=== PATIENT | female | born 1965 | race Hispanic/Latino ===

== ENCOUNTER 2017-08-27 09:41 | Observation (INO) | payer SELFPAY ==
[2017-08-27 10:19] LABS: #Basophils 0.1 thou/uL (0.0-0.2); #Eosinphils 0.3 thou/uL (0.0-0.7); #Lymphocytes 2.5 thou/uL (1.20-3.40); #Monocytes 0.5 thou/uL (0.11-0.59); #Neutrophils 4.4 thou/uL (1.40-6.50); %Eosinophils 4.2 % (0.0-10.0); %Lymphocytes 31.8 % (21.0-51.0); %Monocytes 6.7 % (0.0-10.0); Hematocrit 40.7 % (36.0-47.0); Mean Platelet Volume 8.5 fL (7.4-10.4); Red Blood Cell (RBC) Count 4.86 mill/uL (4.20-5.40); White Blood Cell (WBC) Count 7.8 thou/uL (4.8-10.8)
--- NOTE | 2017-08-27 10:22 | RAD ---
PORTABLE CHEST: Date: 08-27-17 Time: 10:00 a.m. History: Chest pain. FINDINGS: The heart size is normal. No confluent areas of consolidation, pneumothorax, jhony pleural edema or pleural effusions are seen. IMPRESSION: No radiographic evidence of acute cardiopulmonary process. POS: OFF
[2017-08-27 10:44] LABS: ALT (SGPT) 22 U/L (8-55); AST (SGOT) 18 U/L (5-34); Alkaline Phosphatase 128 U/L (40-150); Anion Gap 16 mmol/L (10-20); BUN (Urea Nitrogen) 12 mg/dL (7.0-18.7); Bilirubin, Total 0.4 mg/dL (0.2-1.2); CK (CPK) 30 U/L (29-168); Calc. Creatinine Clearance 0 mL/min (70-130); Calcium 9.8 mg/dL (7.8-10.44); Carbon Dioxide 22 mmol/L (22-29); Chloride 105 mmol/L (98-107); Estimated GFR-MDRD 86; Globulin 3.9 g/dL (2.4-3.5); Lipase 41 U/L (8-78); Protein, Total 8.3 g/dL (6.0-8.3)
[2017-08-27 10:49] LABS: Troponin I Less than 0.010 ng/mL (< 0.028)
--- NOTE | 2017-08-27 10:54 | CT ---
CT OF THE THORAX UTILIZING IV CONTRAST AND 3D REFORMATTED IMAGING AND PE PROTOCOL: COMPARISON: Prior exam dated 07/18/15. FINDINGS: No central or segmental pulmonary embolus is evident. There are mild vascular calcifications involv ing the thoracic aorta. No pathologically enlarged lymph nodes are evident. There are patchy opaci ties seen within the left lower lobe which may reflect subsegmental volume loss; however, early pneu monia cannot be entirely excluded. There is a stable 4 mm pulmonary nodule within the right lower l obe. No new pulmonary nodule is evident. Visualized upper abdomen demonstrates stable splenic artery aneurysm measuring 1.3 cm within the upp er abdomen. No definite acute osseous abnormality is evident. There is scattered degenerative and osteoarthriti c change. IMPRESSION: 1. No central or segmental pulmonary embolus. 2. Patchy ground-glass opacity in the left lower lobe may reflect subsegmental atelectasis; however , early pneumonia cannot be excluded. 3. Benign 4 mm right lower lobe pulmonary nodule. 4. Stable splenic artery aneurysm. POS: STONE
[2017-08-27] MEDS ORDERED: Nitroglycerin 2% Ointment 1 INCH/1 GM Packet ONE (11:15)
--- NOTE | 2017-08-27 12:47 | HP ---
PRIMARY CARE PHYSICIAN: [facility]. REASON FOR ADMISSION: Chest pain/epigastric pain. HISTORY OF PRESENT ILLNESS: A 52-year-old female with a history of diabetes type 2, hypertension, g astroesophageal reflux disease, anxiety and depression, who came to emergency room for complaint of epigastric/substernal chest pain. The patient reports that pain started on Saturday. She was feeli ng nausea, but no vomiting. Predominantly, she has a sharp epigastric pain which radiates to back. She denies any vomiting. She denies any hematemesis, melena or hematochezia. She denies any diarr hea. With movement and with deep breathing, the patient reports that her pain gets worse. When she presented to emergency room, she was hemodynamically stable. In the emergency room, given pleuritic nature, they did CT angio which was negative for pulmonary embolism. Her all routine bloo d tests including CBC, BMP, cardiac enzyme, and BNP came back to normal. Her lipase was also surpri singly normal. Her intensity of pain is about 7/10 when I saw this patient in the emergency room, but she reports t hat whenever she gets sharp pain, the intensity goes to up to 10. After emergency room treatment, t he patient's pain is little bit better, but still she was uncomfortable. She denies any fever. She denies any chills. She denies any UTI symptoms. She does report dyspnea on exertion. Patient reports that she still has her gallbladder in and she never had any stress te st. REVIEW OF SYSTEMS: The following complete review of systems was negative, unless otherwise mentione d in the HPI or below: Constitutional: Weight loss or gain, ability to conduct usual activities. Skin: Rash, itching. Eyes: Double vision, pain. ENT/Mouth: Nose bleeding, neck stiffness, pain, tenderness. Cardiovascular: Palpitations, dyspnea on exertion, orthopnea. Respiratory: Shortness of breath, wheezing, cough, hemoptysis, fever or night sweats. Gastrointestinal: Poor appetite, abdominal pain, heartburn, nausea, vomiting, constipation, or diar tanner. Genitourinary: Urgency, frequency, dysuria, nocturia. Musculoskeletal: Pain, swelling. Neurologic/Psychiatric: Anxiety, depression. Allergy/Immunologic: Skin rash, bleeding tendency. Please see my HPI for pertinent positive and negative. All other review of systems reviewed and neg ative except as mentioned in the HPI. PAST MEDICAL HISTORY: Diabetes type 2, hypertension, dyslipidemia, seizure disorder, mild intermitt ent asthma, history of CVA, and obesity. PAST PSYCHIATRIC HISTORY: Anxiety, depression, and bipolar disorder. PAST SURGICAL HISTORY: Tubal ligation, cyst removed in bilateral axilla, cerebral angiography surge ry on left shoulder and middle finger of the left hand. SOCIAL HISTORY: Patient is not working. She lives at home with the family. No history of tobacco, alcohol or illicit drug abuse. FAMILY HISTORY: No strong family history of premature coronary artery disease, stroke or cancer. ALLERGIES: No known drug allergies. CURRENT HOME MEDICATIONS: The patient does not have any medication with her at this point and she d id not bring all medication, so she reports that there is no change in her previous medication from hospitalization. Based on that record, the patient is on following medications: Ventolin nebulizat ion q.6 hourly p.r.n., amlodipine 5 mg p.o. daily, aspirin 81 mg p.o. daily, Lipitor 10 mg p.o. maría y every hour 2 puff inhalation b.i.d., Neurontin 600 mg t.i.d., Levemir insulin 50 units subcu b.i.d ., Victoza 0.6 mg subcu daily, lisinopril 40 mg p.o. daily, omeprazole 40 mg p.o. daily, tramadol 25 mg p.o. daily. CONTRAINDICATIONS: None. EMERGENCY ROOM COURSE: Patient is given aspirin 325 mg and nitro patch. PHYSICAL EXAMINATION: VITAL SIGNS: On arrival, blood pressure 149/111, pulse 87, respiratory rate 22, temperature 97.8, s aturation 97% on room air, weight 85.7 kilograms. GENERAL: The patient is currently distressed due to abdominal/epigastric and chest discomfort. HEAD: Normocephalic, atraumatic. EYES: Pupils round, reactive to light. Extraocular muscle intact. ENT: Oropharynx within normal limits. Moist mucous membranes. No oral lesions. No pharyngeal roberto thema, no exudate. NECK: Supple. Range of motion is normal. No meningeal signs of irritation. LUNGS: Clear to auscultation without any rhonchi or rales. CARDIAC: S1 and S2 regular without any murmur. CHEST: Chest wall, patient does have vague reproducible chest discomfort, no Noble's sign, no orga nomegaly, no suprapubic tenderness. BACK: Examination unremarkable, no CVA tenderness. EXTREMITIES: Upper extremity passive movements of all joints are normal. Lower extremity, no edema . Good peripheral pulsation. SKIN: No skin rash. HEMATOLOGICAL SYSTEM: No lymphadenopathy. PSYCHIATRIC: Normal affect. IMAGING AND SIGNIFICANT LABORATORY DATA: 1. EKG based on my review reveals normal sinus rhythm without any acute ischemic changes. No schaefer e from previous. CT angiography negative for pulmonary embolism. Chest x-ray negative for any acut e cardiopulmonary process. Recently, echocardiography was done which showed normal EF. 2. CBC: WBC 7.8, hemoglobin 14.0, platelet 295. 3. BMP: Sodium 139, potassium 4.0, chloride 105, carbon dioxide 22, BUN 12, creatinine 0.72, gluco se 189, calcium 9.8. 4. LFT: AST 18, ALT 22, alkaline phosphatase 128, albumin 4.4, lipase 41. CK 30, CK-MB 0.5, tropo katie I less than 0.010, BNP less than 10. ASSESSMENT AND PLAN/IMPRESSION: 1. Acute chest pain/epigastric pain. This patient has some reproducible pain and she had esophagog astroduodenoscopy done in 04/2017, which showed erosive esophagitis with a small hiatal hernia. Giv en her epigastric location of pain, most likely patient has a gastrointestinal etiology. At this po int, I will treat with Protonix 40 mg p.o. b.i.d. and Maalox p.r.n. basis. I will also give her a G I cocktail. Will do serial cardiac enzymes to rule out acute coronary syndrome. This patient never had any cardiac workup including stress test in our hospital. For benefit of doubt, we will also p erform stress test given her risk factor including hypertension, stroke, diabetes. We will check li pid profile tomorrow morning for risk stratification. Meanwhile, we will continue with aspirin 325 mg p.o. daily, nitro patch q.8 hourly. We will keep n.p.o. after midnight for stress test. Diabeti c diet will be given today. 2. Mild intermittent asthma. We will continue albuterol, Ventolin nebulization q.6 hourly p.r.n., and Dulera 2 puffs inhalation b.i.d. 3. Hypertension. We will continue amlodipine 5 mg p.o. daily along with nitro patch q.8 hourly. W e will also continue lisinopril 40 mg p.o. daily if blood pressure permits. 4. Dyslipidemia. We will check lipid profile tomorrow and continue Lipitor 10 mg p.o. daily. 5. Diabetes type 2, insulin requiring. We will continue Levemir 50 units subcutaneously b.i.d., Hu malog insulin as per sliding scale per protocol. Diabetic diet will be given. 6. Diabetic neuropathy/chronic pain disorder. We will continue gabapentin 600 mg t.i.d. as per her home dosage. 7. History of esophagitis as well as history of hiatal hernia and esophageal reflux disease. As me ntioned above, we will continue Protonix 40 mg p.o. b.i.d. 8. Deep venous thrombosis prophylaxis not needed because we are expecting discharge in 24 hours. 9. Gastrointestinal prophylaxis. Patient is already on Protonix therapy. 10. Code status: The patient is FULL CODE. Patient does not have any surrogate decision maker. Disposition and plan based on clinical course. We are expecting patient's stay in hospital 24 hours . During this admission, we will also do right upper quadrant ultrasound to rule out any gallbladde r pathology.
[2017-08-27] MEDS ORDERED: Ondansetron HCl/PF 4 MG/2 ML Vial IVP PRN ×2 (13:06→13:16)
[2017-08-27] MEDS ORDERED: Ondansetron ODT 4 MG TAB PO PRN ×2 (13:06→13:16)
[2017-08-27] MEDS ORDERED: Loratadine 10 MG TAB PO PRN (13:16)
[2017-08-27] MEDS ORDERED: Senokot 8.6 MG TAB PO PRN (13:16)
[2017-08-27] MEDS ORDERED: Acetaminophen 325 MG TAB PO PRN (13:16)
[2017-08-27] MEDS ORDERED: Zolpidem Tartrate 5 MG TAB PO PRN (13:16)
[2017-08-27] MEDS ORDERED: Mag-Al 1200 mg/1200 mg/30 ML UDCUP PO PRN (13:16)
[2017-08-27] MEDS ORDERED: Loperamide HCl 2 MG CAP PO PRN (13:16)
[2017-08-27] MEDS ORDERED: Artificial Tear Sol 15 ML BOT EA EYE PRN (13:16)
[2017-08-27] MEDS ORDERED: Milk Of Magnesia 30 ML UDCUP PO PRN (13:16)
[2017-08-27] MEDS ORDERED: Eucerin (Mineral Oil/Petrolatum,White) 30 gm Jar TOP PRN (13:16)
[2017-08-27] MEDS ORDERED: Sodium Chloride 0.65% Nasal 44 ML BOT EA NARE PRN (13:16)
[2017-08-27] MEDS ORDERED: HumaLOG 300 UNITS/3 ML VIAL SC PRN ×2 (13:16)
[2017-08-27] MEDS ORDERED: Dextrose 50% Abboject 50 ML SYRINGE SLOW IVP PRN (13:16)
[2017-08-27] MEDS ORDERED: Lorazepam 1 MG TAB PO PRN (13:16)
[2017-08-27] MEDS ORDERED: Nitroglycerin 0.4 MG TAB (25 Tab Bottle) SL PRN (13:16)
[2017-08-27] MEDS ORDERED: Albuterol Sulfate 2.5 mg/3 ml Neb NEB PRN (13:16)
[2017-08-27] MEDS ORDERED: Calcium Carbonate 500 MG ChewTAB PO PRN (13:16)
[2017-08-27] MEDS ORDERED: Dextrose 5% in Water 1,000 ML IV PRN (13:16)
[2017-08-27] MEDS ORDERED: Diabetic Tussin 200 MG/10 ML UDCUP PO PRN (13:16)
[2017-08-27 13:20] VITALS: BMI 30.3
[2017-08-27] MEDS: HYDROcodone/Acetaminophen 10/325 mg Tablet PO PRN ×2 (14:03→19:46)
[2017-08-27] MEDS: Nitroglycerin 2% Ointment 1 INCH/1 GM Packet TOP SCH ×2 (14:05→21:38)
[2017-08-27] MEDS: Gabapentin 300 MG CAP PO SCH ×2 (14:05→19:47)
[2017-08-27] MEDS ORDERED: rOPINIRole HCl 2 MG TAB PO PRN (14:14)
[2017-08-27] MEDS ORDERED: Lidocaine 2% Viscous Solution 10 ML, Aluminum & Magnesium Hydroxide 30 ML SSW SCH ×2 (14:30)
[2017-08-27 15:03] LABS: Troponin I Less than 0.010 ng/mL (< 0.028)
[2017-08-27] MEDS ORDERED: FLU VACC QS2017-18 36 mo. & older 0.5 ML SYRINGE IM ONE (15:30)
[2017-08-27] MEDS ORDERED: ISOVUE-370 76%-LOCM 1 ML ONE (16:37)
--- NOTE | 2017-08-27 17:15 | ULT ---
RIGHT UPPER QUADRANT ULTRASOUND: Date: 08-27-17 History: Epigastric abdominal pain. FINDINGS: Limited visualized portions of the pancreas, visualized portions of the IVC, gallbladder, and right kidney demonstrate a normal sonographic appearance. The right kidney measures 11.5 cm in length. Common duct measures 0.5 cm in diameter which is within normal limits. There is increased echogenicity of the liver suggesting fatty infiltration. No focal hepatic lesion is seen. IMPRESSION: 1. Mild fatty infiltration of the liver. 2. No gallbladder calculi are seen. POS: OFF
[2017-08-27 18:08] LABS: Troponin I Less than 0.010 ng/mL (< 0.028)
[2017-08-27] MEDS: Mometasone/Formoterol 120 PUFF INHALER INH SCH (18:48)
[2017-08-27] MEDS ORDERED: Atorvastatin Calcium 10 MG TAB PO SCH (21:00)
[2017-08-27] MEDS ORDERED: ADMIXTURE FEE SC SCH (21:00)
[2017-08-27] MEDS ORDERED: INSULIN DETEMIR SC SCH (21:00)
[2017-08-28] MEDS: Nitroglycerin 2% Ointment 1 INCH/1 GM Packet TOP SCH ×2 (04:36→11:38)
[2017-08-28] MEDS: Mometasone/Formoterol 120 PUFF INHALER INH SCH (06:34)
[2017-08-28] MEDS: HYDROcodone/Acetaminophen 10/325 mg Tablet PO PRN (08:45)
[2017-08-28] MEDS ORDERED: INSULIN DETEMIR SC SCH (09:00)
[2017-08-28] MEDS ORDERED: ADMIXTURE FEE SC SCH (09:00)
[2017-08-28] MEDS ORDERED: Aspirin 325 MG TAB PO SCH (09:00)
[2017-08-28 11:26] VITALS: BP 129/64; TEMP 97.7
[2017-08-28] MEDS: Gabapentin 300 MG CAP PO SCH (11:37)
--- NOTE | 2017-08-28 11:56 | PDOC.PN ---
- Subjective Encounter Start Date: 08/28/17 Encounter Start Time: 11:54 Patient seen and examined. No new complaints. No overnight events - Objective Resuscitation Status: Resuscitation Status FULL:Full Resuscitation MAR Reviewed: Yes Vital Signs & Weight: Vital Signs (12 hours) Temp Pulse Resp BP Pulse Ox 08/28/17 11:37 80 08/28/17 10:45 97.7 F 80 16 129/64 98 08/28/17 07:25 98.0 F 67 16 134/71 97 08/28/17 06:36 100 08/28/17 06:34 65 16 100 08/28/17 04:05 97.9 F 72 14 114/57 L 98 08/28/17 00:50 65 16 117/57 L 96 Weight Weight 193 lb 14.4 oz I&O: 08/27/17 08/28/17 08/29/17 06:59 06:59 06:59 Intake Total 3200 Output Total 2600 Balance 600 Result Diagrams: 08/27/17 10:02 08/27/17 10:02 Additional Labs: Accuchecks 08/28/17 08/28/17 08/27/17 10:53 06:00 19:46 POC Glucose 237 H 182 H 237 H 08/27/17 15:14 POC Glucose 78 Phys Exam - Physical Examination Constitutional: NAD HEENT: PERRLA Neck: no JVD Respiratory: no wheezing Cardiovascular: no significant murmur Gastrointestinal: non-tender Musculoskeletal: pulses present Neurological: moves all 4 limbs Psychiatric: A&O x 3 Dx/Plan (1) Chest pain Code(s): R07.9 - CHEST PAIN, UNSPECIFIED Status: Acute (2) Asthma Code(s): J45.909 - UNSPECIFIED ASTHMA, UNCOMPLICATED Status: Acute (3) Erosive esophagitis Code(s): K22.10 - ULCER OF ESOPHAGUS WITHOUT BLEEDING Status: Acute (4) Acute ischemic left MCA stroke Code(s): I63.512 - CEREB INFRC D/T UNSP OCCLS OR STENOS OF LEFT MID CEREB ART Status: Acute (5) DM2 (diabetes mellitus, type 2) Status: Chronic Qualifiers: (6) HTN (hypertension) Code(s): I10 - ESSENTIAL (PRIMARY) HYPERTENSION Status: Chronic Qualifiers: (7) Seizure disorder Code(s): G40.909 - EPILEPSY, UNSP, NOT INTRACTABLE, WITHOUT STATUS EPILEPTICUS Status: Chronic - Plan * us gall bladder showed no stones * f/u stress test results
[2017-08-28] MEDS ORDERED: Regadenoson 0.4 MG/5 ML SYRINGE ONE (12:00)
[2017-08-28] MEDS ORDERED: Lidocaine 2% Viscous Solution 10 ML, Aluminum & Magnesium Hydroxide 30 ML SSW SCH ×2 (12:30)
--- NOTE | 2017-08-28 13:01 | NM ---
MYOCARDIAL PERFUSION EVALUATION: INDICATIONS: Chest pain. RADIOPHARMACEUTICAL: Technetium 99m sestamibi 31 millicuries IV with stress. Technetium 99m sestamibi 9.8 millicuries IV with rest. FINDINGS: No reversible myocardial perfusion defect is evident when comparing the rest and stress images. The re is normal wall motion and thickening. LVEF is estimated at 65%. Exam is reviewed from 04/30/2009. No appreciable change is noted. IMPRESSION: No evidence of reversible myocardial ischemia. Estimated left ventricular ejection fraction is 65%. POS: STONE
--- NOTE | 2017-08-28 13:15 | DIS ---
DATE OF ADMISSION: 08/27/2017 DATE OF DISCHARGE: 08/28/2017 DIAGNOSES ON DISCHARGE: 1. Chest pain, noncardiac in origin, most probably secondary to erosive esophagitis. 2. Diabetes, stable. 3. Hypertension, stable. 4. Hyperlipidemia, stable. 5. History of seizure, stable. 6. History of cerebrovascular accident, stable. 7. Obesity, patient has been counseled. 8. Erosive esophagitis, stable. 9. Asthma, stable. 10. History of some diabetic neuropathy. 11. Chronic pain disorder. Continue gabapentin. DISCHARGE MEDICATIONS: The patient's discharge medications are the same as admit medications. PROCEDURES PERFORMED: Patient's studies done this hospital stay was a stress test, which showed an ejection fraction of 65%, had no evidence of ischemia. Ultrasound of the gallbladder was done, whic h showed mild fatty infiltration, no gallstones. The patient also had a CTA, which showed no pulmon nabil embolism and showed a benign 4 mm pulmonary nodule. BRIEF HOSPITAL COURSE: This is a 52-year-old pleasant lady who came into the hospital with chest pa in. Please refer to the admitting physician's H\T\P for further details. The patient, as mentioned above, had a CT angio, which was negative for pulmonary embolism; had a stress test, which was nega tive for ischemia and an ejection fraction of 65%. Gallbladder did not show any stones. The patien t's chest pain was probably secondary to noncardiac causes like erosive gastritis. She is again adv ised to follow up with PCP and a GI as an outpatient. She is asked to come back to the emergency ro om if symptoms recur. She is right now medically stable to be discharged. Total time for this discharge took 35 minutes.
== END 2017-08-28 16:27 | disposition home or self-care (01) ==
LOC: ERS 09:41 → 2SW 11:52
PROVIDERS: ADMIT Internal Medicine; ATTEND Internal Medicine
DX: R07.89 Other chest pain (principal); E11.40 Type 2 diabetes mellitus with diabetic neuropathy, unspecified; I10 Essential (primary) hypertension; E78.5 Hyperlipidemia, unspecified; K22.10 Ulcer of esophagus without bleeding; J45.909 Unspecified asthma, uncomplicated; G40.901 Epilepsy, unspecified, not intractable, with status epilepticus; F31.9 Bipolar disorder, unspecified; G89.4 Chronic pain syndrome; E66.9 Obesity, unspecified; Z68.30 Body mass index [BMI] 30.0-30.9, adult; Z91.018 Allergy to other foods; Z79.4 Long term (current) use of insulin; Z79.82 Long term (current) use of aspirin; Z79.891 Long term (current) use of opiate analgesic; Z79.899 Other long term (current) drug therapy; Z86.73 Personal history of transient ischemic attack (TIA), and cerebral infarction without residual deficits
CPT/HCPCS: 36415; 36416; 71010; 71275; 76705; 78452; 80053; 80061; 82553; 83690; 83880; 84484; 85025; 90471; 90682; 93005; 93017; 94664; 96374; A4216; A9500; G0008; G0378; J1815; J2270; J2785; Q2036

== ENCOUNTER 2017-10-30 17:25 | Emergency (ER) | payer SELFPAY ==
[2017-10-30] MEDS ORDERED: HYDROcodone/Acetaminophen 10/325 mg Tablet ONE (19:01)
--- NOTE | 2017-10-30 19:01 | ULT ---
EXAM: RIGHT LOWER EXTREMITY VENOUS ULTRASOUND WITH DOPPLER 10/30/17 HISTORY: Right leg pain. COMPARISON: None. TECHNIQUE: Oglesby scale, color flow, doppler imaging with spectral waveform analysis performed in the right lower extremity venous system. FINDINGS: There is compressibility, presence of flow and augmentation in the common femoral vein, femoral vein, and popliteal vein. Flow in the greater saphenous vein, profunda vein, and posterior tibial vein. In the posterior mid lateral thigh, the region of pain, there is no sonographic abnormality. IMPRESSION: No evidence of thrombus in the right lower extremity deep venous system. POS: STONE
== END 2017-10-30 19:45 | disposition home or self-care (01) ==
LOC: ERS 17:25
DX: M79.651 Pain in right thigh (principal); E78.5 Hyperlipidemia, unspecified; E11.40 Type 2 diabetes mellitus with diabetic neuropathy, unspecified; E66.9 Obesity, unspecified; J45.909 Unspecified asthma, uncomplicated; I10 Essential (primary) hypertension; F31.9 Bipolar disorder, unspecified; F41.9 Anxiety disorder, unspecified; Z79.4 Long term (current) use of insulin; Z79.899 Other long term (current) drug therapy
CPT/HCPCS: 36416

== ENCOUNTER 2018-01-23 18:43 | Emergency (ER) | payer MEDICAID, OTHER, SELFPAY ==
[2018-01-23 20:05] LABS: #Eosinphils 0.1 thou/uL (0.0-0.7); #Monocytes 0.6 thou/uL (0.11-0.59); #Neutrophils 7.2 thou/uL (1.40-6.50); %Basophils 0.3 % (0.0-1.0); %Eosinophils 1.4 % (0.0-10.0); %Lymphocytes 20.1 % (21.0-51.0); %Monocytes 6.3 % (0.0-10.0); %Neutrophils 71.9 % (42.0-75.0); Hemoglobin 13.9 g/dL (12.0-16.0); Mean Corpuscular HGB CONC 35.6 g/dL (32.0-36.0); Mean Corpuscular Hemoglobin 29.5 pg (27.0-31.0); Mean Corpuscular Volume 82.7 fl (81.0-99.0); Mean Platelet Volume 8.5 fL (7.4-10.4); Platelet Count 263 thou/uL (130-400); RBC Distribution Width 11.6 % (11.5-14.5); Red Blood Cell (RBC) Count 4.73 mill/uL (4.20-5.40)
[2018-01-23] MEDS ORDERED: Lidocaine 1% w/Epinephrine 1:100K 20 ML VIAL ONE (20:21)
[2018-01-23 20:24] LABS: Anion Gap 15 mmol/L (10-20); BUN (Urea Nitrogen) 14 mg/dL (7.0-18.7); Calc. Creatinine Clearance 0 mL/min (70-130); Calcium 9.8 mg/dL (7.8-10.44); Carbon Dioxide 24 mmol/L (22-29); Chloride 95 mmol/L (98-107); Estimated GFR-MDRD 64; Glucose 506 mg/dL (70-105); Potassium 4.2 mmol/L (3.5-5.1); Sodium 130 mmol/L (136-145)
== END 2018-01-23 21:53 | disposition home or self-care (01) ==
LOC: ERS 18:43
DX: N75.1 Abscess of Bartholin's gland (principal); E78.5 Hyperlipidemia, unspecified; G40.909 Epilepsy, unspecified, not intractable, without status epilepticus; Z86.73 Personal history of transient ischemic attack (TIA), and cerebral infarction without residual deficits; E11.40 Type 2 diabetes mellitus with diabetic neuropathy, unspecified; E66.9 Obesity, unspecified; I10 Essential (primary) hypertension; F31.9 Bipolar disorder, unspecified; F41.9 Anxiety disorder, unspecified; Z79.4 Long term (current) use of insulin; Z79.899 Other long term (current) drug therapy; Z79.82 Long term (current) use of aspirin
CPT/HCPCS: 36415; 56420; 80048; 85025; 87040; 87070; 87076; 87205; 96374; J2001; J2270

== ENCOUNTER 2018-01-25 08:55 | Inpatient (IN) | payer MEDICAID, OTHER, SELFPAY ==
[2018-01-25 09:50] LABS: #Eosinphils 0.1 thou/uL (0.0-0.7); #Lymphocytes 1.7 thou/uL (1.20-3.40); #Neutrophils 11.2 thou/uL (1.40-6.50); %Eosinophils 0.5 % (0.0-10.0); %Lymphocytes 12.1 % (21.0-51.0); %Monocytes 7.1 % (0.0-10.0); %Neutrophils 80.3 % (42.0-75.0); Hemoglobin 13.9 g/dL (12.0-16.0); Mean Corpuscular HGB CONC 34.8 g/dL (32.0-36.0); Mean Corpuscular Hemoglobin 28.9 pg (27.0-31.0); Mean Platelet Volume 8.2 fL (7.4-10.4); Platelet Count 255 thou/uL (130-400); RBC Distribution Width 11.4 % (11.5-14.5); Red Blood Cell (RBC) Count 4.81 mill/uL (4.20-5.40); White Blood Cell (WBC) Count 13.9 thou/uL (4.8-10.8)
[2018-01-25] MEDS ORDERED: Insulin Regular 300 UNITS/3 ML VIAL ONE (09:55)
[2018-01-25] MEDS ORDERED: Ondansetron HCl/PF 4 MG/2 ML Vial ONE ×2 (09:55→09:56)
[2018-01-25 10:10] LABS: Anion Gap 17 mmol/L (10-20); BUN (Urea Nitrogen) 10 mg/dL (7.0-18.7); Calc. Creatinine Clearance 0 mL/min (70-130); Carbon Dioxide 21 mmol/L (22-29); Chloride 96 mmol/L (98-107); Estimated GFR-MDRD 69; Glucose 411 mg/dL (70-105); Potassium 4.3 mmol/L (3.5-5.1); Sodium 130 mmol/L (136-145)
[2018-01-25 10:21] LABS: Bilirubin Negative (Negative); Blood, Urine Negative (Negative); Clarity CLOUDY (Clear); Glucose, Urine (Dipstick) >=1000 mg/dL (Negative); Leukocyte Small (Negative); Nitrite Negative (Negative); Protein, Urine (Dipstick) Negative (Neg-Trace); Specific Gravity, Urine 1.024 (1.002-1.036); Urobilinogen 0.2 mg/dL (0.2-1.0); pH, Urine 5.5 (5.0-9.0)
[2018-01-25 10:24] LABS: Bacteria/HPF 4+ HPF (None Seen); Hyaline Casts/LPF 0-3 HYALINE CAST LPF (0-3 Hyaline); Pathc Cast-AUWi Flag 0.27 (0-2.49); RBC/HPF None Seen HPF (0-3); Squamous Epithelial 0-3 HPF (0-3); WBC/HPF 21-50 HPF (0-3)
[2018-01-25] MEDS ORDERED: Vancomycin HCl 1.5 GM in Sodium Chloride 0.9% 250 ML 300 ML IVPB SCH (12:00)
[2018-01-25] MEDS ORDERED: cefTRIAXone\\ROCEPHIN 2 GM in Sodium Chloride 0.9% 100 ML IVPB SCH (12:00)
[2018-01-25] MEDS ORDERED: Acetaminophen 500 MG TAB ONE (12:21)
[2018-01-25] MEDS ORDERED: Morphine 2 MG/ML SYRINGE ONE (14:10)
[2018-01-25] MEDS ORDERED: Dextrose 50% Abboject 50 ML SYRINGE SLOW IVP PRN (15:08)
[2018-01-25] MEDS ORDERED: Guaifenesin DM 100-10/5 ML UDCUP PO PRN (15:08)
[2018-01-25] MEDS ORDERED: Dextrose 5% in Water 1,000 ML IV PRN (15:08)
[2018-01-25] MEDS ORDERED: Ondansetron ODT 4 MG TAB PO PRN (15:08)
[2018-01-25] MEDS ORDERED: Enoxaparin Sodium 40 MG/0.4 ML SYRINGE SC SCH (15:30)
[2018-01-25 15:42] VITALS: BMI 29.9
[2018-01-25] MEDS: Sodium Chloride 0.9% 1,000 ML IV SCH (16:00)
[2018-01-25] MEDS: HYDROcodone/Acetaminophen 10/325 mg Tablet PO PRN ×2 (16:30→20:25)
[2018-01-25] MEDS: Famotidine 20 MG TAB PO SCH (20:25)
[2018-01-25] MEDS: Insulin Regular 300 UNITS/3 ML VIAL SC PRN (22:21)
[2018-01-25] MEDS: Ondansetron HCl/PF 4 MG/2 ML Vial IVP PRN (23:36)
[2018-01-26] MEDS: Sodium Chloride 0.9% 1,000 ML IV SCH ×4 (00:07→21:58)
[2018-01-26] MEDS: Vancomycin HCl 1.25 GM in Sodium Chloride 0.9% 250 ML 250 ML IVPB SCH ×3 (00:07→23:24)
[2018-01-26] MEDS: Acetaminophen 325 MG TAB PO PRN ×2 (00:12→19:52)
[2018-01-26 05:03] LABS: Anion Gap 10 mmol/L (10-20); BUN (Urea Nitrogen) 7 mg/dL (7.0-18.7); Calc. Creatinine Clearance 126 mL/min (70-130); Calcium 8.3 mg/dL (7.8-10.44); Carbon Dioxide 23 mmol/L (22-29); Chloride 102 mmol/L (98-107); Estimated GFR-MDRD 84; Glucose 278 mg/dL (70-105); Potassium 3.5 mmol/L (3.5-5.1); Sodium 131 mmol/L (136-145)
[2018-01-26 05:27] LABS: #Lymphocytes 1.6 thou/uL (1.20-3.40); #Monocytes 0.8 thou/uL (0.11-0.59); #Neutrophils 8.7 thou/uL (1.40-6.50); %Basophils 0.3 % (0.0-1.0); %Eosinophils 0.4 % (0.0-10.0); %Lymphocytes 14.7 % (21.0-51.0); %Monocytes 6.8 % (0.0-10.0); %Neutrophils 77.8 % (42.0-75.0); Mean Corpuscular HGB CONC 35.3 g/dL (32.0-36.0); Mean Corpuscular Hemoglobin 29.5 pg (27.0-31.0); Mean Corpuscular Volume 83.7 fl (81.0-99.0); Mean Platelet Volume 8.3 fL (7.4-10.4); PLT Morphology Comment Appears Adequate; Platelet Count 209 thou/uL (130-400); RBC Distribution Width 11.3 % (11.5-14.5); RBC Morphology Normal; Red Blood Cell (RBC) Count 3.74 mill/uL (4.20-5.40); White Blood Cell (WBC) Count 11.2 thou/uL (4.8-10.8)
[2018-01-26] MEDS: Insulin Regular 300 UNITS/3 ML VIAL SC PRN ×3 (06:27→16:08)
[2018-01-26] MEDS: HYDROcodone/Acetaminophen 10/325 mg Tablet PO PRN ×2 (06:37→11:25)
[2018-01-26] MEDS: Ondansetron HCl/PF 4 MG/2 ML Vial IVP PRN ×2 (06:43→13:34)
[2018-01-26] MEDS: Enoxaparin Sodium 40 MG/0.4 ML SYRINGE SC SCH (08:38)
[2018-01-26] MEDS: Famotidine 20 MG TAB PO SCH ×2 (08:39→19:52)
[2018-01-26] MEDS: cefTRIAXone\\ROCEPHIN 2 GM in Sodium Chloride 0.9% 100 ML IVPB SCH (13:59)
--- NOTE | 2018-01-26 14:00 | PDOC.PN ---
- Subjective Encounter Start Date: 01/26/18 Encounter Start Time: 11:45 Pt with less pain overnight, but starting to have chills. 102.9 last evneing, 101 today, minimla drainage from wound No N/V, no D/C, no CP or SOB. Gram Stain of abscess with GNR seen, UCx with GNR growing. 10 point ROS performed and neg for all systems except as per HPI - Objective Resuscitation Status: Resuscitation Status FULL:Full Resuscitation MAR Reviewed: Yes Vital Signs & Weight: Vital Signs (12 hours) Temp Pulse Resp BP Pulse Ox 01/26/18 11:30 99.5 F 91 20 131/69 95 01/26/18 08:00 101.1 F H 97 32 H 01/26/18 07:20 101.1 F H 97 32 H 139/65 98 01/26/18 03:40 100.0 F H 96 16 128/66 96 Weight Weight 191 lb I&O: 01/25/18 01/26/18 01/27/18 06:59 06:59 06:59 Intake Total 390 1979 Output Total 250 Balance 140 1979 Result Diagrams: 01/26/18 03:59 01/26/18 03:59 Additional Labs: Accuchecks 01/26/18 01/26/18 01/25/18 11:10 05:55 20:55 POC Glucose 231 H 252 H 359 H 01/25/18 16:15 POC Glucose 249 H Radiology Reviewed by me: Yes EKG Reviewed by me: Yes Phys Exam - Physical Examination Constitutional: NAD HEENT: PERRLA, moist MMs, sclera anicteric, oral pharynx no lesions Neck: no nodes, no JVD, supple, full ROM Respiratory: no wheezing, no rales, no rhonchi, clear to auscultation bilateral Cardiovascular: RRR, no significant murmur, no rub Gastrointestinal: soft, non-tender, no distention, positive bowel sounds Musculoskeletal: no edema, pulses present Neurological: non-focal, normal sensation, moves all 4 limbs Lymphatic: no nodes Psychiatric: normal affect, A&O x 3 Skin: no rash, normal turgor, cap refill <2 seconds Deviation from normal: right inginal I&D wound with gauze wick in place. tender , minimal drainage Dx/Plan (1) Abscess of right thigh Code(s): L02.415 - CUTANEOUS ABSCESS OF RIGHT LOWER LIMB Status: Acute Comment: s/p I&D 01/23 in ER, and again on 01/25 in ER. inital grams stain and culture neg to date. repeat with GNR seen on grams stain. CCM with CTX and rocephin for now (2) Asthma Code(s): J45.909 - UNSPECIFIED ASTHMA, UNCOMPLICATED Status: Acute Qualifiers: Asthma severity: unspecified severity Asthma complication type: unspecified (3) DM2 (diabetes mellitus, type 2) Status: Chronic Qualifiers: Diabetes mellitus complication status: without complication Diabetes mellitus assisted insulin use: without assisted use Qualified Code(s): E11.9 - Type 2 diabetes mellitus without complications (4) HTN (hypertension) Code(s): I10 - ESSENTIAL (PRIMARY) HYPERTENSION Status: Chronic Qualifiers: Hypertension type: essential hypertension (5) Seizure disorder Code(s): G40.909 - EPILEPSY, UNSP, NOT INTRACTABLE, WITHOUT STATUS EPILEPTICUS Status: Chronic (6) Sepsis Code(s): A41.9 - SEPSIS, UNSPECIFIED ORGANISM Status: Acute Qualifiers: Sepsis type: sepsis due to unspecified organism Qualified Code(s): A41.9 - Sepsis, unspecified organism (7) UTI (urinary tract infection) Status: Acute Qualifiers: Urinary tract infection type: acute cystitis Hematuria presence: without hematuria Qualified Code(s): N30.00 - Acute cystitis without hematuria Comment: GNR on culture, no symptoms, will continue CCM - Plan * .
[2018-01-26] MEDS: HYDROcodone/Acetaminophen 5/325 mg Tablet PO PRN (16:12)
[2018-01-26] MEDS ORDERED: Promethazine HCl 25 MG/ML VIAL SLOW IVP PRN (20:56)
[2018-01-27] MEDS: Insulin Regular 300 UNITS/3 ML VIAL SC PRN ×3 (05:11→17:02)
[2018-01-27 05:50] LABS: #Basophils 0.1 thou/uL (0.0-0.2); #Eosinphils 0.2 thou/uL (0.0-0.7); #Lymphocytes 1.9 thou/uL (1.20-3.40); #Monocytes 0.6 thou/uL (0.11-0.59); #Neutrophils 4.7 thou/uL (1.40-6.50); %Basophils 0.8 % (0.0-1.0); %Eosinophils 2.3 % (0.0-10.0); %Lymphocytes 25.1 % (21.0-51.0); %Monocytes 8.3 % (0.0-10.0); %Neutrophils 63.4 % (42.0-75.0); Hemoglobin 9.9 g/dL (12.0-16.0); Mean Corpuscular HGB CONC 34.3 g/dL (32.0-36.0); Mean Corpuscular Hemoglobin 28.7 pg (27.0-31.0); Mean Corpuscular Volume 83.9 fl (81.0-99.0); Platelet Count 189 thou/uL (130-400); RBC Distribution Width 11.1 % (11.5-14.5); Red Blood Cell (RBC) Count 3.46 mill/uL (4.20-5.40); White Blood Cell (WBC) Count 7.5 thou/uL (4.8-10.8)
[2018-01-27] MEDS: Sodium Chloride 0.9% 1,000 ML IV SCH ×2 (06:21→17:30)
[2018-01-27 06:45] LABS: Anion Gap 11 mmol/L (10-20); BUN (Urea Nitrogen) 4 mg/dL (7.0-18.7); Calc. Creatinine Clearance 139 mL/min (70-130); Calcium 7.9 mg/dL (7.8-10.44); Carbon Dioxide 23 mmol/L (22-29); Chloride 105 mmol/L (98-107); Estimated GFR-MDRD Greater than 90; Glucose 227 mg/dL (70-105); Potassium 3.5 mmol/L (3.5-5.1); Sodium 135 mmol/L (136-145)
--- NOTE | 2018-01-27 07:28 | HP ---
DATE OF ADMISSION: 01/25/2018 PRIMARY CARE PHYSICIAN: Deborah Salter. CHIEF COMPLAINT: Right leg abscess. HISTORY OF PRESENT ILLNESS: Ms. Gamboa is a pleasant 52-year-old female, who had pres ented to the emergency department originally on 01/23 for right thigh pain and redness. She was foun d to have a small abscess there that was I and D'd. They were able to get some purulence and culture s from the emergency department. She was placed on clindamycin and sent home. At that time, she has been afebrile, and her labs have been normal. She comes back to the emergency department on the day of admission, complains of increased pain, incr eased swelling, and drainage from her wound. She had fever over 102 at home and some nausea with vom iting. She denies any shaking chills or rigors, although she was having them in the ER. No diarrhea or constipation. She had no problems tolerating her clindamycin. Emergency Department, she had a repeat incision and drainage with another 5 mL of purulence removed. Culture was sent again and we were called for admission. She had received vancomycin and Rocephin. Further workup did show her white blood cell count to be elevated at 13.9, she is febrile and tachyca rdic, urine was consistent with a possible UTI. She denied any hematuria, dysuria, or increased freq uency or urgency. PAST MEDICAL HISTORY: 1. Diabetes mellitus, type 2, insulin-dependent. 2. Hyperlipidemia, primary cholesterol. 3. Epilepsy/seizure disorder. 4. Hypertension. 5. Asthma. 6. History of a stroke with left-sided deficits, left upper and lower extremity. 7. Obesity. 8. Peripheral neuropathy. 9. Restless legs syndrome. 10. Bipolar disorder. 11. Anxiety. 12. Depression. PAST SURGICAL HISTORY: 1. Bilateral tubal ligation, remotely. 2. Bilateral axillary cyst removal. She denies any recurrence or symptoms of hidradenitis. 3. Left shoulder surgery. 4. Left long finger surgery. HOME MEDICATIONS: 1. Levemir 45 units subcu b.i.d. 2. Depakote ER 1 gram daily. 3. Gabapentin 300 mg p.o. t.i.d. 4. Xopenex 0.3 mg nebulized as needed. 5. Citalopram 20 mg p.o. daily. 6. Lisinopril/HCTZ 20/25 one tablet daily. 7. Proventil MDI as needed. 8. Requip 2 mg at bedtime. 9. Trazodone 100 mg p.o. at bedtime. 10. Amlodipine 5 mg daily. 11. Victoza 0.6 mg subcu daily. 12. Aspirin 81 mg daily. 13. Lipitor 10 mg at bedtime. 14. Omeprazole 40 mg daily. 15. Trazodone as needed for sleep. 16. Clindamycin 300 mg p.o. q.i.d. ALLERGIES: NKDA. FAMILY HISTORY: Negative for clotting or bleeding disorder, immune dysfunction, or premature coronar y artery disease. SOCIAL HISTORY: Negative habits x3. REVIEW OF SYSTEMS: A 10-point review of systems was performed, negative for all systems except as st ated as per HPI. PHYSICAL EXAMINATION: VITAL SIGNS: Temperature currently 98.6, T-max in the ER 99.7; pulse, initially was 102, now down to 94; blood pressure 136/77; respiratory rate 18; satting 97% on room air. GENERAL: She is awake. She is alert. She is oriented x3. She is a well-developed, well-nourished [place] female. She is having rigors during my evaluation. HEENT: Normocephalic, atraumatic. Pupils are equal, round, and reactive bilaterally. Mucous membra sanaz are moist. She had no visible lesions or thrush. NECK: Supple, without lymphadenopathy, JVD, or thyromegaly. She has no carotid upstrokes without br uits. LUNGS: Clear. CARDIOVASCULAR: Heart sounds are regular. She had no audible murmurs. ABDOMEN: Soft, is nontender, nondistended. No masses and no organomegaly. EXTREMITIES: No cyanosis, no clubbing, no edema. Left medial thigh, she has got some induration and swelling. Right at the inguinal fold, just next to the vulva, she has an incision and drainage site with an iodoform wick. She has got exquisite tenderness around the area, but there is no subcu crep itus and no drainage. She has no muscle tenderness. NEUROLOGIC EXAM: Cranial nerves II-XII are grossly intact. She has some mild left upper and lower e xtremity weakness, but overall has no other focal deficits. SKIN: She has normal speech pattern. MUSCULOSKELETAL EXAM: Normal to inspection. Joints are uninflamed. She has good range of motion. She does not move her left leg well due to pain in the tissues, but not in the joint itself. SKIN: Otherwise, warm, moist, and well perfused without any other rashes or lesions. LABORATORY DATA: Sodium 130, potassium 4.3, chloride 96, bicarbonate 21, BUN 10, creatinine 0.87, gl ucose of 411, and calcium 10.0. Lactic acid normal at 1.5. Liver function within normal limits. CBC showed a white count of 13.9, up from 10.0 two days ago; hemoglobin 13.9; hematocrit 39.9; platel et count is 255,000. She has a normal differential, no bands. Urinalysis showed 4+ bacteria, 20-50 white blood cells, small leukocyte esterase, and negative nitrit e. RADIOGRAPHIC STUDIES: None. A culture from 01/23 is negative so far. Gram stain negative. A repeat culture has been sent. ASSESSMENT AND PLAN: 1. Right inguinal abscess: Status post repeat I and D. She is only on clindamycin. Given the loca tion, certainly gastrointestinal bugs need to be taken into consideration. She was started on vancom ycin and Rocephin in the ER, which I will continue for now. We will follow up on a repeat culture an d Gram stain. 2. Sepsis syndrome: She is tachycardic, febrile, elevated white count, and source of infection. We will go ahead and give her the 30 mL per kilo IV fluids, and watch her closely. 3. Possible urinary tract infection: She has no symptoms, certainly has bacteriuria and pyuria. Th e Rocephin she is on should cover that. We will follow up on the culture. 4. Diabetes mellitus, type 2, independent. Once she is eating reliably, we will restart all of her home medications. 5. Hyperlipidemia. 6. Seizure disorder, on Depakote ER. We will continue. 7. Hypertension, essential. 8. Asthma without acute flare. 9. History of stroke. No current new symptoms. 10. Restless legs syndromes. 11. Peripheral neuropathy. Continue home medications.
[2018-01-27] MEDS: Enoxaparin Sodium 40 MG/0.4 ML SYRINGE SC SCH (08:28)
[2018-01-27] MEDS: Famotidine 20 MG TAB PO SCH ×2 (08:30→20:11)
[2018-01-27] MEDS: HYDROcodone/Acetaminophen 10/325 mg Tablet PO PRN ×3 (09:33→20:11)
[2018-01-27] MEDS: Vancomycin HCl 1.25 GM in Sodium Chloride 0.9% 250 ML 250 ML IVPB SCH ×2 (12:03→23:29)
[2018-01-27] MEDS: Acetaminophen 325 MG TAB PO PRN (12:27)
[2018-01-27] MEDS: cefTRIAXone\\ROCEPHIN 2 GM in Sodium Chloride 0.9% 100 ML IVPB SCH (14:15)
--- NOTE | 2018-01-27 16:23 | PDOC.PN ---
- Subjective Encounter Start Date: 01/27/18 Encounter Start Time: 08:30 - Objective Resuscitation Status: Resuscitation Status FULL:Full Resuscitation MAR Reviewed: Yes Vital Signs & Weight: Vital Signs (12 hours) Temp Pulse Resp BP Pulse Ox 01/27/18 16:00 98.2 F 01/27/18 12:20 99.9 F H 01/27/18 08:00 99.8 F H 82 20 93 L 01/27/18 07:25 99.8 F H 82 20 133/66 93 L Weight Admit Weight 191 lb Weight 191 lb I&O: 01/26/18 01/27/18 01/28/18 06:59 06:59 06:59 Intake Total 390 3960 Output Total 250 Balance 140 3960 Result Diagrams: 01/27/18 05:28 01/27/18 05:28 Additional Labs: Accuchecks 01/27/18 01/27/18 01/27/18 15:57 12:15 05:06 POC Glucose 207 H 271 H 252 H 01/26/18 20:03 POC Glucose 178 H Phys Exam - Physical Examination Constitutional: NAD HEENT: PERRLA, moist MMs, sclera anicteric, oral pharynx no lesions Neck: no nodes, no JVD, supple, full ROM Respiratory: no wheezing, no rales, no rhonchi, clear to auscultation bilateral Cardiovascular: RRR, no significant murmur, no rub Gastrointestinal: soft, non-tender, no distention, positive bowel sounds Musculoskeletal: no edema, pulses present Neurological: non-focal, normal sensation, moves all 4 limbs Lymphatic: no nodes Psychiatric: normal affect, A&O x 3 Skin: no rash, normal turgor, cap refill <2 seconds Deviation from normal: tenderness inches from site, exquisite. no crepitus Dx/Plan (1) Abscess of right thigh Code(s): L02.415 - CUTANEOUS ABSCESS OF RIGHT LOWER LIMB Status: Acute Comment: s/p I&D 01/23 in ER, and again on 01/25 in ER. inital grams stain and culture neg to date. repeat with GNR seen on grams stain. CCM with vanc and rocephin for now (2) Asthma Code(s): J45.909 - UNSPECIFIED ASTHMA, UNCOMPLICATED Status: Acute Qualifiers: Asthma severity: unspecified severity Asthma complication type: unspecified (3) DM2 (diabetes mellitus, type 2) Status: Chronic Qualifiers: Diabetes mellitus complication status: without complication Diabetes mellitus terminal system operator insulin use: without correction use Qualified Code(s): E11.9 - Type 2 diabetes mellitus without complications (4) HTN (hypertension) Code(s): I10 - ESSENTIAL (PRIMARY) HYPERTENSION Status: Chronic Qualifiers: Hypertension type: essential hypertension (5) Seizure disorder Code(s): G40.909 - EPILEPSY, UNSP, NOT INTRACTABLE, WITHOUT STATUS EPILEPTICUS Status: Chronic (6) Sepsis Code(s): A41.9 - SEPSIS, UNSPECIFIED ORGANISM Status: Acute Qualifiers: Sepsis type: sepsis due to unspecified organism Qualified Code(s): A41.9 - Sepsis, unspecified organism (7) UTI (urinary tract infection) Status: Acute Qualifiers: Urinary tract infection type: acute cystitis Hematuria presence: without hematuria Qualified Code(s): N30.00 - Acute cystitis without hematuria Comment: GNR on culture, no symptoms, will continue CCM - Plan * .
[2018-01-27] MEDS ORDERED: ISOVUE-370 76%-LOCM 1 ML ONE (16:24)
[2018-01-27] MEDS ORDERED: Iopamidol 370 76% 50 ML VIAL FS ONE (16:24)
--- NOTE | 2018-01-27 18:12 | CT ---
CT ABDOMEN AND PELVIS WITH IV CONTRAST: Date: 01/27/18 Multiple axial tomograms obtained through the abdomen and pelvis with IV enhancement. Oral contrast w as administered. HISTORY: Right groin abscess. Surgery to remove abscess right groin 1 week ago. Complains of pain since surgery. COMPARISON: CT abdomen from 08/04/17. FINDINGS: Lung bases appear clear. Liver, spleen, and pancreas are unremarkable. Adrenal glands normal. Kidneys unremarkable. No hydrone phrosis. Small bowel loops appear normal. Appendix appears normal. Stool throughout the colon. Uterus and adnexa appear unremarkable. There is evidence of prior tubal ligation. Tiny amount of free fluid in the cul-de-sac. Urinary bladder unremarkable. Haziness and subcutaneous stranding in the perineum on the right which extends to the labia and media l right upper thigh consistent with inflammatory change. This appears to represent edema and inflamma tion. There is no evidence of localized fluid or abscess collection. IMPRESSION: 1. Inflammatory changes in the perineum on the right and involving the proximal right thigh medially and possibly involving the right labia. No evidence of fluid or abscess collection. 2. No acute intra-abdominal process. Tiny amount of free fluid in the cul-de-sac noted. POS: [facility]
[2018-01-27 23:24] LABS: Vancomycin, Trough 9.4 ug/mL
[2018-01-28] MEDS: Sodium Chloride 0.9% 1,000 ML IV SCH ×3 (03:30→23:40)
[2018-01-28] MEDS: Acetaminophen 325 MG TAB PO PRN (03:35)
[2018-01-28 05:48] LABS: #Eosinphils 0.3 thou/uL (0.0-0.7); #Lymphocytes 1.7 thou/uL (1.20-3.40); #Monocytes 0.5 thou/uL (0.11-0.59); #Neutrophils 4.5 thou/uL (1.40-6.50); %Basophils 0.4 % (0.0-1.0); %Eosinophils 4.8 % (0.0-10.0); %Lymphocytes 23.5 % (21.0-51.0); %Monocytes 6.9 % (0.0-10.0); %Neutrophils 64.4 % (42.0-75.0); Hemoglobin 10.1 g/dL (12.0-16.0); Mean Corpuscular HGB CONC 34.1 g/dL (32.0-36.0); Mean Corpuscular Hemoglobin 28.6 pg (27.0-31.0); Mean Corpuscular Volume 83.8 fl (81.0-99.0); Mean Platelet Volume 8.1 fL (7.4-10.4); Platelet Count 226 thou/uL (130-400); RBC Distribution Width 11.3 % (11.5-14.5); Red Blood Cell (RBC) Count 3.52 mill/uL (4.20-5.40)
[2018-01-28 05:55] LABS: Anion Gap 11 mmol/L (10-20); BUN (Urea Nitrogen) 4 mg/dL (7.0-18.7); Calc. Creatinine Clearance 135 mL/min (70-130); Carbon Dioxide 22 mmol/L (22-29); Chloride 104 mmol/L (98-107); Estimated GFR-MDRD Greater than 90; Glucose 273 mg/dL (70-105); Magnesium 1.9 mg/dL (1.6-2.6); Potassium 3.8 mmol/L (3.5-5.1); Sodium 133 mmol/L (136-145)
[2018-01-28] MEDS: Insulin Regular 300 UNITS/3 ML VIAL SC PRN ×3 (06:20→20:12)
[2018-01-28] MEDS: Famotidine 20 MG TAB PO SCH ×2 (08:37→20:12)
[2018-01-28] MEDS: Ampicillin/Sulbactam 3 GM, Admixture Fee 1 EACH in Sodium Chloride 0.9% 100 ML IVPB SCH ×3 (08:37→20:13)
[2018-01-28] MEDS: Enoxaparin Sodium 40 MG/0.4 ML SYRINGE SC SCH (08:39)
[2018-01-28] MEDS: HYDROcodone/Acetaminophen 10/325 mg Tablet PO PRN ×4 (08:52→23:43)
[2018-01-28] MEDS ORDERED: rOPINIRole HCl 2 MG TAB PO PRN (11:16)
[2018-01-28] MEDS ORDERED: Lisinopril/Hydrochlorothiazide 20/25 mg Tablet PO SCH (11:30)
[2018-01-28] MEDS ORDERED: Amlodipine 5 MG TAB PO SCH (11:30)
[2018-01-28] MEDS: Gabapentin 300 MG CAP PO SCH ×2 (14:19→20:12)
--- NOTE | 2018-01-28 15:49 | PDOC.PN ---
- Subjective Encounter Start Date: 01/28/18 Encounter Start Time: 16:00 Pt feeling better, pain better, had a spell where she fell off of the toilet, no syncope or presyncope, no head injury Febrile earlier tot 101.4, but quickly resolved. WCx with E faecalis, UCx with kleb, past WCX now positive for Prevetella. NO Chills or rigors, no N/V/d/c, no CP or sOB, prashanth po. 10 point ROS performed and neg for all systems exept as above - Objective Resuscitation Status: Resuscitation Status FULL:Full Resuscitation MAR Reviewed: Yes Vital Signs & Weight: Vital Signs (12 hours) Temp Pulse Resp BP Pulse Ox 01/28/18 12:38 75 01/28/18 12:36 75 01/28/18 11:30 98.2 F 75 18 138/71 96 01/28/18 08:00 97.9 F 79 20 95 01/28/18 07:10 97.9 F 79 20 172/79 H 95 Weight Admit Weight 191 lb Weight 191 lb I&O: 01/27/18 01/28/18 01/29/18 06:59 06:59 06:59 Intake Total 3960 2075 Balance 3960 2075 Result Diagrams: 01/28/18 05:25 01/28/18 05:25 Additional Labs: Accuchecks 01/28/18 01/28/18 01/27/18 11:27 05:25 20:23 POC Glucose 209 H 272 H 220 H 01/27/18 15:57 POC Glucose 207 H Radiology Reviewed by me: Yes Phys Exam - Physical Examination Constitutional: NAD HEENT: PERRLA, moist MMs, sclera anicteric, oral pharynx no lesions Neck: no nodes, no JVD, supple, full ROM Respiratory: no wheezing, no rales, no rhonchi, clear to auscultation bilateral Cardiovascular: RRR, no significant murmur, no rub Gastrointestinal: soft, non-tender, no distention, positive bowel sounds Musculoskeletal: no edema, pulses present Neurological: non-focal, normal sensation, moves all 4 limbs Lymphatic: no nodes Psychiatric: normal affect, A&O x 3 Skin: no rash, normal turgor, cap refill <2 seconds Deviation from normal: right medial thigh less tender, less drainage, no fluctuance Dx/Plan (1) Abscess of right thigh Code(s): L02.415 - CUTANEOUS ABSCESS OF RIGHT LOWER LIMB Status: Acute Comment: s/p I&D 01/23 in ER, and again on 01/25 in ER. inital grams stain and culture neg to date. repeat with GNR seen on grams stain. trnasition to Unasyn given anaerobes in old culture, enterococcus in new culture and no sign of MRSA, stop Vanc and rocephin (2) Asthma Code(s): J45.909 - UNSPECIFIED ASTHMA, UNCOMPLICATED Status: Acute Qualifiers: Asthma severity: unspecified severity Asthma complication type: unspecified (3) DM2 (diabetes mellitus, type 2) Status: Chronic Qualifiers: Diabetes mellitus complication status: without complication Diabetes mellitus custodial insulin use: without custodial use Qualified Code(s): E11.9 - Type 2 diabetes mellitus without complications (4) HTN (hypertension) Code(s): I10 - ESSENTIAL (PRIMARY) HYPERTENSION Status: Chronic Qualifiers: Hypertension type: essential hypertension (5) Seizure disorder Code(s): G40.909 - EPILEPSY, UNSP, NOT INTRACTABLE, WITHOUT STATUS EPILEPTICUS Status: Chronic (6) Sepsis Code(s): A41.9 - SEPSIS, UNSPECIFIED ORGANISM Status: Acute Qualifiers: Sepsis type: sepsis due to unspecified organism Qualified Code(s): A41.9 - Sepsis, unspecified organism (7) UTI (urinary tract infection) Status: Acute Qualifiers: Urinary tract infection type: acute cystitis Hematuria presence: without hematuria Qualified Code(s): N30.00 - Acute cystitis without hematuria Comment: GNR on culture, no symptoms, will continue CCM - Plan * .
[2018-01-28] MEDS: Insulin Detemir 100 UNITS/ML 50 UNITS in Pre-Filled Syringe 1 EACH SC SCH (20:11)
[2018-01-28] MEDS ORDERED: Atorvastatin Calcium 10 MG TAB PO SCH (21:00)
[2018-01-28] MEDS ORDERED: Docusate 100 MG CAP PO PRN (22:01)
[2018-01-28] MEDS ORDERED: Senokot 8.6 MG TAB PO PRN (22:02)
[2018-01-29] MEDS: Ampicillin/Sulbactam 3 GM, Admixture Fee 1 EACH in Sodium Chloride 0.9% 100 ML IVPB SCH ×3 (02:10→16:54)
[2018-01-29] MEDS: HYDROcodone/Acetaminophen 10/325 mg Tablet PO PRN ×2 (05:55→08:47)
[2018-01-29] MEDS: Insulin Regular 300 UNITS/3 ML VIAL SC PRN (05:55)
[2018-01-29] MEDS: Gabapentin 300 MG CAP PO SCH ×2 (08:17→16:53)
[2018-01-29] MEDS: Famotidine 20 MG TAB PO SCH (08:17)
[2018-01-29] MEDS: Enoxaparin Sodium 40 MG/0.4 ML SYRINGE SC SCH (08:20)
[2018-01-29] MEDS: Insulin Detemir 100 UNITS/ML 50 UNITS in Pre-Filled Syringe 1 EACH SC SCH (08:20)
[2018-01-29] MEDS: Sodium Chloride 0.9% 1,000 ML IV SCH ×2 (08:22→16:54)
[2018-01-29] MEDS ORDERED: Polyethylene Glycol 3350 17 GM Packet PO SCH (09:00)
[2018-01-29] MEDS ORDERED: Liraglutide [Victoza 3-Pak] 1.8 MG SC SCH (09:00)
[2018-01-29] MEDS ORDERED: Amlodipine 5 MG TAB PO SCH (09:00)
[2018-01-29] MEDS ORDERED: Lisinopril/Hydrochlorothiazide 20/25 mg Tablet PO SCH (09:00)
[2018-01-29 11:48] VITALS: BP 118/63; TEMP 98
[2018-01-29] MEDS: HYDROcodone/Acetaminophen 5/325 mg Tablet PO PRN (16:52)
== END 2018-01-29 16:57 | disposition home or self-care (01) | DRG 872 ==
LOC: ERS 08:55 → 2SW 13:21 → OBSVTOIN 13:21 → ONC 18:17
PROVIDERS: ADMIT Internal Medicine Infectious Disease; ATTEND Internal Medicine Infectious Disease
PROC: 0Y9C0ZZ Drainage of Right Upper Leg, Open Approach (ICD-10-PCS; principal; 2018-01-25)
DX: A41.9 Sepsis, unspecified organism (principal); L02.415 Cutaneous abscess of right lower limb; N30.00 Acute cystitis without hematuria; E11.42 Type 2 diabetes mellitus with diabetic polyneuropathy; E78.5 Hyperlipidemia, unspecified; G40.909 Epilepsy, unspecified, not intractable, without status epilepticus; I10 Essential (primary) hypertension; J45.909 Unspecified asthma, uncomplicated; G25.81 Restless legs syndrome; E66.9 Obesity, unspecified; F31.9 Bipolar disorder, unspecified; F41.9 Anxiety disorder, unspecified; Z68.29 Body mass index [BMI] 29.0-29.9, adult; B96.1 Klebsiella pneumoniae [K. pneumoniae] as the cause of diseases classified elsewhere; B95.2 Enterococcus as the cause of diseases classified elsewhere; Z86.73 Personal history of transient ischemic attack (TIA), and cerebral infarction without residual deficits; Z79.82 Long term (current) use of aspirin; Z79.4 Long term (current) use of insulin; Z79.899 Other long term (current) drug therapy
CPT/HCPCS: 10060; 36415; 36416; 51701; 56420; 74177; 80048; 80202; 81003; 81015; 83605; 83735; 85025; 87040; 87070; 87076; 87077; 87086; 87186; 87205; 87804; 96361; 96365; 96366; 96367; 96372; 96374; 96375; A4216; A4353; J0295; J0696; J1650; J1815; J2001; J2270; J2405; J2550; J3370; J7050; Q0162

== ENCOUNTER 2018-03-04 13:39 | Emergency (ER) | payer OTHER ==
[2018-03-04] MEDS ORDERED: Ketorolac Tromethamine 60 MG/2 ML VIAL ONE (14:27)
[2018-03-04] MEDS ORDERED: predniSONE 20 MG TAB ONE (14:27)
--- NOTE | 2018-03-04 15:06 | RAD ---
SINGLE VIEW OF THE CHEST: COMPARISON: 08/27/17. HISTORY: Cough and congestion since last week. Shortness of breath. FINDINGS: Single view of the chest shows a normal sized cardiomediastinal silhouette. There is no evidence of c onsolidation, mass, or pleural effusion. Bone anchors are seen in the left humerus from prior left sh oulder surgery. IMPRESSION: No evidence of acute cardiopulmonary disease. POS: [facility]
== END 2018-03-04 16:10 | disposition home or self-care (01) ==
LOC: ERS 13:39
DX: J45.901 Unspecified asthma with (acute) exacerbation (principal); E78.5 Hyperlipidemia, unspecified; E11.9 Type 2 diabetes mellitus without complications; I10 Essential (primary) hypertension; E66.9 Obesity, unspecified; G40.909 Epilepsy, unspecified, not intractable, without status epilepticus; F31.9 Bipolar disorder, unspecified; Z86.73 Personal history of transient ischemic attack (TIA), and cerebral infarction without residual deficits; Z79.899 Other long term (current) drug therapy; Z79.4 Long term (current) use of insulin; Z79.82 Long term (current) use of aspirin
CPT/HCPCS: 71045; 93005; 94640; 96372; J1885; J7506; J7620

== ENCOUNTER 2018-05-13 11:33 | Outpatient (CLI) | payer MEDICAID | END 2018-05-13 11:34 | disposition home or self-care (01) | LOC: BICMAMMO 11:33 | PROVIDERS: ATTEND Nurse Practitioner Family | DX: Z12.31 Encounter for screening mammogram for malignant neoplasm of breast (principal); N64.89 Other specified disorders of breast; Z80.3 Family history of malignant neoplasm of breast | CPT/HCPCS: 77067 ==

== ENCOUNTER 2018-06-16 20:18 | Emergency (ER) | payer MEDICAID, OTHER ==
[2018-06-16 20:51] LABS: #Basophils 0.1 thou/uL (0.0-0.2); #Eosinphils 0.3 thou/uL (0.0-0.7); #Lymphocytes 3.2 thou/uL (1.20-3.40); #Monocytes 0.5 thou/uL (0.11-0.59); #Neutrophils 5.6 thou/uL (1.40-6.50); %Basophils 0.8 % (0.0-1.0); %Eosinophils 3.6 % (0.0-10.0); %Lymphocytes 32.6 % (21.0-51.0); %Monocytes 5.3 % (0.0-10.0); %Neutrophils 57.7 % (42.0-75.0); Hemoglobin 12.6 g/dL (12.0-16.0); Mean Corpuscular HGB CONC 36.8 g/dL (32.0-36.0); Mean Corpuscular Hemoglobin 29.9 pg (27.0-31.0); Mean Corpuscular Volume 81.2 fL (78.0-98.0); Mean Platelet Volume 7.9 fL (7.4-10.4); Platelet Count 310 thou/uL (130-400); RBC Distribution Width 11.9 % (11.5-14.5); Red Blood Cell (RBC) Count 4.22 mill/uL (4.20-5.40); White Blood Cell (WBC) Count 9.7 thou/uL (4.8-10.8)
[2018-06-16 21:03] LABS: ALT (SGPT) 26 U/L (8-55); AST (SGOT) 17 U/L (5-34); Albumin 4.4 g/dL (3.5-5.0); Alkaline Phosphatase 118 U/L (40-150); Anion Gap 17 mmol/L (10-20); BUN (Urea Nitrogen) 18 mg/dL (9.8-20.1); Bilirubin, Total 0.4 mg/dL (0.2-1.2); CK (CPK) 37 U/L (29-168); Calc. Creatinine Clearance 0 mL/min (70-130); Calcium 9.7 mg/dL (7.8-10.44); Carbon Dioxide 20 mmol/L (22-29); Chloride 99 mmol/L (98-107); Estimated GFR-MDRD 52; Globulin 3.8 g/dL (2.4-3.5); Glucose 520 mg/dL (70-105); Potassium 4.3 mmol/L (3.5-5.1); Protein, Total 8.2 g/dL (6.0-8.3); Sodium 132 mmol/L (136-145)
[2018-06-16 21:05] LABS: CKMB 0.5 ng/mL (0-6.6); Troponin I Less than 0.010 ng/mL (< 0.028)
[2018-06-16] MEDS ORDERED: Nitroglycerin 2% Ointment 1 INCH/1 GM Packet ONE (22:31)
[2018-06-16 22:49] LABS: Bilirubin Negative (Negative); Blood, Urine Negative (Negative); Clarity CLEAR (Clear); Glucose, Urine (Dipstick) >=1000 mg/dL (Negative); Leukocyte Small (Negative); Nitrite Negative (Negative); Protein, Urine (Dipstick) Negative (Neg-Trace); Specific Gravity, Urine 1.021 (1.002-1.036); Urobilinogen 0.2 mg/dL (0.2-1.0)
[2018-06-16 22:51] LABS: Bacteria/HPF 4+ HPF (None Seen); Hyaline Casts/LPF 0-3 HYALINE CAST LPF (0-3 Hyaline); RBC/HPF 0-3 HPF (0-3); Squamous Epithelial None Seen HPF (0-3)
--- NOTE | 2018-06-16 23:49 | RAD ---
CHEST ONE VIEW: HISTORY: Pain. COMPARISON: 03/04/2018 FINDINGS: Slight diminished lung volumes due to poor inspiratory effort. No consolidation or mass. No pneumot horax or osseous abnormalities. Normal cardiac silhouette. IMPRESSION: No acute cardiopulmonary process. POS: [facility]
[2018-06-17] MEDS ORDERED: Insulin Regular 300 UNITS/3 ML VIAL ONE (00:24)
== END 2018-06-17 02:25 | disposition home or self-care (01) ==
LOC: ERS 20:18
DX: R07.9 Chest pain, unspecified (principal); E11.65 Type 2 diabetes mellitus with hyperglycemia; K21.9 Gastro-esophageal reflux disease without esophagitis; E78.5 Hyperlipidemia, unspecified; G40.909 Epilepsy, unspecified, not intractable, without status epilepticus; I10 Essential (primary) hypertension; J45.909 Unspecified asthma, uncomplicated; E66.9 Obesity, unspecified; F31.9 Bipolar disorder, unspecified; F41.9 Anxiety disorder, unspecified; Z79.899 Other long term (current) drug therapy; Z86.73 Personal history of transient ischemic attack (TIA), and cerebral infarction without residual deficits; Z79.4 Long term (current) use of insulin; Z79.82 Long term (current) use of aspirin
CPT/HCPCS: 36416; 71045; 80053; 81003; 81015; 82550; 82553; 84484; 85025; 93005; 96361; 96374; J1815; J7620

== ENCOUNTER 2018-07-01 18:16 | Emergency (ER) | payer OTHER ==
[2018-07-01] MEDS ORDERED: Lorazepam 2 MG/ML VIAL ONE (18:35)
[2018-07-01 18:44] LABS: #Basophils 0.1 thou/uL (0.0-0.2); #Eosinphils 0.3 thou/uL (0.0-0.7); #Lymphocytes 3.3 thou/uL (1.20-3.40); #Monocytes 0.6 thou/uL (0.11-0.59); #Neutrophils 5.8 thou/uL (1.40-6.50); %Basophils 0.7 % (0.0-1.0); %Eosinophils 3.1 % (0.0-10.0); %Monocytes 5.7 % (0.0-10.0); %Neutrophils 57.4 % (42.0-75.0); Hemoglobin 12.7 g/dL (12.0-16.0); Mean Corpuscular HGB CONC 35.5 g/dL (32.0-36.0); Mean Corpuscular Hemoglobin 29.6 pg (27.0-31.0); Mean Corpuscular Volume 83.4 fL (78.0-98.0); Platelet Count 316 thou/uL (130-400); RBC Distribution Width 11.7 % (11.5-14.5); Red Blood Cell (RBC) Count 4.29 mill/uL (4.20-5.40); White Blood Cell (WBC) Count 10.1 thou/uL (4.8-10.8)
[2018-07-01 19:07] LABS: ALT (SGPT) 18 U/L (8-55); AST (SGOT) 15 U/L (5-34); Albumin 4.7 g/dL (3.5-5.0); Alkaline Phosphatase 108 U/L (40-150); Anion Gap 13 mmol/L (10-20); BUN (Urea Nitrogen) 21 mg/dL (9.8-20.1); Bilirubin, Total 0.4 mg/dL (0.2-1.2); Calc. Creatinine Clearance 0 mL/min (70-130); Calcium 9.6 mg/dL (7.8-10.44); Carbon Dioxide 24 mmol/L (22-29); Chloride 99 mmol/L (98-107); Estimated GFR-MDRD 58; Globulin 3.5 g/dL (2.4-3.5); Glucose 213 mg/dL (70-105); Potassium 3.7 mmol/L (3.5-5.1); Protein, Total 8.2 g/dL (6.0-8.3); Sodium 132 mmol/L (136-145)
[2018-07-01 19:11] LABS: CKMB 0.5 ng/mL (0-6.6); Troponin I Less than 0.010 ng/mL (< 0.028)
--- NOTE | 2018-07-01 19:46 | RAD ---
AP VIEW OF THE CHEST 07/01/18 INDICATION: Chest pain. COMPARISON: Prior exam dated 06/16/18. IMPRESSION: Examination is not appreciably changed. No acute cardiopulmonary abnormality is noted. POS: [facility]
--- NOTE | 2018-07-12 11:50 | EKG ---
Test Reason : CHEST PAIN Blood Pressure : / mmHG Vent. Rate : 097 BPM Atrial Rate : 097 BPM P-R Int : 170 ms QRS Dur : 078 ms QT Int : 358 ms P-R-T Axes : 021 018 013 degrees QTc Int : 454 ms Normal sinus rhythm Possible Left atrial enlargement Borderline ECG Confirmed by SANDOVAL KUMAR ([id number]), manuscript editor DONY JOHN ([id number]) on 07/12/2018 11:50:02 AM Referred By: Confirmed By:SANDOVAL KUMAR
== END 2018-07-01 21:11 | disposition home or self-care (01) ==
LOC: ERS 18:16
DX: R07.9 Chest pain, unspecified (principal); F41.9 Anxiety disorder, unspecified; R06.00 Dyspnea, unspecified; K21.9 Gastro-esophageal reflux disease without esophagitis; F31.9 Bipolar disorder, unspecified; E78.5 Hyperlipidemia, unspecified; G40.909 Epilepsy, unspecified, not intractable, without status epilepticus; J45.909 Unspecified asthma, uncomplicated; E66.9 Obesity, unspecified; E11.40 Type 2 diabetes mellitus with diabetic neuropathy, unspecified; Z86.73 Personal history of transient ischemic attack (TIA), and cerebral infarction without residual deficits; Z79.82 Long term (current) use of aspirin; Z79.899 Other long term (current) drug therapy; Z79.4 Long term (current) use of insulin
CPT/HCPCS: 71045; 80053; 82553; 84484; 85025; 93005; 96374; J2060

== ENCOUNTER 2018-11-14 10:57 | Emergency (ER) | payer MEDICAID | END 2018-11-14 12:36 | disposition home or self-care (01) | LOC: ERS 10:57 | DX: S91.201A Unspecified open wound of right great toe with damage to nail, initial encounter (principal); E11.40 Type 2 diabetes mellitus with diabetic neuropathy, unspecified; F31.9 Bipolar disorder, unspecified; E78.5 Hyperlipidemia, unspecified; F41.9 Anxiety disorder, unspecified; I71.9 Aortic aneurysm of unspecified site, without rupture; I10 Essential (primary) hypertension; G40.409 Other generalized epilepsy and epileptic syndromes, not intractable, without status epilepticus; K21.9 Gastro-esophageal reflux disease without esophagitis; G25.81 Restless legs syndrome; Z79.4 Long term (current) use of insulin; Z79.82 Long term (current) use of aspirin; Z79.899 Other long term (current) drug therapy; W23.1XXA Caught, crushed, jammed, or pinched between stationary objects, initial encounter | CPT/HCPCS: 99283 ==

== ENCOUNTER 2019-01-03 19:27 | Observation (INO) | payer MEDICAID, OTHER ==
[~2019-01-03 19:27] MED LIST: ISOVUE-370 76%-LOCM 1 ML ONE
[2019-01-03 19:56] LABS: #Eosinphils 0.2 thou/uL (0.0-0.7); #Lymphocytes 3.1 thou/uL (1.20-3.40); #Monocytes 0.6 thou/uL (0.11-0.59); %Basophils 0.4 % (0.0-1.0); %Eosinophils 2.7 % (0.0-10.0); %Lymphocytes 38.5 % (21.0-51.0); %Monocytes 7.7 % (0.0-10.0); %Neutrophils 50.6 % (42.0-75.0); Mean Corpuscular HGB CONC 34.7 g/dL (32.0-36.0); Mean Corpuscular Hemoglobin 28.6 pg (27.0-31.0); Mean Corpuscular Volume 82.6 fL (78.0-98.0); Mean Platelet Volume 8.3 fL (7.4-10.4); Platelet Count 277 thou/uL (130-400); RBC Distribution Width 12.1 % (11.5-14.5); Red Blood Cell (RBC) Count 4.54 mill/uL (4.20-5.40)
[2019-01-03] MEDS ORDERED: Ketorolac Tromethamine 30 MG/ML VIAL ONE ×2 (20:07→20:30)
[2019-01-03 20:19] LABS: Bilirubin Negative (Negative); Blood, Urine Negative (Negative); Clarity CLOUDY (Clear); Glucose, Urine (Dipstick) >=1000 mg/dL (Negative); Leukocyte Small (Negative); Nitrite Positive (Negative); Protein, Urine (Dipstick) Negative (Neg-Trace); Specific Gravity, Urine 1.018 (1.002-1.036); Urobilinogen 0.2 mg/dL (0.2-1.0); pH, Urine 6.5 (5.0-9.0)
[2019-01-03 20:21] LABS: Bacteria/HPF 4+ HPF (None Seen); Hyaline Casts/LPF 0-3 HYALINE CAST LPF (0-3 Hyaline); Pathc Cast-AUWi Flag 0.14 (0-2.49); RBC/HPF 0-3 HPF (0-3)
[2019-01-03 20:21] LABS: ALT (SGPT) 17 U/L (8-55); AST (SGOT) 14 U/L (5-34); Albumin 4.4 g/dL (3.5-5.0); Alkaline Phosphatase 118 U/L (40-150); Anion Gap 16 mmol/L (10-20); BUN (Urea Nitrogen) 17 mg/dL (9.8-20.1); Bilirubin, Total 0.3 mg/dL (0.2-1.2); Calc. Creatinine Clearance 0 mL/min (70-130); Calcium 9.4 mg/dL (7.8-10.44); Carbon Dioxide 21 mmol/L (22-29); Chloride 101 mmol/L (98-107); Estimated GFR-MDRD 56; Globulin 3.5 g/dL (2.4-3.5); Glucose 373 mg/dL (70-105); Lipase 157 U/L (8-78); Protein, Total 7.9 g/dL (6.0-8.3); Sodium 134 mmol/L (136-145)
--- NOTE | 2019-01-03 20:36 | CT ---
CT ABDOMEN AND PELVIS WITH CONTRAST: 01/03/19 HISTORY: Right lower quadrant pain. COMPARISON: CT abdomen and pelvis 01/27/18. FINDINGS: Lung bases are clear. No pericardial effusion. Normal proximal small bowel rotation. Spleen is unremarkable as well as the gallbladder. Liver is unr emarkable. The appendix is visualized and is normal. Mild diverticular disease sigmoid colon without active curr ent inflammation. There is a too small to characterize hypodensity interpolar left kidney although is similar to the study suggestive of a benign entity such as a cyst. The previously noted right groin and perineum inflammation has resolved. Aortic contour is nonaneurysmal. No retroperitoneal adenopathy. Moderate facet arthropathy lower lumbar spine. IMPRESSION: 1. No acute inflammatory process within the abdomen or pelvis. Interval resolution of previously noted right medial thigh and perineum inflammatory change. 2. Normal appendix. 3. Mild diverticular disease sigmoid colon without active current inflammation. 4. Unchanged splenic artery calcified pseudoaneurysm. POS: [facility]
[2019-01-03 20:45] LABS: Pregnancy Test - Urine (BHCG) Negative (Negative); Pregu Control Background? CLEAR/WHITE (CLR/WHITE); Pregu Control Bar Appear? YES (CONTROL BAR); Specific Gravity 1.018 (1.002-1.036)
[2019-01-03] MEDS ORDERED: cefTRIAXone\\ROCEPHIN 2 GM VIAL ONE (21:41)
[2019-01-03] MEDS ORDERED: Morphine 4 MG/ML VIAL ONE (21:41)
--- NOTE | 2019-01-03 23:13 | HP ---
PRIMARY CARE PHYSICIAN: [facility]. CHIEF COMPLAINT: Abdominal pain. HISTORY OF PRESENT ILLNESS: The patient is a 53-year-old female with past medical history of diabetes, hypertension, hyperlipidemia, who presents to the emergency department for abdominal pain. The patient reports that her abdominal pain is periumbilical. She denies any such pain in the past. The patient denies dysuria at this point. The patient denies nausea or vomiting. The patient reported that her pain is well controlled at this point. The patient reports compliance with her medication and she has been taking her insulin along with her hypertensive medication. The patient denies any nausea, vomiting, or chest pain at this point. PAST MEDICAL HISTORY: Diabetes and hypertension. PAST SURGICAL HISTORY: Tubal ligation. ALLERGIES: JALAPENO. SOCIAL HISTORY: Denies smoking, alcohol, or illicit drugs. FAMILY HISTORY: Reports history of diabetes in father. CURRENT MEDICATIONS: 1. Lantus. 2. Lisinopril. 3. Hydrochlorothiazide. 4. Gabapentin. 5. Citalopram. 6. Victoza. 7. Amlodipine. 8. Atorvastatin. 9. Omeprazole. REVIEW OF SYSTEMS: A 10-point review of systems negative other than mentioned in the HPI. PHYSICAL EXAMINATION: VITAL SIGNS: BP 188/127, pulse 93, respiration rate 22, O2 saturation 100% on room air. GENERAL: The patient is alert. HEENT: Head, atraumatic. Nose, ears and mouth are grossly normal. No exudate noted. NECK: No lymphadenopathy noted. CARDIOVASCULAR: Regular rate and rhythm. No murmur, rubs, or gallops. RESPIRATORY: Clear bilaterally. No wheezes noted. ABDOMEN: Soft. Bowel sounds positive. Nondistended. Mild discomfort to palpation of the periumbilical area. EXTREMITIES: No edema noted. NEUROLOGICAL: The patient is alert. SKIN: No rashes noted. IMAGING STUDIES: CT of abdomen and pelvis reviewed. No acute inflammatory processes within abdomen or pelvis. Normal appendix. Mild diverticular disease without current inflammation noted. LABORATORY DATA: Reviewed and CBC nonsignificant. BMP also nonsignificant except for blood glucose 373. The patient's lipase is 157. The patient's urine is positive for blood glucose greater than 1000, negative ketone, positive nitrites , leukocyte esterase positive, white blood cells positive, squamous cell positive, bacteria positive. test negative. ASSESSMENT AND PLAN: 1. Urinary tract infection. The patient's symptoms of abdominal pain, likely due to urinary tract infection at baseline on urine results. The patient was given ceftriaxone in the ED. We will continue ceftriaxone at this point. Follow blood cultures and urine cultures and IV fluids. 2. Abdominal pain, as mentioned above, likely due to urinary tract infection. Lipase mildly elevated, but no signs of acute pancreatitis. Continue IV fluids and pain management with p.r.n. medication. Zofran p.r.n. 3. Diabetes type 2 with hyperglycemia. We will continue to manage with home medication plus sliding scale insulin. 4. Hypertension. BP elevated on admission, which could be due to pain. We will continue home medication plus hydralazine p.r.n. 5. The patient is a full code. 6. Medical power of admitted attorneys. The patient would like her sister to be that if she is not able to make a decision. 7. DVT prophylaxis, addressed. Job ID: [id number] [facility]
[2019-01-03] MEDS ORDERED: Dextrose 50% Abboject 50 ML SYRINGE SLOW IVP PRN (23:36)
[2019-01-03] MEDS ORDERED: Bisacodyl 5 MG TAB PO PRN (23:36)
[2019-01-03] MEDS ORDERED: Dextrose 5% in Water 1,000 ML IV PRN (23:36)
[2019-01-03] MEDS ORDERED: Ondansetron ODT 4 MG TAB PO PRN (23:36)
[2019-01-03] MEDS ORDERED: hydrALAZINE 20 MG/ML VIAL SLOW IVP PRN (23:36)
[2019-01-03] MEDS ORDERED: Enoxaparin Sodium 40 MG/0.4 ML SYRINGE SC SCH (23:36)
[2019-01-04] MEDS: Sodium Chloride 0.9% 1,000 ML IV SCH ×2 (00:16→14:10)
[2019-01-04] MEDS: Acetaminophen 325 MG TAB PO PRN ×2 (03:13→13:47)
[2019-01-04 06:08] LABS: #Eosinphils 0.3 thou/uL (0.0-0.7); #Lymphocytes 2.9 thou/uL (1.20-3.40); #Monocytes 0.6 thou/uL (0.11-0.59); #Neutrophils 3.6 thou/uL (1.40-6.50); %Basophils 0.4 % (0.0-1.0); %Eosinophils 3.4 % (0.0-10.0); %Lymphocytes 39.9 % (21.0-51.0); %Monocytes 8.1 % (0.0-10.0); %Neutrophils 48.2 % (42.0-75.0); Hemoglobin 11.4 g/dL (12.0-16.0); Mean Corpuscular HGB CONC 34.8 g/dL (32.0-36.0); Mean Corpuscular Hemoglobin 28.8 pg (27.0-31.0); Mean Corpuscular Volume 82.7 fL (78.0-98.0); Mean Platelet Volume 8.3 fL (7.4-10.4); Platelet Count 224 thou/uL (130-400); Red Blood Cell (RBC) Count 3.94 mill/uL (4.20-5.40); White Blood Cell (WBC) Count 7.4 thou/uL (4.8-10.8)
[2019-01-04] MEDS: HumaLOG 300 UNITS/3 ML VIAL SC PRN ×2 (06:27→08:53)
[2019-01-04] MEDS ORDERED: rOPINIRole HCl 2 MG TAB PO PRN (06:30)
[2019-01-04 06:33] LABS: Anion Gap 12 mmol/L (10-20); BUN (Urea Nitrogen) 16 mg/dL (9.8-20.1); Calc. Creatinine Clearance 125 mL/min (70-130); Calcium 8.4 mg/dL (7.8-10.44); Carbon Dioxide 19 mmol/L (22-29); Chloride 107 mmol/L (98-107); Estimated GFR-MDRD 84; Glucose 263 mg/dL (70-105); Potassium 4.4 mmol/L (3.5-5.1); Sodium 134 mmol/L (136-145)
[2019-01-04] MEDS: Atorvastatin Calcium 10 MG TAB PO SCH (08:50)
[2019-01-04] MEDS: Amlodipine 5 MG TAB PO SCH (08:51)
[2019-01-04] MEDS: Gabapentin 300 MG CAP PO SCH ×3 (08:51→20:35)
[2019-01-04] MEDS: Aspirin Chewable 81 MG TAB PO SCH (08:51)
[2019-01-04] MEDS: Lisinopril/Hydrochlorothiazide 20/25 mg Tablet PO SCH (08:51)
[2019-01-04] MEDS: Insulin Glargine 50 UNITS in Pre-Filled Syringe SC SCH ×2 (08:52→20:34)
[2019-01-04] MEDS ORDERED: Non-Formulary Item 1 EACH (Insulin Detemir 100 Units/Ml [Levemir] 50 UNIT) SQ SCH (09:00)
--- NOTE | 2019-01-04 11:01 | PDOC.PN ---
- Subjective Encounter Start Date: 01/04/19 Encounter Start Time: 09:00 Subjective: c/o rlq abd pain, no nausea -: tolerating oral diet -: no urinary freq or urgency, no diarrhea - Objective Resuscitation Status - Order Detail: 01/03/19 22:33 Resuscitation Status Routine Resuscitation Status: FULL: Full Resuscitation MAR Reviewed: Yes Vital Signs & Weight: Vital Signs (12 hours) Temp Pulse Resp BP Pulse Ox 01/04/19 08:00 98.3 F 76 20 151/79 H 98 01/04/19 04:06 97.9 F 74 14 161/77 H 100 01/03/19 23:15 97.4 F L 87 21 H 166/84 H 99 Weight Weight 191 lb 14.4 oz I&O: 01/03/19 01/04/19 01/05/19 06:59 06:59 06:59 Intake Total 1992 Output Total 1550 Balance 442 Result Diagrams: 01/04/19 05:49 01/04/19 05:49 Additional Labs: Accuchecks 01/04/19 01/03/19 06:22 23:49 POC Glucose 239 H 238 H Phys Exam - Physical Examination HEENT: PERRLA, moist MMs Neck: no JVD, supple Respiratory: no wheezing, no rales Cardiovascular: RRR, no significant murmur Gastrointestinal: soft, no distention, positive bowel sounds rlq tenderness, no rigidity or guarding Musculoskeletal: no edema, pulses present Neurological: non-focal, moves all 4 limbs Psychiatric: normal affect, A&O x 3 Dx/Plan (1) Abdominal pain Code(s): R10.9 - UNSPECIFIED ABDOMINAL PAIN Status: Acute Qualifiers: Abdominal location: right lower quadrant Qualified Code(s): R10.31 - Right lower quadrant pain (2) UTI (urinary tract infection) Status: Acute Qualifiers: Urinary tract infection type: acute cystitis Hematuria presence: without hematuria Qualified Code(s): N30.00 - Acute cystitis without hematuria (3) Asthma Code(s): J45.909 - UNSPECIFIED ASTHMA, UNCOMPLICATED Status: Chronic Qualifiers: Asthma severity: mild Asthma persistence: intermittent Asthma complication type: unspecified Qualified Code(s): J45.20 - Mild intermittent asthma, uncomplicated (4) DM2 (diabetes mellitus, type 2) Status: Chronic Qualifiers: Diabetes mellitus nursing home insulin use: with electrolysis engineer use Diabetes mellitus complication status: with unspecified complications Qualified Code(s) : E11.8 - Type 2 diabetes mellitus with unspecified complications; Z79.4 - stream control officer (current) use of insulin (5) HTN (hypertension) Code(s): I10 - ESSENTIAL (PRIMARY) HYPERTENSION Status: Chronic Qualifiers: Hypertension type: essential hypertension (6) Seizure disorder Code(s): G40.909 - EPILEPSY, UNSP, NOT INTRACTABLE, WITHOUT STATUS EPILEPTICUS Status: Chronic - Plan is on ceftriaxone, await urine cs, blood prelim is -ve -: continue asp, lipitor, lisinopril/hctz, norvasc -: on depakote er, gabapentin, requip -: lantus 50u bid, protonix -: still has abd pain around the umbilicus * . CT no sign of ac appendicitis or ac changes pt is menopausal from 3 yrs with no spotting, prior tubal lig, preg test -ve My dc home if abd pain is resolved by this evening on oral cipro pending cultures. Review of Systems - Medications/Allergies Allergies/Adverse Reactions: Allergies Allergy/AdvReac Type Severity Reaction Status Date / Time peppers Allergy Severe Anaphylaxis Uncoded 01/03/19 23:18 Medications: Current Medications Acetaminophen (Tylenol) 650 mg PO Q4H PRN PRN Reason: Headache/Fever/Mild Pain (1-3) Last Admin: 01/04/19 03:13 Dose: 650 mg Amlodipine Besylate (Norvasc) 5 mg PO DAILY [facility] Last Admin: 01/04/19 08:51 Dose: 5 mg Aspirin (Aspirin Chewable) 81 mg PO DAILY [facility] Last Admin: 01/04/19 08:51 Dose: 81 mg Atorvastatin Calcium (Lipitor) 10 mg PO DAILY [facility] Last Admin: 01/04/19 08:50 Dose: 10 mg Bisacodyl (Dulcolax) 10 mg PO DAILYPRN PRN PRN Reason: Constipation Dextrose/Water (Dextrose 50%) 25 gm SLOW IVP PRN PRN PRN Reason: Hypoglycemia Divalproex Sodium (Depakote Er) 500 mg PO DAILY [facility] Gabapentin (Neurontin) 600 mg PO TID [facility] Last Admin: 01/04/19 08:51 Dose: 600 mg Glucagon (Glucagon) 1 mg IM PRN PRN PRN Reason: Hypoglycemia Lisinopril/HCTZ (Prinizide 20-25) 1 tab PO DAILY [facility] Last Admin: 01/04/19 08:51 Dose: 1 tab Hydralazine HCl (Apresoline) 5 mg SLOW IVP Q4H PRN PRN Reason: SBP Greater Than 170 Ceftriaxone Sodium 1 gm/ (Sodium Chloride) 100 mls @ 200 mls/hr IVPB Q24HR [facility] Dextrose/Water (D5w) 1,000 mls @ 0 mls/hr IV .Q0M PRN PRN Reason: Hypoglycemia Sodium Chloride (Normal Saline 0.9%) 1,000 mls @ 75 mls/hr IV .[id number] [facility] Stop: 01/04/19 22:00 Last Admin: 01/04/19 00:16 Dose: 1,000 mls Insulin Glargine 50 units/ (Miscellaneous Medication) 0.5 mls @ 0 mls/hr SC BID [facility] Last Admin: 01/04/19 08:52 Dose: 0.5 mls Insulin Human Lispro (Humalog) 0 units SC .MILD SLIDING SCALE PRN PRN Reason: Mild Correctional Scale Last Admin: 01/04/19 08:53 Dose: 3 unit Ondansetron HCl (Zofran Odt) 4 mg PO Q6H PRN PRN Reason: Nausea/Vomiting Pantoprazole Sodium (Protonix) 40 mg PO DAILY [facility] Last Admin: 01/04/19 08:50 Dose: 40 mg Ropinirole HCl (Requip) 2 mg PO QPM PRN PRN Reason: Restlessness Sodium Chloride (Flush - Normal Saline) 10 ml IVF Q12HR [facility] Last Admin: 01/04/19 08:52 Dose: Not Given Sodium Chloride (Flush - Normal Saline) 10 ml IVF PRN PRN PRN Reason: Saline Flush
[2019-01-04] MEDS ORDERED: Dicyclomine 20 MG TAB PO PRN (16:04)
[2019-01-04] MEDS ORDERED: cefTRIAXone\\ROCEPHIN 1 GM in Sodium Chloride 0.9% 100 ML IVPB SCH (21:00)
[2019-01-05] MEDS: Gabapentin 300 MG CAP PO SCH (08:32)
[2019-01-05] MEDS: Insulin Glargine 50 UNITS in Pre-Filled Syringe SC SCH (08:32)
[2019-01-05] MEDS: Atorvastatin Calcium 10 MG TAB PO SCH (08:32)
[2019-01-05] MEDS: Amlodipine 5 MG TAB PO SCH (08:33)
[2019-01-05] MEDS: Lisinopril/Hydrochlorothiazide 20/25 mg Tablet PO SCH (08:33)
[2019-01-05] MEDS: Aspirin Chewable 81 MG TAB PO SCH (08:33)
[2019-01-05 08:34] VITALS: BP 160/76; TEMP 98
[2019-01-05] MEDS ORDERED: Ciprofloxacin 500 MG TAB PO SCH ×2 (09:00→20:00)
--- NOTE | 2019-01-05 11:45 | PDOC.PN ---
- Subjective Encounter Start Date: 01/05/19 Encounter Start Time: 07:00 Subjective: abd pain is almost gone -: is amb in room and tolerating oral diet - Objective Resuscitation Status - Order Detail: 01/03/19 22:33 Resuscitation Status Routine Resuscitation Status: FULL: Full Resuscitation MAR Reviewed: Yes Vital Signs & Weight: Vital Signs (12 hours) Temp Pulse Resp BP BP Pulse Ox 01/05/19 08:33 69 160/76 H 01/05/19 07:48 98.0 F 74 20 160/76 H 96 01/05/19 04:52 97.7 F 69 14 99/55 L 99 Weight Weight 195 lb 11.2 oz I&O: 01/04/19 01/05/19 01/06/19 06:59 06:59 06:59 Intake Total 19910 Output Total 1550 2400 Balance 442 110 Result Diagrams: 01/04/19 05:49 01/04/19 05:49 Additional Labs: Accuchecks 01/05/19 01/04/19 01/04/19 04:21 20:24 16:52 POC Glucose 194 H 268 H 226 H 01/04/19 11:42 POC Glucose 261 H Phys Exam - Physical Examination HEENT: PERRLA, moist MMs Neck: no JVD, supple Respiratory: no wheezing, no rales Cardiovascular: RRR, no significant murmur Gastrointestinal: soft, non-tender, positive bowel sounds Musculoskeletal: no edema, pulses present Neurological: non-focal, moves all 4 limbs Psychiatric: normal affect, A&O x 3 Dx/Plan (1) Abdominal pain Code(s): R10.9 - UNSPECIFIED ABDOMINAL PAIN Status: Acute Qualifiers: Abdominal location: right lower quadrant Qualified Code(s): R10.31 - Right lower quadrant pain (2) UTI (urinary tract infection) Status: Acute Qualifiers: Urinary tract infection type: acute cystitis Hematuria presence: without hematuria Qualified Code(s): N30.00 - Acute cystitis without hematuria (3) Asthma Code(s): J45.909 - UNSPECIFIED ASTHMA, UNCOMPLICATED Status: Chronic Qualifiers: Asthma severity: mild Asthma persistence: intermittent Asthma complication type: unspecified Qualified Code(s): J45.20 - Mild intermittent asthma, uncomplicated (4) DM2 (diabetes mellitus, type 2) Status: Chronic Qualifiers: Diabetes mellitus longterm insulin use: with continuous churn buttermaker use Diabetes mellitus complication status: with unspecified complications Qualified Code(s) : E11.8 - Type 2 diabetes mellitus with unspecified complications; Z79.4 - snf (current) use of insulin (5) HTN (hypertension) Code(s): I10 - ESSENTIAL (PRIMARY) HYPERTENSION Status: Chronic Qualifiers: Hypertension type: essential hypertension (6) Seizure disorder Code(s): G40.909 - EPILEPSY, UNSP, NOT INTRACTABLE, WITHOUT STATUS EPILEPTICUS Status: Chronic - Plan cipro x 4 days -: dc pt home -: to continue home meds as before -: to f/u with PCP in 1 week. * . Review of Systems - Medications/Allergies Allergies/Adverse Reactions: Allergies Allergy/AdvReac Type Severity Reaction Status Date / Time peppers Allergy Severe Anaphylaxis Uncoded 01/03/19 23:18
--- NOTE | 2019-01-05 15:21 | DIS ---
DATE OF ADMISSION: 01/03/2019 DATE OF DISCHARGE: 01/05/2019 DISCHARGE DISPOSITION: To home. PRIMARY DISCHARGE DIAGNOSIS: Abdominal pain likely due to urinary tract infection, resolved. SECONDARY DISCHARGE DIAGNOSIS: History of asthma, diabetes mellitus type 2, seizure disorder, hypertension. PROCEDURES DONE DURING HOSPITALIZATION: CT abdomen and pelvis done showed no acute inflammatory process within the abdomen or pelvis. Interval resolution of the previously noted right medial thigh and perineal inflammatory change, normal appendix, mild diverticular disease of the sigmoid colon without active inflammation. Unchanged splenic artery calcified pseudoaneurysm. Urine cultures grew Klebsiella sensitive to quinolones. Blood cultures x2, no growth. Hemoglobin and hematocrit were 11 and 32, platelet count 224, white count of 7, BUN 16, creatinine 0.7. DISCHARGE MEDICATIONS: 1. Ciprofloxacin 500 mg p.o. twice daily for another four days. 2. Atorvastatin 10 mg p.o. daily. 3. Aspirin 81 mg p.o. daily. 4. Norvasc 5 mg p.o. daily. 5. Ultram p.r.n. for pain. 6. Ropinirole 2 mg p.o. at bedtime p.r.n. 7. Omeprazole 40 mg p.o. daily. 8. Lisinopril with hydrochlorothiazide 20/25 mg p.o. daily. 9. Levemir 50 units subcu twice daily. 10. Victoza 1.8 mg subcu daily. 11. Gabapentin 600 mg p.o. three times daily. 12. Depakote extended release 500 mg p.o. daily. ALLERGIES: TO PEPPERS. DISCHARGE PLAN: The patient to follow up with primary care physician in one week. BRIEF COURSE DURING HOSPITALIZATION: The patient initially came to ER with complaints of abdominal pain. Initial workup revealed UTI. Her CT of the abdomen and pelvis did not reveal any acute pathology including appendix, which was normal. For 24 hours, the patient had intractable abdominal pain which was dependent on pain medications. During her next 24 hours, the pain has eased up with Bentyl and narcotics. Her urine culture grew Klebsiella and is sensitive to quinolones. She is hemodynamically stable, ambulating and eating well prior to discharge. The patient has been advised to continue ciprofloxacin for another 4 days and see her primary care physician in 1 week. Please see a [id number] documentation for the day of discharge on [employer]. Job ID: [id number] [facility]
== END 2019-01-05 09:46 | disposition home or self-care (01) ==
LOC: ERS 19:27 → 2SW 23:12
PROVIDERS: ADMIT Family Medicine; ATTEND Family Medicine
DX: R10.9 Unspecified abdominal pain (principal); N39.0 Urinary tract infection, site not specified; B96.1 Klebsiella pneumoniae [K. pneumoniae] as the cause of diseases classified elsewhere; J45.909 Unspecified asthma, uncomplicated; E11.65 Type 2 diabetes mellitus with hyperglycemia; G40.909 Epilepsy, unspecified, not intractable, without status epilepticus; I10 Essential (primary) hypertension; E78.5 Hyperlipidemia, unspecified; K57.30 Diverticulosis of large intestine without perforation or abscess without bleeding; Z98.51 Tubal ligation status; Z91.018 Allergy to other foods; Z79.2 Long term (current) use of antibiotics; Z79.82 Long term (current) use of aspirin; Z79.4 Long term (current) use of insulin; Z79.899 Other long term (current) drug therapy
CPT/HCPCS: 36415; 36416; 74177; 80048; 80053; 81003; 81015; 81025; 83690; 85025; 87040; 87077; 87086; 87186; 96361; 96365; 96366; 96372; 96375; G0378; J0696; J1650; J1825; J1885; J2270; J7050; Q9966

== ENCOUNTER 2019-02-21 15:44 | Emergency (ER) | payer OTHER ==
[2019-02-21 16:33] LABS: #Basophils 0.1 thou/uL (0.0-0.2); #Eosinphils 0.4 thou/uL (0.0-0.7); #Lymphocytes 2.8 thou/uL (1.20-3.40); #Monocytes 0.4 thou/uL (0.11-0.59); #Neutrophils 5.2 thou/uL (1.40-6.50); %Basophils 0.6 % (0.0-1.0); %Eosinophils 4.1 % (0.0-10.0); %Lymphocytes 31.5 % (21.0-51.0); %Monocytes 4.8 % (0.0-10.0); Hemoglobin 14.5 g/dL (12.0-16.0); Mean Corpuscular Hemoglobin 29.7 pg (27.0-31.0); Mean Corpuscular Volume 82.5 fL (78.0-98.0); Mean Platelet Volume 8.4 fL (7.4-10.4); Platelet Count 337 thou/uL (130-400); RBC Distribution Width 11.6 % (11.5-14.5); Red Blood Cell (RBC) Count 4.88 mill/uL (4.20-5.40); White Blood Cell (WBC) Count 8.8 thou/uL (4.8-10.8)
[2019-02-21 16:49] LABS: BHCG - Serum Negative (NEGATIVE); Pregs Control Background? CLEAR/WHITE (CLR/WHITE); Pregs Control Bar Appear? YES (CONTROL BAR)
[2019-02-21 16:53] LABS: ALT (SGPT) 24 U/L (8-55); AST (SGOT) 21 U/L (5-34); Albumin 4.8 g/dL (3.5-5.0); Alkaline Phosphatase 111 U/L (40-150); Anion Gap 15 mmol/L (10-20); BUN (Urea Nitrogen) 11 mg/dL (9.8-20.1); Bilirubin, Total 0.6 mg/dL (0.2-1.2); Calc. Creatinine Clearance 0 mL/min (70-130); Calcium 10.2 mg/dL (7.8-10.44); Carbon Dioxide 25 mmol/L (22-29); Chloride 103 mmol/L (98-107); Estimated GFR-MDRD 80; Globulin 3.8 g/dL (2.4-3.5); Glucose 108 mg/dL (70-105); Lipase 81 U/L (8-78); Potassium 3.9 mmol/L (3.5-5.1); Protein, Total 8.6 g/dL (6.0-8.3); Sodium 139 mmol/L (136-145)
[2019-02-21] MEDS ORDERED: Ondansetron PF 4 MG/2 ML Vial ONE (17:04)
[2019-02-21 18:20] LABS: Bilirubin Negative (Negative); Blood, Urine Trace (Negative); Clarity TURBID (Clear); Glucose, Urine (Dipstick) Negative (Negative); Leukocyte Large (Negative); Nitrite Negative (Negative); Protein, Urine (Dipstick) Trace mg/dL (Neg-Trace); Specific Gravity, Urine 1.011 (1.002-1.036); pH, Urine 7.5 (5.0-9.0)
[2019-02-21 18:22] LABS: Bacteria/HPF 4+ HPF (None Seen); Pathc Cast-AUWi Flag 2.31 (0-2.49)
[2019-02-21 18:34] LABS: Crystals/HPF None Seen HPF (Negative); WBC/HPF 21-50 HPF (0-3)
[2019-02-21 18:35] LABS: Hyaline Casts/LPF 0-3 HYALINE CAST LPF (0-3 Hyaline)
[2019-02-21] MEDS ORDERED: cefTRIAXone\\ROCEPHIN 1 GM VIAL ONE (19:20)
== END 2019-02-21 20:29 | disposition home or self-care (01) ==
LOC: ERS 15:44
DX: R11.2 Nausea with vomiting, unspecified (principal); N39.0 Urinary tract infection, site not specified; K21.9 Gastro-esophageal reflux disease without esophagitis; E78.5 Hyperlipidemia, unspecified; G40.909 Epilepsy, unspecified, not intractable, without status epilepticus; I10 Essential (primary) hypertension; E66.9 Obesity, unspecified; I71.9 Aortic aneurysm of unspecified site, without rupture; E11.40 Type 2 diabetes mellitus with diabetic neuropathy, unspecified; F31.9 Bipolar disorder, unspecified; F41.9 Anxiety disorder, unspecified; Z79.4 Long term (current) use of insulin; Z86.73 Personal history of transient ischemic attack (TIA), and cerebral infarction without residual deficits; Z79.82 Long term (current) use of aspirin; Z79.899 Other long term (current) drug therapy; Z79.891 Long term (current) use of opiate analgesic
CPT/HCPCS: 36416; 80053; 81003; 81015; 82010; 83690; 84703; 85025; 87077; 87086; 87186; 87804; 96361; 96365; 96372; 96375; J0500; J0696; J2405

== ENCOUNTER 2019-03-11 19:30 | Outpatient (CLI) | payer OTHER | END 2019-03-11 19:31 | disposition home or self-care (01) | LOC: SLEEPLAB 19:30 | PROVIDERS: ATTEND Nurse Practitioner Family | DX: G47.33 Obstructive sleep apnea (adult) (pediatric) (principal); J45.909 Unspecified asthma, uncomplicated; K21.9 Gastro-esophageal reflux disease without esophagitis; I10 Essential (primary) hypertension; I25.10 Atherosclerotic heart disease of native coronary artery without angina pectoris; E11.9 Type 2 diabetes mellitus without complications; G47.10 Hypersomnia, unspecified; G47.00 Insomnia, unspecified; R06.83 Snoring; I63.9 Cerebral infarction, unspecified; E66.9 Obesity, unspecified; Z68.31 Body mass index [BMI] 31.0-31.9, adult | CPT/HCPCS: 95811 ==

== ENCOUNTER 2019-04-04 12:08 | Observation (INO) | payer OTHER ==
--- NOTE | 2019-04-04 12:48 | RAD ---
Chest AP view INDICATION: Chest pain and vomiting COMPARISON: July 01, 2018 FINDINGS: Lungs:The lungs are clear Cardiac silhouette pulmonary vasculature:The cardiomediastinal silhouette appears within normal limit s. Pleural spaces:No pleural effusion or pneumothorax is demonstrated. Upper abdomen:No abnormality seen. Osseous structures: No acute osseous abnormality. Additional findings:None. IMPRESSION: No acute cardiopulmonary abnormality.
[2019-04-04] MEDS ORDERED: Aspirin Chewable 81 MG TAB ONE (13:03)
[2019-04-04] MEDS ORDERED: Nitroglycerin 2% Ointment 1 INCH/1 GM Packet ONE (13:03)
[2019-04-04 13:07] LABS: #Basophils 0.1 thou/uL (0.0-0.2); #Eosinphils 0.5 thou/uL (0.0-0.7); #Monocytes 0.4 thou/uL (0.11-0.59); #Neutrophils 3.6 thou/uL (1.40-6.50); %Basophils 1.3 % (0.0-1.0); %Lymphocytes 39.2 % (21.0-51.0); %Monocytes 5.3 % (0.0-10.0); %Neutrophils 48.1 % (42.0-75.0); Hemoglobin 14.2 g/dL (12.0-16.0); Mean Corpuscular HGB CONC 35.2 g/dL (32.0-36.0); Mean Corpuscular Volume 82.3 fL (78.0-98.0); Mean Platelet Volume 8.4 fL (7.4-10.4); Platelet Count 332 thou/uL (130-400); RBC Distribution Width 11.5 % (11.5-14.5); Red Blood Cell (RBC) Count 4.92 mill/uL (4.20-5.40); White Blood Cell (WBC) Count 7.5 thou/uL (4.8-10.8)
[2019-04-04] MEDS ORDERED: Ondansetron PF 4 MG/2 ML Vial ONE (13:09)
[2019-04-04 13:17] LABS: ALT (SGPT) 22 U/L (8-55); AST (SGOT) 19 U/L (5-34); Albumin 4.8 g/dL (3.5-5.0); Alkaline Phosphatase 111 U/L (40-150); Anion Gap 16 mmol/L (10-20); BUN (Urea Nitrogen) 14 mg/dL (9.8-20.1); Bilirubin, Total 0.5 mg/dL (0.2-1.2); Calc. Creatinine Clearance 0 mL/min (70-130); Calcium 10.3 mg/dL (7.8-10.44); Carbon Dioxide 23 mmol/L (22-29); Chloride 102 mmol/L (98-107); Estimated GFR-MDRD 78; Globulin 3.9 g/dL (2.4-3.5); Glucose 178 mg/dL (70-105); Lipase 80 U/L (8-78); Potassium 4.2 mmol/L (3.5-5.1); Protein, Total 8.7 g/dL (6.0-8.3); Sodium 137 mmol/L (136-145)
--- NOTE | 2019-04-04 13:47 | CT ---
CTA Angio Chest W WO Con 04/04/2019 1:17 PM Indication: Elevated d-dimer, chest pain and concern for PE Technique: Multiple CTA images were obtained of the thorax with IV contrast. 3D reformatted images were constructed from the raw data. Comparison: Prior exam dated August 27, 2017 Findings: Pulmonary arteries: No central or segmental pulmonary embolus is evident. Heart and Great Vessels: There are mild vascular calcification is of the thoracic aorta. Heart size is normal appearing. Lungs:The lungs are clear. Pleural space: Clear. Upper Abdomen: There is a stable 13 mm splenic artery aneurysm. Osseous Structures: No acute osseous abnormality. There is scattered degenerative and osteoarthritic change present. Impression: No central or segmental pulmonary embolus.
[2019-04-04 15:56] LABS: Troponin I Less than 0.010 ng/mL (< 0.028)
[2019-04-04 17:10] VITALS: BMI 32.2
[2019-04-04] MEDS ORDERED: Ondansetron PF 4 MG/2 ML Vial IVP PRN ×2 (17:13→19:16)
[2019-04-04] MEDS ORDERED: Ondansetron ODT 4 MG TAB SL PRN (17:13)
[2019-04-04] MEDS ORDERED: Acetaminophen 325 MG TAB PO PRN (19:16)
[2019-04-04 19:45] LABS: Troponin I Less than 0.010 ng/mL (< 0.028)
[2019-04-04] MEDS: Sodium Chloride 0.9% 1,000 ML IV SCH (20:03)
[2019-04-04] MEDS: Famotidine 20 MG TAB PO SCH (20:11)
[2019-04-04] MEDS ORDERED: traMADol HCl 50 MG TAB PO PRN (20:11)
[2019-04-04] MEDS ORDERED: rOPINIRole HCl 2 MG TAB PO PRN (20:11)
[2019-04-04] MEDS ORDERED: Lidocaine 2% Viscous Solution 20 ML, Aluminum & Magnesium Hydroxide 30 ML, Donnatal Eli... SSW SCH (20:30)
[2019-04-04] MEDS ORDERED: Dextrose 50% Abboject 50 ML SYRINGE SLOW IVP PRN (20:39)
[2019-04-04] MEDS ORDERED: HumaLOG 300 UNITS/3 ML VIAL SC PRN (20:39)
[2019-04-04] MEDS ORDERED: Dextrose 5% in Water 1,000 ML IV PRN (20:39)
[2019-04-04] MEDS: traMADol HCl 50 MG TAB PO PRN (21:05)
[2019-04-04] MEDS: Gabapentin 300 MG CAP PO SCH (21:06)
--- NOTE | 2019-04-05 01:46 | HP ---
CHIEF COMPLAINT: Nausea, vomiting, and associated chest pressure. HISTORY OF PRESENT ILLNESS: The patient is a pleasant 54-year-old female with past medical history significant for type 2 diabetes mellitus, hypertension , hyperlipidemia, prior CVA x2, and history of grand mal seizures, well controlled on Depakote, who presented to the hospital with complaints of epigastric pain, chest pressure, nausea, and vomiting. Her symptoms began yesterday evening; She states that she had a normal dinner and then was trying to get her dog out from under her bed when her symptoms began. She did initially have some constant chest pressure; however, this was accompanied with epigastric pain. The patient states that she had numerous episodes of vomiting throughout the night. She presented to the hospital today because her symptoms have not subsided. She describes her epigastric pain as burning. She has had no diarrhea. She denies any coffee-grounds emesis. On arrival to the ED, her D- dimer was elevated and the patient was mildly tachycardic. CTA was performed, which showed no evidence of pulmonary embolism. Her EKG shows no ischemic changes and is normal aside from sinus tachycardia. Her troponin is negative. Upon my interview, the patient continues to complain of abdominal pain and nausea. Prior cardiac workup includes a normal Cardiolite stress test performed about 18 months ago. The patient states that she has been active recently, walking for exercise. She has had no exertional chest discomfort at all. Her symptoms have seemed to accompany the nausea and vomiting. REVIEW OF SYSTEMS: 12-point review of systems performed and is negative except that stated above. The patient denies any shortness of breath or diaphoresis. She denies any palpitations. She denies any blood in her urine or stool. She has no dysuria. No fever, chills, or sick contacts. ALLERGIES: SHE IS ALLERGIC TO PEPPERS, WHICH CAUSED AN ANAPHYLACTIC REACTION. HOME MEDICATIONS: 1. Depakote 500 mg p.o. daily. 2. Gabapentin 600 mg p.o. t.i.d. 3. Insulin detemir 50 units subcu b.i.d. 4. Victoza 1.8 mg subcu daily. 5. Lisinopril/hydrochlorothiazide 20/25 mg tablet one tablet daily. 6. Omeprazole 40 mg capsule one capsule daily. 7. Ropinirole 2 mg p.o. q.p.m. p.r.n. 8. Tramadol 50 mg p.o. p.r.n. 9. Amlodipine 5 mg p.o. daily. 10. Aspirin 81 mg p.o. daily. 11. Atorvastatin 10 mg p.o. daily. PAST MEDICAL HISTORY: 1. Type 2 diabetes mellitus with last hemoglobin A1c approximately 12% per the patient. 2. History of CVA x2 with no residual deficits. 3. History of grand mal seizures. 4. Hyperlipidemia. 5. Hypertension. 6. Restless legs syndrome. 7. Asthma. 8. Moderate obesity. 9. Gastroesophageal reflux disease. SOCIAL HISTORY: The patient lives alone and is recently . She states that there is some stress regarding this, and the patient has been to court and there are restraining orders involved. The patient denies any alcohol, smoking, or illicit drug use. She does have five children, 28 grandchildren, and one great grandchildren. She has sisters that she is very close to, who live near her. FAMILY HISTORY: Noncontributory. PAST SURGICAL HISTORY: 1. Tubal ligation. 2. Cyst removal, bilateral axilla. 3. Orthopedic procedure on her left shoulder along with the middle finger of her left hand. 4. Status post peripheral artery stent placement. PHYSICAL EXAMINATION: GENERAL: The patient is awake, alert, and oriented x3, she is resting in bed, and does appear to be in mild distress secondary to her nausea. HEENT: Head is atraumatic and normocephalic. Mucous membranes are moist. Extraocular movements intact. NECK: Supple. No lymphadenopathy. Trachea is midline. No JVD. RESPIRATORY: Regular respiratory rate and pattern. LUNGS: Clear to auscultation bilaterally. CV: S1 and S2. Regular rhythm, mildly tachycardic. ABDOMEN: Soft, positive bowel sounds. She is mildly tender to palpation in the left upper quadrant. SKIN: Warm and dry. No obvious rashes or discolorations. EXTREMITIES: No edema. +2 DP pulses bilaterally. NEUROLOGIC: Cranial nerves 2 through 12 are intact. The patient is nonfocal. LABORATORY DATA: White blood cell count 7.5, RBC 4.92, hemoglobin 14.2, and platelet count is 332. D-dimer was 1.13 as described above. Sodium 137, potassium 4.2, chloride 102, BUN 14, creatinine 0.78, and glucose was 178. AST 19, ALT 22 , alkaline phosphatase 111, albumin 4.8, and lipase 80. IMAGING STUDIES: CTA of the chest and thorax was negative for PE. Chest x-ray was clear. EKG is normal aside from sinus tachycardia. ASSESSMENT: 1. Nausea, vomiting, and epigastric pain, likely secondary to an acute viral gastroenteritis. 2. Mild dehydration and sinus tachycardia secondary to above, CTA negative for pulmonary embolism. 3. Chest tightness, atypical, no ischemic changes on EKG and troponin normal; the patient had normal Cardiolite stress test 18 months ago. 4. Uncontrolled type 2 diabetes mellitus. 5. Hypertension. 6. Hyperlipidemia. 7. History of grand mal seizures, currently controlled on Depakote. 8. Peripheral neuropathy. 9. Restless legs syndrome. PLAN: At this time, we will provide supportive care for the patient's abdominal symptoms with IV fluid resuscitation and antiemetics. We will start the patient on clear liquid diet and advance as tolerated. We will also get a UA. Depakote is also known to cause nausea and vomiting, and valproic acid is pending. Her chest discomfort at this time is largely atypical and cardiac workup thus far is negative, so will treat her abdominal symptoms and hold off on any stress test and re-evaluate tomorrow. The care of this patient has been discussed with Dr. Hilliard, who agrees with the above. Job ID: [id number] [facility]
[2019-04-05] MEDS: Sodium Chloride 0.9% 1,000 ML IV SCH ×2 (04:07→15:29)
[2019-04-05 06:09] LABS: #Basophils 0.1 thou/uL (0.0-0.2); #Eosinphils 0.4 thou/uL (0.0-0.7); #Lymphocytes 3.2 thou/uL (1.20-3.40); #Monocytes 0.5 thou/uL (0.11-0.59); #Neutrophils 4.3 thou/uL (1.40-6.50); %Basophils 0.7 % (0.0-1.0); %Eosinophils 5.2 % (0.0-10.0); %Lymphocytes 37.3 % (21.0-51.0); %Monocytes 5.7 % (0.0-10.0); %Neutrophils 51.1 % (42.0-75.0); Hemoglobin 11.7 g/dL (12.0-16.0); Mean Corpuscular HGB CONC 35.2 g/dL (32.0-36.0); Mean Corpuscular Hemoglobin 29.5 pg (27.0-31.0); Mean Corpuscular Volume 83.8 fL (78.0-98.0); Mean Platelet Volume 8.6 fL (7.4-10.4); Platelet Count 262 thou/uL (130-400); RBC Distribution Width 11.5 % (11.5-14.5); Red Blood Cell (RBC) Count 3.96 mill/uL (4.20-5.40); White Blood Cell (WBC) Count 8.5 thou/uL (4.8-10.8)
[2019-04-05 06:25] LABS: Anion Gap 11 mmol/L (10-20); BUN (Urea Nitrogen) 15 mg/dL (9.8-20.1); Calc. Creatinine Clearance 118 mL/min (70-130); Calcium 8.7 mg/dL (7.8-10.44); Carbon Dioxide 23 mmol/L (22-29); Chloride 107 mmol/L (98-107); Estimated GFR-MDRD 81; Glucose 119 mg/dL (70-105); Sodium 137 mmol/L (136-145)
[2019-04-05] MEDS: Gabapentin 300 MG CAP PO SCH ×2 (08:18→15:30)
[2019-04-05] MEDS: Famotidine 20 MG TAB PO SCH (08:18)
[2019-04-05] MEDS ORDERED: Atorvastatin Calcium 10 MG TAB PO SCH (09:00)
[2019-04-05] MEDS ORDERED: Aspirin Chewable 81 MG TAB PO SCH (09:00)
[2019-04-05] MEDS ORDERED: Lisinopril/Hydrochlorothiazide 20/25 mg Tablet PO SCH (09:00)
[2019-04-05] MEDS ORDERED: Amlodipine 5 MG TAB PO SCH (09:00)
[2019-04-05 09:52] LABS: Bilirubin Negative (Negative); Blood, Urine Moderate (Negative); Clarity TURBID (Clear); Glucose, Urine (Dipstick) Negative (Negative); Leukocyte Large (Negative); Nitrite Negative (Negative); Protein, Urine (Dipstick) Trace mg/dL (Neg-Trace); Specific Gravity, Urine 1.021 (1.002-1.036); Urobilinogen 0.2 mg/dL (0.2-1.0)
[2019-04-05 09:55] LABS: Bacteria/HPF 4+ HPF (None Seen); Hyaline Casts/LPF 7-10 HYALINE CAST LPF (0-3 Hyaline); Pathc Cast-AUWi Flag 2.32 (0-2.49); Squamous Epithelial 0-3 HPF (0-3)
[2019-04-05 09:58] LABS: Yeast-AUWi Flag 25.6 (0-25.0)
[2019-04-05 10:12] LABS: RBC/HPF 0-3 HPF (0-3); Urine Culture Reflex Yes Yes; Yeast-All Forms None Seen HPF (None Seen)
[2019-04-05] MEDS ORDERED: Regadenoson 0.4 MG/5 ML SYRINGE ONE (10:26)
--- NOTE | 2019-04-05 15:04 | NM ---
Nuclear medicine Cardiac myocardial perfusion SPECT Ejection fraction study Wall motion cine: DATE:04/05/2019 11:42 AM INDICATION: Chest pain TECHNIQUE: Number of days:2 Rest Study: Technetium 99m-sestamibi (Cardiolite) dose:11 mCi Stress study: Technetium 99m-sestamibi (Cardiolite) dose:632 mCi FINDINGS: Cardiac (myocardial perfusion) SPECT There are no reversible myocardial perfusion defects. Ejection fraction study Left ventricular EF = 65% Wall motion cine There was normal wall motion and thickening IMPRESSION: No evidence of reversible myocardial ischemia.
[2019-04-05] MEDS: traMADol HCl 50 MG TAB PO PRN (15:30)
[2019-04-05 15:48] VITALS: BP 111/65; TEMP 97.6
[2019-04-05] MEDS ORDERED: Lidocaine 2% Viscous Solution 10 ML, Aluminum & Magnesium Hydroxide 30 ML SSW PRN (18:00)
--- NOTE | 2019-04-05 18:29 | DIS ---
DATE OF ADMISSION: 04/04/2019 DATE OF DISCHARGE: 04/05/2019 PRIMARY CARE PROVIDER: Aruna Caballero. DISCHARGE DIAGNOSES: 1. Chest pain. 2. Chest pain, most likely secondary to GI etiology. CONDITION OF THE PATIENT ON THE DAY OF DISCHARGE: Stable. I assessed Ms. Gamboa on the day of discharge. She denies any chest pain or shortness of breath. Vital signs are stable. S1 and S2 are heard, regular. Lungs are clear to auscultation bilaterally. HOSPITAL COURSE: Ms. Gamboa is a pleasant 54-year-old lady, who was admitted to [facility] on observation status on 04/04/2019 for chest pain, that was atypical for cardiac etiology. Prior to admission, she had CT angiogram of the chest, which ruled out pulmonary embolism. Her chest pain improved with GI cocktail. She also had nuclear stress test, which did not show any evidence of reversible myocardial ischemia. Her left ventricular ejection fraction was 65%. DISCHARGE MEDICATIONS: In addition to preadmission home medications as dictated by Ms. Miller in history and physical dated on 04/05/2019, she is being discharged on GI cocktail, which is a combination of lidocaine and Maalox to be taken every 6 hours as needed for heartburn. Many thanks for allowing me to participate in your patient's care. Please feel free to contact me with any questions or concerns. LABORATORY DATA: On the day of discharge, she has white count 8500, hemoglobin 11.7, platelet count 262,000, normal electrolytes and normal creatinine. DISCHARGE DESTINATION: Home. ADDENDUM: The patient's divalproex acid level was low during this hospitalization at less than 12.5. I have advised her to follow up with her primary care provider for adjustment of divalproex dosing. Job ID: [id number]
== END 2019-04-05 19:25 | disposition home or self-care (01) ==
LOC: ERS 12:08 → 2SW 16:40
PROVIDERS: ADMIT Internal Medicine; ATTEND Internal Medicine
DX: R07.89 Other chest pain (principal); R11.2 Nausea with vomiting, unspecified; E11.9 Type 2 diabetes mellitus without complications; I10 Essential (primary) hypertension; E78.5 Hyperlipidemia, unspecified; G25.81 Restless legs syndrome; K21.9 Gastro-esophageal reflux disease without esophagitis; E86.0 Dehydration; G62.9 Polyneuropathy, unspecified; E66.9 Obesity, unspecified; Z68.32 Body mass index [BMI] 32.0-32.9, adult; Z86.73 Personal history of transient ischemic attack (TIA), and cerebral infarction without residual deficits; Z91.018 Allergy to other foods; Z79.4 Long term (current) use of insulin; Z79.82 Long term (current) use of aspirin; Z79.899 Other long term (current) drug therapy
CPT/HCPCS: 36415; 36416; 71045; 71275; 78452; 80048; 80053; 80164; 81001; 83690; 84484; 85025; 85379; 87077; 87086; 87186; 93005; 93017; 96361; 96374; 96376; A9500; G0378; J2405; J2785; Q9966

== ENCOUNTER 2019-05-18 19:52 | Emergency (ER) | payer OTHER ==
[2019-05-18] MEDS ORDERED: HYDROcodone/Acetaminophen 5/325 mg Tablet ONE (20:50)
--- NOTE | 2019-05-18 21:12 | RAD ---
THREE VIEWS RIGHT SHOULDER: COMPARISON: 12/11/2013. HISTORY: Fall in the shower with right shoulder and elbow pain. FINDINGS: Three views of the right shoulder show no evidence of acute fracture or dislocation. No degenerative changes are seen. Visualized right thorax is unremarkable. IMPRESSION: Unremarkable exam. POS: [facility]
--- NOTE | 2019-05-18 21:13 | RAD ---
Right elbow 4 views HISTORY: Fall. Elbow injury. FINDINGS: Radiocapitellar alignment is maintained. No displaced fractures are demonstrated. Lateral v iew is limited due to rotation and lack of flexion. No significant fluid distention of the joint capsule is apparent. IMPRESSION: No acute osseous abnormalities are demonstrated. Limited exam as described above. If symp toms warrant, please consider immobilization and short-term radiographic follow-up.
--- NOTE | 2019-05-18 21:33 | RAD ---
Right hip 2 views HISTORY: Fall. Right hip injury. FINDINGS: Joint space is preserved. Mild/moderate osteophytosis and subchondral sclerosis. Femoral he ad contour is maintained and no acute fracture or dislocation. Ligation clips over the right adnexa. IMPRESSION: Mild degenerative changes right hip. No acute osseous abnormalities are demonstrated.
[2019-05-18] MEDS ORDERED: Ketorolac Tromethamine 30 MG/ML VIAL ONE (21:54)
== END 2019-05-18 23:05 | disposition home or self-care (01) ==
LOC: ERS 19:52
DX: M25.511 Pain in right shoulder (principal); M25.521 Pain in right elbow; K21.9 Gastro-esophageal reflux disease without esophagitis; M25.551 Pain in right hip; E78.5 Hyperlipidemia, unspecified; E11.40 Type 2 diabetes mellitus with diabetic neuropathy, unspecified; F31.9 Bipolar disorder, unspecified; F41.9 Anxiety disorder, unspecified; Z79.4 Long term (current) use of insulin; Z79.82 Long term (current) use of aspirin; W17.89XA Other fall from one level to another, initial encounter; Z79.891 Long term (current) use of opiate analgesic
CPT/HCPCS: 96372; J1885

== ENCOUNTER 2019-08-16 19:04 | Emergency (ER) | payer OTHER ==
[2019-08-16 19:36] LABS: #Basophils 0.1 thou/uL (0.0-0.2); #Eosinphils 0.2 thou/uL (0.0-0.7); #Lymphocytes 2.4 thou/uL (1.20-3.40); #Monocytes 0.6 thou/uL (0.11-0.59); #Neutrophils 3.6 thou/uL (1.40-6.50); %Basophils 0.8 % (0.0-1.0); %Eosinophils 2.2 % (0.0-10.0); %Lymphocytes 35.5 % (21.0-51.0); %Monocytes 8.6 % (0.0-10.0); %Neutrophils 52.9 % (42.0-75.0); Hemoglobin 13.2 g/dL (12.0-16.0); Mean Corpuscular Hemoglobin 29.1 pg (27.0-31.0); Mean Corpuscular Volume 83.1 fL (78.0-98.0); Mean Platelet Volume 8.2 fL (7.4-10.4); Platelet Count 318 thou/uL (130-400); RBC Distribution Width 11.3 % (11.5-14.5); Red Blood Cell (RBC) Count 4.55 mill/uL (4.20-5.40); White Blood Cell (WBC) Count 6.9 thou/uL (4.8-10.8)
[2019-08-16 19:59] LABS: ALT (SGPT) 21 U/L (8-55); AST (SGOT) 17 U/L (5-34); Albumin 4.8 g/dL (3.5-5.0); Alkaline Phosphatase 104 U/L (40-150); Anion Gap 15 mmol/L (10-20); BUN (Urea Nitrogen) 12 mg/dL (9.8-20.1); Bilirubin, Total 0.3 mg/dL (0.2-1.2); Calc. Creatinine Clearance 0 mL/min (70-130); Calcium 10.1 mg/dL (7.8-10.44); Carbon Dioxide 22 mmol/L (22-29); Chloride 103 mmol/L (98-107); Estimated GFR-MDRD 72; Globulin 3.6 g/dL (2.4-3.5); Glucose 172 mg/dL (70-105); Lipase 40 U/L (8-78); Protein, Total 8.4 g/dL (6.0-8.3); Sodium 136 mmol/L (136-145)
--- NOTE | 2019-08-16 20:04 | RAD ---
Portable frontal chest radiograph: 08/16/2019 COMPARISON: 04/04/2019 HISTORY: Cough with shortness of breath FINDINGS: Lungs are clear. Heart and mediastinal contours appear within normal limits. IMPRESSION: No acute findings.
[2019-08-16] MEDS ORDERED: Ondansetron PF 4 MG/2 ML Vial ONE (20:19)
[2019-08-16] MEDS ORDERED: Lidocaine Viscous Sol 2% 15 ml UD Cup ONE (21:06)
[2019-08-16] MEDS ORDERED: Mag-Al 1200 mg/1200 mg/30 ML UDCUP ONE (21:07)
[2019-08-16] MEDS ORDERED: Ketorolac Tromethamine 30 MG/ML VIAL ONE (21:07)
--- NOTE | 2019-08-16 21:44 | CT ---
CT PULMONARY ANGIOGRAM WITH IV CONTRAST AND 3D MIP RECONSTRUCTIONS: Date: 08-16-19 Provided Clinical History: Chest pain, shortness of breath. FINDINGS: Comparison is made with the study dated 04-04-19. The heart, pericardium, and great vessels demonstrate an unremarkable CT appearance with the exceptio n of minimal vascular calcification. There is no evidence for central or segmental pulmonary embolis. The lungs are free of significant opacity. The airway appears patent and normal caliber. No pleural fluid or pneumothorax apparent. No evidence for thoracic lymph node enlargement. Visualized portions of the upper abdomen demonstrate a stable CT appearance with respect to 04-04-19. Partially calcified splenic artery aneurysm measuring about 1.4 cm is redemonstrated. IMPRESSION: No evidence for central or segmental pulmonary embolus. POS: [facility]
[2019-08-16 22:15] LABS: Bilirubin Negative (Negative); Blood, Urine Negative (Negative); Clarity Clear (Clear); Glucose, Urine (Dipstick) 300 mg/dL (Negative); Leukocyte Negative Leu/uL (Negative); Nitrite Negative (Negative); Protein, Urine (Dipstick) Negative (Neg-Trace); Urobilinogen Normal mg/dL (Less than 2)
== END 2019-08-17 01:04 | disposition home or self-care (01) ==
LOC: ERS 19:04
DX: J06.9 Acute upper respiratory infection, unspecified (principal); R10.13 Epigastric pain; I71.9 Aortic aneurysm of unspecified site, without rupture; G40.909 Epilepsy, unspecified, not intractable, without status epilepticus; F31.9 Bipolar disorder, unspecified; F41.9 Anxiety disorder, unspecified; E11.40 Type 2 diabetes mellitus with diabetic neuropathy, unspecified; Z86.73 Personal history of transient ischemic attack (TIA), and cerebral infarction without residual deficits; Z79.82 Long term (current) use of aspirin; Z79.899 Other long term (current) drug therapy; Z79.891 Long term (current) use of opiate analgesic
CPT/HCPCS: 36415; 71045; 71275; 80053; 81003; 83690; 84484; 85025; 85379; 93005; 94760; 96374; 96375; J1885; J2405; Q9966

== ENCOUNTER 2019-10-21 12:50 | Outpatient (CLI) | payer OTHER ==
--- NOTE | 2019-10-21 14:30 | MMO ---
Bilateral MAMMO Bilat Screen [facility]DI. CLINICAL HISTORY: Patient is 54 years old and is seen for screening. The patient has the following family history of breast cancer: mother, malignant (generic). The patient has no personal history of cancer. VIEWS: The views performed were: bilateral craniocaudal and bilateral mediolateral oblique. FILMS COMPARED: The present examination has been compared to prior imaging studies performed at [facility] on 12/29/2013, 04/16/2017 and 04/26/2017. This study has been interpreted with the assistance of computer-aided detection. MAMMOGRAM FINDINGS: Finding 1: There are stable benign appearing calcifications seen in both breasts. Finding 2: There are stable benign appearing densities seen in both breasts. There are no suspicious masses, suspicious calcifications, or new areas of architectural distortion. IMPRESSION: THERE IS NO MAMMOGRAPHIC EVIDENCE OF MALIGNANCY. A ROUTINE FOLLOW-UP MAMMOGRAM IN 1 YEAR IS RECOMMENDED. ACR BI-RADS Category 2 - Benign finding MAMMOGRAPHY NOTE: 1. A negative mammogram report should not delay a biopsy if a dominant of clinically suspicious mass is present. 2. Approximately 10% to 15% of breast cancers are not detected by mammography. 3. Adenosis and dense breasts may obscure an underlying neoplasm. Reported by: MELISSA RIVERA MD Electonically Signed: [id number]
== END 2019-10-21 12:51 | disposition home or self-care (01) ==
LOC: BICMAMMO 12:50
PROVIDERS: ATTEND Nurse Practitioner Family
DX: Z12.31 Encounter for screening mammogram for malignant neoplasm of breast (principal); Z80.3 Family history of malignant neoplasm of breast
CPT/HCPCS: 77067

== ENCOUNTER 2019-11-04 02:58 | Observation (INO) | payer OTHER ==
[2019-11-04 03:30] LABS: #Basophils 0.1 thou/uL (0.0-0.2); #Eosinphils 0.2 thou/uL (0.0-0.7); #Lymphocytes 2.7 thou/uL (1.20-3.40); #Monocytes 0.6 thou/uL (0.11-0.59); #Neutrophils 5.8 thou/uL (1.40-6.50); %Basophils 0.6 % (0.0-1.0); %Eosinophils 2.3 % (0.0-10.0); %Lymphocytes 29.2 % (21.0-51.0); %Monocytes 6.1 % (0.0-10.0); %Neutrophils 61.8 % (42.0-75.0); Mean Corpuscular HGB CONC 35.2 g/dL (32.0-36.0); Mean Corpuscular Volume 82.4 fL (78.0-98.0); Mean Platelet Volume 8.3 fL (7.4-10.4); Platelet Count 281 thou/uL (130-400); RBC Distribution Width 11.3 % (11.5-14.5); Red Blood Cell (RBC) Count 4.84 mill/uL (4.20-5.40); White Blood Cell (WBC) Count 9.4 thou/uL (4.8-10.8)
[2019-11-04 03:33] LABS: PTT 26.7 SEC (22.9-36.1); Prothrombin Time 12.9 SEC (12.0-14.7)
[2019-11-04 03:42] LABS: ALT (SGPT) 24 U/L (8-55); AST (SGOT) 19 U/L (5-34); Albumin 4.7 g/dL (3.5-5.0); Alkaline Phosphatase 120 U/L (40-110); Anion Gap 16 mmol/L (10-20); BUN (Urea Nitrogen) 16 mg/dL (9.8-20.1); Bilirubin, Total 0.5 mg/dL (0.2-1.2); Calc. Creatinine Clearance 0 mL/min (70-130); Calcium 9.7 mg/dL (7.8-10.44); Carbon Dioxide 22 mmol/L (22-29); Chloride 102 mmol/L (98-107); Estimated GFR-MDRD 69; Globulin 3.3 g/dL (2.4-3.5); Glucose 333 mg/dL (70-105); Potassium 4.7 mmol/L (3.5-5.1); Sodium 135 mmol/L (136-145)
[2019-11-04] MEDS ORDERED: diphenhydrAMINE 50 MG/ML VIAL ONE (03:43)
[2019-11-04] MEDS ORDERED: Metoclopramide HCl 10 MG/2 ML VIAL ONE (03:43)
[2019-11-04] MEDS ORDERED: Ketorolac Tromethamine 30 MG/ML VIAL ONE (03:43)
[2019-11-04 04:27] LABS: Bilirubin Negative (Negative); Blood, Urine Negative (Negative); Clarity Clear (Clear); Glucose, Urine (Dipstick) Greater than 1000 mg/dL (Negative); Leukocyte 250 Leu/uL (Negative); Nitrite Negative (Negative); Protein, Urine (Dipstick) Negative (Neg-Trace); RBC/HPF 0-3 HPF (0-3); Urobilinogen Normal mg/dL (Less than 2)
[2019-11-04 04:36] LABS: Bacteria/HPF 3+ HPF (None Seen)
[2019-11-04] MEDS ORDERED: Magnesium 2 GM/50 ML BAG (IN WATER) ONE (04:55)
[2019-11-04] MEDS ORDERED: Aspirin Chewable 81 MG TAB ONE (04:55)
[2019-11-04] MEDS ORDERED: Dextrose 5% in Water 1,000 ML IV PRN (05:06)
[2019-11-04] MEDS ORDERED: Dextrose 50% Abboject 50 ML SYRINGE SLOW IVP PRN (05:06)
--- NOTE | 2019-11-04 05:58 | PDOC.EVN ---
Event Note - Event Note Event Note: [id number] [facility]
[2019-11-04] MEDS: Sodium Chloride 0.9% 1,000 ML IV SCH ×2 (06:02→23:42)
--- NOTE | 2019-11-04 09:10 | CT ---
PRELIMINARY REPORT/[facility]/EMERGENCY AFTER HOURS PROCEDURE: This report was discussed with Karina Guy PA-C by Indiana Garrison on Nov 04, 2019 03:34:00 [facility]. Addendum electronically signed by Indiana Garrison on November 04, 2019 3:34:55 AM [facility]IT[facility] PILOT EXAM: CT Head Without Intravenous Contrast. CLINICAL HISTORY: *LEVEL 2 STROKE ALERT* 54F presents to the ED with c/o headache, worsening left-sided facial droop, i ncreased left sided weakness, vomiting, and decreased sensation to the left side of face. Pt reports hx of CVA with left sided deficits but states that sensation to left face was there this morning and then about 11:30 AM on 11/03/19 it decreased. Pt Tells me that COKER started at 6AM on 11/03/19. TECHNIQUE: Axial computed tomography images of the head/brain without intravenous contrast. COMPARISON: None provided. FINDINGS: BRAIN: No acute intraparenchymal hemorrhage. No mass lesion. No CT evidence for acute territorial inf arct. No midline shift or extra-axial collection. VENTRICLES: No hydrocephalus. ORBITS: The orbits are unremarkable. SINUSES AND MASTOIDS: The paranasal sinuses and mastoid air cells are clear. SOFT TISSUES: No significant facial or scalp soft tissue swelling evident. No radiopaque foreign body is seen. BONES: No acute skull fracture. IMPRESSION: No acute intracranial abnormality. ELECTRONICALLY SIGNED BY: Maugi Elaine MD Nov 04, 2019 3:30:56 AM [facility] PILOT This report is intended for review by the ordering physician only, in accordance of law. If you recei ve this report in error, please call [facility] at [phone]. FINAL REPORT EMERGENCY AFTER HOURS BRAIN CT WITHOUT IV CONTRAST: Date: 11/04/19 Time: 0324 hours IMPRESSION: No mass or bleed. This report is in agreement with the preliminary report. POS: [facility]
--- NOTE | 2019-11-04 09:39 | RAD ---
CHEST 1 VIEW PORTABLE: Date: 11/04/19 HISTORY: Headache. COMPARISON: 08/16/19. FINDINGS: Poor inspiration. Mild increased markings bilaterally, but no confluent pneumonia, overt edema, pleur al effusion, or other acute process. IMPRESSION: No significant acute intrathoracic disease. POS: [facility]
[2019-11-04] MEDS: Aspirin 325 mg Enteric Coated Tablet PO SCH (10:04)
--- NOTE | 2019-11-04 11:17 | HP ---
CHIEF COMPLAINT: Headache, vomiting, and left-sided weakness. HISTORY OF PRESENT ILLNESS: Ms. Gamboa is a 54-year-old female with past medical history of diabetes mellitus, type 2, hyperlipidemia, hypertension, aortic aneurysm ? GERD, epilepsy, CVA, neuropathy, restless legs syndrome, among others, who presents to the emergency room with headache, vomiting, and left facial and left-sided weakness that started yesterday morning. Workup in the emergency room, the patient had left facial weakness and left upper extremity and left lower extremity weakness. The patient was outside the window for tPA. Initial workup in the emergency room including CT of the brain, no acute finding. The patient is being admitted to the hospital for further management. PAST MEDICAL HISTORY: As mentioned above in History of Present Illness. PAST SURGICAL HISTORY: 1. Tubal ligation. 2. Cyst removed under bilateral axilla. 3. Left shoulder surgery. 4. Middle finger surgery. 5. Stent placement in the right groin. FAMILY HISTORY: Reviewed and noncontributory. HOME MEDICATIONS: Please see home medication reconciliation form for updated medications. ALLERGIES: NO KNOWN ALLERGIES. REVIEW OF SYSTEMS: Review of 14 systems negative except what is mentioned in History of Present Illness. PHYSICAL EXAMINATION: GENERAL: The patient is awake, alert, does not appear to be in acute distress. Left facial drooping. HEAD AND NECK: Normocephalic, atraumatic. Neck is supple. No JVD. CHEST: Fair bilateral air entry. HEART: S1 and S2. Regular. ABDOMEN: Soft, nontender. Bowel sounds present. NEUROLOGIC: Awake, alert, and oriented x3. Mild left facial drooping. Left upper extremity motor strength is 4/5, left lower extremity 4/5, right upper extremity 5/5, and right lower extremity 5/5. PSYCH: Unable to assess. EXTREMITIES: No clubbing or cyanosis. LABORATORY DATA: Sodium is 135, BUN is 16, creatinine 0.8, and glucose is elevated at 333. WBC count 9.4, hemoglobin of 14, and platelet count is 81. IMAGING DATA: CT of the brain as mentioned above in History of Present Illness. ASSESSMENT: 1. Left facial drooping. 2. Acute cerebrovascular accident ? 3. Headache. 4. Diabetes mellitus, hyperglycemia. 5. Hypertension. 6. Hyperlipidemia. 7. History of cerebrovascular accident. 8. Epilepsy. PLAN: 1. Admit. 2. Frequent neuro checks. 3. Aspirin. 4. Telemetry monitoring. 5. MRI of the brain. 6. 2D echo. 7. To consult PT/OT eval and treat. 8. Reconcile home medications. 9. DVT prophylaxis as appropriate. 10. Expected length of stay at least 1 midnight if the patient is stable and further workup negative. Job ID: [id number]
--- NOTE | 2019-11-04 12:27 | MRI ---
Brain MRI without contrast: 11/04/2019 COMPARISON: 08/05/2017 HISTORY: Headache, worsening left-sided facial droop, assess for acute infarction TECHNIQUE: Multiplanar multisequence MR imaging of the brain is obtained without contrast FINDINGS: The diffusion weighted imaging demonstrates no evidence for acute infarction. The axial gradient echo imaging demonstrates no evidence for intracranial hemorrhage. There are multiple scattered subcentimeter foci of increased T2 and FLAIR signal within the periventr icular, deep, and subcortical white matter, evidence of small vessel disease. Arterial flow voids at the axial level of the skull base appear grossly unremarkable on the T2-weight ed imaging. Regional bone marrow signal intensity appears within normal limits. IMPRESSION: No MR evidence for acute infarction. Evidence of small vessel disease as above.
[2019-11-04 15:11] VITALS: BMI 25.0
--- NOTE | 2019-11-04 16:31 | ULT ---
BILATERAL CAROTID DUPLEX ULTRASOUND: HISTORY: Transient ischemic attack COMPARISON: 08/05/2017 TECHNIQUE: Grayscale, color-flow and spectral Doppler ultrasound imaging of the extracranial carotid artery syst ems and vertebral arteries was performed bilaterally. FINDINGS: Small amount of atherosclerotic plaque in both carotid bifurcation and proximal internal carotid evan jony. The peak systolic velocity in the right ICA measures 59.8 cm/s. The peak systolic velocity in the ri ght CCA measures 69.4 cm/s. The peak systolic velocity in the left ICA measures 60 point cm/s. The peak systolic velocity in t he left CCA measures 71.4 cm/s. The right IC/CC ration is0.9. The left IC/CC ratio is 0.9. Vertebral flow: antegrade, bilaterally. . IMPRESSION: No hemodynamically significant stenosis of either carotid artery.
[2019-11-05 05:15] LABS: Cardiac Risk 6.3 (Less than 4.5); Cholesterol 219 mg/dl (< 200 Desired); HDL Cholesterol 35 mg/dL (>60 Neg Risk); Triglycerides 416 mg/dL (Less than 150)
[2019-11-05] MEDS: HumaLOG 300 UNITS/3 ML VIAL SC PRN ×3 (06:26→16:48)
[2019-11-05] MEDS: Aspirin 325 mg Enteric Coated Tablet PO SCH (08:58)
[2019-11-05] MEDS: Sodium Chloride 0.9% 1,000 ML IV SCH ×2 (11:13→21:37)
[2019-11-05] MEDS ORDERED: Acetaminophen 325 MG TAB PO PRN (15:25)
--- NOTE | 2019-11-05 22:44 | CON ---
DATE OF CONSULTATION: 11/05/2019 CONSULTING PHYSICIAN: Hospitalist Service. IMPRESSION: 1. Complex migraine versus psychosomatic reaction. 2. Diabetes. 3. Hypertension. 4. Moderate degree small-vessel ischemic changes that are chronic on MRI. 5. Hyperlipidemia. PLAN: 1. Continue aspirin. 2. Start a statin to address her hyperlipidemia. 3. The patient can be discharged home. HISTORY OF PRESENT ILLNESS: Ms. Gamboa is a 54-year-old female with a history of migraine, diabetes, hypertension. She has been under quite a bit of stress lately by her own admission. She woke up and had a fairly significant headache. She started feeling like the left side of her body was weak and numb. She came into the hospital for further evaluation. She has had symptoms now for nearly 48 hours. She was given some in the emergency room that reduced her head pain. She still complains that the left side feels heavy. She had an MRI of the brain done, which showed some small-vessel ischemic changes that were chronic, but there was no evidence of an acute infarct. Her echocardiogram showed a normal ejection fraction of 60% to 65%. Her carotid Dopplers were clear. LABORATORY DATA: Cholesterol ratio was 6.3. Urine suggested a urinary tract infection. PAST MEDICAL HISTORY: As listed above. ALLERGIES: PEPPERS. SOCIAL HISTORY: No tobacco use. FAMILY HISTORY: Noncontributory. REVIEW OF SYSTEMS: Ten-system review of systems is otherwise negative. PHYSICAL EXAMINATION: GENERAL: She is a well-nourished, middle-aged woman, sitting up in chair, in no distress. VITAL SIGNS: Stable. She has been afebrile. She is in a sinus rhythm. HEENT: Pupils are equal. Conjunctivae clear. Oropharynx clear. NECK: Supple. EXTREMITIES: No cyanosis, clubbing, or edema. NEUROLOGIC: She was alert and cooperative. Her speech is fluent and clear. There is no facial asymmetry. She tends to squint her left eye. Testing motor function, she moved the left side slowly, but in a complete fashion. Sensation was subjectively reduced on the left. She is able to walk independently. There is no abnormal movements present. SUMMARY: This is a middle-aged woman with subjective complaints of headache, numbness and weakness, which appeared nonphysiologic in appearance. There is no evidence of an acute ischemic event. I would continue aspirin and a statin based on her MRI findings. Job ID: [id number]
[2019-11-06] MEDS: HumaLOG 300 UNITS/3 ML VIAL SC PRN (06:58)
[2019-11-06 07:49] VITALS: BP 154/104; TEMP 98.6
--- NOTE | 2019-11-07 01:07 | DIS ---
DATE OF ADMISSION: 11/04/2019 DATE OF DISCHARGE: 11/06/2019 PRIMARY CARE PROVIDER: CHAVA Blue. DISCHARGE DIAGNOSES: 1. Facial droop. 2. Complex migraine versus psychosomatic reaction. 3. Dyslipidemia. CONDITION OF PATIENT ON THE DAY OF DISCHARGE: Stable. I assessed Ms. Gamboa on the day of discharge. She denied any chest pain or shortness of breath. Vital signs are stable. S1 and S2 are heard, regular. Lungs are clear to auscultation bilaterally. CONSULTATIONS DURING THIS HOSPITALIZATION: Neurology, Dr. Bean. POST-ACUTE CARE FOLLOWUP: With primary care provider in 3 days. DISCHARGE MEDICATIONS: 1. Aripiprazole 5 mg at bedtime. 2. Lexapro 10 mg at bedtime. 3. Gabapentin 300 mg 3 times a day. 4. Humalog insulin as directed. 5. Lisinopril/hydrochlorothiazide 20/25 mg daily. 6. Pantoprazole 40 mg daily. 7. Ropinirole 0.5 mg every evening. 8. Tramadol 50 mg as needed. 9. Trazodone 25 mg at bedtime. 10. Amlodipine 5 mg daily. 11. Aspirin 81 mg daily. 12. Lipitor dose increased to 20 mg at bedtime. HOSPITAL COURSE: Ms. Gamoba is a pleasant 54-year-old lady, who was admitted to [facility] for facial droop. Please refer to Dr. Gaitan's history and physical note dated 11/04/2019, for further details. MRI of the brain did not show any acute intracranial abnormality. She had evidence of small-vessel disease. 2D echocardiogram showed left ventricular ejection fraction of 60% to 65%. There were no obvious intracardiac thrombus or masses. There was no atrial septal defect or patent foramen ovale. She had normal right ventricular size and function. She also had carotid Dopplers, which did not show any hemodynamically significant stenosis. She was seen by Neurology Service. It was felt that her facial droop was secondary to psychosomatic etiology or complex migraine. She has been cleared for discharge by Neurology Service. Fasting lipid profile during this hospitalization showed triglycerides 416, cholesterol 219, and HDL cholesterol 35. Many thanks for allowing me to participate in your patient's care. Please feel free to contact me with any questions or concerns. DISCHARGE DESTINATION: Home. Job ID: [id number]
== END 2019-11-06 07:48 | disposition home or self-care (01) ==
LOC: ERS 02:58 → ERHOLD 05:04 → 2SE 20:52
PROVIDERS: ADMIT Internal Medicine; ATTEND Internal Medicine
DX: R29.810 Facial weakness (principal); E78.5 Hyperlipidemia, unspecified; I10 Essential (primary) hypertension; E11.40 Type 2 diabetes mellitus with diabetic neuropathy, unspecified; I67.82 Cerebral ischemia; E11.65 Type 2 diabetes mellitus with hyperglycemia; G43.909 Migraine, unspecified, not intractable, without status migrainosus; Z79.4 Long term (current) use of insulin; Z79.82 Long term (current) use of aspirin; Z79.899 Other long term (current) drug therapy; Z91.018 Allergy to other foods; Z86.73 Personal history of transient ischemic attack (TIA), and cerebral infarction without residual deficits; G40.909 Epilepsy, unspecified, not intractable, without status epilepticus
CPT/HCPCS: 36415; 36416; 70450; 70551; 71045; 80053; 80061; 81003; 81015; 82550; 84484; 85025; 85610; 85730; 90471; 90732; 93005; 93306; 93880; 96365; 96367; 96375; G0009; G0378; J1200; J1885; J2765; J3475

== ENCOUNTER 2020-01-06 14:45 | Emergency (ER) | payer OTHER | END 2020-01-06 17:14 | disposition home or self-care (01) | LOC: ERS 14:45 | DX: J45.901 Unspecified asthma with (acute) exacerbation (principal); E11.40 Type 2 diabetes mellitus with diabetic neuropathy, unspecified; K21.9 Gastro-esophageal reflux disease without esophagitis; E78.5 Hyperlipidemia, unspecified; E78.00 Pure hypercholesterolemia, unspecified; G40.909 Epilepsy, unspecified, not intractable, without status epilepticus; I10 Essential (primary) hypertension; Z86.73 Personal history of transient ischemic attack (TIA), and cerebral infarction without residual deficits; G25.81 Restless legs syndrome; F31.9 Bipolar disorder, unspecified; F41.9 Anxiety disorder, unspecified; Z79.899 Other long term (current) drug therapy | CPT/HCPCS: 94640; J7620 ==

== ENCOUNTER 2020-05-18 11:42 | Emergency (ER) | payer OTHER ==
--- NOTE | 2020-05-18 12:00 | RAD ---
EXAM: 3 views of the left ankle HISTORY: Ankle pain COMPARISON: None FINDINGS: 3 views of the left ankle shows no evidence of acute fracture or dislocation. No soft tissu e swelling is seen. No degenerative changes are present. IMPRESSION: No evidence of acute osseous abnormality.
[2020-05-18] MEDS ORDERED: Ketorolac Tromethamine 30 MG/ML VIAL ONE (12:01)
== END 2020-05-18 12:46 | disposition home or self-care (01) ==
LOC: ERS 11:42
DX: S93.402A Sprain of unspecified ligament of left ankle, initial encounter (principal); E78.00 Pure hypercholesterolemia, unspecified; E78.5 Hyperlipidemia, unspecified; G40.909 Epilepsy, unspecified, not intractable, without status epilepticus; E11.40 Type 2 diabetes mellitus with diabetic neuropathy, unspecified; I71.9 Aortic aneurysm of unspecified site, without rupture; K21.9 Gastro-esophageal reflux disease without esophagitis; F31.9 Bipolar disorder, unspecified; F41.9 Anxiety disorder, unspecified; I10 Essential (primary) hypertension; J45.909 Unspecified asthma, uncomplicated; E66.9 Obesity, unspecified; Z86.73 Personal history of transient ischemic attack (TIA), and cerebral infarction without residual deficits; W01.0XXA Fall on same level from slipping, tripping and stumbling without subsequent striking against object, initial encounter
CPT/HCPCS: 96372; J1885

== ENCOUNTER 2020-11-08 18:58 | Emergency (ER) | payer OTHER ==
[~2020-11-08 18:58] MED LIST changes: -ISOVUE-370 76%-LOCM 1 ML ONE; +Iopamidol 370 76% 100 ML VIAL ONE
--- NOTE | 2020-11-08 19:20 | RAD ---
Exam: Chest one view HISTORY:Chest pain since this morning. Difficulty breathing. Comparison: 11/04/2019 FINDINGS: Cardiac silhouette: Normal Aorta: Unremarkable Pulmonary vessels: Normal Costophrenic angles: Clear LUNGS: No masses or consolidation. Chronic changes in the lung bases. Pneumothorax: None Osseous abnormalities: None IMPRESSION: No acute cardiopulmonary process.
[2020-11-08] MEDS ORDERED: Promethazine HCl 25 MG/ML VIAL ONE (19:26)
[2020-11-08] MEDS ORDERED: Morphine 4 MG/ML VIAL ONE (19:26)
[2020-11-08 19:29] LABS: #Basophils 0.1 thou/uL (0.0-0.2); #Eosinphils 0.4 thou/uL (0.0-0.7); #Lymphocytes 2.3 thou/uL (1.20-3.40); #Neutrophils 13.7 thou/uL (1.40-6.50); %Basophils 0.3 % (0.0-1.0); %Eosinophils 2.2 % (0.0-10.0); %Lymphocytes 13.2 % (21.0-51.0); %Monocytes 5.8 % (0.0-10.0); %Neutrophils 78.6 % (42.0-75.0); Hemoglobin 13.2 g/dL (12.0-16.0); Mean Corpuscular HGB CONC 35.6 g/dL (32.0-36.0); Mean Corpuscular Hemoglobin 29.3 pg (27.0-31.0); Mean Corpuscular Volume 82.5 fL (78.0-98.0); Mean Platelet Volume 8.1 fL (7.4-10.4); Platelet Count 351 thou/uL (130-400); RBC Distribution Width 11.6 % (11.5-14.5); Red Blood Cell (RBC) Count 4.51 mill/uL (4.20-5.40); White Blood Cell (WBC) Count 17.5 thou/uL (4.8-10.8)
[2020-11-08 20:08] LABS: ALT (SGPT) 17 U/L (8-55); AST (SGOT) 14 U/L (5-34); Albumin 4.3 g/dL (3.5-5.0); Alkaline Phosphatase 109 U/L (40-110); Anion Gap 20 mmol/L (10-20); BUN (Urea Nitrogen) 23 mg/dL (9.8-20.1); Bilirubin, Total 0.4 mg/dL (0.2-1.2); Calc. Creatinine Clearance 0 mL/min (70-130); Calcium 9.1 mg/dL (7.8-10.44); Carbon Dioxide 18 mmol/L (22-29); Chloride 99 mmol/L (98-107); Globulin 3.5 g/dL (2.4-3.5); Glucose 212 mg/dL (70-105); Lipase 57 U/L (8-78); Potassium 4.8 mmol/L (3.5-5.1); Protein, Total 7.8 g/dL (6.0-8.3); Sodium 132 mmol/L (136-145)
--- NOTE | 2020-11-08 20:26 | CT ---
EXAM: CT ABDOMEN AND PELVIS HISTORY: Right lower quadrant pain COMPARISON: 01/03/2019 Procedure: Multiple contiguous axial images were obtained and a CT of the abdomen and pelvis with IV contrast. C oronal reformats were performed. FINDINGS: Lower Chest: within normal limits. Vessels: Normal caliber aorta Heart: Normal heart size Abdomen: Portal vein:Patent Gallbladder: No calcified gallstones. Normal caliber wall. Liver: within normal limits. Pancreas: within normal limits. Spleen: within normal limits. Adrenals: within normal limits. Kidneys: Symmetric enhancement. No obstructive uropathy. Stable subcentimeter hypodensity in the left renal cortex Peritoneum: No ascites or free air, no fluid collection. Bowel: Limited evaluation due to the lack of oral contrast administration. No evidence of bowel obstr uction. Ileocecal junction is unremarkable. Normal caliber appendix. Scattered fecal material in a nondistended, nondilated colon. Mesentery and Retroperitoneum: No enlarged mesenteric or retroperitoneal lymph nodes. Abdominal Wall: Small umbilical hernia containing mesenteric fat. Pelvis: Reproductive Organs: Reproductive organs are unremarkable. Pelvis: No mass, lymphadenopathy, free air or free fluid. Bladder: within normal limits. Bones: within normal limits. IMPRESSION: No evidence of acute intraabdominal\pelvic abnormality.
[2020-11-08 21:53] LABS: Bacteria/HPF 4+ HPF (None Seen); Bilirubin Negative (Negative); Blood, Urine Trace (Negative); Clarity Turbid (Clear); Glucose, Urine (Dipstick) Normal (Negative); Ketone, Urine Negative (Negative); Leukocyte 500 Leu/uL (Negative); Nitrite Negative (Negative); Protein, Urine (Dipstick) 10 mg/dL (Neg-Trace); Specific Gravity, Urine 1.038 (1.002-1.036); Urobilinogen Normal mg/dL (Less than 2); WBC/HPF Greater than 50 HPF (0-3); pH, Urine 5.5 (5.0-9.0)
--- NOTE | 2020-11-12 16:53 | EKG ---
Test Reason : Blood Pressure : / mmHG Vent. Rate : 111 BPM Atrial Rate : 111 BPM P-R Int : 152 ms QRS Dur : 070 ms QT Int : 338 ms P-R-T Axes : 035 069 047 degrees QTc Int : 459 ms Sinus tachycardia Possible Left atrial enlargement Borderline ECG Confirmed by VIBHA MARQUIS ([id number]), material expeditor DONY JOHN ([id number]) on 11/12/2020 4:53:01 PM Referred By: Confirmed By:VIBHA Bajwa
== END 2020-11-08 23:12 | disposition home or self-care (01) ==
LOC: ERS 18:58
DX: N39.0 Urinary tract infection, site not specified (principal); R19.7 Diarrhea, unspecified; K21.9 Gastro-esophageal reflux disease without esophagitis; E78.5 Hyperlipidemia, unspecified; E78.00 Pure hypercholesterolemia, unspecified; I10 Essential (primary) hypertension; Z86.73 Personal history of transient ischemic attack (TIA), and cerebral infarction without residual deficits; E11.40 Type 2 diabetes mellitus with diabetic neuropathy, unspecified; J45.909 Unspecified asthma, uncomplicated; E66.9 Obesity, unspecified; Z79.899 Other long term (current) drug therapy
CPT/HCPCS: 71045; 74177; 80053; 81003; 81015; 83690; 84484; 85025; 93005; 96374; 96375; J2270; J2550; Q9967

== ENCOUNTER 2020-11-28 11:37 | Inpatient (IN) | payer OTHER ==
--- NOTE | 2020-11-28 12:05 | CT ---
CT BRAIN NONCONTRAST: DATE: 11/28/2020 HISTORY: 55-year-old female with acute stroke symptoms: Acute left facial droop with left headache. Dr. aMza gave verbal report by phone to Dr. Noble of the ER at 12:01 PM 11/28/2020, for this level 1 [facility] case FINDINGS: There is no evidence of acute intra-axial or extra-axial hemorrhage. There is no midline shift or any other mass effect. There is no extra-axial fluid collection. The ventricles are normal in size and configuration. The tympanomastoid cavities, and the upper portions of the paranasal sinuses included in these images, are grossly clear. Calvarium is intact. IMPRESSION: Normal.
[2020-11-28] MEDS ORDERED: Iopamidol-370 76% 500 ML 1 ML ONE (12:14)
[2020-11-28] MEDS ORDERED: Iopamidol 370 76% 100 ML VIAL ONE (12:16)
[2020-11-28 12:37] LABS: #Basophils 0.1 thou/uL (0.0-0.2); #Eosinphils 0.1 thou/uL (0.0-0.7); #Lymphocytes 1.5 thou/uL (1.20-3.40); #Monocytes 1.1 thou/uL (0.11-0.59); #Neutrophils 16.5 thou/uL (1.40-6.50); %Basophils 0.3 % (0.0-1.0); %Eosinophils 0.5 % (0.0-10.0); %Lymphocytes 7.6 % (21.0-51.0); %Monocytes 5.5 % (0.0-10.0); %Neutrophils 86.1 % (42.0-75.0); Hemoglobin 13.4 g/dL (12.0-16.0); Mean Corpuscular HGB CONC 34.9 g/dL (32.0-36.0); Mean Corpuscular Hemoglobin 29.1 pg (27.0-31.0); Mean Corpuscular Volume 83.4 fL (78.0-98.0); Mean Platelet Volume 8.7 fL (7.4-10.4); Platelet Count 295 thou/uL (130-400); RBC Distribution Width 11.8 % (11.5-14.5); Red Blood Cell (RBC) Count 4.62 mill/uL (4.20-5.40); White Blood Cell (WBC) Count 19.2 thou/uL (4.8-10.8)
[2020-11-28 12:57] LABS: ALT (SGPT) 27 U/L (8-55); AST (SGOT) 24 U/L (5-34); Albumin 4.6 g/dL (3.5-5.0); Alkaline Phosphatase 128 U/L (40-110); Anion Gap 17 mmol/L (10-20); BUN (Urea Nitrogen) 18 mg/dL (9.8-20.1); Bilirubin, Total 0.8 mg/dL (0.2-1.2); Calc. Creatinine Clearance 0 mL/min (70-130); Calcium 9.2 mg/dL (7.8-10.44); Carbon Dioxide 22 mmol/L (22-29); Chloride 99 mmol/L (98-107); Glucose 355 mg/dL (70-105); Potassium 4.4 mmol/L (3.5-5.1); Protein, Total 8.6 g/dL (6.0-8.3); Sodium 134 mmol/L (136-145)
--- NOTE | 2020-11-28 12:58 | CT ---
CT ANGIOGRAM NECK WITH CONTRAST CT ANGIOGRAM BRAIN WITH CONTRAST: DATE: 11/28/2020 HISTORY: 55-year-old female presents with acute stroke symptoms: Left facial droop, headache, and left upper e xtremity weakness. Dr. Maza gave verbal report by phone to Dr. Noble of the ER at 12:32 PM 11/28/2020 TECHNIQUE: After IV contrast injection, arterial bolus chasing technique scan performed from 3 cm caudal to gloria na to vertex of head. Coronal and sagittal 3-D MIP reconstructions. FINDINGS: There is absence of contrast opacification of the M1 segment of the left middle cerebral artery, and its proximal branches. There is no thrombus or occlusion in the contralateral M1 segment of the right middle cerebral artery or in the proximal M2 branches. Intracranial vertebrals, basilar, P1 and P2 segments of bilateral assistant production manager, bilateral posterior communica ting arteries, and proximal portions of bilateral superior cerebellars, are patent. Brachiocephalic, left subclavian, left common carotid, bilateral cervical internal carotid, and left vertebral, arteries, demonstrate no high-grade stenosis. There is at least mild stenosis at the origin of the right vertebral artery. The rest of the right vertebral artery is not stenotic. Left vertebral artery is dominant. No dural venous sinus thrombosis. The proximal portion of the right common carotid artery is degraded by streak artifact from dense con trast media in the adjacent right subclavian and right brachiocephalic veins. There is a pars layering appearance of apparent discontinuity approximately 1.5 cm distal to the orig in of the right common carotid artery which appears to be interrupted by a septation from the rest of the vessel which it appears to abruptly be displaced lateral to the proximal portion. Thi s is presumably artifact, but it is difficult to explain. IMPRESSION: 1) absence of flow in the M1 and M2 segments of the left middle cerebral artery. This would be the op posite side expected for the given history of acute left upper extremity weakness, for which a right MCA clot would be predicted. This is difficult to explain. 2) no thrombus or occlusion in the contralateral right middle cerebral artery M1 and M2 segments. 3) an appearance of apparent disruption or discontinuity at the proximal right common carotid artery, which is presumably artifact, but is difficult to explain. 4) no high-grade stenosis of cervical segments of bilateral internal carotid arteries.
[2020-11-28] MEDS ORDERED: Lorazepam 2 MG/ML VIAL ONE (13:16)
[2020-11-28] MEDS ORDERED: Aspirin Chewable 81 MG TAB ONE (13:16)
[2020-11-28] MEDS ORDERED: Cefepime 2 GM VIAL ONE (13:16)
[2020-11-28] MEDS ORDERED: Acetaminophen 500 MG TAB ONE (13:26)
[2020-11-28] MEDS ORDERED: diphenhydrAMINE 50 MG/ML VIAL ONE (13:27)
[2020-11-28 13:59] LABS: Bilirubin Negative (Negative); Blood, Urine Negative (Negative); Clarity Clear (Clear); Glucose, Urine (Dipstick) Greater than 1000 mg/dL (Negative); Ketone, Urine Negative (Negative); Leukocyte 250 Leu/uL (Negative); Nitrite 2+ (Negative); Protein, Urine (Dipstick) Negative (Neg-Trace); RBC/HPF 0-3 HPF (0-3); Specific Gravity, Urine 1.032 (1.002-1.036); Squamous Epithelial 0-3 HPF (0-3); Urobilinogen Normal mg/dL (Less than 2); WBC/HPF 21-50 HPF (0-3); pH, Urine 5.5 (5.0-9.0)
--- NOTE | 2020-11-28 14:01 | RAD ---
Radiograph left shoulder 3 views: HISTORY: 55-year-old female with acute traumatic left shoulder pain FINDINGS: No acute fracture or dislocation. Tendon anchors embedded deep within the humeral head. Moderate DJD at AC joint. IMPRESSION: 1. No acute fracture. 2. Status post rotator cuff repair
[2020-11-28 14:08] LABS: Bacteria/HPF 3+ HPF (None Seen)
--- NOTE | 2020-11-28 14:12 | RAD ---
EXAM: XR Hip Lt 2-3 View PROVIDED CLINICAL HISTORY: Pain FINDINGS: Evaluation is limited due to contrast material within the urinary bladder. There is no definite evide nce for fracture or other acute osseous abnormality. Alignment appears anatomic. Joint spaces appear preserved. IMPRESSION: No evidence for an acute osseous abnormality. If there is persistent clinical concern, conservative m anagement and follow-up imaging advised.
[2020-11-28 14:23] LABS: SARS-CoV-2 NAA Rapid Test Not Detected (NotDetected)
[2020-11-28] MEDS ORDERED: Haloperidol Lactate 5 MG/ML VIAL ONE (14:49)
[2020-11-28] MEDS ORDERED: Vancomycin 1.5 GRAM/300 ML BAG 1.5 GM in Premix Bag 1 BAG IVPB SCH (15:00)
--- NOTE | 2020-11-28 15:06 | CT ---
CT perfusion head with contrast: 11/28/2020 HISTORY: 55-year-old female with acute stroke symptoms: Left facial droop and left upper extremity weakness TECHNIQUE: Following IV contrast injection, multiple scans of the brain were performed, excluding the upper and lower portions of the brain. Multiple parameters evaluated. FINDINGS: There is slightly increased Tmax involving much of the left MCA territory. 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 There is no asymmetry in the cerebral blood volume, cerebral blood flow, mean transit time, or IRF be tween the right and left cerebral hemispheres. IMPRESSION: 1.) No evidence of cerebral infarction or ischemia. 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
[2020-11-28] MEDS ORDERED: Ketorolac Tromethamine 30 MG/ML VIAL ONE (17:24)
[2020-11-28] MEDS ORDERED: HumaLOG 300 UNITS/3 ML VIAL SC PRN (17:47)
[2020-11-28] MEDS ORDERED: Dextrose 5% in Water 1,000 ML IV PRN (17:47)
[2020-11-28] MEDS ORDERED: Dextrose 50% Abboject 50 ML SYRINGE SLOW IVP PRN (17:47)
[2020-11-28] MEDS ORDERED: Ondansetron ODT 4 MG TAB PO PRN (17:47)
[2020-11-28] MEDS ORDERED: hydrALAZINE 20 MG/ML VIAL SLOW IVP PRN (17:47)
[2020-11-28] MEDS ORDERED: cefTRIAXone\\ROCEPHIN 1 GM VIAL ONE (20:45)
[2020-11-28] MEDS ORDERED: Acetaminophen 325 MG TAB ONE (20:53)
--- NOTE | 2020-11-28 20:53 | HP ---
PRIMARY CARE PHYSICIAN: Aruna Caballero. CHIEF COMPLAINT: Feeling weak after I felt a pop in my neck. HISTORY OF PRESENT ILLNESS: Ms. Gamboa is a pleasant 55-year-old female who has a history of hypertension and diabetes mellitus. She was recently diagnosed with a kidney infection about 2 to 3 weeks ago and was placed on the antibiotic, but she does not know which one. Then, she says earlier today she started having a severe headache and weakness on the left side. She says that she was feeling shaky and having fever and chills and felt off balance. And it is also reported that she felt a pop in the side of her neck and then after that, she started having weakness on the left side. Also while she was on her way into the emergency room, she fell and hurt her shoulder. In the ER, she was found to be febrile with a temperature up to 103, findings consistent with a urinary tract infection and x-ray of the shoulder was done, which was negative. A CT scan of the brain was done due to the patient's left-sided weakness, which was negative and she is being admitted for further evaluation. Otherwise, the patient does not offer very much additional history other than having some nausea and vomiting yesterday. She also, when I saw, admitted to some lower abdominal pain. REVIEW OF SYSTEMS: All systems were reviewed and are negative except for that mentioned in the history of present illness. PAST MEDICAL HISTORY: Significant for previous cerebrovascular accident with left-sided weakness, diabetes mellitus, and hypertension. PAST SURGICAL HISTORY: She has had a bilateral tubal ligation, cyst surgery, left shoulder, and a stent to the right groin. ALLERGIES: TO JALAPENOS AND CATS. SOCIAL HISTORY: She is a nonsmoker and nondrinker. She . No children. She says she is on disability due to her stroke. FAMILY HISTORY: Significant for cerebrovascular accident in the sister, hypertension in the father. MEDICATIONS: She does not know the names and doses of her medications. She says there is just "too many." PHYSICAL EXAMINATION: GENERAL: She is awake and alert, but she does appear ill. She is obese. VITAL SIGNS: Her blood pressure was 184/103, heart rate was 114, respiratory rate of 16, and temperature is 102. HEENT: Pupils are equal, round, and reactive. Extraocular muscles are intact. However, she does have a third nerve palsy on the right eye. NECK: There was no adenopathy. No bruits, but she did have some tenderness on the right side of her neck. LUNGS: Clear to auscultation. There is no wheezing, no rales, no rhonchi. CARDIOVASCULAR: She has a normal S1 and S2. I did not appreciate an S3 or S4. She did have a slight systolic murmur. ABDOMEN: Soft, obese, and she had some lower abdominal pain on both the right and the left, but there is no rebound or guarding. No flank tenderness. EXTREMITIES: There is no clubbing or cyanosis. No edema. No calf tenderness. NEUROLOGIC: She is moving all extremities. However, she did have 4/5 muscle strength on the left as compared to on the right and on the left at the brachioradialis and patellae, the reflexes are slightly diminished. She did not have any nuchal rigidity and she was able to place her chin on her chest without difficulty or lifting her legs. LABORATORY RESULTS: The urinalysis showed 2+ nitrites and 3+ bacteria, as well as white cells. On her CBC, the white blood cell count 19.2, hemoglobin 13.4, hematocrit is 38.6, platelet count is 295. Sodium 134, potassium 4.4, chloride is 99, CO2 is 22, BUN of 18, creatinine 1.12, glucose is 355. TSH was 1.6235 and her COVID screen was negative. Again, she had a CT scan of the brain, which was negative. X-ray of the shoulder, which was also negative. ASSESSMENT: This is a 55-year-old female who presents to the emergency room with worsening left-sided weakness. This is in the setting of a previous stroke with left-sided weakness. It is unclear whether or not this represents a new infarct or worsening weakness from the severe sepsis and pyelonephritis. She will be admitted to the hospital, started on empiric IV antibiotics. Urine and blood cultures have already been done, and antibiotics will be tailored to the pathogen should there be one found. 1. Left-sided weakness. It is unclear whether or not this is new or old. We will get an MRI of the brain, but also an MRI of the cervical spine given her history of feeling a pop in her neck and then having her symptoms began. 2. Diabetes mellitus. We will need to reconcile and restart her medications and also place her on a sliding scale. 3. She has a third nerve palsy on the right eye. I suspect this is likely from diabetes mellitus. However, MRI will be done to rule out aneurysm or other potential cause. 4. Hypertension. We will need to reconcile and restart her antihypertensives along with p.r.n. medication for blood pressure. Job ID: [id number]
[2020-11-28] MEDS: cefTRIAXone\\ROCEPHIN 1 GM in Sodium Chloride 0.9% 100 ML IVPB SCH (21:02)
[2020-11-28] MEDS: Acetaminophen 325 MG TAB PO PRN (21:02)
[2020-11-28] MEDS: Lactated Ringer's 1,000 ML IV SCH (21:10)
[2020-11-28] MEDS ORDERED: Famotidine 20 MG TAB ONE (22:38)
[2020-11-28] MEDS: Famotidine 20 MG TAB PO SCH (22:47)
[2020-11-28] MEDS: Insulin Glargine 40 UNITS in Pre-Filled Syringe 1 EACH SC SCH (23:13)
[2020-11-29] MEDS ORDERED: Ibuprofen 200 MG TAB ONE (00:43)
[2020-11-29] MEDS: Ibuprofen 200 MG TAB PO PRN ×2 (00:45→20:42)
[2020-11-29] MEDS ORDERED: HumaLOG 300 UNITS/3 ML VIAL ONE (06:58)
[2020-11-29] MEDS: HumaLOG 300 UNITS/3 ML VIAL SC PRN ×3 (07:00→22:27)
[2020-11-29 07:46] LABS: #Lymphocytes 1.1 thou/uL (1.20-3.40); #Monocytes 0.4 thou/uL (0.11-0.59); #Neutrophils 10.6 thou/uL (1.40-6.50); %Basophils 0.3 % (0.0-1.0); %Eosinophils 0.1 % (0.0-10.0); %Lymphocytes 8.9 % (21.0-51.0); %Monocytes 3.2 % (0.0-10.0); %Neutrophils 87.5 % (42.0-75.0); Hemoglobin 11.3 g/dL (12.0-16.0); Mean Corpuscular HGB CONC 33.8 g/dL (32.0-36.0); Mean Corpuscular Hemoglobin 28.6 pg (27.0-31.0); Mean Corpuscular Volume 84.5 fL (78.0-98.0); Mean Platelet Volume 8.5 fL (7.4-10.4); Platelet Count 217 thou/uL (130-400); RBC Distribution Width 11.7 % (11.5-14.5); Red Blood Cell (RBC) Count 3.94 mill/uL (4.20-5.40); White Blood Cell (WBC) Count 12.1 thou/uL (4.8-10.8)
[2020-11-29 08:15] LABS: Anion Gap 14 mmol/L (10-20); BUN (Urea Nitrogen) 13 mg/dL (9.8-20.1); Calc. Creatinine Clearance 0 mL/min (70-130); Calcium 8.4 mg/dL (7.8-10.44); Carbon Dioxide 23 mmol/L (22-29); Chloride 102 mmol/L (98-107); Glucose 268 mg/dL (70-105); Sodium 135 mmol/L (136-145)
[2020-11-29] MEDS ORDERED: Enoxaparin Sodium 40 MG/0.4 ML SYRINGE ONE (08:40)
[2020-11-29] MEDS ORDERED: Famotidine 20 MG TAB ONE (08:41)
[2020-11-29] MEDS ORDERED: Ondansetron PF 4 MG/2 ML Vial ONE ×2 (08:51→20:11)
[2020-11-29] MEDS: Ondansetron PF 4 MG/2 ML Vial IVP PRN ×2 (08:56→20:43)
[2020-11-29] MEDS: Acetaminophen 325 MG TAB PO PRN ×2 (11:30→20:43)
[2020-11-29] MEDS: Enoxaparin Sodium 40 MG/0.4 ML SYRINGE SC SCH (11:30)
[2020-11-29] MEDS: Famotidine 20 MG TAB PO SCH ×2 (11:31→20:41)
[2020-11-29] MEDS: Insulin Glargine 40 UNITS in Pre-Filled Syringe 1 EACH SC SCH ×2 (11:31→22:26)
--- NOTE | 2020-11-29 14:19 | MRI ---
EXAM: MRI Brain WO Con PROVIDED CLINICAL HISTORY: Left-sided weakness. COMPARISON: 11/04/2019 FINDINGS: Again noted are innumerable areas of increased FLAIR and T2-weighted signal intensity seen within the periventricular and subcortical white matter which are similar in number and overall distribution when compared to the prior exam. This is a nonspecific finding but again likely attributable to chron ic small vessel ischemic changes. No areas of restricted diffusion are seen to suggest an acute infarction. The septum pellucidum and third ventricle are in the midline. Ventricular system is normal in size, s hape, and position. Scattered mild mucosal thickening is seen throughout the paranasal sinuses. A few minimal mastoid eff usions are present on the left. Appropriate flow voids are demonstrated in the large intracranial vessels at the base of the brain an d similar to prior exam. The orbits and remainder of the skull base demonstrate a normal MRI appearance. IMPRESSION: 1. Stable MRI of brain without evidence of an acute intracranial bleed demonstrated. 2. Evidence of severe chronic small vessel ischemic changes not significantly progressed compared to prior study. 3. Mild sinus disease and a few minimal left mastoid effusions.
--- NOTE | 2020-11-29 14:41 | MRI ---
MRI Cervical spine without contrast: HISTORY: Left-sided weakness. Headache. COMPARISON: None FINDINGS: Minimal mucosal thickening is seen in the sphenoid sinus. The craniocervical junction is unremarkable. There is a focal area of mild T2 hyperintense signal intensity within the cervical spinal cord at the C5-6 level with the area of abnormal signal measuring approximately 6 mm. This is at the level of disc osteophyte complex and central canal narrowing. Paravertebral soft tissues have a normal appearance and normal signal intensity. Normal signal intensity is demonstrated in the bone marrow. C1-2:No significant stenosis. C2-3: There is no disc bulge or disc herniation. The central spinal canal and neural foramina are pat ent. C3-4: Minimal disc osteophyte complex is present with suggestion of mild uncinate process hypertrophy . There is slight effacement of the ventral subarachnoid space. Facet degenerative changes are present at this level. There is moderate bilateral neural foraminal narrowing present. C4-5: Mild disc osteophyte complex is present. There are facet hypertrophic changes greater on the le ft with suggestion of uncinate process hypertrophy also greater on the left. Findings result in severe left and moderate right-sided neural foraminal narrowing. There is mild generalized narrowing of the central spinal canal. C5-6: Loss of intervertebral disc height with broad-based disc osteophyte complex present which resul ts in severe narrowing of the central spinal canal with flattening of the spinal cord. As noted above, there is a focal area of hyperintense signal intensity seen within the cervical spinal cord at this level which may be related to myelomalacia. No evidence of cord expansion, but a focal area of cord edema would be difficult to exclude. Moderate to severe bilateral neural foraminal narrowing is present. C6-7: Minimal disc osteophyte complex with central disc protrusion. This results in narrowing of the ventral subarachnoid space, there is also flattening and deformity of the anterior aspect of the spinal cord greater centrally. Neural foramina appear patent. C7-T1: There is no disc bulge or disc herniation. The central spinal canal and neural foramina are pa tent. IMPRESSION: 1. Prominent disc degenerative changes at the C5-6 level with broad-based disc osteophyte complex and mild facet degenerative changes. These findings result in moderate to severe central canal narrowing as well as severe bilateral neural foraminal narrowing. In addition, there is a T2 hyperint ense intense focus present within the spinal cord at this level which is favored to be related to an area of myelomalacia. However, the acuity of patient's symptoms is uncertain, and an area of cord edema could not be excluded. 2. Additional degenerative changes are seen within the cervical spine as described above. Severe left -sided neural foraminal narrowing is present at the C4-5 level with moderate bilateral neural foraminal narrowing present at the C3-4 level.
[2020-11-29] MEDS ORDERED: Dextrose 50% Abboject 50 ML SYRINGE SLOW IVP PRN ×2 (17:54→22:03)
[2020-11-29] MEDS ORDERED: Dextrose 5% in Water 1,000 ML IV PRN ×2 (17:54→22:03)
--- NOTE | 2020-11-29 18:00 | PDOC.HOSPP ---
- Subjective Encounter Date: 11/29/20 Subjective: headache is better - Objective Vital Signs & Weight: Vital Signs (12 hours) Temp Pulse Resp BP Pulse Ox 11/29/20 16:00 98.9 F 98 18 129/74 100 Result Diagrams: 11/29/20 07:16 11/29/20 07:17 Additional Labs: Accuchecks 11/29/20 05:55 POC Glucose 243 H Hospitalist ROS - Medication Medications: Active Medications Generic Name Dose Route Start Last Admin Trade Name Freq PRN Reason Stop Dose Admin Acetaminophen 650 mg 11/28/20 17:47 11/29/20 11:30 Acetaminophen 325 Mg Tab PO 650 mg Q4H PRN Administration Headache/Fever/Mild Pain (1-3) Enoxaparin Sodium 40 mg 11/29/20 09:00 11/29/20 11:30 Enoxaparin Sodium 40 Mg/0.4 Ml Syringe SC 40 mg 0900 HEIDY Administration Famotidine 20 mg 11/28/20 21:00 11/29/20 11:31 Famotidine 20 Mg Tab PO 20 mg BID HEIDY Administration Ceftriaxone Sodium 1 gm/ 100 mls @ 200 mls/hr 11/28/20 18:00 11/28/20 21:02 Sodium Chloride IVPB 100 mls 1800 HEIDY Administration Lactated Ringer's 1,000 mls @ 100 mls/hr 11/28/20 18:00 11/28/20 21:10 Lactated Ringer's IV 1,000 mls .Q10H HEIDY Administration Insulin Glargine 40 units/ 0.4 mls @ 0 mls/hr 11/28/20 21:00 11/28/20 23:13 Miscellaneous Medication SC 0.4 mls HS HEIDY Administration Insulin Glargine 40 units/ 0.4 mls @ 0 mls/hr 11/29/20 09:00 11/29/20 11:31 Miscellaneous Medication SC 0.4 mls QAM HEIDY Administration Ibuprofen 400 mg 11/28/20 17:47 11/29/20 00:45 Ibuprofen 200 Mg Tab PO 400 mg Q4H PRN Administration Fever > 101 Ondansetron HCl 4 mg 11/28/20 17:47 11/29/20 08:56 Ondansetron Pf 4 Mg/2 Ml Vial IVP 4 mg Q6H PRN Administration Nausea/Vomiting - Exam General Appearance: awake alert Eye: PERRL, anicteric sclera ENT: normocephalic atraumatic, no oropharyngeal lesions Neck: supple, symmetric Heart: RRR, no murmur, no gallops Gastrointestinal: soft, non-tender, non-distended Extremities: no cyanosis, no clubbing Neurological: cranial nerve grossly intact (bilateral LE weakness, more left then right.) Hosp A/P (1) Lower extremity weakness Code(s): R29.898 - OTH SYMPTOMS AND SIGNS INVOLVING THE MUSCULOSKELETAL SYSTEM Status: Acute (2) Diabetes Code(s): E11.9 - TYPE 2 DIABETES MELLITUS WITHOUT COMPLICATIONS Status: Acute (3) Seizure Code(s): R56.9 - UNSPECIFIED CONVULSIONS Status: Acute (4) UTI (urinary tract infection) Status: Acute Qualifiers: (5) Pyelonephritis Code(s): N12 - TUBULO-INTERSTITIAL NEPHRITIS, NOT SPCF ACUTE OR CHRONIC Status: Resolved - Plan Patient informed me that her bilateral LE weakness have been ongoing since 7 month, she did not seek medical attention due to social issues with and the pandemic. since MRI showed possible spinal cord edema, I will start decadron and consult Neurosurgery for further input. will ask PT to evaluate. positive cultures, will continue Rocephin. will increase the intensity of her sliding scale.
[2020-11-29] MEDS: Lactated Ringer's 1,000 ML IV SCH ×3 (19:32→22:35)
[2020-11-29] MEDS ORDERED: Acetaminophen 325 MG TAB ONE (20:11)
[2020-11-29] MEDS ORDERED: Dexamethasone 4 mg/ml Vial ONE (20:17)
[2020-11-29] MEDS: cefTRIAXone\\ROCEPHIN 1 GM in Sodium Chloride 0.9% 100 ML IVPB SCH (20:20)
[2020-11-29] MEDS: Dexamethasone 4 mg/ml Vial SLOW IVP SCH (20:25)
[2020-11-29] MEDS ORDERED: Ketorolac Tromethamine 30 MG/ML VIAL ONE (20:56)
[2020-11-29] MEDS ORDERED: Ketorolac Tromethamine 30 MG/ML VIAL IVP SCH (21:30)
[2020-11-30] MEDS: Lactated Ringer's 1,000 ML IV SCH (06:33)
[2020-11-30] MEDS: HumaLOG 300 UNITS/3 ML VIAL SC PRN ×3 (07:31→21:23)
[2020-11-30] MEDS ORDERED: Famotidine 20 MG TAB ONE (09:10)
[2020-11-30] MEDS ORDERED: Dexamethasone 4 mg/ml Vial ONE ×3 (09:12→18:02)
[2020-11-30] MEDS: Enoxaparin Sodium 40 MG/0.4 ML SYRINGE SC SCH (10:04)
[2020-11-30] MEDS: Famotidine 20 MG TAB PO SCH ×2 (10:05→21:11)
[2020-11-30] MEDS: Dexamethasone 4 mg/ml Vial SLOW IVP SCH ×4 (10:05→21:15)
[2020-11-30] MEDS: Insulin Glargine 40 UNITS in Pre-Filled Syringe 1 EACH SC SCH ×2 (10:06→21:12)
--- NOTE | 2020-11-30 10:50 | CT ---
There is a prior CT angiogram of the head of 08/04/2017, and a noncontrast MRI of the brain of 08/05/20 17. Both of them demonstrate absence of flow in the M1 segment and M2 segments of the left middle cerebra l artery, demonstrating that this is an old occlusion. Because there are no large left cerebral infarctions on the previous MRI, the left MCA territory is being perfused by collaterals. Reported By: Agustin Maza by Agustin Maza. CT ANGIOGRAM NECK WITH CONTRAST CT ANGIOGRAM BRAIN WITH CONTRAST: DATE: 11/28/2020 HISTORY: 55-year-old female presents with acute stroke symptoms: Left facial droop, headache, and left upper e xtremity weakness. Dr. Maza gave verbal report by phone to Dr. Noble of the ER at 12:32 PM 11/28/2020 TECHNIQUE: After IV contrast injection, arterial bolus chasing technique scan performed from 3 cm caudal to gloria na to vertex of head. Coronal and sagittal 3-D MIP reconstructions. FINDINGS: There is absence of contrast opacification of the M1 segment of the left middle cerebral artery, and its proximal branches. There is a prior CT angiogram of the head of 08/04/2017, and a noncontrast MRI of the brain of 08/05/20 17. Both of them demonstrate absence of flow in the M1 segment and M2 segments of the left middle cerebra l artery, demonstrating that this is an old occlusion. Because there are no large left cerebral infarctions on the previous MRI, the left MCA territory is being perfused by collaterals There is no thrombus or occlusion in the contralateral M1 segment of the right middle cerebral artery or in the proximal M2 branches. Intracranial vertebrals, basilar, P1 and P2 segments of bilateral welder repair, bilateral posterior communica ting arteries, and proximal portions of bilateral superior cerebellars, are patent. Brachiocephalic, left subclavian, left common carotid, bilateral cervical internal carotid, and left vertebral, arteries, demonstrate no high-grade stenosis. There is at least mild stenosis at the origin of the right vertebral artery. The rest of the right vertebral artery is not stenotic. Left vertebral artery is dominant. No dural venous sinus thrombosis. The proximal portion of the right common carotid artery is degraded by streak artifact from dense con trast media in the adjacent right subclavian and right brachiocephalic veins. There is a pars layering appearance of apparent discontinuity approximately 1.5 cm distal to the orig in of the right common carotid artery which appears to be interrupted by a septation from the rest of the vessel which it appears to abruptly be displaced lateral to the proximal portion. Thi s is presumably artifact, but it is difficult to explain. 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 2) no thrombus or occlusion in the contralateral right middle cerebral artery M1 and M2 segments. 3) an appearance of apparent disruption or discontinuity at the proximal right common carotid artery, which is presumably artifact, but is difficult to explain. 4) no high-grade stenosis of cervical segments of bilateral internal carotid arteries. Transcribed Date/Time: 11/30/2020 10:49 AM
[2020-11-30 11:30] VITALS: BMI 29.6
--- NOTE | 2020-11-30 12:15 | PDOC.HOSPP ---
- Subjective Encounter Date: 11/30/20 Subjective: feels better and able to move her extremities better, still weak on the left more then the right. - Objective Vital Signs & Weight: Vital Signs (12 hours) Temp Pulse Resp BP Pulse Ox 11/30/20 03:36 97.6 F 77 16 146/80 H 100 Weight Weight 189 lb Result Diagrams: 11/29/20 07:16 11/29/20 07:17 Additional Labs: Accuchecks 11/30/20 11/30/20 10:06 05:29 POC Glucose 375 H 316 H Hospitalist ROS - Medication Medications: Active Medications Generic Name Dose Route Start Last Admin Trade Name Freq PRN Reason Stop Dose Admin Acetaminophen 650 mg 11/28/20 17:47 11/29/20 20:43 Acetaminophen 325 Mg Tab PO 650 mg Q4H PRN Administration Headache/Fever/Mild Pain (1-3) Dexamethasone 4 mg 11/29/20 21:00 11/30/20 10:05 Dexamethasone 4 Mg/Ml Vial SLOW IVP 4 mg QID HEIDY Administration Enoxaparin Sodium 40 mg 11/29/20 09:00 11/30/20 10:04 Enoxaparin Sodium 40 Mg/0.4 Ml Syringe SC 40 mg 0900 HEIDY Administration Famotidine 20 mg 11/28/20 21:00 11/30/20 10:05 Famotidine 20 Mg Tab PO 20 mg BID HEIDY Administration Ceftriaxone Sodium 1 gm/ 100 mls @ 200 mls/hr 11/28/20 18:00 11/29/20 20:20 Sodium Chloride IVPB 100 mls 1800 HEIDY Administration Insulin Glargine 40 units/ 0.4 mls @ 0 mls/hr 11/28/20 21:00 11/29/20 22:26 Miscellaneous Medication SC 0.4 mls HS HEIDY Administration Insulin Glargine 40 units/ 0.4 mls @ 0 mls/hr 11/29/20 09:00 11/30/20 10:06 Miscellaneous Medication SC 0.4 mls QAM HEIDY Administration Lactated Ringer's 1,000 mls @ 100 mls/hr 11/29/20 21:30 11/30/20 06:33 Lactated Ringer's IV 1,000 mls .Q10H HEIDY Administration Ibuprofen 400 mg 11/28/20 17:47 11/29/20 20:42 Ibuprofen 200 Mg Tab PO 400 mg Q4H PRN Administration Fever > 101 Insulin Human Lispro 0 units 11/29/20 17:54 11/30/20 07:31 Humalog 300 Units/3 Ml Vial SC 11 units .AGGRESSIVE SLIDING PRN Administration Aggressive Correctional Scale Insulin Human Lispro 0 units 11/29/20 22:03 11/29/20 22:27 Humalog 300 Units/3 Ml Vial SC 2 units .BEDTIME SLIDING SC PRN Administration Bedtime Correctional Scale Ondansetron HCl 4 mg 11/28/20 17:47 11/29/20 20:43 Ondansetron Pf 4 Mg/2 Ml Vial IVP 4 mg Q6H PRN Administration Nausea/Vomiting - Exam General Appearance: awake alert Eye: PERRL, anicteric sclera ENT: normocephalic atraumatic Neck: supple, symmetric Heart: RRR, no murmur Respiratory: CTAB, no wheezes Gastrointestinal: soft, non-tender Hosp A/P (1) Lower extremity weakness Code(s): R29.898 - OTH SYMPTOMS AND SIGNS INVOLVING THE MUSCULOSKELETAL SYSTEM Status: Acute (2) Diabetes Code(s): E11.9 - TYPE 2 DIABETES MELLITUS WITHOUT COMPLICATIONS Status: Acute (3) Seizure Code(s): R56.9 - UNSPECIFIED CONVULSIONS Status: Acute (4) UTI (urinary tract infection) Status: Acute Qualifiers: (5) Pyelonephritis Code(s): N12 - TUBULO-INTERSTITIAL NEPHRITIS, NOT SPCF ACUTE OR CHRONIC Status: Resolved - Plan Patient informed me that her bilateral LE weakness have been ongoing since 7 month, she did not seek medical attention due to social issues with and the pandemic. since MRI showed possible spinal cord edema, I will start decadron and consult Neurosurgery for further input. will ask PT to evaluate. positive cultures, will continue Rocephin. will increase the intensity of her sliding scale. plan for today 11/30 seems to be doing better, able to move her Lower extremities more. still awaiting Neurosurgery input. PT to evaluate. continue same management.
[2020-11-30] MEDS ORDERED: Docusate 100 MG CAP PO PRN (12:16)
[2020-11-30] MEDS ORDERED: Polyethylene Glycol 3350 17 GM Packet PO PRN (12:16)
--- NOTE | 2020-11-30 14:52 | PQF ---
CLINICAL DOCUMENTATION CLARIFICATION FORM: Dear Dr. Roberts Date: 11/30/20 Please exercise your independent, professional judgment in responding to the clarification form. Clinical indicators are provided on the bottom of this form for your review. Please check appropriate box(es) to clarify if the following diagnosis has been ruled in our ruled out: SEPSIS [y ] Ruled in diagnosis [ y ] Continue to treat [ ] Resolved [ ] Ruled out diagnosis [ ] Improving [ ] Cannot rule out diagnosis [ ] Other diagnosis [ ] Unable to determine In addition, please specify: Present on Admission (POA): [ yes ] Yes [ ] No [ ] Unable to determine For continuity of documentation, please document condition throughout progress notes and discharge summary. Thank You. To be completed by CDI/Coding staff for physician review: CLINICAL INDICATORS - SIGNS / SYMPTOMS / LABS / RESULTS AND LOCATION IN MR ER NOTE: "SEPSIS" H&P (AISLINN): "SEVERE SEPSIS" TEMP 103.1 PULSE 127 RR 22 WBC 11/28: 19.2 CRP 11/28: 7.41 RISK FACTORS / RESULTS AND LOCATION IN MR DIABETES (PN 11/30) UTI (PN 11/30) TREATMENTS / RESULTS AND LOCATION IN MR IV VANCOMYCIN (ER) IV NS (ER-11/30) IV CEFEPIME (ER) IV ROCEPHIN (11/28-PRESENT) CDS Signature: Lacey Bhatia RN Phone #: [phone] Date: 11/30/20 This is a permanent part of the Medical Record [facility]
[2020-11-30] MEDS: cefTRIAXone\\ROCEPHIN 1 GM in Sodium Chloride 0.9% 100 ML IVPB SCH (18:07)
[2020-11-30] MEDS ORDERED: Acetaminophen 325 MG TAB ONE (18:14)
[2020-11-30] MEDS: Acetaminophen 325 MG TAB PO PRN (18:15)
[2020-11-30] MEDS: Ibuprofen 200 MG TAB PO PRN (21:23)
[2020-12-01] MEDS ORDERED: Sodium Chloride 0.9% 0 ML ONE (02:18)
[2020-12-01] MEDS ORDERED: Acetaminophen 325 MG TAB ONE ×3 (02:18→20:47)
[2020-12-01] MEDS: Acetaminophen 325 MG TAB PO PRN ×3 (02:20→20:48)
[2020-12-01 05:20] LABS: #Monocytes 0.4 thou/uL (0.11-0.59); #Neutrophils 9.7 thou/uL (1.40-6.50); %Basophils 0.1 % (0.0-1.0); %Eosinophils 0.1 % (0.0-10.0); %Lymphocytes 9.3 % (21.0-51.0); %Monocytes 3.9 % (0.0-10.0); %Neutrophils 86.5 % (42.0-75.0); Hemoglobin 11.1 g/dL (12.0-16.0); Mean Corpuscular HGB CONC 35.3 g/dL (32.0-36.0); Mean Corpuscular Hemoglobin 29.5 pg (27.0-31.0); Mean Corpuscular Volume 83.4 fL (78.0-98.0); Mean Platelet Volume 8.7 fL (7.4-10.4); Platelet Count 286 thou/uL (130-400); RBC Distribution Width 11.4 % (11.5-14.5); Red Blood Cell (RBC) Count 3.75 mill/uL (4.20-5.40); White Blood Cell (WBC) Count 11.2 thou/uL (4.8-10.8)
[2020-12-01 05:42] LABS: Anion Gap 14 mmol/L (10-20); BUN (Urea Nitrogen) 20 mg/dL (9.8-20.1); Calc. Creatinine Clearance 83 mL/min (70-130); Calcium 8.9 mg/dL (7.8-10.44); Carbon Dioxide 21 mmol/L (22-29); Chloride 101 mmol/L (98-107); Glucose 362 mg/dL (70-105); Potassium 4.1 mmol/L (3.5-5.1); Sodium 132 mmol/L (136-145)
[2020-12-01] MEDS ORDERED: Dexamethasone 4 mg/ml Vial ONE ×3 (08:47→17:42)
--- NOTE | 2020-12-01 08:53 | CON ---
DATE OF CONSULTATION: HISTORY OF PRESENT ILLNESS: Ms. Gamboa is a 55-year-old woman who is admitted to the hospital at [facility] on November 28 for sudden onset of significant left-sided weakness. She does have chronic weakness from a prior stroke which she reports having 2-3 years ago. The timeline is not definitive, but she has been ambulatory and functional until the . She states she felt something pop in her neck and then from then developed more profound weakness to the left arm, but more significantly to the left lower extremity. She does also report some proximal C6 pains to the bilateral upper extremities, left far more than the right. This stops at about the elbow. She does have clumsiness in her right hand as well. All these things are new. MRI was performed during her hospital admission of the cervical spine that reveals large central disk herniation eccentric somewhat to the left at C5-6, flattening of cervical spinal cord with notable T2 signal change at the same level, likely indicative of edema to the cord secondary to acute disk herniation. She denies any tingling or numbness other than in her feet which is chronic secondary to neuropathy. 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 This is significantly reduced in the left upper extremity and all those functions, and there is some pain with resisted elbow flexion. She is able to raise her leg with ease on the right off the bed. It is quite a struggle to do so with the left lower extremity. She is antigravity, but fatigues rapidly. She has excellent strength with plantar and dorsiflexion. There is no sensory disturbance that I can discern other than some mild change again to the bilateral feet. This is diffuse and again secondary likely to neuropathy. She has a negative Eryn's bilaterally and is normoreflexic at the biceps and brachioradialis. Cervical range of motion is minimally restricted. ASSESSMENT: Acute cervical disk herniation with myelopathy. PLAN: I discussed with the patient at bedside the recommendation for surgical correction of her problem which would be a C5-6 anterior cervical diskectomy and fusion. I discussed the risks, benefits, and alternatives, and she would like to proceed. We will plan to do this tomorrow morning. She was on Lovenox, but we stopped this yesterday. She will need to continue to hold this until after surgery. I discussed with her the likely possibility that she will need rehab to regain the strength that she has already lost, but she should feel better including the proximal C6 pains likely the day of surgery after she wakes up. We will plan to discuss further with Dr. Carrington and plan to obtain official consent for surgery tomorrow. Job ID: [id number]
[2020-12-01] MEDS: Dexamethasone 4 mg/ml Vial SLOW IVP SCH ×3 (08:54→17:50)
[2020-12-01] MEDS: Insulin Glargine 40 UNITS in Pre-Filled Syringe 1 EACH SC SCH ×2 (08:55→20:38)
[2020-12-01] MEDS: Famotidine 20 MG TAB PO SCH ×2 (08:56→20:37)
[2020-12-01] MEDS: HumaLOG 300 UNITS/3 ML VIAL SC PRN ×3 (08:56→20:39)
[2020-12-01] MEDS: Ibuprofen 200 MG TAB PO PRN (09:14)
[2020-12-01] MEDS ORDERED: hydrALAZINE 20 MG/ML VIAL SLOW IVP PRN (13:54)
--- NOTE | 2020-12-01 14:03 | PDOC.HOSPP ---
- Subjective Encounter Date: 12/01/20 Subjective: appears the same and in no acute distress. - Objective Vital Signs & Weight: Vital Signs (12 hours) Temp Pulse Resp BP BP Pulse Ox 12/01/20 12:32 97.8 F 90 18 149/79 H 98 12/01/20 08:10 95 12/01/20 08:00 97.4 F L 84 22 H 173/95 H 95 Weight Weight 189 lb Result Diagrams: 12/01/20 04:59 12/01/20 04:59 Additional Labs: Accuchecks 12/01/20 12/01/20 11/30/20 11:26 06:35 20:44 POC Glucose 327 H 333 H 431 H 11/30/20 16:16 POC Glucose 353 H Hospitalist ROS - Medication Medications: Active Medications Generic Name Dose Route Start Last Admin Trade Name Freq PRN Reason Stop Dose Admin Acetaminophen 650 mg 11/28/20 17:47 12/01/20 02:20 Acetaminophen 325 Mg Tab PO 650 mg Q4H PRN Administration Headache/Fever/Mild Pain (1-3) Dexamethasone 4 mg 11/29/20 21:00 12/01/20 08:54 Dexamethasone 4 Mg/Ml Vial SLOW IVP 4 mg QID HEIDY Administration Famotidine 20 mg 11/28/20 21:00 12/01/20 08:56 Famotidine 20 Mg Tab PO 20 mg BID HEIDY Administration Ceftriaxone Sodium 1 gm/ 100 mls @ 200 mls/hr 11/28/20 18:00 11/30/20 18:07 Sodium Chloride IVPB 100 mls 1800 HEIDY Administration Insulin Glargine 40 units/ 0.4 mls @ 0 mls/hr 11/28/20 21:00 11/30/20 21:12 Miscellaneous Medication SC 0.4 mls HS HEIDY Administration Ibuprofen 400 mg 11/28/20 17:47 12/01/20 09:14 Ibuprofen 200 Mg Tab PO 400 mg Q4H PRN Administration Fever > 101 Insulin Human Lispro 0 units 11/29/20 17:54 12/01/20 11:31 Humalog 300 Units/3 Ml Vial SC 11 units .AGGRESSIVE SLIDING PRN Administration Aggressive Correctional Scale Insulin Human Lispro 0 units 11/29/20 22:03 11/30/20 21:23 Humalog 300 Units/3 Ml Vial SC 5 units .BEDTIME SLIDING SC PRN Administration Bedtime Correctional Scale Ondansetron HCl 4 mg 11/28/20 17:47 11/29/20 20:43 Ondansetron Pf 4 Mg/2 Ml Vial IVP 4 mg Q6H PRN Administration Nausea/Vomiting - Exam General Appearance: NAD, awake alert Eye: PERRL, anicteric sclera Neck: supple, symmetric, no JVD, no thyromegaly Heart: RRR, no murmur, no gallops, no rubs Respiratory: CTAB, no wheezes, no rales, no ronchi Gastrointestinal: soft, non-tender, no palpable masses Extremities: no cyanosis, no clubbing, no edema Skin: normal turgor, no lesions Neurological: cranial nerve grossly intact Hosp A/P (1) Lower extremity weakness Code(s): R29.898 - OTH SYMPTOMS AND SIGNS INVOLVING THE MUSCULOSKELETAL SYSTEM Status: Acute (2) Diabetes Code(s): E11.9 - TYPE 2 DIABETES MELLITUS WITHOUT COMPLICATIONS Status: Acute (3) Seizure Code(s): R56.9 - UNSPECIFIED CONVULSIONS Status: Acute (4) UTI (urinary tract infection) Status: Acute Qualifiers: (5) Pyelonephritis Code(s): N12 - TUBULO-INTERSTITIAL NEPHRITIS, NOT SPCF ACUTE OR CHRONIC Status: Resolved - Plan Patient informed me that her bilateral LE weakness have been ongoing since 7 month, she did not seek medical attention due to social issues with and the pandemic. since MRI showed possible spinal cord edema, I will start decadron and consult Neurosurgery for further input. will ask PT to evaluate. positive cultures, will continue Rocephin. will increase the intensity of her sliding scale. plan for today 11/30 seems to be doing better, able to move her Lower extremities more. still awaiting Neurosurgery input. PT to evaluate. continue same management. plan for today 12/01 planned c5-c6 diskectomy and fusion, for surgery tomorrow. Her BP is running high, I will change the parameter for her Hydralazine. I reviewed her home meds from previous admit and I will restart her on Amlodipine and lisinipril/HCTZ also Neurontin adn aripirazole. Her glucose levels are not well controlled after the addition of IV Decadron, I have paged Neurosurgery PA to see if they want to continue this medication, I will also increase her am Lantus, since she will be NPO post MN I will keep her evening dose the same. a consult for PT was initiated in order to start planning for her post-op rehab.
[2020-12-01] MEDS ORDERED: Albuterol Sulfate 2.5 mg/3 ml Neb NEB PRN (14:04)
[2020-12-01] MEDS ORDERED: rOPINIRole HCl 0.5 MG TAB PO PRN (14:04)
[2020-12-01] MEDS ORDERED: Acetaminophen 500 MG TAB ONE (14:19)
[2020-12-01] MEDS ORDERED: Gabapentin 300 MG CAP ONE (14:19)
[2020-12-01] MEDS: Gabapentin 300 MG CAP PO SCH ×2 (14:45→20:37)
[2020-12-01] MEDS: cefTRIAXone\\ROCEPHIN 1 GM in Sodium Chloride 0.9% 100 ML IVPB SCH (18:08)
[2020-12-01] MEDS: Atorvastatin Calcium 20 MG TAB PO SCH (20:37)
[2020-12-01] MEDS: Aripiprazole 10 MG TAB PO SCH (20:38)
[2020-12-01] MEDS: Escitalopram Oxalate 10 mg Tablet PO SCH (20:38)
[2020-12-01] MEDS ORDERED: Sodium Chloride 0.9% 10 ML ONE (22:59)
[2020-12-02] MEDS ORDERED: Fentanyl 100 MCG/2 ML VIAL ONE ×2 (08:55→12:00)
[2020-12-02] MEDS ORDERED: Ketamine 50 MG/ML (10ML VIAL) ONE (09:11)
[2020-12-02] MEDS ORDERED: SUGAMMADEX SODIUM 200 MG/2 ML VIAL ONE (09:12)
[2020-12-02] MEDS ORDERED: Dexamethasone 20 MG/5 ML VIAL ONE (09:47)
[2020-12-02] MEDS ORDERED: Albuterol Sulfate HFA (OR ONLY) ONE (09:47)
[2020-12-02] MEDS ORDERED: Ondansetron PF 4 MG/2 ML Vial ONE (09:47)
[2020-12-02] MEDS ORDERED: Lidocaine 1% PF 5 ML VIAL ONE (09:47)
[2020-12-02] MEDS ORDERED: PROPOFOL 200 MG/20 ML VIAL ONE (09:47)
[2020-12-02] MEDS ORDERED: PHENYLEPHRINE-NS 100 MCG/ML 10 ML SYRINGE ONE (09:47)
[2020-12-02] MEDS ORDERED: Rocuronium Bromide 10 MG/ML (10ML VIAL) ONE (09:47)
[2020-12-02] MEDS ORDERED: Cyclobenzaprine 10 MG TAB PO PRN (10:22)
[2020-12-02] MEDS ORDERED: Morphine 2 MG/ML VIAL SLOW IVP PRN (10:22)
--- NOTE | 2020-12-02 10:35 | PRG ---
DATE OF SERVICE: I reviewed the films imaging and notes on Ms. Gamboa as well as the documentation and note by Nathan Conde and agree with his assessment. Ms. Gamboa is a 55-year-old female with a history of prior stroke, admitted for concern for recurrent stroke. She has been a hospitalist service. After further evaluation, it was determined that she did not have a stroke. She had a cervical MRI scan performed, which reveals the presence of high-grade cervical stenosis with underlying T2 signal change which accounts for her new onset weakness. Given her neurologic findings, I recommend one level ACDF at C5-6. I met with her and discussed with her risks, benefits, alternatives to the procedure as well as perioperative care. She did provide informed consent. Job ID: [id number]
--- NOTE | 2020-12-02 10:46 | OP ---
DATE OF PROCEDURE: 12/02/2020 AGENCY TRAINER: Nathan Conde PA-C INDICATION: Prevent neurologic decline. 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 PROCEDURE PERFORMED: Anterior cervical diskectomy and fusion, C5-6. ANESTHESIA: General. DESCRIPTION OF PROCEDURE: The patient was brought into the operating room and placed under general anesthesia. She was placed on table in a supine position. A transverse incision was planned over the lateral aspect of the neck on the right. After prepping and draping and after an appropriate preoperative pause, the incision was created. The underlying platysma muscles were identified and incised. A blunt tissue plane anterior to the sternocleidomastoid muscle was used to gain access to the prevertebral space. Self-retaining retractors were then placed in the wound for optimal exposure. After confirming the appropriate level with C-arm fluoroscopy, an annulotomy was performed in the C5-6 disk space, where disk material as well as anterior and posterior osteophytes were removed. After completing the decompression, a 6-mm lordotic PEEK cage packed with allograft and autograft material was placed in the interbody space. A separate anterior cervical plate was then fashioned to the front of the spine and secured with 4 fixed screws. Midline and lateral structures were inspected and found to be free from significant trauma. The wound was irrigated. Hemostasis was maintained throughout. The wound was then closed in anatomic layers, and a pressure dressing was applied. There were no known procedural complications. Job ID: [id number]
[2020-12-02] MEDS ORDERED: Ondansetron HCl/PF 4 MG/2 ML Vial IVP PRN (10:58)
[2020-12-02] MEDS ORDERED: Promethazine HCl 25 MG/ML VIAL IM PRN (10:58)
[2020-12-02] MEDS ORDERED: Promethazine HCl 25 MG/ML VIAL SLOW IVP PRN (10:58)
[2020-12-02] MEDS: Insulin Glargine 50 UNITS in Pre-Filled Syringe SC SCH (13:18)
[2020-12-02] MEDS: Famotidine 20 MG TAB PO SCH ×2 (13:18→21:44)
[2020-12-02] MEDS: Gabapentin 300 MG CAP PO SCH ×3 (13:18→21:45)
[2020-12-02] MEDS: Sodium Chloride 0.9% 1,000 ML IV SCH (13:54)
[2020-12-02] MEDS: Lisinopril/Hydrochlorothiazide 20/25 mg Tablet PO SCH (14:16)
[2020-12-02] MEDS ORDERED: Amlodipine 5 MG TAB ONE (14:22)
[2020-12-02] MEDS: Amlodipine 5 MG TAB PO SCH (14:24)
--- NOTE | 2020-12-02 17:06 | PDOC.HOSPP ---
- Subjective Encounter Date: 12/02/20 Encounter Time: 14:00 Subjective: is post op acdf C5-6, awakens in pacu she can grasp my hand, moves a bit of her left LE - Objective Vital Signs & Weight: Vital Signs (12 hours) Temp Pulse Resp BP BP Pulse Ox 12/02/20 15:54 98.2 F 80 15 125/64 96 12/02/20 14:24 79 12/02/20 14:16 75 12/02/20 14:08 98.0 F 79 14 141/67 H 98 12/02/20 12:45 97.8 F 71 12 142/77 H 98 12/02/20 08:00 98.1 F 81 19 142/80 H 95 Weight Weight 189 lb I&O: 12/01/20 12/02/20 12/03/20 06:59 06:59 06:59 Intake Total 2160 Balance 2160 Result Diagrams: 12/01/20 04:59 12/01/20 04:59 Additional Labs: Accuchecks 12/02/20 12/01/20 06:08 19:36 POC Glucose 168 H 346 H Hospitalist ROS - Medication Medications: Active Medications Generic Name Dose Route Start Last Admin Trade Name Freq PRN Reason Stop Dose Admin Acetaminophen 650 mg 11/28/20 17:47 12/01/20 20:48 Acetaminophen 325 Mg Tab PO 650 mg Q4H PRN Administration Headache/Fever/Mild Pain (1-3) Amlodipine Besylate 5 mg 12/02/20 09:00 12/02/20 14:24 Amlodipine 5 Mg Tab PO 5 mg DAILY HEIDY Administration Aripiprazole 5 mg 12/01/20 21:00 12/01/20 20:38 Aripiprazole 10 Mg Tab PO 5 mg HS HEIDY Administration Atorvastatin Calcium 20 mg 12/01/20 21:00 12/01/20 20:37 Atorvastatin Calcium 20 Mg Tab PO 20 mg HS HEIDY Administration Escitalopram Oxalate 10 mg 12/01/20 21:00 12/01/20 20:38 Escitalopram Oxalate 10 Mg Tablet PO 10 mg HS HEIDY Administration Famotidine 20 mg 11/28/20 21:00 12/02/20 13:18 Famotidine 20 Mg Tab PO Not Given BID HEIDY Gabapentin 300 mg 12/01/20 15:00 12/02/20 15:53 Gabapentin 300 Mg Cap PO 300 mg TID HEIDY Administration Lisinopril/HCTZ 1 tab 12/02/20 09:00 12/02/20 14:16 Lisinopril/Hydrochlorothiazide 20/25 Mg Tablet PO 1 tab DAILY HEIDY Administration Hydralazine HCl 10 mg 12/01/20 13:54 12/01/20 23:05 Hydralazine 20 Mg/Ml Vial SLOW IVP 10 mg Q4H PRN Administration Hypertension Ceftriaxone Sodium 1 gm/ 100 mls @ 200 mls/hr 11/28/20 18:00 12/01/20 18:08 Sodium Chloride IVPB 100 mls 1800 HEIDY Administration Insulin Glargine 40 units/ 0.4 mls @ 0 mls/hr 11/28/20 21:00 12/01/20 20:38 Miscellaneous Medication SC 0.4 mls HS HEIDY Administration Insulin Glargine 50 units/ 0.5 mls @ 0 mls/hr 12/02/20 09:00 12/02/20 13:18 Miscellaneous Medication SC Not Given QAM HEIDY Sodium Chloride 1,000 mls @ 75 mls/hr 12/02/20 10:30 12/02/20 13:54 Normal Saline 0.9% IV 1,000 mls .[id number] HEIDY Administration Ibuprofen 400 mg 11/28/20 17:47 12/01/20 09:14 Ibuprofen 200 Mg Tab PO 400 mg Q4H PRN Administration Fever > 101 Insulin Human Lispro 0 units 11/29/20 17:54 12/01/20 11:31 Humalog 300 Units/3 Ml Vial SC 11 units .AGGRESSIVE SLIDING PRN Administration Aggressive Correctional Scale Insulin Human Lispro 0 units 11/29/20 22:03 12/01/20 20:39 Humalog 300 Units/3 Ml Vial SC 4 units .BEDTIME SLIDING SC PRN Administration Bedtime Correctional Scale Ondansetron HCl 4 mg 11/28/20 17:47 11/29/20 20:43 Ondansetron Pf 4 Mg/2 Ml Vial IVP 4 mg Q6H PRN Administration Nausea/Vomiting Pantoprazole Sodium 40 mg 12/02/20 09:00 12/02/20 14:24 Pantoprazole 40 Mg Tab PO 40 mg DAILY HEIDY Administration - Exam Eye: PERRL, anicteric sclera ENT: no oropharyngeal lesions, dry oral mucosa Neck: supple, no JVD Heart: RRR, no murmur Respiratory: no wheezes, no rales Gastrointestinal: soft, non-tender, non-distended, normal bowel sounds Extremities: no cyanosis, no edema Neurological: cranial nerve grossly intact Neurological - other findings: left hemiparesis Hosp A/P (1) Cervical myelopathy with cervical radiculopathy Code(s): G95.9 - DISEASE OF SPINAL CORD, UNSPECIFIED; M54.12 - RADICULOPATHY, CERVICAL REGION Status: Acute (2) H/O: CVA (cerebrovascular accident) Code(s): Z86.73 - PRSNL HX OF TIA (TIA), AND CEREB INFRC W/O RESID DEFICITS Status: Chronic (3) Asthma Code(s): J45.909 - UNSPECIFIED ASTHMA, UNCOMPLICATED Status: Chronic Qualifiers: Asthma severity: mild Asthma persistence: intermittent Asthma complication type: unspecified Qualified Code(s): J45.20 - Mild intermittent asthma, uncomplicated (4) HTN (hypertension) Code(s): I10 - ESSENTIAL (PRIMARY) HYPERTENSION Status: Chronic Qualifiers: Hypertension type: essential hypertension (5) Seizure disorder Code(s): G40.909 - EPILEPSY, UNSP, NOT INTRACTABLE, WITHOUT STATUS EPILEPTICUS Status: Chronic (6) DM type 2 (diabetes mellitus, type 2) Status: Chronic Qualifiers: Diabetes mellitus computer terminal operator insulin use: with computer terminal operator use (7) UTI (urinary tract infection) Status: Acute Qualifiers: Urinary tract infection type: acute cystitis Hematuria presence: without hematuria Qualified Code(s): N30.00 - Acute cystitis without hematuria - Plan is s/p ant cervical discectomy and fusion of C5-6 (12/02/2020) for cervical myelo ramirez with edema changes and cord compression PT to mobilize as tolerated, will need rehab for dc plan continue ceftriaxone for uti, is growing e.coli with multiple resistance on high dose lantus with coverage, norvasc, lipitor, lisinopril/hctz, aripiprazole, lexapro, neurontin and requip hemo/neurostable has h/o left hemiparesis from prior cva with increasing weakness now due to myelopathy, s/p decompression
[2020-12-02] MEDS: HumaLOG 300 UNITS/3 ML VIAL SC PRN (17:22)
[2020-12-02] MEDS: cefTRIAXone\\ROCEPHIN 1 GM in Sodium Chloride 0.9% 100 ML IVPB SCH (17:23)
[2020-12-02] MEDS: Acetaminophen/Codeine 30-300mg Tablet PO PRN ×2 (17:23→21:44)
[2020-12-02] MEDS: Insulin Glargine 40 UNITS in Pre-Filled Syringe 1 EACH SC SCH (21:44)
[2020-12-02] MEDS: Aripiprazole 10 MG TAB PO SCH (21:45)
[2020-12-02] MEDS: Escitalopram Oxalate 10 mg Tablet PO SCH (21:45)
[2020-12-02] MEDS: Atorvastatin Calcium 20 MG TAB PO SCH (21:46)
[2020-12-03] MEDS: Sodium Chloride 0.9% 1,000 ML IV SCH ×2 (03:48→14:37)
[2020-12-03] MEDS: Acetaminophen/Codeine 30-300mg Tablet PO PRN ×6 (03:49→21:34)
[2020-12-03] MEDS: Gabapentin 300 MG CAP PO SCH ×3 (08:09→21:16)
[2020-12-03] MEDS: Amlodipine 5 MG TAB PO SCH (08:10)
[2020-12-03] MEDS: Famotidine 20 MG TAB PO SCH ×2 (08:10→21:17)
[2020-12-03] MEDS: Lisinopril/Hydrochlorothiazide 20/25 mg Tablet PO SCH (08:16)
[2020-12-03] MEDS: Insulin Glargine 50 UNITS in Pre-Filled Syringe SC SCH (08:19)
[2020-12-03 08:40] LABS: Anion Gap 12 mmol/L (10-20); BUN (Urea Nitrogen) 14 mg/dL (9.8-20.1); Calc. Creatinine Clearance 121 mL/min (70-130); Calcium 8.1 mg/dL (7.8-10.44); Carbon Dioxide 28 mmol/L (22-29); Chloride 102 mmol/L (98-107); Glucose 95 mg/dL (70-105); Potassium 3.8 mmol/L (3.5-5.1); Sodium 138 mmol/L (136-145)
--- NOTE | 2020-12-03 09:19 | PRG ---
DATE OF SERVICE: 12/03/2020 The patient is now postoperative day #1, status post C5-C6 ACDF by Dr. Carrington's team. The patient also has some weakness not only from her cervical myelopathy, but from her recent CVA. She reports this weakness has been unchanged since her surgery, but she is otherwise feeling well. Her pain is well-controlled on p.o. medications. She is tolerating a regular diet and eating her breakfast at the bedside this morning. She is voiding appropriately and has been able to get up for a short period of time at the side of the bed. On exam this morning, she is awake and alert, in no acute distress, sitting up, eating her breakfast. She has some weakness in the left upper extremity that is unchanged. Her incision is clean, dry, and intact. The patient is doing well postoperative day #1 and she would benefit from inpatient rehab. I feel that she could be discharged to rehab at any point in time. Job ID: [id number] [facility]ST[facility]STERAydee
[2020-12-03] MEDS: HumaLOG 300 UNITS/3 ML VIAL SC PRN (11:24)
--- NOTE | 2020-12-03 14:02 | PDOC.HOSPP ---
- Subjective Encounter Date: 12/03/20 Encounter Time: 12:20 Subjective: no new complaints, has amb in room to door and back tolerating oral solid diet with no swallowing issues post op she can move her left extremities but is weak - Objective Vital Signs & Weight: Vital Signs (12 hours) Temp Pulse Resp BP BP Pulse Ox 12/03/20 11:21 98.3 F 65 12 103/59 L 97 12/03/20 08:16 89 12/03/20 08:14 98.4 F 69 16 106/58 L 94 L 12/03/20 08:10 89 12/03/20 04:45 98.5 F 89 18 123/65 95 Weight Weight 189 lb I&O: 12/02/20 12/03/20 12/04/20 06:59 06:59 06:59 Intake Total 2160 2493 Balance 2160 2493 Result Diagrams: 12/01/20 04:59 12/03/20 08:11 Additional Labs: Accuchecks 12/03/20 12/03/20 12/02/20 10:37 06:06 20:51 POC Glucose 169 H 123 H 319 H 12/02/20 16:58 POC Glucose 377 H Hospitalist ROS - Medication Medications: Active Medications Generic Name Dose Route Start Last Admin Trade Name Freq PRN Reason Stop Dose Admin Acetaminophen 650 mg 11/28/20 17:47 12/01/20 20:48 Acetaminophen 325 Mg Tab PO 650 mg Q4H PRN Administration Headache/Fever/Mild Pain (1-3) Acetaminophen/Codeine Phosphate 1 tab 12/02/20 10:22 12/03/20 11:26 Acetaminophen/Codeine 30-300mg Tablet PO 1 tab Q3H PRN Administration Mild Pain (1-3) Acetaminophen/Codeine Phosphate 2 tab 12/02/20 10:22 12/03/20 03:49 Acetaminophen/Codeine 30-300mg Tablet PO 2 tab Q3H PRN Administration Moderate Pain (4-6) Amlodipine Besylate 5 mg 12/02/20 09:00 12/03/20 08:10 Amlodipine 5 Mg Tab PO 5 mg DAILY HEIDY Administration Aripiprazole 5 mg 12/01/20 21:00 12/02/20 21:45 Aripiprazole 10 Mg Tab PO 5 mg HS HEIDY Administration Atorvastatin Calcium 20 mg 12/01/20 21:00 12/02/20 21:46 Atorvastatin Calcium 20 Mg Tab PO 20 mg HS HEIDY Administration Docusate Sodium 100 mg 11/30/20 12:16 12/03/20 08:10 Docusate 100 Mg Cap PO 100 mg DAILYPRN PRN Administration Constipation Escitalopram Oxalate 10 mg 12/01/20 21:00 12/02/20 21:45 Escitalopram Oxalate 10 Mg Tablet PO 10 mg HS HEIDY Administration Famotidine 20 mg 11/28/20 21:00 12/03/20 08:10 Famotidine 20 Mg Tab PO 20 mg BID HEIDY Administration Gabapentin 300 mg 12/01/20 15:00 12/03/20 08:09 Gabapentin 300 Mg Cap PO 300 mg TID HEIDY Administration Lisinopril/HCTZ 1 tab 12/02/20 09:00 12/03/20 08:16 Lisinopril/Hydrochlorothiazide 20/25 Mg Tablet PO 1 tab DAILY HEIDY Administration Hydralazine HCl 10 mg 12/01/20 13:54 12/01/20 23:05 Hydralazine 20 Mg/Ml Vial SLOW IVP 10 mg Q4H PRN Administration Hypertension Ceftriaxone Sodium 1 gm/ 100 mls @ 200 mls/hr 11/28/20 18:00 12/02/20 17:23 Sodium Chloride IVPB 100 mls 1800 HEIDY Administration Insulin Glargine 40 units/ 0.4 mls @ 0 mls/hr 11/28/20 21:00 12/02/20 21:44 Miscellaneous Medication SC 0.4 mls HS HEIDY Administration Insulin Glargine 50 units/ 0.5 mls @ 0 mls/hr 12/02/20 09:00 12/03/20 08:19 Miscellaneous Medication SC 0.5 mls QAM HEIDY Administration Sodium Chloride 1,000 mls @ 75 mls/hr 12/02/20 10:30 12/03/20 03:48 Normal Saline 0.9% IV 1,000 mls .[id number] HEIDY Administration Ibuprofen 400 mg 11/28/20 17:47 12/01/20 09:14 Ibuprofen 200 Mg Tab PO 400 mg Q4H PRN Administration Fever > 101 Insulin Human Lispro 0 units 11/29/20 17:54 12/03/20 11:24 Humalog 300 Units/3 Ml Vial SC 3 units .AGGRESSIVE SLIDING PRN Administration Aggressive Correctional Scale Insulin Human Lispro 0 units 11/29/20 22:03 12/01/20 20:39 Humalog 300 Units/3 Ml Vial SC 4 units .BEDTIME SLIDING SC PRN Administration Bedtime Correctional Scale Ondansetron HCl 4 mg 11/28/20 17:47 11/29/20 20:43 Ondansetron Pf 4 Mg/2 Ml Vial IVP 4 mg Q6H PRN Administration Nausea/Vomiting Pantoprazole Sodium 40 mg 12/02/20 09:00 12/03/20 08:10 Pantoprazole 40 Mg Tab PO 40 mg DAILY HEIDY Administration - Exam General Appearance: awake alert Eye: PERRL, anicteric sclera ENT: no oropharyngeal lesions, moist mucosa Neck: supple, no JVD Heart: RRR, no murmur Respiratory: no wheezes, no rales Gastrointestinal: soft, non-tender, non-distended, normal bowel sounds Extremities: no cyanosis, no edema Neurological: cranial nerve grossly intact, no new deficit Neurological - other findings: left hemiparesis Psychiatric: normal affect, A&O x 3 Hosp A/P (1) Cervical myelopathy with cervical radiculopathy Code(s): G95.9 - DISEASE OF SPINAL CORD, UNSPECIFIED; M54.12 - RADICULOPATHY, CERVICAL REGION Status: Acute (2) H/O: CVA (cerebrovascular accident) Code(s): Z86.73 - PRSNL HX OF TIA (TIA), AND CEREB INFRC W/O RESID DEFICITS Status: Chronic (3) Asthma Code(s): J45.909 - UNSPECIFIED ASTHMA, UNCOMPLICATED Status: Chronic Qualifiers: Asthma severity: mild Asthma persistence: intermittent Asthma complication type: unspecified Qualified Code(s): J45.20 - Mild intermittent asthma, uncomplicated (4) HTN (hypertension) Code(s): I10 - ESSENTIAL (PRIMARY) HYPERTENSION Status: Chronic Qualifiers: Hypertension type: essential hypertension (5) Seizure disorder Code(s): G40.909 - EPILEPSY, UNSP, NOT INTRACTABLE, WITHOUT STATUS EPILEPTICUS Status: Chronic (6) DM type 2 (diabetes mellitus, type 2) Status: Chronic Qualifiers: Diabetes mellitus oysterman insulin use: with intermediate use (7) UTI (urinary tract infection) Status: Acute Qualifiers: Urinary tract infection type: acute cystitis Hematuria presence: without hematuria Qualified Code(s): N30.00 - Acute cystitis without hematuria - Plan is s/p ant cervical discectomy and fusion of C5-6 (12/02/2020) for cervical myelopathy with edema changes and cord compression PT to mobilize as tolerated, will need rehab for dc plan (?medicaid), if rehab is declined then she can have out pt rehab or HH with PT and nursing is growing e.coli with multiple resistance, will switch to vantin in am on high dose lantus with coverage, norvasc, lipitor, lisinopril/hctz, aripiprazole, lexapro, neurontin and requip hemo/neurostable has h/o left hemiparesis from prior cva with increasing weakness now due to myelopathy, s/p decompression is stable
[2020-12-03] MEDS: cefTRIAXone\\ROCEPHIN 1 GM in Sodium Chloride 0.9% 100 ML IVPB SCH (17:56)
[2020-12-03] MEDS ORDERED: Miconazole 2% Vaginal Cream 45 GM TUBE VAG SCH (21:00)
[2020-12-03] MEDS: Atorvastatin Calcium 20 MG TAB PO SCH (21:15)
[2020-12-03] MEDS: Aripiprazole 10 MG TAB PO SCH (21:15)
[2020-12-03] MEDS: Escitalopram Oxalate 10 mg Tablet PO SCH (21:18)
[2020-12-03] MEDS: Insulin Glargine 40 UNITS in Pre-Filled Syringe 1 EACH SC SCH (21:36)
[2020-12-04 04:36] VITALS: TEMP 98.2
[2020-12-04] MEDS: Sodium Chloride 0.9% 1,000 ML IV SCH (06:18)
[2020-12-04] MEDS: Acetaminophen/Codeine 30-300mg Tablet PO PRN ×2 (06:19→10:06)
[2020-12-04 07:16] LABS: Anion Gap 13 mmol/L (10-20); BUN (Urea Nitrogen) 19 mg/dL (9.8-20.1); Calc. Creatinine Clearance 119 mL/min (70-130); Calcium 7.5 mg/dL (7.8-10.44); Carbon Dioxide 23 mmol/L (22-29); Chloride 106 mmol/L (98-107); Glucose 71 mg/dL (70-105); Sodium 138 mmol/L (136-145)
[2020-12-04 08:10] VITALS: BP 126/66
--- NOTE | 2020-12-04 09:36 | PRG ---
DATE OF SERVICE: 12/04/2020 The patient is now postoperative day #2, status post C5-C6 ACDF. She has no overnight complaints. Her pain is well controlled with p.o. medications. She is tolerating a regular diet. She is voiding appropriately. She has been working with Physical Therapy and walking short distances in the [place]. The patient is sitting up, eating her breakfast, awake, alert, comfortable. Incision is clean, dry, and intact. She has free active range of motion of all extremities. She continues to have some left-sided weakness, which is unchanged. The patient is doing well postoperatively. She would benefit from rehab. I feel she can transition there at any point in time. Job ID: [id number]
[2020-12-04] MEDS: Famotidine 20 MG TAB PO SCH (10:02)
[2020-12-04] MEDS: Gabapentin 300 MG CAP PO SCH ×2 (10:02→15:26)
[2020-12-04] MEDS: Insulin Glargine 50 UNITS in Pre-Filled Syringe SC SCH (10:03)
[2020-12-04] MEDS: Lisinopril/Hydrochlorothiazide 20/25 mg Tablet PO SCH (11:15)
[2020-12-04] MEDS: HumaLOG 300 UNITS/3 ML VIAL SC PRN (11:16)
--- NOTE | 2020-12-04 13:10 | PDOC.HOSPP ---
- Subjective Encounter Date: 12/04/20 Encounter Time: 11:00 Subjective: no sob or new weakness feels good - Objective Vital Signs & Weight: Vital Signs (12 hours) Temp Pulse Resp BP BP Pulse Ox 12/04/20 11:15 71 12/04/20 08:00 98.2 F 71 20 126/66 96 12/04/20 03:49 98.2 F 78 18 100/56 L 96 Weight Weight 189 lb I&O: 12/03/20 12/04/20 12/05/20 06:59 06:59 06:59 Intake Total 2493 2870 Balance 2493 2870 Result Diagrams: 12/01/20 04:59 12/04/20 06:32 Additional Labs: Accuchecks 12/04/20 12/04/20 12/03/20 11:06 05:41 21:30 POC Glucose 166 H 80 165 H 12/03/20 16:32 POC Glucose 121 H Hospitalist ROS - Medication Medications: Active Medications Generic Name Dose Route Start Last Admin Trade Name Freq PRN Reason Stop Dose Admin Acetaminophen 650 mg 11/28/20 17:47 12/01/20 20:48 Acetaminophen 325 Mg Tab PO 650 mg Q4H PRN Administration Headache/Fever/Mild Pain (1-3) Acetaminophen/Codeine Phosphate 1 tab 12/02/20 10:22 12/04/20 06:19 Acetaminophen/Codeine 30-300mg Tablet PO 1 tab Q3H PRN Administration Mild Pain (1-3) Acetaminophen/Codeine Phosphate 2 tab 12/02/20 10:22 12/04/20 10:06 Acetaminophen/Codeine 30-300mg Tablet PO 2 tab Q3H PRN Administration Moderate Pain (4-6) Aripiprazole 5 mg 12/01/20 21:00 12/03/20 21:15 Aripiprazole 10 Mg Tab PO 5 mg HS HEIDY Administration Atorvastatin Calcium 20 mg 12/01/20 21:00 12/03/20 21:15 Atorvastatin Calcium 20 Mg Tab PO 20 mg HS HEIDY Administration Docusate Sodium 100 mg 11/30/20 12:16 12/03/20 08:10 Docusate 100 Mg Cap PO 100 mg DAILYPRN PRN Administration Constipation Escitalopram Oxalate 10 mg 12/01/20 21:00 12/03/20 21:18 Escitalopram Oxalate 10 Mg Tablet PO 10 mg HS HEIDY Administration Famotidine 20 mg 11/28/20 21:00 12/04/20 10:02 Famotidine 20 Mg Tab PO 20 mg BID HEIDY Administration Gabapentin 300 mg 12/01/20 15:00 12/04/20 10:02 Gabapentin 300 Mg Cap PO 300 mg TID HEIDY Administration Lisinopril/HCTZ 1 tab 12/02/20 09:00 12/04/20 11:15 Lisinopril/Hydrochlorothiazide 20/25 Mg Tablet PO Not Given DAILY HEIDY Hydralazine HCl 10 mg 12/01/20 13:54 12/01/20 23:05 Hydralazine 20 Mg/Ml Vial SLOW IVP 10 mg Q4H PRN Administration Hypertension Insulin Glargine 40 units/ 0.4 mls @ 0 mls/hr 11/28/20 21:00 12/03/20 21:36 Miscellaneous Medication SC 0.4 mls HS HEIDY Administration Insulin Glargine 50 units/ 0.5 mls @ 0 mls/hr 12/02/20 09:00 12/04/20 10:03 Miscellaneous Medication SC 0.5 mls QAM HEIDY Administration Sodium Chloride 1,000 mls @ 75 mls/hr 12/02/20 10:30 12/04/20 06:18 Normal Saline 0.9% IV Not Given .[id number] HEIDY Ibuprofen 400 mg 11/28/20 17:47 12/01/20 09:14 Ibuprofen 200 Mg Tab PO 400 mg Q4H PRN Administration Fever > 101 Insulin Human Lispro 0 units 11/29/20 17:54 12/04/20 11:16 Humalog 300 Units/3 Ml Vial SC 3 units .AGGRESSIVE SLIDING PRN Administration Aggressive Correctional Scale Insulin Human Lispro 0 units 11/29/20 22:03 12/01/20 20:39 Humalog 300 Units/3 Ml Vial SC 4 units .BEDTIME SLIDING SC PRN Administration Bedtime Correctional Scale Miconazole Nitrate 0 gm 12/03/20 21:00 12/03/20 21:20 Miconazole 2% Vaginal Cream 45 Gm Tube VAG 12/05/20 21:01 1 appful HS HEIDY Administration Ondansetron HCl 4 mg 11/28/20 17:47 11/29/20 20:43 Ondansetron Pf 4 Mg/2 Ml Vial IVP 4 mg Q6H PRN Administration Nausea/Vomiting Pantoprazole Sodium 40 mg 12/02/20 09:00 12/04/20 10:03 Pantoprazole 40 Mg Tab PO 40 mg DAILY HEIDY Administration - Exam General Appearance: awake alert Eye: PERRL, anicteric sclera ENT: no oropharyngeal lesions, moist mucosa Neck: no JVD Heart: RRR, no murmur Respiratory: no wheezes, no rales, no ronchi Gastrointestinal: soft, non-tender, non-distended, normal bowel sounds Extremities: no cyanosis, no edema Neurological: cranial nerve grossly intact, no focal deficits Psychiatric: normal affect, A&O x 3 Hosp A/P (1) Cervical myelopathy with cervical radiculopathy Code(s): G95.9 - DISEASE OF SPINAL CORD, UNSPECIFIED; M54.12 - RADICULOPATHY, CERVICAL REGION Status: Acute (2) H/O: CVA (cerebrovascular accident) Code(s): Z86.73 - PRSNL HX OF TIA (TIA), AND CEREB INFRC W/O RESID DEFICITS Status: Chronic (3) Asthma Code(s): J45.909 - UNSPECIFIED ASTHMA, UNCOMPLICATED Status: Chronic Qualifiers: Asthma severity: mild Asthma persistence: intermittent Asthma complication type: unspecified Qualified Code(s): J45.20 - Mild intermittent asthma, uncomplicated (4) HTN (hypertension) Code(s): I10 - ESSENTIAL (PRIMARY) HYPERTENSION Status: Chronic Qualifiers: Hypertension type: essential hypertension (5) Seizure disorder Code(s): G40.909 - EPILEPSY, UNSP, NOT INTRACTABLE, WITHOUT STATUS EPILEPTICUS Status: Chronic (6) DM type 2 (diabetes mellitus, type 2) Status: Chronic Qualifiers: Diabetes mellitus intermediate designer insulin use: with [facility] use (7) UTI (urinary tract infection) Status: Resolved Qualifiers: Urinary tract infection type: acute cystitis Hematuria presence: without hematuria Qualified Code(s): N30.00 - Acute cystitis without hematuria - Plan is s/p ant cervical discectomy and fusion of C5-6 (12/02/2020) for cervical myelopathy with edema changes and cord compression PT to mobilize as tolerated is growing e.coli with multiple resistance, resolved on high dose lantus with coverage, norvasc, lipitor, lisinopril/hctz, aripiprazole, lexapro, neurontin and requip hemo/neurostable has h/o left hemiparesis from prior cva with increasing weakness now due to myelopathy, s/p decompression is stable dc plan to rehab today
--- NOTE | 2020-12-04 16:46 | DIS ---
DATE OF ADMISSION: 11/28/2020 DATE OF DISCHARGE: 12/04/2020 DISCHARGE DISPOSITION: To inpatient rehab. PRIMARY DISCHARGE DIAGNOSIS: The patient is status post anterior cervical diskectomy and fusion of C5-C6 from myelopathy and cervical stenosis. SECONDARY DISCHARGE DIAGNOSES: History of cerebrovascular accident with left hemiparesis; history of asthma; hypertension; seizure disorder; diabetes mellitus, type 2; urinary tract infection, resolved. PROCEDURES DONE DURING HOSPITALIZATION: The patient has had anterior cervical diskectomy and fusion of C5-6 done on 12/02/[address] Carrington. Cervical spine MRI done on 11/29/2020 showed prominent disk degenerative changes at C5-6 level with broad-based disk osteophyte complex and mild facet degenerative changes. These findings resulted in [id number] central canal narrowing as well as severe bilateral neuroforaminal narrowing. In addition, there is a T2 hyperintense focus present within the spinal cord at this level, which is favored to be related to an area of myelomalacia. However, the activity of the patient's symptoms is uncertain and this could represent cord edema. CT angio of the brain done on admission showed absence of flow in the M1 and M2 segments of left middle cerebral artery. No thrombosis or occlusion on the contralateral right MCA. No high-grade stenosis of cervical segments of bilateral internal carotid arteries were seen. CT brain without contrast done on admission showed no acute hemorrhage. MRI brain done on 11/29/2020 showed no acute intracranial bleed. There are severe chronic small-vessel ischemic changes. Urine culture grew E coli sensitive to cephalosporins, resistant to quinolones, ampicillin, and sulfa. Had a white count of 19 on the day of admission with discharge number of 11, H and H of 11 and 31 with platelet count of 286 on discharge. BUN 19, creatinine 0.7. CRP 7.41. TSH 1.62. COVID-19 PCR was not detected on 11/28/2020. DISCHARGE MEDICATIONS: 1. Aripiprazole 5 mg p.o. at bedtime. 2. Albuterol inhaler 2 puffs q.4 hourly p.r.n. 3. Gabapentin 300 mg p.o. 3 times daily. 4. Lexapro 10 mg p.o. at bedtime. 5. Lisinopril with hydrochlorothiazide 20/25 mg daily. 6. Protonix 40 mg daily. 7. Ropinirole 0.5 mg p.o. q.p.m. p.r.n. 8. Trazodone 25 mg p.o. at bedtime. 9. Ultram p.r.n. for pain. 10. Aspirin 81 mg p.o. daily. 11. Flexeril 10 mg p.o. q.8 hourly p.r.n. for pain. 12. Lantus 50 units subcutaneously q.a.m. and 40 units subcutaneously at bedtime. 13. Atorvastatin 20 mg p.o. at bedtime. ALLERGIES: TO PEPPERS. INPATIENT CONSULT: Dr. Carrington for Neurosurgery. DISCHARGE PLAN: The patient to follow up with her primary care physician in 1 week. She needs to follow up with Dr. Carrington as advised. BRIEF COURSE DURING HOSPITALIZATION: The patient initially got admitted on the with complaints of increasing weakness on the left side. She has known history of CVA in the past with left hemiparesis. In view of her history, a complete neurologic workup was done including CT angio brain, CT brain without contrast, MRI brain without contrast, none of which showed any acute infarct. In view of persistent symptoms of weakness on the left side, the patient had MRI of the cervical spine done, which showed a possible edema with spine compression and myelopathy at C5-6 area. She has had consultation with Dr. Carrington. She has had anterior cervical diskectomy with spinal fusion done at C5-6 level. Postprocedure, the patient is mobilizing with physical therapy. She has not had any worsening weakness postprocedure. In view of above-mentioned factors and prior history of hemiparesis on the left side with multiple medical issues, the patient is being discharged to inpatient rehab for further recuperation prior to going home. Please see a [id number] documentation for the day of discharge on [employer]. A total of 35 minutes was spent on discharge plan. Job ID: [id number]
== END 2020-12-04 15:34 | DRG 471 ==
LOC: ERS 11:37 → ERHOLD 14:45 → PACU-TCU 11-29 15:30 → 3SE 12-02 15:30
PROVIDERS: ADMIT Internal Medicine; ATTEND Internal Medicine
PROC: 0RG10A0 Fusion of Cervical Vertebral Joint with Interbody Fusion Device, Anterior Approach, Anterior Column, Open Approach (ICD-10-PCS; principal; 2020-12-02)
PROC: 0RB30ZZ Excision of Cervical Vertebral Disc, Open Approach (ICD-10-PCS; 2020-12-02)
DX: M48.02 Spinal stenosis, cervical region (principal); G95.19 Other vascular myelopathies; A41.51 Sepsis due to Escherichia coli [E. coli]; R65.20 Severe sepsis without septic shock; M50.022 Cervical disc disorder at C5-C6 level with myelopathy; Z20.822 Contact with and (suspected) exposure to COVID-19; I69.354 Hemiplegia and hemiparesis following cerebral infarction affecting left non-dominant side; Z16.23 Resistance to quinolones and fluoroquinolones; Z16.29 Resistance to other single specified antibiotic; Z16.11 Resistance to penicillins; N30.00 Acute cystitis without hematuria; N12 Tubulo-interstitial nephritis, not specified as acute or chronic; I10 Essential (primary) hypertension; G40.909 Epilepsy, unspecified, not intractable, without status epilepticus; E11.65 Type 2 diabetes mellitus with hyperglycemia; K21.9 Gastro-esophageal reflux disease without esophagitis; E78.5 Hyperlipidemia, unspecified; E78.00 Pure hypercholesterolemia, unspecified; G25.81 Restless legs syndrome; F31.9 Bipolar disorder, unspecified; F41.9 Anxiety disorder, unspecified; E11.40 Type 2 diabetes mellitus with diabetic neuropathy, unspecified; E66.9 Obesity, unspecified; H49.01 Third [oculomotor] nerve palsy, right eye; M50.122 Cervical disc disorder at C5-C6 level with radiculopathy; J45.20 Mild intermittent asthma, uncomplicated; Z91.018 Allergy to other foods; Z98.51 Tubal ligation status; Z68.29 Body mass index [BMI] 29.0-29.9, adult; Z79.899 Other long term (current) drug therapy; Z79.82 Long term (current) use of aspirin; Z79.4 Long term (current) use of insulin; Z79.51 Long term (current) use of inhaled steroids
CPT/HCPCS: 36415; 36416; 51701; 70450; 70496; 70498; 70551; 72141; 76000; 76380; 80048; 80053; 81003; 81015; 84443; 84484; 85025; 85652; 86140; 87040; 87077; 87086; 87186; 93005; 96365; 96367; 96375; C1713; C1776; J0360; J0690; J0692; J0696; J1100; J1200; J1630; J1650; J1815; J1885; J2060; J2405; J2704; J3010; J3370; J3490; Q9967; U0002

== ENCOUNTER 2020-12-24 06:37 | Observation (INO) | payer OTHER ==
[2020-12-24 07:27] LABS: Bilirubin Negative (Negative); Blood, Urine Trace (Negative); Clarity Turbid (Clear); Glucose, Urine (Dipstick) 100 mg/dL (Negative); Ketone, Urine Negative (Negative); Leukocyte 500 Leu/uL (Negative); Nitrite Negative (Negative); Protein, Urine (Dipstick) 10 mg/dL (Neg-Trace); RBC/HPF 0-3 HPF (0-3); Specific Gravity, Urine 1.012 (1.002-1.036); Squamous Epithelial 21-50 HPF (0-3); Urobilinogen Normal mg/dL (Less than 2); WBC/HPF Greater than 50 HPF (0-3); pH, Urine 5.5 (5.0-9.0)
[2020-12-24 07:45] LABS: #Eosinphils 0.2 thou/uL (0.0-0.7); #Monocytes 0.9 thou/uL (0.11-0.59); #Neutrophils 8.7 thou/uL (1.40-6.50); %Basophils 0.2 % (0.0-1.0); %Eosinophils 1.7 % (0.0-10.0); %Lymphocytes 16.5 % (21.0-51.0); %Monocytes 7.5 % (0.0-10.0); Mean Corpuscular HGB CONC 34.6 g/dL (32.0-36.0); Mean Corpuscular Hemoglobin 28.9 pg (27.0-31.0); Mean Corpuscular Volume 83.5 fL (78.0-98.0); Mean Platelet Volume 7.9 fL (7.4-10.4); Platelet Count 278 thou/uL (130-400); RBC Distribution Width 12.1 % (11.5-14.5); Red Blood Cell (RBC) Count 3.81 mill/uL (4.20-5.40); White Blood Cell (WBC) Count 11.8 thou/uL (4.8-10.8)
[2020-12-24 07:46] LABS: Bacteria/HPF 4+ HPF (None Seen)
[2020-12-24 07:47] LABS: Pregnancy Test - Urine (BHCG) Negative (Negative); Pregu Control Background? CLEAR/WHITE (CLR/WHITE); Pregu Control Bar Appear? YES (CONTROL BAR); Specific Gravity 1.012 (1.002-1.036)
[2020-12-24 08:04] LABS: ALT (SGPT) 29 U/L (8-55); AST (SGOT) 26 U/L (5-34); Albumin 4.2 g/dL (3.5-5.0); Alkaline Phosphatase 107 U/L (40-110); Anion Gap 14 mmol/L (10-20); BUN (Urea Nitrogen) 13 mg/dL (9.8-20.1); Bilirubin, Total 0.6 mg/dL (0.2-1.2); Calc. Creatinine Clearance 0 mL/min (70-130); Carbon Dioxide 23 mmol/L (22-29); Chloride 104 mmol/L (98-107); Globulin 3.6 g/dL (2.4-3.5); Glucose 217 mg/dL (70-105); Lipase 23 U/L (8-78); Potassium 4.4 mmol/L (3.5-5.1); Protein, Total 7.8 g/dL (6.0-8.3); Sodium 137 mmol/L (136-145)
[2020-12-24] MEDS ORDERED: Ondansetron PF 4 MG/2 ML Vial ONE (08:29)
--- NOTE | 2020-12-24 08:55 | CT ---
EXAM: Abdomen and pelvic CT scan with contrast: HISTORY: Abdominal pain COMPARISON: 11/08/2020 FINDINGS: Lungs:Possible minimal thickening of the distal esophagus wall, however this is stable from 0 and nonspecific. Liver: Unremarkable. Gallbladder:Unremarkable. Common bile duct:Normal Pancreas:Unremarkable Spleen:Unremarkable. Adrenal glands:Unremarkable. Kidneys:No renal calculus or acute obstruction. There is some minimal perirenal fat stranding involving primarily the lower pole portion anteriorly w ith some subtle heterogeneous decreased attenuation within the renal parenchyma raising concern for the possibility of acute pyelonephritis. No solid or cystic mass. No evidence for bowel obstruction. Aorta:No evidence for aneurysm. Spine:No significant acute process. No CT evidence for acute appendicitis. The urinary bladder is unremarkable. Reproductive system:Unremarkable as visualized. Hernias:None No abscess, adenopathy, or abnormal fluid collection within the abdomen or pelvis. IMPRESSION: Evidence for left-sided pyelonephritis without evidence for calculus or obstruction. Mild to borderline esophageal wall thickening distally, stable
[2020-12-24] MEDS ORDERED: cefTRIAXone\\ROCEPHIN 1 GM VIAL ONE (09:15)
--- NOTE | 2020-12-24 11:30 | PDOC.HHP ---
Hospitalist HPI N/V/D, left flank pain. History of Present Illness: Patient c/o watery diarrhea x3 weeks, N/V over the last couple days and left flank pain. Patient was previously taking Macrobid for a UTI but states she couldn't tolerate them with vomiting. Patient was put on Macrobid for UTI with c/o dysuria, urgency and frequency. Denies hematuria or vaginal discharged. Patient states her intake has been decreased over the last couple of days. ED Course: CT Abd/Pelvis shows Left pyelonephritis without obstruction. EKG shows tachycardic at 105. Patient has been given Rocephin 1gm IVPB, zofran 4mg IVP and 2L of Normal Saline. Allergies/Adverse Reactions: Allergy/AdvReac Type Severity Reaction Status Date / Time peppers Allergy Severe Anaphylaxis Uncoded 02/12/20 14:04 Home Medications: Medication Instructions Recorded Confirmed Type Aspirin Chewable [Aspirin Chewable 81 mg PO DAILY #60 tab 08/08/17 11/30/20 Rx Tablet] rOPINIRole HCl [Requip] 0.5 mg PO QPM PRN 08/27/17 11/30/20 History Gabapentin 300 mg PO TID 01/25/18 11/30/20 History Lisinopril/Hydrochlorothiazide 1 tablet PO DAILY 01/25/18 11/30/20 History [Lisinopril-Hctz 20-25 mg Tab] traMADol HCl [Ultram] 50 mg PO PRN PRN 01/03/19 11/30/20 History ARIPiprazole [Aripiprazole] 5 mg PO HS 11/05/19 11/30/20 History Atorvastatin Calcium [Lipitor] 20 mg PO HS #30 tab 11/05/19 11/30/20 Rx Escitalopram Oxalate [Lexapro] 10 mg PO HS 11/05/19 11/30/20 History Pantoprazole Sodium 40 mg PO DAILY 11/05/19 11/30/20 History traZODone HCl [Trazodone HCl] 25 mg PO HS 11/05/19 11/30/20 History Albuterol Sulfate [Albuterol 2 puff INH Q4H PRN 11/30/20 11/30/20 History Sulfate Hfa] Fluticasone Propionate [Flonase 2 spray NASAL DAILY 11/30/20 11/30/20 History Allergy Relief] Cyclobenzaprine [Flexeril] 10 mg PO Q8H PRN #20 tab 12/04/20 Rx Insulin Glargine [Lantus Vial] 40 units SC HS #1 vial 12/04/20 Rx Insulin Glargine [Lantus Vial] 50 units SC QAM #1 vial 12/04/20 Rx Insulin Aspart [Novolog Flexpen] 5 unit SQ TID 12/24/20 12/24/20 History Past History: PMHx: PSHx: FHx: Social: Hospitalist HPI ROS Constitutional: reports: malaise. denies: fever, chills, sweats, weakness Eyes: denies: pain, vision change, conjunctivae inflammation, eyelid inflammation, redness, other ENT: denies: ear pain, ear discharge, nose pain, nose discharge, nose congestion, mouth pain, mouth swelling, throat pain, throat swelling, other Respiratory: denies: cough, dry, shortness of breath, hemoptysis, SOB with excertion, pleuritic pain, sputum, wheezing, other Cardiovascular: denies: chest pain, palpitations, orthopnea, paroxysmal noc. dyspnea, edema, light headedness, other Gastrointestinal: reports: nausea, vomiting, abdominal pain, diarrhea Genitourinary: reports: dysuria, frequency. denies: incontinence, hematuria Musculoskeletal: denies: neck pain, shoulder pain, arm pain, back pain, hand pain, leg pain, foot pain, other Skin: denies: rash, lesions, lucas, bruising, other Neurological: denies: weakness, numbness, incoordination, change in speech, confusion, seizures, other All other systems reviewed; all pertinent +/- noted in HPI/Subj Hospitalist Exam General Appearance: NAD, awake alert Eye: PERRL, anicteric sclera ENT: normocephalic atraumatic, no oropharyngeal lesions, moist mucosa Neck: supple, symmetric, no JVD, no thyromegaly, no lymphadenopathy, no carotid bruit Heart: RRR, no murmur, no gallops, no rubs, normal peripheral pulses Respiratory: CTAB, no wheezes, no rales, no ronchi, normal chest expansion, no tachypnea, normal percussion Gastrointestinal: non-distended, normal bowel sounds, no palpable masses, tender to palpation (LLQ) Extremities: no cyanosis, no clubbing, no edema Skin: normal turgor, no lesions, no rashes Neurological: cranial nerve grossly intact, normal sensation to touch, no weakness, no focal deficits, no new deficit Musculoskeletal: normal tone, normal strength, no muscle wasting Psychiatric: normal affect Hospitalist Results Result Diagrams: 12/24/20 07:25 12/24/20 07:25 Lab results: Laboratory Last Values WBC 11.8 thou/uL (4.8-10.8) H 12/24/20 07:25 RBC 3.81 mill/uL (4.20-5.40) L 12/24/20 07:25 Hgb 11.0 g/dL (12.0-16.0) L 12/24/20 07:25 Hct 31.8 % (36.0-47.0) L 12/24/20 07:25 MCV 83.5 fL (78.0-98.0) 12/24/20 07:25 MCH 28.9 pg (27.0-31.0) 12/24/20 07:25 MCHC 34.6 g/dL (32.0-36.0) 12/24/20 07:25 RDW 12.1 % (11.5-14.5) 12/24/20 07:25 Plt Count 278 thou/uL (130-400) 12/24/20 07:25 MPV 7.9 fL (7.4-10.4) 12/24/20 07:25 Neutrophils % 74.0 % (42.0-75.0) 12/24/20 07:25 Lymphocytes % 16.5 % (21.0-51.0) L 12/24/20 07:25 Monocytes % 7.5 % (0.0-10.0) 12/24/20 07:25 Eosinophils % 1.7 % (0.0-10.0) 12/24/20 07:25 Basophils % 0.2 % (0.0-1.0) 12/24/20 07:25 Neutrophils # 8.7 thou/uL (1.40-6.50) H 12/24/20 07:25 Lymphocytes # 2.0 thou/uL (1.20-3.40) 12/24/20 07:25 Monocytes # 0.9 thou/uL (0.11-0.59) H 12/24/20 07:25 Eosinophils # 0.2 thou/uL (0.0-0.7) 12/24/20 07:25 Basophils # 0.0 thou/uL (0.0-0.2) 12/24/20 07:25 Sodium 137 mmol/L (136-145) 12/24/20 07:25 Potassium 4.4 mmol/L (3.5-5.1) 12/24/20 07:25 Chloride 104 mmol/L (98-107) 12/24/20 07:25 Carbon Dioxide 23 mmol/L (22-29) 12/24/20 07:25 Anion Gap 14 mmol/L (10-20) 12/24/20 07:25 BUN 13 mg/dL (9.8-20.1) 12/24/20 07:25 Creatinine 0.78 mg/dL (0.6-1.1) 12/24/20 07:25 Estimated GFR (MDRD) 77 12/24/20 07:25 Glucose 217 mg/dL (70-105) H 12/24/20 07:25 Lactic Acid 1.2 mmol/L (0.5-2.2) 12/24/20 09:13 Calcium 9.0 mg/dL (7.8-10.44) 12/24/20 07:25 Total Bilirubin 0.6 mg/dL (0.2-1.2) 12/24/20 07:25 AST 26 U/L (5-34) 12/24/20 07:25 ALT 29 U/L (8-55) 12/24/20 07:25 Alkaline Phosphatase 107 U/L (40-110) 12/24/20 07:25 Troponin I 0.012 ng/mL (< 0.028) 12/24/20 07:25 Serum Total Protein 7.8 g/dL (6.0-8.3) 12/24/20 07:25 Albumin 4.2 g/dL (3.5-5.0) 12/24/20 07:25 Globulin 3.6 g/dL (2.4-3.5) H 12/24/20 07:25 Albumin/Globulin Ratio 1.2 g/dL (1.2-2.2) 12/24/20 07:25 Lipase 23 U/L (8-78) 12/24/20 07:25 Urine Color Yellow (Yellow) 12/24/20 07:06 Urine Clarity Turbid (Clear) A 12/24/20 07:06 Urine pH 5.5 (5.0-9.0) 12/24/20 07:06 Ur Specific [place] 1.012 (1.002-1.036) 12/24/20 07:06 Ur Specific [place] 1.012 (1.002-1.036) 12/24/20 07:06 Urine Protein 10 mg/dL (Neg-Trace) 12/24/20 07:06 Urine Glucose (UA) 100 mg/dL (Negative) A 12/24/20 07:06 Urine Ketones Negative mg/dL (Negative) 12/24/20 07:06 Urine Blood Trace (Negative) A 12/24/20 07:06 Urine Nitrite Negative (Negative) 12/24/20 07:06 Urine Bilirubin Negative (Negative) 12/24/20 07:06 Urine Urobilinogen Normal mg/dL (Less than 2) 12/24/20 07:06 Ur Leukocyte Esterase 500 Kami/uL (Negative) A 12/24/20 07:06 Urine RBC 0-3 HPF (0-3) 12/24/20 07:06 Urine WBC Greater than 50 HPF (0-3) A 12/24/20 07:06 Ur Squamous Epith Cells 21-50 HPF (0-3) A 12/24/20 07:06 Urine Bacteria 4+ HPF (None Seen) A 12/24/20 07:06 Urine Test Negative (Negative) 12/24/20 07:06 Hospitalist H&P A/P (1) Pyelonephritis Code(s): N12 - TUBULO-INTERSTITIAL NEPHRITIS, NOT SPCF ACUTE OR CHRONIC Status: Acute (2) Gastroenteritis Code(s): K52.9 - NONINFECTIVE GASTROENTERITIS AND COLITIS, UNSPECIFIED Status: Acute (3) DM type 2 (diabetes mellitus, type 2) Status: Chronic Qualifiers: Diabetes mellitus longterm insulin use: with longterm use (4) HTN (hypertension) Code(s): I10 - ESSENTIAL (PRIMARY) HYPERTENSION Status: Chronic Qualifiers: Hypertension type: essential hypertension Qualified Code(s): I10 - Essential (primary) hypertension Plan: Patient is a 55 y/o female that presents for pyelonephritis. Plan Pyelonephritis: Urine cultures pending. Continue IV fluids. Continue Rocephin pending sensitivity on urine culture. Blood cultures pending. Leukocytosis present. Anemia present. Gastroenteritis: Stool culture sent to r/o C-diff Diabetes: Accuchecks AC & HS Moderate Sliding Scale. Hypertension: Resume Lisinopril-HCTZ home medication. Vital signs Q4 hrs. GERD: Continue home medications.
[2020-12-24] MEDS ORDERED: Ondansetron PF 4 MG/2 ML Vial IVP PRN (11:53)
[2020-12-24] MEDS ORDERED: Dextrose 5% in Water 1,000 ML IV PRN ×3 (11:53→13:10)
[2020-12-24] MEDS ORDERED: Dextrose 50% Abboject 50 ML SYRINGE SLOW IVP PRN ×3 (11:53→13:10)
[2020-12-24] MEDS ORDERED: Sodium Chloride 0.9% 1,000 ML IV SCH (12:00)
[2020-12-24] MEDS ORDERED: Insulin Regular 300 UNITS/3 ML VIAL SC PRN (13:08)
[2020-12-24 13:27] VITALS: BMI 26.6
[2020-12-24] MEDS: Lisinopril 20 MG TAB PO SCH (14:19)
[2020-12-24] MEDS ORDERED: Iopamidol-370 76% 500 ML 1 ML ONE (14:30)
[2020-12-24] MEDS ORDERED: Labetalol HCl 100 MG/20 ML VIAL SLOW IVP PRN (16:41)
[2020-12-24] MEDS ORDERED: Amlodipine 5 MG TAB PO SCH (16:45)
[2020-12-24] MEDS ORDERED: Morphine 2 MG/ML VIAL SLOW IVP PRN (20:56)
--- NOTE | 2020-12-24 21:58 | PDOC.BPN ---
- Brief Progress Note Encounter Date: 12/24/20 Encounter Time: 16:00 She reported intractable vomiting yesterday, stated it was non-bloody. Also has chronic diarrhea and abdominal discomfort , denies blood in her stools. THe patient stated that her weakness had improved since this morning. She stated she was no longer nauseous and wanted to try to eat something. She denies eating undercooked meat, unpasteurized milk, drinks only bottled water . Denies travel history She states he had dysuria one week prior and completed 7 days of nitrofurantoin. She no longer has dysuria, frequency or urgency Abd exam: LUQ tenderness, diminished bowel sounds Lungs: clear #Gastroenteritis #Pyelonephritis - she no longer has urinary symptoms but mild LUQ pain still persists . May just be gastroenteritis - Continue ceftriaxone pending urine culture sensitivities. Blood cultures pending. Stool cultures ova and parasite negative, C diff negative Chronic diarrhea - possibly from gastroenteritis vs recent abx use - consider outpatient GI workup . Possibly may recover once she is off antibiotics? HTN - blood pressure still 190 after resuming lisinopril. Ordered 5 amlodipine and prn labetalol. Can resume home lisinopril/HCTZ on discharge
[2020-12-25 02:30] LABS: SARS-CoV-2 PCR by NAA Not Detected (NotDetected)
[2020-12-25] MEDS: Morphine 4 MG/ML VIAL SLOW IVP PRN ×3 (07:46→15:04)
[2020-12-25] MEDS: Lisinopril 20 MG TAB PO SCH (08:07)
[2020-12-25] MEDS ORDERED: cefTRIAXone\\ROCEPHIN 1 GM in Sodium Chloride 0.9% 100 ML IVPB SCH (09:00)
[2020-12-25 12:58] LABS: Hemoglobin 9.5 g/dL (12.0-16.0); Mean Corpuscular HGB CONC 34.5 g/dL (32.0-36.0); Mean Corpuscular Hemoglobin 28.9 pg (27.0-31.0); Mean Corpuscular Volume 83.9 fL (78.0-98.0); Mean Platelet Volume 7.7 fL (7.4-10.4); Platelet Count 247 thou/uL (130-400); RBC Distribution Width 12.1 % (11.5-14.5); Red Blood Cell (RBC) Count 3.29 mill/uL (4.20-5.40); White Blood Cell (WBC) Count 8.8 thou/uL (4.8-10.8)
[2020-12-25 13:26] VITALS: BP 110/68; TEMP 98.2
--- NOTE | 2020-12-25 15:09 | PDOC.DS.DS ---
Provider Date of Admission: 12/24/20 13:24 Date of Discharge: 12/25/20 Admitting Provider: May Bynum MD Primary Care Physician: NO PCP PROVIDER Course Hospital Course: Discharge Diagnoses: 1. Pyelonephritis with E coli UTI 2. Gastroenteritis Brief HPI: This is a 55-year-old female who presented to the emergency room with intractable nausea and vomiting, left-sided flank pain and watery diarrhea for the past 3 weeks. She had finished a 7-day course of Macrobid for dysuria. She was tachycardic with a heart rate of 105. White count of 11.8. UA showed turbid urine with 500 leukocyte esterase. Covid swab was negative. CT scan of the abdomen showed left-sided pyelonephritis. Patient was given IV ceftriaxone and admitted for further work-up. Hospital Course: Patient was started on IV ceftriaxone. Her left flank pain subsided substantially. Her urine culture grew 100,000 E. coli. Her leukocytosis resolved and she was able to tolerate a diet at the time of discharge. She was discharged with cefdinir for 5 days to complete a 7-day course of antibiotics. Gastroenteritis: Patient had intractable nausea and vomiting for 1 day. She also reported 3-week history of watery diarrhea. Stool cultures, C. difficile, E. coli, ova and parasites were negative. Her diarrhea resolved at the time of discharge. She denied any abdominal pain at the time of discharge. Pertinent Studies: CT abdomen: left sided pyelonephritis. Mild to borderline esophageal wall thickening distally Resuscitation Status: 12/24/20 11:53 Resuscitation Status Routine Co-Sign Provider: Resuscitation Status: FULL: Full Resuscitation Discussed with: patient Lab Results: 12/25/20 12:33 12/24/20 07:25 Abnormal Lab Results - Last 48 hrs 12/24/20 07:06: Urine Clarity Turbid A, Urine Glucose (UA) 100 A, Urine Blood Trace A, Ur Leukocyte Esterase 500 A, Urine WBC Greater than 50 A, Ur Squamous Epith Cells 21-50 A, Urine Bacteria 4+ A 12/24/20 07:25: Globulin 3.6 H 12/24/20 07:25: WBC 11.8 H, RBC 3.81 L, Hgb 11.0 L, Hct 31.8 L, Lymphocytes % 16.5 L, Neutrophils # 8.7 H, Monocytes # 0.9 H 12/25/20 12:33: RBC 3.29 L, Hgb 9.5 L, Hct 27.6 L Microbiology - Entire Visit 12/24/20 07:06 Urine voided Urine Culture - Preliminary Presumptive Escherichia coli 12/24/20 09:35 Stool - Pending Stool Culture - Preliminary 12/24/20 09:17 Venous blood - Right Hand Blood Culture - Preliminary Specimen has been received and culture in progress. No Growth to date. 12/24/20 09:13 Venous blood - Right Hand Blood Culture - Preliminary Specimen has been received and culture in progress. No Growth to date. 12/24/20 09:35 Bowel - Formed Rapid Parasite Screen - Final 12/24/20 09:35 Stool - Pending Campylobacter Antigen Assay - Final 12/24/20 09:35 Stool - Pending Shiga Toxin Test - Final 12/24/20 09:35 Stool - Pending C. difficile GDH Antigen & Toxins - Final 12/24/20 09:35 Stool - Pending Escherichia coli 0157 Culture - Final Vitals: Vital Signs (12 hours) Temp Pulse Resp BP BP Pulse Ox 12/25/20 12:00 98.2 F 90 16 110/68 94 L 12/25/20 08:07 108/63 12/25/20 08:00 98.4 F 85 14 108/63 93 L Weight Weight 170 lb Physical Exam: The patient was seen and examined on the day of discharge. General Appearance: NAD, awake alert Eye: PERRL, anicteric sclera ENT: normocephalic atraumatic, no oropharyngeal lesions Neck: supple, symmetric, no JVD Respiratory: CTAB, no wheezes, no rales, no ronchi Cardiovascular: RRR, no murmur, no gallops, no rubs Gastrointestinal: soft, non-tender, non-distended, normal bowel sounds Gastrointestinal - other findings: Left CVA tenderness Extremities: no cyanosis, no clubbing, no edema Skin: normal turgor, no lesions, no rashes Neurological: cranial nerve grossly intact, normal sensation to touch Musculoskeletal: normal tone, normal strength, no muscle wasting Problem Time Spent in discharge related activities (mins): 30 Plan Prescriptions: Cefdinir 300 mg PO Q12HR #10 capsule Home Medications: Medication Instructions Recorded Confirmed Type Aspirin Chewable [Aspirin Chewable 81 mg PO DAILY #60 tab 08/08/17 12/24/20 Rx Tablet] rOPINIRole HCl [Requip] 0.5 mg PO QPM PRN 08/27/17 12/24/20 History Gabapentin 300 mg PO TID 01/25/18 12/24/20 History Atorvastatin Calcium [Lipitor] 20 mg PO HS #30 tab 11/05/19 12/24/20 Rx Pantoprazole Sodium 40 mg PO DAILY 11/05/19 12/24/20 History traZODone HCl [Trazodone HCl] 25 mg PO HS 11/05/19 12/24/20 History Albuterol Sulfate [Albuterol 2 puff INH Q4H PRN 11/30/20 12/24/20 History Sulfate Hfa] Fluticasone Propionate [Flonase 2 spray NASAL DAILY 11/30/20 12/24/20 History Allergy Relief] Insulin Glargine [Lantus Vial] 40 units SC HS #1 vial 12/04/20 12/24/20 Rx ARIPiprazole [Aripiprazole] 15 mg PO DAILY 12/24/20 12/24/20 History Escitalopram Oxalate 20 mg PO HS 12/24/20 12/24/20 History HYDROcodone Bit/APAP 5/325 [[place]] 1 tab PO Q4HR PRN 12/24/20 12/24/20 History Insulin Glargine [Lantus Vial] 55 units SC QAM 12/24/20 12/24/20 History Lisinopril 10 mg PO DAILY 12/24/20 12/24/20 History Prazosin HCl 2 mg PO HS 12/24/20 12/24/20 History Semaglutide [Ozempic] 1 mg SQ DAILY 12/24/20 12/24/20 History Cefdinir 300 mg PO Q12HR #10 capsule 12/25/20 Rx Allergies: peppers Allergy (Severe, Uncoded 02/12/20 14:04) Anaphylaxis PER PATIENT Activity:: Activity as Tolerated Nourishment:: Heart Healthy Diet Referrals: PROVIDER,NO PCP [Primary Care Provider] - Disposition: HOME Quality CORE MEASURES:: N/A
--- NOTE | 2020-12-31 22:28 | EKG ---
Test Reason : Blood Pressure : / mmHG Vent. Rate : 101 BPM Atrial Rate : 101 BPM P-R Int : 192 ms QRS Dur : 078 ms QT Int : 348 ms P-R-T Axes : 030 057 039 degrees QTc Int : 451 ms Sinus tachycardia Otherwise normal ECG Confirmed by WENDY GUAJARDO DO ([id number]), magazine editor DONY JOHN ([id number]) on 12/31/2020 10:27:32 PM Referred By: Confirmed By:WENDY GUAJARDO DO
== END 2020-12-25 15:50 | disposition home or self-care (01) ==
LOC: ERS 06:37 → ONC 13:24 → INTOOBSV 13:24
PROVIDERS: ADMIT Internal Medicine; ATTEND Internal Medicine
DX: N10 Acute pyelonephritis (principal); N39.0 Urinary tract infection, site not specified; B96.20 Unspecified Escherichia coli [E. coli] as the cause of diseases classified elsewhere; K52.9 Noninfective gastroenteritis and colitis, unspecified; I10 Essential (primary) hypertension; K21.9 Gastro-esophageal reflux disease without esophagitis; E11.40 Type 2 diabetes mellitus with diabetic neuropathy, unspecified; G25.81 Restless legs syndrome; E78.5 Hyperlipidemia, unspecified; E78.00 Pure hypercholesterolemia, unspecified; G40.409 Other generalized epilepsy and epileptic syndromes, not intractable, without status epilepticus; J45.909 Unspecified asthma, uncomplicated; Z86.73 Personal history of transient ischemic attack (TIA), and cerebral infarction without residual deficits; Z79.4 Long term (current) use of insulin; Z79.82 Long term (current) use of aspirin; Z79.899 Other long term (current) drug therapy; Z91.018 Allergy to other foods; Z20.822 Contact with and (suspected) exposure to COVID-19
CPT/HCPCS: 36415; 36416; 74177; 80053; 81003; 81015; 81025; 83605; 83690; 84484; 85025; 85027; 87040; 87045; 87046; 87077; 87086; 87186; 87324; 87328; 87329; 87427; 87449; 87635; 93005; 96365; 96375; 96376; G0378; J0696; J1642; J1815; J2270; J2405; J3490; Q9967; U0003; U0005

== ENCOUNTER 2021-03-15 19:33 | Emergency (ER) | payer OTHER ==
[2021-03-15 20:20] LABS: #Basophils 0.1 thou/uL (0.0-0.2); #Eosinphils 0.2 thou/uL (0.0-0.7); #Lymphocytes 2.9 thou/uL (1.20-3.40); #Monocytes 0.5 thou/uL (0.11-0.59); #Neutrophils 4.1 thou/uL (1.40-6.50); %Basophils 0.8 % (0.0-1.0); %Eosinophils 2.5 % (0.0-10.0); %Lymphocytes 37.3 % (21.0-51.0); %Monocytes 6.6 % (0.0-10.0); %Neutrophils 52.8 % (42.0-75.0); Hemoglobin 11.3 g/dL (12.0-16.0); Mean Corpuscular HGB CONC 36.3 g/dL (32.0-36.0); Mean Corpuscular Hemoglobin 29.6 pg (27.0-31.0); Mean Corpuscular Volume 81.4 fL (78.0-98.0); Mean Platelet Volume 8.1 fL (7.4-10.4); Platelet Count 291 thou/uL (130-400); RBC Distribution Width 12.2 % (11.5-14.5); Red Blood Cell (RBC) Count 3.83 mill/uL (4.20-5.40); White Blood Cell (WBC) Count 7.8 thou/uL (4.8-10.8)
[2021-03-15 20:39] LABS: Anion Gap 14 mmol/L (10-20); BUN (Urea Nitrogen) 14 mg/dL (9.8-20.1); Calc. Creatinine Clearance 0 mL/min (70-130); Calcium 8.8 mg/dL (7.8-10.44); Carbon Dioxide 23 mmol/L (22-29); Chloride 104 mmol/L (98-107); Glucose 253 mg/dL (70-105); Potassium 3.8 mmol/L (3.5-5.1); Sodium 137 mmol/L (136-145)
[2021-03-15] MEDS ORDERED: Ketorolac Tromethamine 30 MG/ML VIAL ONE (22:33)
[2021-03-15 23:45] LABS: Bacteria/HPF 4+ HPF (None Seen); Bilirubin Negative (Negative); Blood, Urine Trace (Negative); Clarity Extra Turbid (Clear); Glucose, Urine (Dipstick) 300 mg/dL (Negative); Ketone, Urine Negative (Negative); Leukocyte 500 Leu/uL (Negative); Nitrite Negative (Negative); Protein, Urine (Dipstick) 10 mg/dL (Neg-Trace); RBC/HPF Greater than 50 HPF (0-3); Specific Gravity, Urine 1.012 (1.002-1.036); Urobilinogen Normal mg/dL (Less than 2); WBC/HPF Greater than 50 HPF (0-3); pH, Urine 5.5 (5.0-9.0)
[2021-03-16] MEDS ORDERED: cefTRIAXone\\ROCEPHIN 1 GM VIAL ONE (00:40)
== END 2021-03-16 01:17 | disposition home or self-care (01) ==
LOC: ERS 19:33
DX: N39.0 Urinary tract infection, site not specified (principal); R19.7 Diarrhea, unspecified; K21.9 Gastro-esophageal reflux disease without esophagitis; E78.5 Hyperlipidemia, unspecified; E78.00 Pure hypercholesterolemia, unspecified; G40.909 Epilepsy, unspecified, not intractable, without status epilepticus; I10 Essential (primary) hypertension; J45.909 Unspecified asthma, uncomplicated; E66.9 Obesity, unspecified; E11.40 Type 2 diabetes mellitus with diabetic neuropathy, unspecified; R11.0 Nausea; Z79.4 Long term (current) use of insulin; Z86.73 Personal history of transient ischemic attack (TIA), and cerebral infarction without residual deficits; Z79.899 Other long term (current) drug therapy; Z79.82 Long term (current) use of aspirin; Z86.718 Personal history of other venous thrombosis and embolism
CPT/HCPCS: 36415; 74177; 80048; 81003; 81015; 85025; 96365; 96375; J0696; J1885; Q9967

== ENCOUNTER 2021-05-15 16:12 | Inpatient (IN) | payer OTHER ==
[2021-05-15 17:10] LABS: #Eosinphils 0.3 thou/uL (0.0-0.7); #Lymphocytes 2.5 thou/uL (1.20-3.40); #Monocytes 0.5 thou/uL (0.11-0.59); #Neutrophils 5.3 thou/uL (1.40-6.50); %Basophils 0.4 % (0.0-1.0); %Lymphocytes 29.1 % (21.0-51.0); %Monocytes 5.9 % (0.0-10.0); %Neutrophils 61.7 % (42.0-75.0); Mean Corpuscular HGB CONC 35.6 g/dL (32.0-36.0); Mean Corpuscular Hemoglobin 29.8 pg (27.0-31.0); Mean Corpuscular Volume 83.8 fL (78.0-98.0); Mean Platelet Volume 8.4 fL (7.4-10.4); Platelet Count 286 thou/uL (130-400); RBC Distribution Width 11.8 % (11.5-14.5); White Blood Cell (WBC) Count 8.6 thou/uL (4.8-10.8)
[2021-05-15 17:28] LABS: ALT (SGPT) 21 U/L (8-55); AST (SGOT) 18 U/L (5-34); Albumin 4.1 g/dL (3.5-5.0); Alkaline Phosphatase 99 U/L (40-110); Anion Gap 16 mmol/L (10-20); BUN (Urea Nitrogen) 20 mg/dL (9.8-20.1); Bilirubin, Total 0.3 mg/dL (0.2-1.2); Calc. Creatinine Clearance 0 mL/min (70-130); Calcium 8.9 mg/dL (7.8-10.44); Carbon Dioxide 21 mmol/L (22-29); Chloride 102 mmol/L (98-107); Globulin 3.3 g/dL (2.4-3.5); Glucose 341 mg/dL (70-105); Potassium 3.9 mmol/L (3.5-5.1); Protein, Total 7.4 g/dL (6.0-8.3); Sodium 135 mmol/L (136-145)
[2021-05-15] MEDS ORDERED: Ondansetron ODT 4 MG TAB PO PRN (19:25)
[2021-05-15] MEDS ORDERED: Ondansetron PF 4 MG/2 ML Vial IVP PRN (19:25)
[2021-05-15] MEDS ORDERED: Aspirin Chewable 81 MG TAB ONE (19:28)
[2021-05-15] MEDS ORDERED: diphenhydrAMINE 50 MG/ML VIAL ONE (19:28)
[2021-05-15] MEDS ORDERED: Metoclopramide HCl 10 MG/2 ML VIAL ONE (19:29)
[2021-05-15] MEDS ORDERED: Ketorolac Tromethamine 30 MG/ML VIAL IVP SCH (19:45)
[2021-05-15] MEDS ORDERED: methylPREDNISolone Sod Succ/PF 60 MG in Sodium Chloride 0.9% 250 ML 250 ML IVPB ONE (19:46)
[2021-05-15] MEDS ORDERED: Magnesium 2 GM/50 ML 2 GM in Premix Bag 1 BAG IVPB SCH (20:00)
[2021-05-15] MEDS ORDERED: Dextrose 50% Abboject 50 ML SYRINGE SLOW IVP PRN (20:19)
[2021-05-15] MEDS ORDERED: Dextrose 5% in Water 1,000 ML IV PRN (20:19)
[2021-05-15] MEDS ORDERED: HumaLOG 300 UNITS/3 ML VIAL SC PRN (20:19)
[2021-05-15 20:21] LABS: Bacteria/HPF 2+ HPF (None Seen); Bilirubin Negative (Negative); Blood, Urine Negative (Negative); Clarity Turbid (Clear); Glucose, Urine (Dipstick) Greater than 1000 mg/dL (Negative); Ketone, Urine Negative (Negative); Leukocyte 250 Leu/uL (Negative); Nitrite Negative (Negative); Protein, Urine (Dipstick) Negative (Neg-Trace); RBC/HPF 0-3 HPF (0-3); Specific Gravity, Urine 1.011 (1.002-1.036); Urobilinogen Normal mg/dL (Less than 2); WBC/HPF 21-50 HPF (0-3); pH, Urine 5.5 (5.0-9.0)
[2021-05-15] MEDS ORDERED: Atorvastatin Calcium 20 MG TAB PO SCH (21:00)
[2021-05-15] MEDS: Escitalopram Oxalate 20 mg Tablet PO SCH (22:42)
[2021-05-15] MEDS: hydrOXYzine 25 MG TAB PO SCH (22:42)
[2021-05-15] MEDS: Acetaminophen 325 MG TAB PO PRN (22:42)
[2021-05-15] MEDS ORDERED: traMADol HCl 50 MG TAB PO SCH (23:15)
[2021-05-15] MEDS ORDERED: Gabapentin 300 MG CAP PO SCH (23:30)
[2021-05-15] MEDS: rOPINIRole HCl 0.5 MG TAB PO PRN (23:42)
[2021-05-15 23:53] VITALS: BMI 31.6
[2021-05-16] MEDS ORDERED: hydrALAZINE 20 MG/ML VIAL SLOW IVP PRN (03:41)
[2021-05-16 04:44] LABS: Hemoglobin A1c 7.9 % (4.0-6.0)
[2021-05-16 04:58] LABS: Anion Gap 14 mmol/L (10-20); BUN (Urea Nitrogen) 16 mg/dL (9.8-20.1); Calc. Creatinine Clearance 101 mL/min (70-130); Calcium 9.2 mg/dL (7.8-10.44); Carbon Dioxide 21 mmol/L (22-29); Chloride 105 mmol/L (98-107); Cholesterol 218 mg/dl (< 200 Desired); Glucose 323 mg/dL (70-105); HDL Cholesterol 44 mg/dL (>60 Neg Risk); LDL Cholesterol, Calculated 133 mg/dL; Potassium 4.8 mmol/L (3.5-5.1); Sodium 135 mmol/L (136-145); Triglycerides 204 mg/dL (Less than 150)
[2021-05-16] MEDS ORDERED: HumaLOG 300 UNITS/3 ML VIAL SC PRN (08:43)
[2021-05-16] MEDS ORDERED: Lorazepam 2 MG/ML VIAL SLOW IVP SCH (08:45)
[2021-05-16] MEDS: Aspirin Chewable 81 MG TAB PO SCH (09:33)
[2021-05-16] MEDS: Aripiprazole 15 MG TAB PO SCH (09:33)
[2021-05-16] MEDS: Amlodipine 5 MG TAB PO SCH (09:34)
[2021-05-16] MEDS: hydrOXYzine 25 MG TAB PO SCH ×2 (09:34→21:56)
[2021-05-16] MEDS: Lisinopril/Hydrochlorothiazide 20 mg/12.5 mg Tablet PO SCH (09:34)
[2021-05-16] MEDS: Gabapentin 300 MG CAP PO SCH ×3 (09:35→21:55)
[2021-05-16] MEDS: Acetaminophen 325 MG TAB PO PRN (09:36)
[2021-05-16] MEDS: Enoxaparin Sodium 40 MG/0.4 ML SYRINGE SC SCH (09:36)
[2021-05-16] MEDS ORDERED: Lantus 1000 UNITS/10 ML VIAL SC SCH ×2 (11:30)
[2021-05-16] MEDS: HumaLOG 300 UNITS/3 ML VIAL SC PRN ×2 (17:08→21:58)
[2021-05-16] MEDS: rOPINIRole HCl 0.5 MG TAB PO PRN (21:55)
[2021-05-16] MEDS: Atorvastatin Calcium 40 MG TAB PO SCH (21:55)
[2021-05-16] MEDS: Escitalopram Oxalate 20 mg Tablet PO SCH (21:55)
[2021-05-16] MEDS: Lantus 1000 UNITS/10 ML VIAL SC SCH (21:57)
[2021-05-17] MEDS: HumaLOG 300 UNITS/3 ML VIAL SC PRN ×3 (06:20→17:16)
[2021-05-17] MEDS: Enoxaparin Sodium 40 MG/0.4 ML SYRINGE SC SCH (08:46)
[2021-05-17] MEDS: Aspirin Chewable 81 MG TAB PO SCH (08:47)
[2021-05-17] MEDS: Aripiprazole 15 MG TAB PO SCH (08:47)
[2021-05-17] MEDS: Amlodipine 5 MG TAB PO SCH (08:47)
[2021-05-17] MEDS: Lisinopril/Hydrochlorothiazide 20 mg/12.5 mg Tablet PO SCH (08:47)
[2021-05-17] MEDS: Lantus 1000 UNITS/10 ML VIAL SC SCH ×2 (08:48→21:23)
[2021-05-17] MEDS: Gabapentin 300 MG CAP PO SCH ×3 (08:48→21:21)
[2021-05-17] MEDS: hydrOXYzine 25 MG TAB PO SCH ×2 (08:48→21:21)
[2021-05-17] MEDS ORDERED: Lantus 1000 UNITS/10 ML VIAL SC SCH ×2 (09:00)
[2021-05-17] MEDS: Acetaminophen 325 MG TAB PO PRN (12:15)
[2021-05-17] MEDS: Ibuprofen 800 MG TAB PO PRN (16:16)
[2021-05-17] MEDS: Escitalopram Oxalate 20 mg Tablet PO SCH (21:21)
[2021-05-17] MEDS: Aspirin/APAP/Caffeine Tab (Excedrin Migraine) PO PRN (21:21)
[2021-05-17] MEDS: Atorvastatin Calcium 40 MG TAB PO SCH (21:21)
[2021-05-18] MEDS: Enoxaparin Sodium 40 MG/0.4 ML SYRINGE SC SCH (10:26)
[2021-05-18] MEDS: Aspirin Chewable 81 MG TAB PO SCH (10:26)
[2021-05-18] MEDS: Propranolol 40 MG TAB PO SCH ×2 (10:26→21:45)
[2021-05-18] MEDS: Aripiprazole 15 MG TAB PO SCH (10:27)
[2021-05-18] MEDS: Lisinopril/Hydrochlorothiazide 20 mg/12.5 mg Tablet PO SCH (10:27)
[2021-05-18] MEDS: Gabapentin 300 MG CAP PO SCH ×3 (10:28→21:46)
[2021-05-18] MEDS: Amlodipine 5 MG TAB PO SCH (10:28)
[2021-05-18] MEDS: hydrOXYzine 25 MG TAB PO SCH ×2 (10:29→21:46)
[2021-05-18] MEDS: Lantus 1000 UNITS/10 ML VIAL SC SCH ×2 (10:30→21:49)
[2021-05-18] MEDS: HumaLOG 300 UNITS/3 ML VIAL SC PRN (12:40)
[2021-05-18] MEDS: Aspirin/APAP/Caffeine Tab (Excedrin Migraine) PO PRN (16:57)
[2021-05-18] MEDS: Acetaminophen 325 MG TAB PO PRN (21:45)
[2021-05-18] MEDS: Atorvastatin Calcium 40 MG TAB PO SCH (21:46)
[2021-05-18] MEDS: Escitalopram Oxalate 20 mg Tablet PO SCH (21:46)
[2021-05-19] MEDS: Aripiprazole 15 MG TAB PO SCH (09:48)
[2021-05-19] MEDS: Propranolol 40 MG TAB PO SCH ×3 (09:48→20:29)
[2021-05-19] MEDS: Enoxaparin Sodium 40 MG/0.4 ML SYRINGE SC SCH (09:49)
[2021-05-19] MEDS: Aspirin Chewable 81 MG TAB PO SCH (09:49)
[2021-05-19] MEDS: hydrOXYzine 25 MG TAB PO SCH ×2 (09:49→20:30)
[2021-05-19] MEDS: Lantus 1000 UNITS/10 ML VIAL SC SCH (09:53)
[2021-05-19] MEDS: Gabapentin 300 MG CAP PO SCH ×3 (09:54→20:28)
[2021-05-19] MEDS: Amlodipine 5 MG TAB PO SCH (10:22)
[2021-05-19] MEDS: Lisinopril/Hydrochlorothiazide 20 mg/12.5 mg Tablet PO SCH (10:25)
[2021-05-19 11:21] LABS: SARS-CoV-2 PCR by NAA Not Detected (NotDetected)
[2021-05-19] MEDS: HumaLOG 300 UNITS/3 ML VIAL SC PRN (11:42)
[2021-05-19] MEDS: Aspirin/APAP/Caffeine Tab (Excedrin Migraine) PO PRN ×2 (13:10→20:29)
[2021-05-19] MEDS: Ibuprofen 800 MG TAB PO PRN (14:34)
[2021-05-19] MEDS ORDERED: Prochlorperazine Edisylate 10 MG in Sodium Chloride 0.9% 50 ML IVPB SCH (15:45)
[2021-05-19] MEDS ORDERED: Metoclopramide HCl 10 MG/2 ML VIAL IVP SCH (19:00)
[2021-05-19] MEDS: rOPINIRole HCl 0.5 MG TAB PO PRN (20:29)
[2021-05-19] MEDS: Escitalopram Oxalate 20 mg Tablet PO SCH (20:30)
[2021-05-19] MEDS: Atorvastatin Calcium 40 MG TAB PO SCH (20:30)
[2021-05-19] MEDS ORDERED: Ketorolac Tromethamine 30 MG/ML VIAL IVP SCH (21:45)
[2021-05-20] MEDS: HumaLOG 300 UNITS/3 ML VIAL SC PRN ×3 (05:57→21:01)
[2021-05-20] MEDS: Gabapentin 300 MG CAP PO SCH ×3 (09:21→20:21)
[2021-05-20] MEDS: Aripiprazole 15 MG TAB PO SCH (09:21)
[2021-05-20] MEDS: hydrOXYzine 25 MG TAB PO SCH ×2 (09:21→20:20)
[2021-05-20] MEDS: Lisinopril/Hydrochlorothiazide 20 mg/12.5 mg Tablet PO SCH (09:22)
[2021-05-20] MEDS: Aspirin Chewable 81 MG TAB PO SCH (09:22)
[2021-05-20] MEDS: Enoxaparin Sodium 40 MG/0.4 ML SYRINGE SC SCH (09:22)
[2021-05-20] MEDS: Lantus 1000 UNITS/10 ML VIAL SC SCH (09:28)
[2021-05-20] MEDS: Propranolol 40 MG TAB PO SCH ×2 (09:42→20:21)
[2021-05-20] MEDS: Atorvastatin Calcium 40 MG TAB PO SCH (20:20)
[2021-05-20] MEDS: Escitalopram Oxalate 20 mg Tablet PO SCH (20:20)
[2021-05-21] MEDS ORDERED: Lactated Ringer's 500 ML IV SCH (03:30)
[2021-05-21] MEDS: Aripiprazole 15 MG TAB PO SCH (08:38)
[2021-05-21] MEDS: Enoxaparin Sodium 40 MG/0.4 ML SYRINGE SC SCH (08:38)
[2021-05-21] MEDS: Aspirin Chewable 81 MG TAB PO SCH (08:38)
[2021-05-21] MEDS: hydrOXYzine 25 MG TAB PO SCH ×2 (08:39→20:30)
[2021-05-21] MEDS: Gabapentin 300 MG CAP PO SCH ×3 (08:39→20:29)
[2021-05-21] MEDS: Lisinopril/Hydrochlorothiazide 20 mg/12.5 mg Tablet PO SCH (08:39)
[2021-05-21] MEDS: Lantus 1000 UNITS/10 ML VIAL SC SCH (08:42)
[2021-05-21] MEDS: Propranolol HCl 20 MG TAB PO SCH ×2 (09:13→20:29)
[2021-05-21] MEDS: HumaLOG 300 UNITS/3 ML VIAL SC PRN ×2 (11:22→17:07)
[2021-05-21] MEDS: Escitalopram Oxalate 20 mg Tablet PO SCH (20:30)
[2021-05-21] MEDS: rOPINIRole HCl 0.5 MG TAB PO PRN (20:30)
[2021-05-21] MEDS: Atorvastatin Calcium 40 MG TAB PO SCH (20:30)
[2021-05-22] MEDS: Lisinopril/Hydrochlorothiazide 20 mg/12.5 mg Tablet PO SCH (08:15)
[2021-05-22] MEDS: Aspirin Chewable 81 MG TAB PO SCH (08:15)
[2021-05-22] MEDS: Aripiprazole 15 MG TAB PO SCH (08:15)
[2021-05-22] MEDS: hydrOXYzine 25 MG TAB PO SCH (08:15)
[2021-05-22] MEDS: Lantus 1000 UNITS/10 ML VIAL SC SCH (08:16)
[2021-05-22] MEDS: Enoxaparin Sodium 40 MG/0.4 ML SYRINGE SC SCH (08:16)
[2021-05-22] MEDS: Gabapentin 300 MG CAP PO SCH (08:16)
[2021-05-22] MEDS: Propranolol HCl 20 MG TAB PO SCH (08:39)
[2021-05-22 11:46] VITALS: TEMP 98.1
[2021-05-22] MEDS: HumaLOG 300 UNITS/3 ML VIAL SC PRN (12:07)
[2021-05-22 12:54] VITALS: BP 114/56
== END 2021-05-22 12:55 | disposition home or self-care (01) | DRG 103 ==
LOC: ERS 16:12 → 2SE 18:40 → OBSVTOIN 05-17 14:39
PROVIDERS: ADMIT Family Medicine; ATTEND Family Medicine
DX: G43.109 Migraine with aura, not intractable, without status migrainosus (principal); G45.9 Transient cerebral ischemic attack, unspecified; K21.9 Gastro-esophageal reflux disease without esophagitis; E78.00 Pure hypercholesterolemia, unspecified; G40.409 Other generalized epilepsy and epileptic syndromes, not intractable, without status epilepticus; I10 Essential (primary) hypertension; E11.40 Type 2 diabetes mellitus with diabetic neuropathy, unspecified; G25.81 Restless legs syndrome; F31.9 Bipolar disorder, unspecified; F41.9 Anxiety disorder, unspecified; H53.19 Other subjective visual disturbances; M19.90 Unspecified osteoarthritis, unspecified site; F43.10 Post-traumatic stress disorder, unspecified; M54.40 Lumbago with sciatica, unspecified side; G89.29 Other chronic pain; J45.909 Unspecified asthma, uncomplicated; R90.82 White matter disease, unspecified; R19.7 Diarrhea, unspecified; Z96.41 Presence of insulin pump (external) (internal); Z20.822 Contact with and (suspected) exposure to COVID-19; Z86.73 Personal history of transient ischemic attack (TIA), and cerebral infarction without residual deficits; Z98.51 Tubal ligation status; Z98.890 Other specified postprocedural states; Z91.018 Allergy to other foods; Z79.51 Long term (current) use of inhaled steroids; Z79.899 Other long term (current) drug therapy; Z79.82 Long term (current) use of aspirin; Z82.49 Family history of ischemic heart disease and other diseases of the circulatory system; Z82.3 Family history of stroke
CPT/HCPCS: 36415; 36416; 70450; 70551; 80048; 80053; 80061; 81003; 81015; 83036; 85025; 93306; 96372; 96374; 96375; G0378; J0360; J0780; J1200; J1650; J1815; J1885; J2060; J2765; J2930; J3475; J7050; U0003; U0005

== ENCOUNTER 2021-05-31 14:29 | Emergency (ER) | payer OTHER | END 2021-05-31 16:40 | disposition home or self-care (01) | LOC: ERS 14:29 | DX: L03.031 Cellulitis of right toe (principal); K21.9 Gastro-esophageal reflux disease without esophagitis; E78.5 Hyperlipidemia, unspecified; E78.00 Pure hypercholesterolemia, unspecified; E11.9 Type 2 diabetes mellitus without complications; I10 Essential (primary) hypertension; J45.909 Unspecified asthma, uncomplicated; Z86.73 Personal history of transient ischemic attack (TIA), and cerebral infarction without residual deficits; Z79.82 Long term (current) use of aspirin; Z79.899 Other long term (current) drug therapy ==

== ENCOUNTER 2021-08-17 12:04 | Outpatient (CLI) | payer OTHER | END 2021-08-17 12:05 | disposition home or self-care (01) | LOC: ULT 12:04 | PROVIDERS: ATTEND Student in an Organized Health Care Education/Training Program | DX: N30.00 Acute cystitis without hematuria (principal) | CPT/HCPCS: 76770; 93975 ==

== ENCOUNTER 2021-08-28 09:00 | Observation (INO) | payer OTHER ==
[2021-08-28] MEDS ORDERED: Dexamethasone 10 MG/ML VIAL ONE ×2 (09:35)
[2021-08-28] MEDS ORDERED: Acetaminophen 500 MG TAB ONE (09:35)
[2021-08-28] MEDS ORDERED: Aspirin 325 MG TAB ONE (09:35)
[2021-08-28 09:56] LABS: #Basophils 0.1 thou/uL (0.0-0.2); #Eosinphils 0.4 thou/uL (0.0-0.7); #Lymphocytes 2.6 thou/uL (1.20-3.40); #Monocytes 0.7 thou/uL (0.11-0.59); #Neutrophils 6.6 thou/uL (1.40-6.50); %Basophils 0.5 % (0.0-1.0); %Eosinophils 4.4 % (0.0-10.0); %Lymphocytes 25.1 % (21.0-51.0); %Monocytes 6.5 % (0.0-10.0); %Neutrophils 63.6 % (42.0-75.0); Hemoglobin 12.5 g/dL (12.0-16.0); Mean Corpuscular HGB CONC 35.5 g/dL (32.0-36.0); Mean Corpuscular Hemoglobin 29.4 pg (27.0-31.0); Mean Corpuscular Volume 82.7 fL (78.0-98.0); Mean Platelet Volume 8.3 fL (7.4-10.4); Platelet Count 303 thou/uL (130-400); RBC Distribution Width 11.8 % (11.5-14.5); Red Blood Cell (RBC) Count 4.24 mill/uL (4.20-5.40); White Blood Cell (WBC) Count 10.3 thou/uL (4.8-10.8)
[2021-08-28] MEDS ORDERED: Iopamidol 370 76% 100 ML VIAL ONE (10:06)
[2021-08-28 10:10] LABS: BHCG - Serum Negative (NEGATIVE); Pregs Control Background? CLEAR/WHITE (CLR/WHITE); Pregs Control Bar Appear? YES (CONTROL BAR)
[2021-08-28] MEDS ORDERED: Nitroglycerin 0.4 MG TAB 1 EACH ONE (10:18)
[2021-08-28 10:22] LABS: ALT (SGPT) 20 U/L (8-55); AST (SGOT) 19 U/L (5-34); Albumin 4.2 g/dL (3.5-5.0); Alkaline Phosphatase 113 U/L (40-110); Anion Gap 14 mmol/L (10-20); BUN (Urea Nitrogen) 17 mg/dL (9.8-20.1); Bilirubin, Total 0.3 mg/dL (0.2-1.2); Calc. Creatinine Clearance 0 mL/min (70-130); Calcium 9.6 mg/dL (7.8-10.44); Carbon Dioxide 25 mmol/L (22-29); Chloride 104 mmol/L (98-107); Globulin 3.4 g/dL (2.4-3.5); Glucose 272 mg/dL (70-105); Potassium 4.6 mmol/L (3.5-5.1); Protein, Total 7.6 g/dL (6.0-8.3); Sodium 138 mmol/L (136-145)
[2021-08-28] MEDS ORDERED: Albuterol 200 PUFF (6.7GM INHALER) ONE (10:58)
[2021-08-28] MEDS ORDERED: Nitroglycerin 2% Ointment 1 INCH/1 GM Packet ONE (13:29)
[2021-08-28] MEDS ORDERED: Dextrose 50% Abboject 50 ML SYRINGE SLOW IVP PRN (14:38)
[2021-08-28] MEDS ORDERED: HumaLOG 300 UNITS/3 ML VIAL SC PRN (14:38)
[2021-08-28] MEDS ORDERED: Guaifenesin DM 100-10/5 ML UDCUP PO PRN (14:38)
[2021-08-28] MEDS ORDERED: Dextrose 5% in Water 1,000 ML IV PRN (14:38)
[2021-08-28] MEDS ORDERED: Acetaminophen 325 MG TAB PO PRN (14:38)
[2021-08-28 15:01] LABS: Troponin I Less than 0.010 ng/mL (< 0.028)
[2021-08-28] MEDS ORDERED: traMADol HCl 50 MG TAB PO PRN (15:38)
[2021-08-28] MEDS ORDERED: Lisinopril/Hydrochlorothiazide 20/25 mg Tablet PO SCH (15:45)
[2021-08-28] MEDS ORDERED: Amlodipine 5 MG TAB PO SCH (15:45)
[2021-08-28] MEDS ORDERED: Albuterol Sulfate 2.5 mg/3 ml Neb NEB PRN (15:53)
[2021-08-28] MEDS ORDERED: rOPINIRole HCl 0.5 MG TAB PO PRN (15:55)
[2021-08-28] MEDS ORDERED: Amlodipine 5 MG TAB ONE (16:29)
[2021-08-28 16:50] LABS: SARS-CoV-2 PCR by NAA Not Detected (NotDetected)
[2021-08-28 17:08] LABS: Troponin I Less than 0.010 ng/mL (< 0.028)
[2021-08-28] MEDS ORDERED: cefTRIAXone\\ROCEPHIN 1 GM in Sodium Chloride 0.9% 100 ML IVPB SCH (18:00)
[2021-08-28 19:26] LABS: Hemoglobin A1c 8.5 % (4.0-6.0)
[2021-08-28] MEDS ORDERED: traZODone HCl 50 MG TAB PO SCH (21:00)
[2021-08-28] MEDS ORDERED: Escitalopram Oxalate 20 mg Tablet PO SCH (21:00)
[2021-08-28] MEDS ORDERED: Prazosin HCl 1 MG CAP PO SCH (21:00)
[2021-08-28] MEDS ORDERED: Rosuvastatin 20 MG TAB PO SCH (21:00)
[2021-08-28 21:14] VITALS: BMI 31.4
[2021-08-28] MEDS: Doxycycline 100 MG CAP PO SCH (22:51)
[2021-08-28] MEDS: Gabapentin 300 MG CAP PO SCH (22:52)
[2021-08-28] MEDS: Propranolol HCl 20 MG TAB PO SCH (22:53)
[2021-08-28] MEDS: hydrOXYzine 25 MG TAB PO SCH (22:53)
[2021-08-29 05:36] LABS: #Basophils 0.1 thou/uL (0.0-0.2); #Lymphocytes 1.5 thou/uL (1.20-3.40); #Monocytes 0.7 thou/uL (0.11-0.59); #Neutrophils 11.8 thou/uL (1.40-6.50); %Basophils 0.4 % (0.0-1.0); %Eosinophils 0.2 % (0.0-10.0); %Lymphocytes 10.7 % (21.0-51.0); %Monocytes 4.7 % (0.0-10.0); %Neutrophils 84.2 % (42.0-75.0); Hemoglobin 10.3 g/dL (12.0-16.0); Mean Corpuscular HGB CONC 34.8 g/dL (32.0-36.0); Mean Corpuscular Hemoglobin 28.9 pg (27.0-31.0); Mean Corpuscular Volume 83.2 fL (78.0-98.0); Mean Platelet Volume 8.7 fL (7.4-10.4); Platelet Count 288 thou/uL (130-400); RBC Distribution Width 11.7 % (11.5-14.5); Red Blood Cell (RBC) Count 3.57 mill/uL (4.20-5.40)
[2021-08-29] MEDS: HumaLOG 300 UNITS/3 ML VIAL SC PRN ×2 (05:41→11:41)
[2021-08-29 06:05] LABS: Anion Gap 15 mmol/L (10-20); BUN (Urea Nitrogen) 27 mg/dL (9.8-20.1); Calc. Creatinine Clearance 93 mL/min (70-130); Calcium 8.9 mg/dL (7.8-10.44); Carbon Dioxide 21 mmol/L (22-29); Chloride 101 mmol/L (98-107); Glucose 319 mg/dL (70-105); Potassium 4.4 mmol/L (3.5-5.1); Sodium 133 mmol/L (136-145)
[2021-08-29 07:31] VITALS: TEMP 97.4
[2021-08-29] MEDS: Gabapentin 300 MG CAP PO SCH (08:25)
[2021-08-29] MEDS: hydrOXYzine 25 MG TAB PO SCH (08:25)
[2021-08-29] MEDS: Propranolol HCl 20 MG TAB PO SCH (08:26)
[2021-08-29] MEDS: Doxycycline 100 MG CAP PO SCH (08:26)
[2021-08-29] MEDS ORDERED: Fluticasone Propionate Nasal Spray 16 gm Bottle NASAL SCH (09:00)
[2021-08-29] MEDS ORDERED: Aspirin Chewable 81 MG TAB PO SCH (09:00)
[2021-08-29] MEDS ORDERED: Aripiprazole 15 MG TAB PO SCH (09:00)
[2021-08-29] MEDS ORDERED: Amlodipine 5 MG TAB PO SCH (09:00)
[2021-08-29] MEDS ORDERED: Lisinopril/Hydrochlorothiazide 20/25 mg Tablet PO SCH (09:00)
[2021-08-29] MEDS ORDERED: Enoxaparin Sodium 40 MG/0.4 ML SYRINGE SC SCH (09:00)
[2021-08-29 11:29] VITALS: BP 105/53
[2021-08-31] MEDS ORDERED: FLU VACC QS2021-22(6MOS UP)/PF 60 MCG/0.5 ML SYRINGE IM ONE (09:00)
== END 2021-08-29 14:50 | disposition home or self-care (01) ==
LOC: ERS 09:00 → ERHOLD 13:45 → 2NO 20:22
PROVIDERS: ADMIT Internal Medicine; ATTEND Internal Medicine
DX: I16.0 Hypertensive urgency (principal); I10 Essential (primary) hypertension; R07.89 Other chest pain; E78.5 Hyperlipidemia, unspecified; M19.90 Unspecified osteoarthritis, unspecified site; R79.89 Other specified abnormal findings of blood chemistry; J45.909 Unspecified asthma, uncomplicated; G89.29 Other chronic pain; M54.40 Lumbago with sciatica, unspecified side; K21.9 Gastro-esophageal reflux disease without esophagitis; E11.40 Type 2 diabetes mellitus with diabetic neuropathy, unspecified; E78.00 Pure hypercholesterolemia, unspecified; G40.909 Epilepsy, unspecified, not intractable, without status epilepticus; G25.81 Restless legs syndrome; Z86.73 Personal history of transient ischemic attack (TIA), and cerebral infarction without residual deficits; Z79.82 Long term (current) use of aspirin; Z79.899 Other long term (current) drug therapy; Z91.018 Allergy to other foods; Z20.822 Contact with and (suspected) exposure to COVID-19
CPT/HCPCS: 36415; 36416; 71045; 71275; 80048; 80053; 83036; 84145; 84484; 84703; 85025; 85379; 87633; 93005; 96372; G0378; J0696; J1100; J1650; J1815; J3490; Q9967; U0003; U0005

== ENCOUNTER 2021-10-28 08:51 | Emergency (ER) | payer MEDICAID ==
[2021-10-28 09:41] LABS: #Eosinphils 0.2 thou/uL (0.0-0.7); #Monocytes 0.6 thou/uL (0.11-0.59); #Neutrophils 6.3 thou/uL (1.40-6.50); %Basophils 0.5 % (0.0-1.0); %Eosinophils 2.6 % (0.0-10.0); %Monocytes 6.1 % (0.0-10.0); %Neutrophils 68.9 % (42.0-75.0); Hemoglobin 12.4 g/dL (12.0-16.0); Mean Corpuscular HGB CONC 35.1 g/dL (32.0-36.0); Mean Corpuscular Hemoglobin 29.6 pg (27.0-31.0); Mean Corpuscular Volume 84.4 fL (78.0-98.0); Mean Platelet Volume 7.7 fL (7.4-10.4); Platelet Count 286 thou/uL (130-400); Red Blood Cell (RBC) Count 4.19 mill/uL (4.20-5.40); White Blood Cell (WBC) Count 9.2 thou/uL (4.8-10.8)
[2021-10-28 10:02] LABS: ALT (SGPT) 26 U/L (8-55); AST (SGOT) 17 U/L (5-34); Albumin 3.9 g/dL (3.5-5.0); Alkaline Phosphatase 111 U/L (40-110); Anion Gap 12 mmol/L (10-20); BUN (Urea Nitrogen) 22 mg/dL (9.8-20.1); Bilirubin, Total 0.5 mg/dL (0.2-1.2); Calc. Creatinine Clearance 0 mL/min (70-130); Calcium 9.9 mg/dL (7.8-10.44); Carbon Dioxide 24 mmol/L (22-29); Chloride 102 mmol/L (98-107); Globulin 3.5 g/dL (2.4-3.5); Glucose 227 mg/dL (70-105); Lipase 29 U/L (8-78); Potassium 4.6 mmol/L (3.5-5.1); Protein, Total 7.4 g/dL (6.0-8.3); Sodium 133 mmol/L (136-145)
[2021-10-28] MEDS ORDERED: Ondansetron PF 4 MG/2 ML Vial ONE ×2 (10:23→10:45)
[2021-10-28 10:44] LABS: Actual Bicarbonate (HCO3v) 18 mEq/L (22-28); Analyzer IN Cardio ER; Calcium, Ionized (venous) 1.11 mmol/L (1.16-1.32); Chloride (VBG) 102 mmol/L (98-106); Hemoglobin (Hb) 13.4 g/dL (11.7-16.0); Potassium (VBG) 4.62 mmol/L (3.70-5.30); Sodium 133.1 mmol/L (133-146); pH (venous) 7.44 (7.32-7.43)
[2021-10-28] MEDS ORDERED: Ketorolac Tromethamine 30 MG/ML VIAL ONE (10:45)
[2021-10-28] MEDS ORDERED: Metoclopramide HCl 10 MG/2 ML VIAL ONE (11:22)
== END 2021-10-28 12:11 | disposition home or self-care (01) ==
LOC: ERS 08:51
DX: R10.13 Epigastric pain (principal); R11.2 Nausea with vomiting, unspecified; E78.5 Hyperlipidemia, unspecified; K21.9 Gastro-esophageal reflux disease without esophagitis; G40.909 Epilepsy, unspecified, not intractable, without status epilepticus; E66.9 Obesity, unspecified; E11.40 Type 2 diabetes mellitus with diabetic neuropathy, unspecified; I10 Essential (primary) hypertension; Z79.4 Long term (current) use of insulin; Z86.73 Personal history of transient ischemic attack (TIA), and cerebral infarction without residual deficits
CPT/HCPCS: 36415; 71045; 76705; 80053; 82010; 82550; 82805; 83690; 84484; 85025; 93005; 96365; 96375; J1885; J2405; J2765

== ENCOUNTER 2021-11-16 07:51 | Emergency (ER) | payer OTHER ==
[2021-11-16] MEDS ORDERED: Ondansetron PF 4 MG/2 ML Vial ONE (08:23)
[2021-11-16 08:29] LABS: #Eosinphils 0.1 thou/uL (0.0-0.7); #Lymphocytes 1.4 thou/uL (1.20-3.40); #Monocytes 0.6 thou/uL (0.11-0.59); #Neutrophils 12.7 thou/uL (1.40-6.50); %Basophils 0.2 % (0.0-1.0); %Eosinophils 0.9 % (0.0-10.0); %Lymphocytes 9.7 % (21.0-51.0); %Monocytes 4.1 % (0.0-10.0); %Neutrophils 85.1 % (42.0-75.0); Hemoglobin 12.4 g/dL (12.0-16.0); Mean Corpuscular Hemoglobin 27.9 pg (27.0-31.0); Mean Corpuscular Volume 84.3 fL (78.0-98.0); Mean Platelet Volume 7.6 fL (7.4-10.4); Platelet Count 352 thou/uL (130-400); RBC Distribution Width 12.1 % (11.5-14.5); Red Blood Cell (RBC) Count 4.45 mill/uL (4.20-5.40); White Blood Cell (WBC) Count 14.9 thou/uL (4.8-10.8)
[2021-11-16 08:43] LABS: BHCG - Serum Negative (NEGATIVE); Pregs Control Background? CLEAR/WHITE (CLR/WHITE); Pregs Control Bar Appear? YES (CONTROL BAR)
[2021-11-16 08:43] LABS: ALT (SGPT) 19 U/L (8-55); AST (SGOT) 16 U/L (5-34); Albumin 4.3 g/dL (3.5-5.0); Alkaline Phosphatase 110 U/L (40-110); Anion Gap 16 mmol/L (10-20); BUN (Urea Nitrogen) 27 mg/dL (9.8-20.1); Bilirubin, Total 0.6 mg/dL (0.2-1.2); Calc. Creatinine Clearance 0 mL/min (70-130); Calcium 9.3 mg/dL (7.8-10.44); Carbon Dioxide 22 mmol/L (22-29); Chloride 103 mmol/L (98-107); Globulin 3.6 g/dL (2.4-3.5); Glucose 193 mg/dL (70-105); Lipase 52 U/L (8-78); Potassium 5.4 mmol/L (3.5-5.1); Protein, Total 7.9 g/dL (6.0-8.3); Sodium 136 mmol/L (136-145)
[2021-11-16] MEDS ORDERED: Iopamidol 370 76% 100 ML VIAL ONE (11:29)
[2021-11-16 17:34] LABS: SARS-CoV-2 PCR by NAA Not Detected (NotDetected)
== END 2021-11-16 10:35 | disposition home or self-care (01) ==
LOC: ERS 07:51
DX: J18.9 Pneumonia, unspecified organism (principal); K21.9 Gastro-esophageal reflux disease without esophagitis; E78.5 Hyperlipidemia, unspecified; E78.00 Pure hypercholesterolemia, unspecified; E11.9 Type 2 diabetes mellitus without complications; I10 Essential (primary) hypertension; J45.909 Unspecified asthma, uncomplicated; E66.9 Obesity, unspecified; Z86.73 Personal history of transient ischemic attack (TIA), and cerebral infarction without residual deficits; Z20.822 Contact with and (suspected) exposure to COVID-19; Z79.82 Long term (current) use of aspirin; Z79.52 Long term (current) use of systemic steroids; Z79.899 Other long term (current) drug therapy; Z79.4 Long term (current) use of insulin
CPT/HCPCS: 36415; 71045; 71275; 80053; 83690; 84484; 84703; 85025; 85379; 87804; 93005; 96374; J2405; Q9967; U0003; U0005

== ENCOUNTER 2021-11-30 10:39 | Emergency (ER) | payer OTHER ==
[2021-11-30 11:46] LABS: #Eosinphils 0.2 thou/uL (0.0-0.7); #Lymphocytes 1.5 thou/uL (1.20-3.40); #Monocytes 0.7 thou/uL (0.11-0.59); #Neutrophils 6.1 thou/uL (1.40-6.50); %Basophils 0.4 % (0.0-1.0); %Lymphocytes 17.4 % (21.0-51.0); %Monocytes 8.6 % (0.0-10.0); %Neutrophils 71.5 % (42.0-75.0); Hemoglobin 12.6 g/dL (12.0-16.0); Mean Corpuscular HGB CONC 33.9 g/dL (32.0-36.0); Mean Corpuscular Hemoglobin 28.6 pg (27.0-31.0); Mean Corpuscular Volume 84.5 fL (78.0-98.0); Mean Platelet Volume 7.6 fL (7.4-10.4); Platelet Count 280 thou/uL (130-400); RBC Distribution Width 12.2 % (11.5-14.5); Red Blood Cell (RBC) Count 4.41 mill/uL (4.20-5.40); White Blood Cell (WBC) Count 8.5 thou/uL (4.8-10.8)
[2021-11-30 12:23] LABS: ALT (SGPT) 26 U/L (8-55); AST (SGOT) 34 U/L (5-34); Albumin 4.1 g/dL (3.5-5.0); Alkaline Phosphatase 105 U/L (40-110); Anion Gap 15 mmol/L (10-20); BUN (Urea Nitrogen) 15 mg/dL (9.8-20.1); Bilirubin, Total 0.4 mg/dL (0.2-1.2); Calc. Creatinine Clearance 0 mL/min (70-130); Calcium 9.5 mg/dL (7.8-10.44); Carbon Dioxide 20 mmol/L (22-29); Chloride 106 mmol/L (98-107); Globulin 3.8 g/dL (2.4-3.5); Glucose 83 mg/dL (70-105); Lipase 41 U/L (8-78); Potassium 4.9 mmol/L (3.5-5.1); Protein, Total 7.9 g/dL (6.0-8.3); Sodium 136 mmol/L (136-145)
[2021-11-30] MEDS ORDERED: Ketorolac Tromethamine 30 MG/ML VIAL ONE (12:58)
[2021-12-01 01:13] LABS: SARS-CoV-2 PCR by NAA DETECTED (NotDetected)
== END 2021-11-30 15:25 | disposition home or self-care (01) ==
LOC: ERS 10:39
DX: U07.1 COVID-19 (principal); R07.81 Pleurodynia; K21.9 Gastro-esophageal reflux disease without esophagitis; E78.5 Hyperlipidemia, unspecified; E78.00 Pure hypercholesterolemia, unspecified; E11.9 Type 2 diabetes mellitus without complications; I10 Essential (primary) hypertension; J45.909 Unspecified asthma, uncomplicated; E66.9 Obesity, unspecified; Z86.73 Personal history of transient ischemic attack (TIA), and cerebral infarction without residual deficits; Z79.82 Long term (current) use of aspirin; Z79.899 Other long term (current) drug therapy
CPT/HCPCS: 36415; 71045; 71275; 80053; 83605; 83690; 84484; 85025; 85379; 87040; 87081; 87430; 87804; 93005; 94760; 96374; J1885; Q9967; U0003; U0005

== ENCOUNTER 2021-12-26 19:30 | Outpatient (CLI) | payer OTHER | END 2021-12-26 19:31 | disposition home or self-care (01) | LOC: SLEEPLAB 19:30 | PROVIDERS: ATTEND Student in an Organized Health Care Education/Training Program | DX: G47.33 Obstructive sleep apnea (adult) (pediatric) (principal); R53.83 Other fatigue; F31.9 Bipolar disorder, unspecified; E11.9 Type 2 diabetes mellitus without complications; I10 Essential (primary) hypertension; R06.83 Snoring; G47.10 Hypersomnia, unspecified; E66.9 Obesity, unspecified; Z68.31 Body mass index [BMI] 31.0-31.9, adult | CPT/HCPCS: 95811 ==

== ENCOUNTER 2022-01-15 15:00 | Emergency (ER) | payer OTHER ==
[2022-01-15] MEDS ORDERED: Bacitracin 1 PK ONE (15:27)
== END 2022-01-15 15:55 | disposition home or self-care (01) ==
LOC: ERS 15:00
DX: S91.311A Laceration without foreign body, right foot, initial encounter (principal); E78.5 Hyperlipidemia, unspecified; K21.9 Gastro-esophageal reflux disease without esophagitis; E78.00 Pure hypercholesterolemia, unspecified; I10 Essential (primary) hypertension; J45.909 Unspecified asthma, uncomplicated; E11.40 Type 2 diabetes mellitus with diabetic neuropathy, unspecified; Z86.73 Personal history of transient ischemic attack (TIA), and cerebral infarction without residual deficits; W22.8XXA Striking against or struck by other objects, initial encounter
CPT/HCPCS: 99282

== ENCOUNTER 2022-01-21 10:50 | Observation (INO) | payer OTHER ==
[2022-01-21 11:37] LABS: #Eosinphils 0.3 thou/uL (0.0-0.7); #Lymphocytes 2.4 thou/uL (1.20-3.40); #Monocytes 0.5 thou/uL (0.11-0.59); #Neutrophils 4.7 thou/uL (1.40-6.50); %Basophils 0.4 % (0.0-1.0); %Eosinophils 3.3 % (0.0-10.0); %Lymphocytes 30.1 % (21.0-51.0); %Monocytes 6.6 % (0.0-10.0); %Neutrophils 59.6 % (42.0-75.0); Hemoglobin 11.9 g/dL (12.0-16.0); Mean Corpuscular HGB CONC 34.4 g/dL (32.0-36.0); Mean Corpuscular Hemoglobin 29.3 pg (27.0-31.0); Mean Corpuscular Volume 85.1 fL (78.0-98.0); Mean Platelet Volume 7.7 fL (7.4-10.4); Platelet Count 294 thou/uL (130-400); RBC Distribution Width 11.7 % (11.5-14.5); Red Blood Cell (RBC) Count 4.07 mill/uL (4.20-5.40); White Blood Cell (WBC) Count 7.9 thou/uL (4.8-10.8)
[2022-01-21 11:48] LABS: Prothrombin Time 13.3 sec (12.0-14.7)
[2022-01-21 11:59] LABS: ALT (SGPT) 21 U/L (8-55); AST (SGOT) 16 U/L (5-34); Albumin 4.2 g/dL (3.5-5.0); Alkaline Phosphatase 94 U/L (40-110); Anion Gap 14 mmol/L (10-20); BUN (Urea Nitrogen) 21 mg/dL (9.8-20.1); Bilirubin, Total 0.4 mg/dL (0.2-1.2); Calc. Creatinine Clearance 0 mL/min (70-130); Calcium 8.8 mg/dL (7.8-10.44); Carbon Dioxide 21 mmol/L (22-29); Chloride 106 mmol/L (98-107); Globulin 3.5 g/dL (2.4-3.5); Glucose 259 mg/dL (70-105); Potassium 4.3 mmol/L (3.5-5.1); Protein, Total 7.7 g/dL (6.0-8.3); Sodium 137 mmol/L (136-145)
[2022-01-21] MEDS ORDERED: diphenhydrAMINE 50 MG/ML VIAL ONE (11:59)
[2022-01-21] MEDS ORDERED: Metoclopramide HCl 10 MG/2 ML VIAL ONE (11:59)
[2022-01-21] MEDS ORDERED: Labetalol HCl 100 MG/20 ML VIAL ONE (14:31)
[2022-01-21] MEDS ORDERED: hydrALAZINE 20 MG/ML VIAL SLOW IVP PRN (14:52)
[2022-01-21] MEDS ORDERED: Ondansetron PF 4 MG/2 ML Vial IVP PRN (14:52)
[2022-01-21] MEDS ORDERED: Dextrose 50% Abboject 50 ML SYRINGE SLOW IVP PRN (14:52)
[2022-01-21] MEDS ORDERED: Dextrose 5% in Water 1,000 ML IV PRN (14:52)
[2022-01-21] MEDS ORDERED: Ondansetron ODT 4 MG TAB PO PRN (14:52)
[2022-01-21] MEDS ORDERED: Acetaminophen 325 MG TAB PO PRN (14:52)
[2022-01-21 14:56] LABS: SARS-CoV-2 NAA Rapid Test Not Detected (NotDetected)
[2022-01-21] MEDS ORDERED: Aspirin 81 mg Enteric Coated Tablet PO SCH (17:15)
[2022-01-21] MEDS ORDERED: rOPINIRole HCl 0.5 MG TAB PO PRN (18:59)
[2022-01-21] MEDS ORDERED: Albuterol 200 PUFF (6.7GM INHALER) INH PRN (18:59)
[2022-01-21] MEDS ORDERED: HYDROcodone/Acetaminophen 5/325 mg Tablet PO PRN (18:59)
[2022-01-21] MEDS ORDERED: Albuterol Sulfate 1.25 MG/3 ML NEB NEB PRN (18:59)
[2022-01-21] MEDS ORDERED: Prazosin HCl 1 MG CAP PO SCH (21:00)
[2022-01-21] MEDS ORDERED: traZODone HCl 50 MG TAB PO SCH (21:00)
[2022-01-21] MEDS ORDERED: Escitalopram Oxalate 20 mg Tablet PO SCH (21:00)
[2022-01-21] MEDS: Gabapentin 300 MG CAP PO SCH (22:02)
[2022-01-21] MEDS: HumaLOG 300 UNITS/3 ML VIAL SC PRN (22:04)
[2022-01-21] MEDS: hydrOXYzine 25 MG TAB PO SCH (22:13)
[2022-01-21] MEDS ORDERED: Pantoprazole 40 MG VIAL IVP SCH (22:15)
[2022-01-21 23:36] LABS: Bilirubin Negative (Negative); Blood, Urine Negative (Negative); Clarity Turbid (Clear); Glucose, Urine (Dipstick) 100 mg/dL (Negative); Ketone, Urine Negative (Negative); Leukocyte 250 Leu/uL (Negative); Nitrite Negative (Negative); Protein, Urine (Dipstick) Negative (Neg-Trace); RBC/HPF 0-3 HPF (0-3); Specific Gravity, Urine 1.012 (1.002-1.036); Squamous Epithelial 0-3 HPF (0-3); Urobilinogen Normal mg/dL (Less than 2); WBC/HPF Greater than 50 HPF (0-3)
[2022-01-21 23:38] LABS: Bacteria/HPF 1+ HPF (None Seen)
[2022-01-21 23:57] LABS: Amphetamine Not Detected (NotDetected); Barbiturates Screen Not Detected (NotDetected); Benzodiazepine Screen Not Detected (NotDetected); Cocaine Metabolite Screen Not Detected (NotDetected); Methadone Not Detected (NotDetected); Methamphetamine Not Detected (NotDetected); Opiate Screen Not Detected (NotDetected); Oxycodone Screen Not Detected (NotDetected); Phencyclidine (PCP) Not Detected (NotDetected); THC/Cannabinoid Screen Not Detected (NotDetected); Tricyclic Screen Not Detected (NotDetected)
[2022-01-22] MEDS: HumaLOG 300 UNITS/3 ML VIAL SC PRN ×2 (04:59→12:57)
[2022-01-22 05:28] LABS: ALT (SGPT) 15 U/L (8-55); AST (SGOT) 12 U/L (5-34); Albumin 3.6 g/dL (3.5-5.0); Alkaline Phosphatase 78 U/L (40-110); Anion Gap 13 mmol/L (10-20); BUN (Urea Nitrogen) 15 mg/dL (9.8-20.1); Bilirubin, Total 0.3 mg/dL (0.2-1.2); Calc. Creatinine Clearance 105 mL/min (70-130); Calcium 8.5 mg/dL (7.8-10.44); Carbon Dioxide 21 mmol/L (22-29); Chloride 107 mmol/L (98-107); Globulin 2.9 g/dL (2.4-3.5); Glucose 144 mg/dL (70-105); Potassium 4.1 mmol/L (3.5-5.1); Protein, Total 6.5 g/dL (6.0-8.3); Sodium 137 mmol/L (136-145)
[2022-01-22 06:28] LABS: RBC Morphology Normal
[2022-01-22 06:29] LABS: #Basophils 0.1 thou/uL (0.0-0.2); #Eosinphils 0.3 thou/uL (0.0-0.7); #Lymphocytes 2.3 thou/uL (1.20-3.40); #Monocytes 0.6 thou/uL (0.11-0.59); #Neutrophils 3.2 thou/uL (1.40-6.50); %Basophils 0.9 % (0.0-1.0); %Eosinophils 4.7 % (0.0-10.0); %Lymphocytes 36.2 % (21.0-51.0); %Monocytes 8.9 % (0.0-10.0); %Neutrophils 49.4 % (42.0-75.0); Hemoglobin 10.3 g/dL (12.0-16.0); Mean Corpuscular HGB CONC 33.5 g/dL (32.0-36.0); Mean Corpuscular Hemoglobin 28.8 pg (27.0-31.0); Mean Platelet Volume 7.7 fL (7.4-10.4); Platelet Count 265 thou/uL (130-400); RBC Distribution Width 11.7 % (11.5-14.5); White Blood Cell (WBC) Count 6.5 thou/uL (4.8-10.8)
[2022-01-22] MEDS ORDERED: Rosuvastatin 20 MG TAB PO SCH (09:00)
[2022-01-22] MEDS ORDERED: Aripiprazole 15 MG TAB PO SCH (09:00)
[2022-01-22] MEDS ORDERED: Aspirin Chewable 81 MG TAB PO SCH (09:00)
[2022-01-22] MEDS ORDERED: Fluticasone Propionate Nasal Spray 16 gm Bottle NASAL SCH (09:00)
[2022-01-22] MEDS ORDERED: Enoxaparin Sodium 40 MG/0.4 ML SYRINGE SC SCH (09:00)
[2022-01-22] MEDS ORDERED: Amlodipine 10 MG TAB PO SCH (09:00)
[2022-01-22] MEDS ORDERED: Aspirin 81 mg Enteric Coated Tablet PO SCH (09:00)
[2022-01-22] MEDS ORDERED: Lorazepam 0.5 MG TAB PO SCH (09:00)
[2022-01-22] MEDS ORDERED: Lisinopril/Hydrochlorothiazide 20/25 mg Tablet PO SCH (09:00)
[2022-01-22] MEDS ORDERED: Oxybutynin 5 MG TAB PO SCH (09:00)
[2022-01-22] MEDS: Gabapentin 300 MG CAP PO SCH (09:26)
[2022-01-22] MEDS: hydrOXYzine 25 MG TAB PO SCH (09:29)
[2022-01-22] MEDS ORDERED: traMADol HCl 50 MG TAB PO PRN (10:40)
[2022-01-22 18:05] VITALS: BMI 33.0
[2022-01-22 19:56] VITALS: BP 118/61; TEMP 98.9
[2022-01-22] MEDS ORDERED: Propranolol HCl 20 MG TAB PO SCH (21:00)
== END 2022-01-22 20:01 | disposition home or self-care (01) ==
LOC: ERS 10:50 → NEURO 14:14
PROVIDERS: ADMIT Student in an Organized Health Care Education/Training Program; ATTEND Student in an Organized Health Care Education/Training Program
DX: H02.402 Unspecified ptosis of left eyelid (principal); R53.1 Weakness; R51.9 Headache, unspecified; H53.8 Other visual disturbances; I16.0 Hypertensive urgency; I10 Essential (primary) hypertension; R82.71 Bacteriuria; E11.43 Type 2 diabetes mellitus with diabetic autonomic (poly)neuropathy; K31.84 Gastroparesis; E11.42 Type 2 diabetes mellitus with diabetic polyneuropathy; G89.29 Other chronic pain; K21.9 Gastro-esophageal reflux disease without esophagitis; E78.5 Hyperlipidemia, unspecified; G47.33 Obstructive sleep apnea (adult) (pediatric); G40.909 Epilepsy, unspecified, not intractable, without status epilepticus; J45.909 Unspecified asthma, uncomplicated; E66.9 Obesity, unspecified; Z68.33 Body mass index [BMI] 33.0-33.9, adult; Z86.73 Personal history of transient ischemic attack (TIA), and cerebral infarction without residual deficits; Z79.4 Long term (current) use of insulin; Z79.82 Long term (current) use of aspirin; Z79.899 Other long term (current) drug therapy; Z91.018 Allergy to other foods; Z96.41 Presence of insulin pump (external) (internal); Z20.822 Contact with and (suspected) exposure to COVID-19
CPT/HCPCS: 36415; 36416; 70450; 70551; 80053; 80306; 81001; 84443; 84484; 85025; 85610; 93005; 96372; 96374; 96375; C9113; G0378; J1200; J1650; J1815; J2765; U0002

== ENCOUNTER 2022-03-17 11:13 | Observation (INO) | payer MEDICAID, OTHER, SELFPAY ==
[2022-03-17 11:54] LABS: #Eosinphils 0.1 thou/uL (0.0-0.7); #Lymphocytes 2.9 thou/uL (1.20-3.40); #Monocytes 0.7 thou/uL (0.11-0.59); %Basophils 0.3 % (0.0-1.0); %Eosinophils 0.8 % (0.0-10.0); %Lymphocytes 24.5 % (21.0-51.0); %Monocytes 6.1 % (0.0-10.0); %Neutrophils 68.3 % (42.0-75.0); Mean Corpuscular HGB CONC 34.8 g/dL (32.0-36.0); Mean Corpuscular Hemoglobin 29.4 pg (27.0-31.0); Mean Corpuscular Volume 84.5 fL (78.0-98.0); Mean Platelet Volume 7.4 fL (7.4-10.4); Platelet Count 356 thou/uL (130-400); RBC Distribution Width 12.2 % (11.5-14.5); Red Blood Cell (RBC) Count 4.41 mill/uL (4.20-5.40); White Blood Cell (WBC) Count 11.7 thou/uL (4.8-10.8)
[2022-03-17 12:15] LABS: ALT (SGPT) 15 U/L (8-55); AST (SGOT) 18 U/L (5-34); Albumin 4.2 g/dL (3.5-5.0); Alkaline Phosphatase 96 U/L (40-110); Anion Gap 12 mmol/L (10-20); BUN (Urea Nitrogen) 16 mg/dL (9.8-20.1); Bilirubin, Total 0.3 mg/dL (0.2-1.2); Calc. Creatinine Clearance 0 mL/min (70-130); Calcium 9.3 mg/dL (7.8-10.44); Carbon Dioxide 22 mmol/L (22-29); Chloride 108 mmol/L (98-107); Globulin 3.7 g/dL (2.4-3.5); Glucose 116 mg/dL (70-105); Potassium 4.8 mmol/L (3.5-5.1); Protein, Total 7.9 g/dL (6.0-8.3); Sodium 137 mmol/L (136-145)
[2022-03-17] MEDS ORDERED: Iopamidol-370 76% 500 ML 1 ML ONE (13:38)
[2022-03-17] MEDS ORDERED: Morphine 4 MG/ML VIAL ONE ×2 (15:22→18:09)
[2022-03-17] MEDS ORDERED: Ondansetron PF 4 MG/2 ML Vial ONE (15:23)
[2022-03-17] MEDS ORDERED: Aspirin 325 MG TAB ONE (15:23)
[2022-03-17] MEDS ORDERED: Acetaminophen 325 MG TAB PO PRN (19:00)
[2022-03-17] MEDS ORDERED: Nitroglycerin 0.4 MG TAB (25 Tab Bottle) SL PRN (19:00)
[2022-03-17] MEDS ORDERED: Ondansetron ODT 4 MG TAB PO PRN (19:00)
[2022-03-17] MEDS ORDERED: Ondansetron PF 4 MG/2 ML Vial IVP PRN (19:00)
[2022-03-17] MEDS ORDERED: Calcium Carbonate 500 MG ChewTAB PO PRN (19:00)
[2022-03-17] MEDS ORDERED: Dextrose 50% Abboject 50 ML SYRINGE SLOW IVP PRN (19:12)
[2022-03-17] MEDS ORDERED: Dextrose 5% in Water 1,000 ML IV PRN (19:12)
[2022-03-17] MEDS ORDERED: HumaLOG 300 UNITS/3 ML VIAL SC PRN ×2 (19:12)
[2022-03-17] MEDS ORDERED: Albuterol Sulfate 1.25 MG/3 ML NEB NEB PRN (19:28)
[2022-03-17] MEDS ORDERED: traMADol HCl 50 MG TAB PO PRN (19:28)
[2022-03-17] MEDS ORDERED: hydrOXYzine 25 MG TAB PO PRN (19:28)
[2022-03-17] MEDS ORDERED: Gabapentin 300 MG CAP PO PRN (19:28)
[2022-03-17] MEDS ORDERED: Albuterol Sulfate 2.5 mg/3 ml Neb NEB PRN (19:40)
[2022-03-17] MEDS ORDERED: traZODone HCl 50 MG TAB PO PRN (19:44)
[2022-03-17] MEDS: Oxybutynin 5 MG TAB PO SCH (20:54)
[2022-03-17] MEDS: Famotidine 20 MG TAB PO SCH (20:54)
[2022-03-17] MEDS ORDERED: Rosuvastatin 20 MG TAB PO SCH (21:00)
[2022-03-17 21:28] VITALS: BMI 31.8
[2022-03-17 21:59] LABS: Troponin I Less than 0.010 ng/mL (< 0.028)
[2022-03-18 05:48] LABS: Anion Gap 14 mmol/L (10-20); BUN (Urea Nitrogen) 14 mg/dL (9.8-20.1); Calc. Creatinine Clearance 113 mL/min (70-130); Calcium 8.7 mg/dL (7.8-10.44); Carbon Dioxide 22 mmol/L (22-29); Cardiac Risk 4.4 (Less than 4.5); Chloride 108 mmol/L (98-107); Cholesterol 213 mg/dl (< 200 Desired); Glucose 205 mg/dL (70-105); HDL Cholesterol 48 mg/dL (>60 Neg Risk); LDL Cholesterol, Calculated 124 mg/dL; Potassium 4.6 mmol/L (3.5-5.1); Sodium 139 mmol/L (136-145); Triglycerides 203 mg/dL (Less than 150)
[2022-03-18 05:53] LABS: Hemoglobin 12.3 g/dL (12.0-16.0); Mean Corpuscular HGB CONC 34.3 g/dL (32.0-36.0); Mean Corpuscular Hemoglobin 29.8 pg (27.0-31.0); Mean Platelet Volume 7.7 fL (7.4-10.4); Platelet Count 272 thou/uL (130-400); RBC Distribution Width 12.1 % (11.5-14.5); Red Blood Cell (RBC) Count 4.12 mill/uL (4.20-5.40); White Blood Cell (WBC) Count 7.8 thou/uL (4.8-10.8)
[2022-03-18 06:20] LABS: Band 2 % (5-11); Eosinophils 1 % (0-10); Lymphocytes 34 % (21-51); MDiff Complete? YES; Monocytes 4 % (0-10); Neutrophil 58 % (42-75)
[2022-03-18] MEDS: Oxybutynin 5 MG TAB PO SCH (08:10)
[2022-03-18] MEDS: Famotidine 20 MG TAB PO SCH (08:11)
[2022-03-18] MEDS ORDERED: Amlodipine 10 MG TAB PO SCH (09:00)
[2022-03-18] MEDS ORDERED: Aripiprazole 15 MG TAB PO SCH (09:00)
[2022-03-18] MEDS ORDERED: Escitalopram Oxalate 20 mg Tablet PO SCH (09:00)
[2022-03-18] MEDS ORDERED: Lisinopril/Hydrochlorothiazide 20/25 mg Tablet PO SCH (09:00)
[2022-03-18] MEDS ORDERED: Enoxaparin Sodium 40 MG/0.4 ML SYRINGE SC SCH (09:00)
[2022-03-18] MEDS ORDERED: Regadenoson 0.4 MG/5 ML SYRINGE ONE (09:43)
[2022-03-18 15:41] VITALS: BP 109/75; TEMP 98.4
[2022-03-18 16:11] LABS: SARS-CoV-2 PCR by NAA Not Detected (NotDetected)
== END 2022-03-18 15:37 | disposition home or self-care (01) ==
LOC: ERS 11:13 → 2SW 17:20
PROVIDERS: ADMIT Family Medicine; ATTEND Family Medicine
DX: R07.89 Other chest pain (principal); E11.40 Type 2 diabetes mellitus with diabetic neuropathy, unspecified; I10 Essential (primary) hypertension; G43.909 Migraine, unspecified, not intractable, without status migrainosus; G89.29 Other chronic pain; G25.81 Restless legs syndrome; J45.909 Unspecified asthma, uncomplicated; E78.5 Hyperlipidemia, unspecified; I69.354 Hemiplegia and hemiparesis following cerebral infarction affecting left non-dominant side; I70.0 Atherosclerosis of aorta; K76.0 Fatty (change of) liver, not elsewhere classified; J98.11 Atelectasis; K42.9 Umbilical hernia without obstruction or gangrene; K21.9 Gastro-esophageal reflux disease without esophagitis; E78.00 Pure hypercholesterolemia, unspecified; G40.409 Other generalized epilepsy and epileptic syndromes, not intractable, without status epilepticus; E66.9 Obesity, unspecified; Z68.31 Body mass index [BMI] 31.0-31.9, adult; Z79.4 Long term (current) use of insulin; Z79.899 Other long term (current) drug therapy; Z91.018 Allergy to other foods; Z96.41 Presence of insulin pump (external) (internal); Z20.822 Contact with and (suspected) exposure to COVID-19
CPT/HCPCS: 36415; 36416; 71045; 74177; 76705; 78452; 80048; 80053; 80061; 83690; 84484; 85025; 93005; 93017; 96374; 96375; 96376; A9500; J1650; J1815; J2270; J2405; J2785; Q9967; U0003; U0005

== ENCOUNTER 2022-03-31 17:02 | Emergency (ER) | payer OTHER | END 2022-03-31 17:52 | disposition home or self-care (01) | LOC: ERS 17:02 | DX: E11.649 Type 2 diabetes mellitus with hypoglycemia without coma (principal); E11.40 Type 2 diabetes mellitus with diabetic neuropathy, unspecified; I10 Essential (primary) hypertension; E78.5 Hyperlipidemia, unspecified; E78.00 Pure hypercholesterolemia, unspecified; G40.909 Epilepsy, unspecified, not intractable, without status epilepticus; K21.9 Gastro-esophageal reflux disease without esophagitis; E66.9 Obesity, unspecified; Z79.4 Long term (current) use of insulin; Z96.41 Presence of insulin pump (external) (internal); Z86.73 Personal history of transient ischemic attack (TIA), and cerebral infarction without residual deficits | CPT/HCPCS: 36416; 99283 ==

== ENCOUNTER 2022-05-14 16:57 | Inpatient (IN) | payer OTHER ==
[~2022-05-14 16:57] MED LIST changes: +ISOVUE-370 76%-LOCM 1 ML ONE; -Iopamidol 370 76% 100 ML VIAL ONE
[2022-05-14 17:14] LABS: #Basophils 0.1 thou/uL (0.0-0.2); #Eosinphils 0.2 thou/uL (0.0-0.7); #Monocytes 0.8 thou/uL (0.11-0.59); #Neutrophils 4.6 thou/uL (1.40-6.50); %Basophils 0.6 % (0.0-1.0); %Eosinophils 2.9 % (0.0-10.0); %Lymphocytes 35.1 % (21.0-51.0); %Monocytes 8.8 % (0.0-10.0); %Neutrophils 52.7 % (42.0-75.0); Hemoglobin 11.4 g/dL (12.0-16.0); Mean Corpuscular HGB CONC 34.1 g/dL (32.0-36.0); Mean Corpuscular Hemoglobin 28.7 pg (27.0-31.0); Mean Corpuscular Volume 84.2 fL (78.0-98.0); Mean Platelet Volume 7.2 fL (7.4-10.4); Platelet Count 357 thou/uL (130-400); RBC Distribution Width 11.7 % (11.5-14.5); Red Blood Cell (RBC) Count 3.96 mill/uL (4.20-5.40); White Blood Cell (WBC) Count 8.7 thou/uL (4.8-10.8)
[2022-05-14] MEDS ORDERED: ALTEPLASE (TPA) 50 MG/50 ML VIAL ONE (17:16)
[2022-05-14] MEDS ORDERED: Labetalol HCl 100 MG/20 ML VIAL ONE (17:31)
[2022-05-14 17:34] LABS: INR-International Normal Ratio 1.1; Prothrombin Time 14.1 sec (12.0-14.7)
[2022-05-14 17:35] LABS: PTT 28.6 sec (22.9-36.1)
[2022-05-14 17:47] LABS: ALT (SGPT) 16 U/L (8-55); AST (SGOT) 15 U/L (5-34); Albumin 4.1 g/dL (3.5-5.0); Alkaline Phosphatase 93 U/L (40-110); Anion Gap 13 mmol/L (10-20); BUN (Urea Nitrogen) 20 mg/dL (9.8-20.1); Bilirubin, Total 0.3 mg/dL (0.2-1.2); Calc. Creatinine Clearance 0 mL/min (70-130); Carbon Dioxide 22 mmol/L (22-29); Chloride 105 mmol/L (98-107); Globulin 3.6 g/dL (2.4-3.5); Glucose 167 mg/dL (70-105); Potassium 3.8 mmol/L (3.5-5.1); Protein, Total 7.7 g/dL (6.0-8.3); Sodium 136 mmol/L (136-145)
[2022-05-14] MEDS ORDERED: Sodium Chloride 0.9% 100 ML ONE (18:19)
[2022-05-14 19:27] LABS: Troponin I Less than 0.010 ng/mL (< 0.028)
[2022-05-14] MEDS ORDERED: Ondansetron PF 4 MG/2 ML Vial IVP PRN (19:45)
[2022-05-14] MEDS ORDERED: Ondansetron ODT 4 MG TAB SL PRN (19:45)
[2022-05-14] MEDS ORDERED: Acetaminophen 325 MG TAB PO PRN (19:45)
[2022-05-14 20:11] VITALS: BMI 36.3
[2022-05-14] MEDS ORDERED: hydrALAZINE 20 MG/ML VIAL SLOW IVP PRN (20:19)
[2022-05-14] MEDS ORDERED: Acetaminophen 650 MG Suppository PR PRN (20:26)
[2022-05-14] MEDS ORDERED: Bisacodyl 10 MG SUPP PR PRN (20:26)
[2022-05-14] MEDS: Sodium Chloride 0.9% 1,000 ML IV SCH (20:56)
[2022-05-14] MEDS: Communication Order-Pharmacy FS SCH (21:00)
[2022-05-14] MEDS: Rosuvastatin 20 MG TAB PO SCH (21:46)
[2022-05-14] MEDS ORDERED: Morphine 2 MG/ML VIAL SLOW IVP SCH (22:00)
[2022-05-15] MEDS ORDERED: Albuterol Sulfate 1.25 MG/3 ML NEB NEB PRN ×2 (00:54→14:30)
[2022-05-15] MEDS: Sodium Chloride 0.9% 1,000 ML IV SCH (05:06)
[2022-05-15] MEDS: Pantoprazole 40 MG VIAL IVP SCH (08:45)
[2022-05-15] MEDS: Labetalol HCl 100 MG/20 ML VIAL SLOW IVP PRN ×3 (09:37→18:25)
[2022-05-15] MEDS ORDERED: Albuterol Sulfate 1.25 MG/3 ML NEB INH PRN (14:24)
[2022-05-15 18:55] LABS: Troponin I Less than 0.010 ng/mL (< 0.028)
[2022-05-15 19:02] LABS: Cardiac Risk 5.6 (Less than 4.5)
[2022-05-15] MEDS: Fluticasone Propionate Nasal Spray 16 gm Bottle NASAL SCH (20:37)
[2022-05-15] MEDS: Communication Order-Pharmacy FS SCH (20:38)
[2022-05-15] MEDS: Rosuvastatin 20 MG TAB PO SCH (20:38)
[2022-05-15] MEDS ORDERED: Non-Formulary Item 1 EACH (Benztropine Mesylate [Benztropine Mesylate] 0.5 MG Tablet) PO SCH (21:00)
[2022-05-16] MEDS ORDERED: Non-Formulary Item 1 EACH (Escitalopram Oxalate [Lexapro] 5 MG Tablet) PO SCH (09:00)
[2022-05-16] MEDS ORDERED: Non-Formulary Item 1 EACH (Aripiprazole [Abilify] 20 MG Tablet) PO SCH (09:00)
[2022-05-16] MEDS: Pantoprazole 40 MG VIAL IVP SCH (10:19)
[2022-05-16] MEDS: Fluticasone Propionate Nasal Spray 16 gm Bottle NASAL SCH ×2 (10:20→21:15)
[2022-05-16] MEDS ORDERED: hydrOXYzine 25 MG TAB PO PRN (11:55)
[2022-05-16] MEDS: Gabapentin 300 MG CAP PO SCH ×2 (15:42→21:14)
[2022-05-16] MEDS: Acetaminophen 325 MG TAB PO PRN (17:35)
[2022-05-16] MEDS ORDERED: Famotidine 20 MG TAB PO SCH (21:00)
[2022-05-16] MEDS ORDERED: Prazosin HCl 1 MG CAP PO SCH (21:00)
[2022-05-16] MEDS: Propranolol 40 MG TAB PO SCH (21:14)
[2022-05-16] MEDS: Rosuvastatin 20 MG TAB PO SCH (21:14)
[2022-05-16] MEDS: Oxybutynin 5 MG TAB PO SCH (21:15)
[2022-05-16] MEDS ORDERED: Clopidogrel Bisulfate 300 MG TAB PO SCH (22:45)
[2022-05-17 08:50] LABS: #Eosinphils 0.3 thou/uL (0.0-0.7); #Lymphocytes 1.9 thou/uL (1.20-3.40); #Monocytes 0.5 thou/uL (0.11-0.59); #Neutrophils 3.4 thou/uL (1.40-6.50); %Basophils 0.7 % (0.0-1.0); %Eosinophils 5.6 % (0.0-10.0); %Lymphocytes 31.2 % (21.0-51.0); %Monocytes 7.5 % (0.0-10.0); Hemoglobin 11.1 g/dL (12.0-16.0); Mean Corpuscular HGB CONC 33.8 g/dL (32.0-36.0); Mean Corpuscular Hemoglobin 28.9 pg (27.0-31.0); Mean Corpuscular Volume 85.5 fL (78.0-98.0); Mean Platelet Volume 8.7 fL (7.4-10.4); Platelet Count 201 thou/uL (130-400); RBC Distribution Width 11.5 % (11.5-14.5); Red Blood Cell (RBC) Count 3.84 mill/uL (4.20-5.40); White Blood Cell (WBC) Count 6.2 thou/uL (4.8-10.8)
[2022-05-17] MEDS ORDERED: Aspirin 81 mg Enteric Coated Tablet PO SCH (09:00)
[2022-05-17] MEDS ORDERED: Clopidogrel Bisulfate 75 MG TAB PO SCH (09:00)
[2022-05-17] MEDS ORDERED: Lisinopril/Hydrochlorothiazide 20/25 mg Tablet PO SCH (09:00)
[2022-05-17] MEDS ORDERED: Amlodipine 10 MG TAB PO SCH (09:00)
[2022-05-17] MEDS: Fluticasone Propionate Nasal Spray 16 gm Bottle NASAL SCH (09:20)
[2022-05-17] MEDS: Oxybutynin 5 MG TAB PO SCH (09:20)
[2022-05-17] MEDS: Gabapentin 300 MG CAP PO SCH (09:21)
[2022-05-17] MEDS: Propranolol 40 MG TAB PO SCH (09:22)
[2022-05-17] MEDS: Acetaminophen 325 MG TAB PO PRN (09:22)
[2022-05-17 09:58] LABS: Albumin 3.8 g/dL (3.5-5.0)
[2022-05-17 10:00] LABS: Chloride 100 mmol/L (98-107); Potassium 4.2 mmol/L (3.5-5.1); Sodium 133 mmol/L (136-145)
[2022-05-17 10:01] LABS: Globulin 3.3 g/dL (2.4-3.5); Glucose 251 mg/dL (70-105); Protein, Total 7.1 g/dL (6.0-8.3)
[2022-05-17 10:02] LABS: Anion Gap 12 mmol/L (10-20); Carbon Dioxide 25 mmol/L (22-29)
[2022-05-17 10:03] LABS: Bilirubin, Total 0.4 mg/dL (0.2-1.2)
[2022-05-17 10:04] LABS: Alkaline Phosphatase 85 U/L (40-110); Calc. Creatinine Clearance 78 mL/min (70-130)
[2022-05-17 10:05] LABS: BUN (Urea Nitrogen) 16 mg/dL (9.8-20.1)
[2022-05-17 10:06] LABS: AST (SGOT) 18 U/L (5-34)
[2022-05-17 10:07] LABS: ALT (SGPT) 17 U/L (8-55)
[2022-05-17 11:55] VITALS: BP 116/69; TEMP 97.8
[2022-05-18 14:38] LABS: Albumin 3.4 g/dL (2.9-4.4); Alpha 1 0.2 g/dL (0.0-0.4); Gamma 1.3 g/dL (0.4-1.8); Globulin, Total 3.5 g/dL (2.2-3.9); M-Spike Not Observed g/dL (Not Observed)
== END 2022-05-17 15:40 | disposition home or self-care (01) | DRG 62 ==
LOC: ERS 16:57 → CCU 19:00 → NEURO 05-15 21:57
PROVIDERS: ADMIT Family Medicine; ATTEND Hospitalist
DX: G45.9 Transient cerebral ischemic attack, unspecified (principal); G81.94 Hemiplegia, unspecified affecting left nondominant side; K21.9 Gastro-esophageal reflux disease without esophagitis; E78.5 Hyperlipidemia, unspecified; E11.9 Type 2 diabetes mellitus without complications; E11.40 Type 2 diabetes mellitus with diabetic neuropathy, unspecified; G25.81 Restless legs syndrome; F41.9 Anxiety disorder, unspecified; F90.9 Attention-deficit hyperactivity disorder, unspecified type; E11.43 Type 2 diabetes mellitus with diabetic autonomic (poly)neuropathy; K31.84 Gastroparesis; R29.718 NIHSS score 18; E66.9 Obesity, unspecified; J45.20 Mild intermittent asthma, uncomplicated; G40.909 Epilepsy, unspecified, not intractable, without status epilepticus; N32.81 Overactive bladder; D89.2 Hypergammaglobulinemia, unspecified; F31.9 Bipolar disorder, unspecified; G93.89 Other specified disorders of brain; I72.8 Aneurysm of other specified arteries; Z91.018 Allergy to other foods; Z79.51 Long term (current) use of inhaled steroids; Z79.899 Other long term (current) drug therapy; Z79.82 Long term (current) use of aspirin; Z68.36 Body mass index [BMI] 36.0-36.9, adult
CPT/HCPCS: 36415; 36416; 51701; 70450; 70496; 70498; 70551; 80053; 80061; 83605; 84165; 84484; 85025; 85610; 85730; 87040; 93005; 94760; 95712; 95819; 95957; 96374; C9113; J2270; J2997; J3490; J7050; Q9966; U0003; U0005

== ENCOUNTER 2022-06-14 07:52 | Outpatient (CLI) | payer OTHER | END 2022-06-14 07:53 | disposition home or self-care (01) | LOC: ULT 07:52 | PROVIDERS: ATTEND Physician Assistant Medical | DX: K30 Functional dyspepsia (principal); E11.43 Type 2 diabetes mellitus with diabetic autonomic (poly)neuropathy; K31.84 Gastroparesis; K76.0 Fatty (change of) liver, not elsewhere classified; K83.8 Other specified diseases of biliary tract | CPT/HCPCS: 76705 ==

== ENCOUNTER 2022-06-27 07:56 | Outpatient (CLI) | payer OTHER ==
[2022-06-27] MEDS ORDERED: Magnevist 469MG/ML 20 ML VIAL ONE (14:27)
== END 2022-06-27 07:57 | disposition home or self-care (01) ==
LOC: MRI 07:56
PROVIDERS: ATTEND Physician Assistant Medical
DX: K83.8 Other specified diseases of biliary tract (principal)
CPT/HCPCS: 74183; A9579

== ENCOUNTER 2022-07-12 12:07 | Outpatient (CLI) | payer OTHER | END 2022-07-12 12:08 | disposition home or self-care (01) | LOC: NM 12:07 | PROVIDERS: ATTEND Physician Assistant Medical | DX: R10.11 Right upper quadrant pain (principal) | CPT/HCPCS: 78227; A9537 ==

== ENCOUNTER 2022-07-25 20:16 | Emergency (ER) | payer OTHER ==
[2022-07-25] MEDS ORDERED: Ketorolac Tromethamine 30 MG/ML VIAL ONE (22:43)
== END 2022-07-25 23:37 | disposition home or self-care (01) ==
LOC: ERS 20:16
DX: S46.011A Strain of muscle(s) and tendon(s) of the rotator cuff of right shoulder, initial encounter (principal); S60.211A Contusion of right wrist, initial encounter; E11.40 Type 2 diabetes mellitus with diabetic neuropathy, unspecified; I10 Essential (primary) hypertension; Z86.73 Personal history of transient ischemic attack (TIA), and cerebral infarction without residual deficits; Z79.4 Long term (current) use of insulin; W18.30XA Fall on same level, unspecified, initial encounter
CPT/HCPCS: 96372; J1885

== ENCOUNTER 2022-08-16 14:06 | Emergency (ER) | payer OTHER ==
[~2022-08-16 14:06] MED LIST changes: -ISOVUE-370 76%-LOCM 1 ML ONE; +Iopamidol-370 76% 500 ML 1 ML ONE
[2022-08-16 15:12] LABS: #Basophils 0.1 thou/uL (0.0-0.2); #Eosinphils 0.3 thou/uL (0.0-0.7); #Lymphocytes 2.6 thou/uL (1.20-3.40); #Monocytes 0.5 thou/uL (0.11-0.59); #Neutrophils 4.8 thou/uL (1.40-6.50); %Basophils 0.6 % (0.0-1.0); %Eosinophils 4.2 % (0.0-10.0); %Lymphocytes 30.9 % (21.0-51.0); %Monocytes 6.3 % (0.0-10.0); Mean Corpuscular HGB CONC 33.8 g/dL (32.0-36.0); Mean Corpuscular Hemoglobin 28.5 pg (27.0-31.0); Mean Corpuscular Volume 84.4 fL (78.0-98.0); Mean Platelet Volume 8.8 fL (7.4-10.4); Platelet Count 290 thou/uL (130-400); RBC Distribution Width 11.8 % (11.5-14.5); White Blood Cell (WBC) Count 8.3 thou/uL (4.8-10.8)
[2022-08-16 15:14] LABS: ALT (SGPT) 19 U/L (8-55); AST (SGOT) 16 U/L (5-34); Albumin 4.2 g/dL (3.5-5.0); Alkaline Phosphatase 99 U/L (40-110); Anion Gap 16 mmol/L (10-20); BUN (Urea Nitrogen) 18 mg/dL (9.8-20.1); Bilirubin, Total 0.4 mg/dL (0.2-1.2); Calc. Creatinine Clearance 0 mL/min (70-130); Calcium 9.3 mg/dL (7.8-10.44); Carbon Dioxide 17 mmol/L (22-29); Chloride 105 mmol/L (98-107); Digoxin Less than 0.15 ng/mL (0.8-2.0); Estimated GFR 60; Globulin 3.4 g/dL (2.4-3.5); Glucose 291 mg/dL (70-105); Lipase 85 U/L (8-78); Potassium 4.4 mmol/L (3.5-5.1); Protein, Total 7.6 g/dL (6.0-8.3); Sodium 134 mmol/L (136-145)
[2022-08-16] MEDS ORDERED: Pantoprazole 40 MG VIAL ONE (16:14)
[2022-08-16] MEDS ORDERED: Ondansetron PF 4 MG/2 ML Vial ONE (16:14)
[2022-08-16] MEDS ORDERED: Morphine 4 MG/ML VIAL ONE (18:53)
[2022-08-16] MEDS ORDERED: Lidocaine Viscous Sol 2% 15 ml UD Cup ONE (18:53)
[2022-08-16] MEDS ORDERED: Mag-Al 1200 mg/1200 mg/30 ML UDCUP ONE (18:53)
[2022-08-16 19:03] LABS: Bacteria/HPF 4+ HPF (None Seen); Bilirubin Negative (Negative); Blood, Urine 1+ (Negative); Clarity Turbid (Clear); Glucose, Urine (Dipstick) 500 mg/dL (Negative); Ketone, Urine Negative (Negative); Leukocyte 500 Leu/uL (Negative); Nitrite Negative (Negative); Protein, Urine (Dipstick) 20 mg/dL (Neg-Trace); Specific Gravity, Urine 1.011 (1.002-1.036); Urobilinogen Normal mg/dL (Less than 2); WBC/HPF Greater than 50 HPF (0-3); pH, Urine 5.5 (5.0-9.0)
[2022-08-16] MEDS ORDERED: cefTRIAXone\\ROCEPHIN 1 GM VIAL ONE (19:13)
== END 2022-08-16 20:15 | disposition home or self-care (01) ==
LOC: ERS 14:06
DX: N39.0 Urinary tract infection, site not specified (principal); K21.9 Gastro-esophageal reflux disease without esophagitis; E78.00 Pure hypercholesterolemia, unspecified; I10 Essential (primary) hypertension; E11.40 Type 2 diabetes mellitus with diabetic neuropathy, unspecified; G40.409 Other generalized epilepsy and epileptic syndromes, not intractable, without status epilepticus; J45.909 Unspecified asthma, uncomplicated; E66.9 Obesity, unspecified; Z68.45 Body mass index [BMI] 70 or greater, adult; Z86.73 Personal history of transient ischemic attack (TIA), and cerebral infarction without residual deficits; Z79.82 Long term (current) use of aspirin; Z79.4 Long term (current) use of insulin; Z79.899 Other long term (current) drug therapy
CPT/HCPCS: 36415; 71045; 74177; 76705; 80053; 80162; 81003; 81015; 82010; 83605; 83690; 84484; 85025; 87077; 87086; 87186; 93005; 96365; 96375; C9113; J0696; J2270; J2405; Q9967

== ENCOUNTER 2022-09-27 06:58 | Outpatient (CLI) | payer OTHER | END 2022-09-27 06:59 | disposition home or self-care (01) | LOC: NM 06:58 | PROVIDERS: ATTEND Specialist | DX: R10.9 Unspecified abdominal pain (principal); K30 Functional dyspepsia | CPT/HCPCS: 78264; A9541 ==

== ENCOUNTER 2022-11-11 22:05 | Inpatient (IN) | payer OTHER ==
[2022-11-11 22:51] LABS: #Basophils 0.1 thou/uL (0.0-0.2); #Eosinphils 0.3 thou/uL (0.0-0.7); #Lymphocytes 2.7 thou/uL (1.20-3.40); #Monocytes 0.6 thou/uL (0.11-0.59); #Neutrophils 3.1 thou/uL (1.40-6.50); %Basophils 0.9 % (0.0-1.0); %Eosinophils 4.6 % (0.0-10.0); %Lymphocytes 40.1 % (21.0-51.0); %Monocytes 9.2 % (0.0-10.0); %Neutrophils 45.2 % (42.0-75.0); Hemoglobin 11.3 g/dL (12.0-16.0); Mean Corpuscular HGB CONC 35.5 g/dL (32.0-36.0); Mean Corpuscular Hemoglobin 29.9 pg (27.0-31.0); Mean Corpuscular Volume 84.2 fl (78.0-98.0); Platelet Count 252 10x3/uL (130-400); RBC Distribution Width 11.9 % (11.5-14.5); Red Blood Cell (RBC) Count 3.79 mill/uL (4.20-5.40); White Blood Cell (WBC) Count 6.8 10x3/uL (4.8-10.8)
[2022-11-11 23:02] LABS: PTT 28.5 sec (22.9-36.1)
[2022-11-11] MEDS ORDERED: Aspirin 325 MG TAB ONE (23:04)
[2022-11-11] MEDS ORDERED: Labetalol HCl 100 MG/20 ML VIAL ONE (23:04)
[2022-11-11 23:12] LABS: ALT (SGPT) 17 U/L (8-55); AST (SGOT) 17 U/L (5-34); Alkaline Phosphatase 91 U/L (40-110); Anion Gap 14 mmol/L (10-20); BUN (Urea Nitrogen) 16 mg/dL (9.8-20.1); Bilirubin, Total 0.3 mg/dL (0.2-1.2); Calc. Creatinine Clearance 0 mL/min (70-130); Calcium 9.2 mg/dL (7.8-10.44); Carbon Dioxide 24 mmol/L (22-29); Chloride 104 mmol/L (98-107); Estimated GFR 79; Globulin 3.2 g/dL (2.4-3.5); Glucose 180 mg/dL (70-105); Potassium 4.2 mmol/L (3.5-5.1); Protein, Total 7.2 g/dL (6.0-8.3); Sodium 138 mmol/L (136-145)
[2022-11-12 02:00] LABS: SARS-CoV-2 NAA Rapid Test Not Detected (NotDetected)
[2022-11-12] MEDS ORDERED: Ondansetron ODT 4 MG TAB PO PRN (02:08)
[2022-11-12] MEDS ORDERED: Ondansetron PF 4 MG/2 ML Vial IVP PRN (02:08)
[2022-11-12] MEDS ORDERED: Acetaminophen 325 MG TAB PO PRN (02:08)
[2022-11-12] MEDS ORDERED: hydrALAZINE 20 MG/ML VIAL SLOW IVP PRN (02:15)
[2022-11-12 02:30] LABS: Troponin I Less than 0.010 ng/mL (< 0.028)
[2022-11-12 02:45] VITALS: BMI 34.4
[2022-11-12] MEDS ORDERED: Famotidine 20 MG TAB PO PRN (05:20)
[2022-11-12] MEDS ORDERED: Albuterol 200 PUFF (6.7GM INHALER) INH PRN (05:20)
[2022-11-12 05:29] LABS: Anion Gap 15 mmol/L (10-20); BUN (Urea Nitrogen) 16 mg/dL (9.8-20.1); Calc. Creatinine Clearance 115 mL/min (70-130); Calcium 9.1 mg/dL (7.8-10.44); Carbon Dioxide 21 mmol/L (22-29); Cardiac Risk 4.5 (Less than 4.5); Chloride 105 mmol/L (98-107); Cholesterol 191 mg/dl (< 200 Desired); Estimated GFR 81; Glucose 182 mg/dL (70-105); HDL Cholesterol 42 mg/dL (>60 Neg Risk); LDL Cholesterol, Calculated 111 mg/dL; Potassium 3.9 mmol/L (3.5-5.1); Sodium 137 mmol/L (136-145); Triglycerides 190 mg/dL (Less than 150); Troponin I Less than 0.010 ng/mL (< 0.028)
[2022-11-12] MEDS ORDERED: traMADol HCl 50 MG TAB PO SCH (05:45)
[2022-11-12] MEDS ORDERED: traMADol HCl 50 MG TAB ONE (05:49)
[2022-11-12 06:04] LABS: Hemoglobin A1c 7.8 % (4.0-6.0)
[2022-11-12] MEDS ORDERED: Clopidogrel Bisulfate 75 MG TAB ONE (08:35)
[2022-11-12] MEDS ORDERED: Aspirin Chewable 81 MG TAB ONE (08:35)
[2022-11-12] MEDS: Aspirin 81 mg Enteric Coated Tablet PO SCH (09:29)
[2022-11-12] MEDS: Gabapentin 300 MG CAP PO SCH ×3 (09:30→20:23)
[2022-11-12] MEDS: Clopidogrel Bisulfate 75 MG TAB PO SCH (09:30)
[2022-11-12] MEDS: Escitalopram Oxalate 20 mg Tablet PO SCH (09:30)
[2022-11-12] MEDS: Oxybutynin 5 MG TAB PO SCH ×2 (09:31→20:22)
[2022-11-12] MEDS: Rosuvastatin 20 MG TAB PO SCH (09:32)
[2022-11-12] MEDS: Fluticasone Propionate Nasal Spray 16 gm Bottle NASAL SCH ×2 (10:02→20:24)
[2022-11-12] MEDS: rOPINIRole HCl 0.5 MG TAB PO SCH (10:02)
[2022-11-12] MEDS ORDERED: Lisinopril/Hydrochlorothiazide 20 mg/12.5 mg Tablet PO SCH (12:45)
[2022-11-12] MEDS ORDERED: traMADol HCl 50 MG TAB PO PRN (14:34)
[2022-11-12] MEDS: Lidocaine 5% Patch TD SCH (16:53)
[2022-11-12] MEDS ORDERED: Dextrose 5% in Water 1,000 ML IV PRN ×2 (17:12→18:10)
[2022-11-12] MEDS ORDERED: Dextrose 50% Abboject 50 ML SYRINGE SLOW IVP PRN ×2 (17:12→18:10)
[2022-11-12] MEDS: Acetaminophen 500 MG TAB PO SCH (18:31)
[2022-11-12] MEDS: HumaLOG 300 UNITS/3 ML VIAL SC PRN (18:32)
[2022-11-12] MEDS: Lisinopril/Hydrochlorothiazide 20 mg/12.5 mg Tablet PO SCH (20:22)
[2022-11-12] MEDS: traZODone HCl 150 MG TAB PO SCH (20:22)
[2022-11-13] MEDS: Acetaminophen 500 MG TAB PO SCH ×4 (00:22→20:08)
[2022-11-13] MEDS ORDERED: Transdermal Patch Removal TOP SCH (03:00)
[2022-11-13] MEDS ORDERED: Sodium Chloride 0.9% 1,000 ML IV SCH (05:30)
[2022-11-13 06:26] LABS: #Eosinphils 0.2 thou/uL (0.0-0.7); #Lymphocytes 2.3 thou/uL (1.20-3.40); #Monocytes 0.5 thou/uL (0.11-0.59); #Neutrophils 5.1 thou/uL (1.40-6.50); %Basophils 0.1 % (0.0-1.0); %Eosinophils 2.9 % (0.0-10.0); %Lymphocytes 28.5 % (21.0-51.0); %Monocytes 6.5 % (0.0-10.0); %Neutrophils 61.9 % (42.0-75.0); Hemoglobin 11.7 g/dL (12.0-16.0); Mean Corpuscular HGB CONC 33.5 g/dL (32.0-36.0); Mean Corpuscular Hemoglobin 29.2 pg (27.0-31.0); Mean Corpuscular Volume 87.2 fl (78.0-98.0); Mean Platelet Volume 8.6 fL (7.4-10.4); Platelet Count 259 10x3/uL (130-400); White Blood Cell (WBC) Count 8.2 10x3/uL (4.8-10.8)
[2022-11-13 06:28] LABS: Anion Gap 15 mmol/L (10-20); BUN (Urea Nitrogen) 26 mg/dL (9.8-20.1); Calc. Creatinine Clearance 67 mL/min (70-130); Calcium 8.9 mg/dL (7.8-10.44); Carbon Dioxide 21 mmol/L (22-29); Chloride 104 mmol/L (98-107); Estimated GFR 42; Glucose 178 mg/dL (70-105); Potassium 4.7 mmol/L (3.5-5.1); Sodium 135 mmol/L (136-145)
[2022-11-13] MEDS: metFORMIN 500 MG TAB PO SCH (09:00)
[2022-11-13] MEDS: Gabapentin 300 MG CAP PO SCH ×3 (09:01→20:07)
[2022-11-13] MEDS: Oxybutynin 5 MG TAB PO SCH ×2 (09:01→20:08)
[2022-11-13] MEDS: Clopidogrel Bisulfate 75 MG TAB PO SCH (09:02)
[2022-11-13] MEDS: Rosuvastatin 20 MG TAB PO SCH (09:02)
[2022-11-13] MEDS: Escitalopram Oxalate 20 mg Tablet PO SCH (09:02)
[2022-11-13] MEDS: Aspirin 81 mg Enteric Coated Tablet PO SCH (09:02)
[2022-11-13] MEDS: Lisinopril/Hydrochlorothiazide 20 mg/12.5 mg Tablet PO SCH ×2 (09:02→20:07)
[2022-11-13] MEDS: rOPINIRole HCl 0.5 MG TAB PO SCH (09:03)
[2022-11-13] MEDS: Sodium Chloride 0.9% 1,000 ML IV SCH ×3 (09:03→20:07)
[2022-11-13] MEDS: Fluticasone Propionate Nasal Spray 16 gm Bottle NASAL SCH ×2 (09:04→20:09)
[2022-11-13] MEDS: HumaLOG 300 UNITS/3 ML VIAL SC PRN (20:08)
[2022-11-13] MEDS: traZODone HCl 150 MG TAB PO SCH (20:09)
[2022-11-13] MEDS: Lidocaine 5% Patch TD SCH (20:10)
[2022-11-13] MEDS ORDERED: Lidocaine 5% Patch TD SCH (21:00)
[2022-11-14] MEDS ORDERED: Calcium Carbonate 500 MG ChewTAB PO SCH (00:45)
[2022-11-14] MEDS: Acetaminophen 500 MG TAB PO SCH ×4 (01:02→17:20)
[2022-11-14] MEDS: HumaLOG 300 UNITS/3 ML VIAL SC PRN ×3 (06:01→17:21)
[2022-11-14 08:12] LABS: Anion Gap 13 mmol/L (10-20); BUN (Urea Nitrogen) 28 mg/dL (9.8-20.1); Calc. Creatinine Clearance 77 mL/min (70-130); Calcium 8.6 mg/dL (7.8-10.44); Carbon Dioxide 21 mmol/L (22-29); Chloride 106 mmol/L (98-107); Estimated GFR 50; Glucose 142 mg/dL (70-105); Potassium 4.7 mmol/L (3.5-5.1); Sodium 135 mmol/L (136-145)
[2022-11-14] MEDS ORDERED: Transdermal Patch Removal TOP SCH ×2 (09:00→23:00)
[2022-11-14] MEDS: Fluticasone Propionate Nasal Spray 16 gm Bottle NASAL SCH ×2 (09:12→20:02)
[2022-11-14] MEDS: rOPINIRole HCl 0.5 MG TAB PO SCH (09:13)
[2022-11-14] MEDS: Rosuvastatin 20 MG TAB PO SCH (09:13)
[2022-11-14] MEDS: metFORMIN 500 MG TAB PO SCH (09:14)
[2022-11-14] MEDS: Sodium Chloride 0.9% 1,000 ML IV SCH ×3 (09:15→20:01)
[2022-11-14] MEDS: Clopidogrel Bisulfate 75 MG TAB PO SCH (09:15)
[2022-11-14] MEDS: Aspirin 81 mg Enteric Coated Tablet PO SCH (09:15)
[2022-11-14] MEDS: Escitalopram Oxalate 20 mg Tablet PO SCH (09:15)
[2022-11-14] MEDS: Lisinopril/Hydrochlorothiazide 20 mg/12.5 mg Tablet PO SCH (09:16)
[2022-11-14 09:23] LABS: #Eosinphils 0.5 thou/uL (0.0-0.7); #Lymphocytes 2.5 thou/uL (1.20-3.40); #Monocytes 0.5 thou/uL (0.11-0.59); %Basophils 0.4 % (0.0-1.0); %Eosinophils 5.6 % (0.0-10.0); %Monocytes 6.3 % (0.0-10.0); %Neutrophils 58.8 % (42.0-75.0); Hemoglobin 10.6 g/dL (12.0-16.0); Mean Corpuscular HGB CONC 34.6 g/dL (32.0-36.0); Mean Corpuscular Hemoglobin 29.4 pg (27.0-31.0); Mean Platelet Volume 8.3 fL (7.4-10.4); Platelet Count 267 10x3/uL (130-400); RBC Distribution Width 11.7 % (11.5-14.5); White Blood Cell (WBC) Count 8.5 10x3/uL (4.8-10.8)
[2022-11-14] MEDS ORDERED: Sodium Chloride 0.9% 500 ML IV SCH (10:45)
[2022-11-14] MEDS: Lidocaine 5% Patch TD SCH (11:41)
[2022-11-14 13:51] LABS: Campy jejuni + coli by PCR Negative (Negative); STEC Shiga Toxin 1+2 Negative (Negative); Salmonella spp. by PCR Negative (Negative); Shigella spp + EIEC by PCR Negative (Negative)
[2022-11-14] MEDS ORDERED: Loperamide HCl 2 MG CAP PO PRN (16:31)
[2022-11-14] MEDS ORDERED: Gabapentin 300 MG CAP PO SCH ×2 (16:41→17:00)
[2022-11-14] MEDS: Diclofenac 1% 100 GM GEL TP SCH ×2 (17:19→20:02)
[2022-11-15] MEDS: Acetaminophen 500 MG TAB PO SCH ×4 (00:14→18:28)
[2022-11-15] MEDS: Sodium Chloride 0.9% 1,000 ML IV SCH ×2 (05:41→08:29)
[2022-11-15 06:34] LABS: #Eosinphils 0.5 thou/uL (0.0-0.7); #Lymphocytes 2.5 thou/uL (1.20-3.40); #Monocytes 0.4 thou/uL (0.11-0.59); %Basophils 0.6 % (0.0-1.0); %Eosinophils 6.6 % (0.0-10.0); %Lymphocytes 33.7 % (21.0-51.0); %Monocytes 5.9 % (0.0-10.0); %Neutrophils 53.3 % (42.0-75.0); Hemoglobin 10.6 g/dL (12.0-16.0); Mean Corpuscular HGB CONC 33.9 g/dL (32.0-36.0); Mean Corpuscular Hemoglobin 28.7 pg (27.0-31.0); Mean Corpuscular Volume 84.8 fl (78.0-98.0); Mean Platelet Volume 7.7 fL (7.4-10.4); Platelet Count 242 10x3/uL (130-400); RBC Distribution Width 11.6 % (11.5-14.5); Red Blood Cell (RBC) Count 3.69 mill/uL (4.20-5.40); White Blood Cell (WBC) Count 7.5 10x3/uL (4.8-10.8)
[2022-11-15 06:52] LABS: Anion Gap 11 mmol/L (10-20); BUN (Urea Nitrogen) 19 mg/dL (9.8-20.1); Calc. Creatinine Clearance 119 mL/min (70-130); Calcium 8.8 mg/dL (7.8-10.44); Carbon Dioxide 18 mmol/L (22-29); Chloride 111 mmol/L (98-107); Estimated GFR 84; Glucose 139 mg/dL (70-105); Potassium 4.6 mmol/L (3.5-5.1); Sodium 135 mmol/L (136-145)
[2022-11-15] MEDS: Diclofenac 1% 100 GM GEL TP SCH ×3 (08:15→18:28)
[2022-11-15] MEDS: Clopidogrel Bisulfate 75 MG TAB PO SCH (08:16)
[2022-11-15] MEDS: Lisinopril/Hydrochlorothiazide 20 mg/12.5 mg Tablet PO SCH (08:16)
[2022-11-15] MEDS: rOPINIRole HCl 0.5 MG TAB PO SCH (08:16)
[2022-11-15] MEDS: Aspirin 81 mg Enteric Coated Tablet PO SCH (08:16)
[2022-11-15] MEDS: Rosuvastatin 20 MG TAB PO SCH (08:16)
[2022-11-15] MEDS: Escitalopram Oxalate 20 mg Tablet PO SCH (08:17)
[2022-11-15] MEDS: Fluticasone Propionate Nasal Spray 16 gm Bottle NASAL SCH (08:29)
[2022-11-15] MEDS ORDERED: Enoxaparin Sodium 40 MG/0.4 ML SYRINGE SC SCH (09:00)
[2022-11-15] MEDS ORDERED: Gabapentin 300 MG CAP PO SCH ×2 (09:00→15:00)
[2022-11-15] MEDS: Lidocaine 5% Patch TD SCH (12:00)
[2022-11-15] MEDS: HumaLOG 300 UNITS/3 ML VIAL SC PRN (12:01)
[2022-11-15 16:04] VITALS: BP 162/80; TEMP 97.4
== END 2022-11-15 20:10 | DRG 65 ==
LOC: ERS 22:05 → ERHOLD 23:28 → NEURO 11-12 16:19
PROVIDERS: ADMIT Family Medicine; ATTEND Family Medicine
DX: I63.512 Cerebral infarction due to unspecified occlusion or stenosis of left middle cerebral artery (principal); G81.94 Hemiplegia, unspecified affecting left nondominant side; I16.1 Hypertensive emergency; N17.9 Acute kidney failure, unspecified; R07.89 Other chest pain; K21.9 Gastro-esophageal reflux disease without esophagitis; E78.00 Pure hypercholesterolemia, unspecified; G40.909 Epilepsy, unspecified, not intractable, without status epilepticus; E11.9 Type 2 diabetes mellitus without complications; J45.909 Unspecified asthma, uncomplicated; E66.9 Obesity, unspecified; G43.909 Migraine, unspecified, not intractable, without status migrainosus; G25.81 Restless legs syndrome; F31.9 Bipolar disorder, unspecified; F41.9 Anxiety disorder, unspecified; D64.9 Anemia, unspecified; G89.29 Other chronic pain; F90.9 Attention-deficit hyperactivity disorder, unspecified type; F43.10 Post-traumatic stress disorder, unspecified; M54.12 Radiculopathy, cervical region; A08.4 Viral intestinal infection, unspecified; Z20.822 Contact with and (suspected) exposure to COVID-19; M48.02 Spinal stenosis, cervical region; Z91.018 Allergy to other foods; Z91.048 Other nonmedicinal substance allergy status; Z68.34 Body mass index [BMI] 34.0-34.9, adult; Z98.51 Tubal ligation status; Z98.890 Other specified postprocedural states; Z79.51 Long term (current) use of inhaled steroids; Z79.82 Long term (current) use of aspirin; Z79.899 Other long term (current) drug therapy; Z86.73 Personal history of transient ischemic attack (TIA), and cerebral infarction without residual deficits
CPT/HCPCS: 36415; 36416; 70450; 70496; 70498; 70551; 72141; 80048; 80053; 80061; 83036; 83630; 84443; 84484; 85025; 85610; 85730; 87324; 87449; 87505; 87804; 93005; 96374; J1650; J1815; J7030; J7050; Q9967; U0002

== ENCOUNTER 2023-01-18 13:31 | Outpatient (CLI) | payer OTHER | END 2023-01-18 13:32 | disposition home or self-care (01) | LOC: TBSIIMAG 13:31 | PROVIDERS: ATTEND Neurological Surgery | DX: M47.12 Other spondylosis with myelopathy, cervical region (principal); Z98.1 Arthrodesis status | CPT/HCPCS: 72050 ==

== ENCOUNTER 2023-01-30 13:21 | Emergency (ER) | payer OTHER ==
[2023-01-30] MEDS ORDERED: diphenhydrAMINE 50 MG/ML VIAL ONE (14:34)
[2023-01-30] MEDS ORDERED: Ketorolac Tromethamine 30 MG/ML VIAL ONE (14:34)
[2023-01-30] MEDS ORDERED: methylPREDNISolone Sod Succ/PF 125 MG/2 ML VIAL ONE (14:34)
[2023-01-30] MEDS ORDERED: Metoclopramide HCl 10 MG/2 ML VIAL ONE (14:34)
[2023-01-30 15:09] LABS: #Eosinphils 0.2 thou/uL (0.0-0.7); #Lymphocytes 2.3 thou/uL (1.20-3.40); #Monocytes 0.5 thou/uL (0.11-0.59); #Neutrophils 5.3 thou/uL (1.40-6.50); %Basophils 0.2 % (0.0-1.0); %Eosinophils 2.7 % (0.0-10.0); %Lymphocytes 27.7 % (21.0-51.0); %Monocytes 6.3 % (0.0-10.0); %Neutrophils 63.2 % (42.0-75.0); Hemoglobin 12.1 g/dL (12.0-16.0); Mean Corpuscular HGB CONC 33.6 g/dL (32.0-36.0); Mean Corpuscular Hemoglobin 27.9 pg (27.0-31.0); Mean Platelet Volume 8.2 fL (7.4-10.4); Platelet Count 332 10x3/uL (130-400); RBC Distribution Width 11.5 % (11.5-14.5); Red Blood Cell (RBC) Count 4.34 mill/uL (4.20-5.40); White Blood Cell (WBC) Count 8.4 10x3/uL (4.8-10.8)
[2023-01-30 15:33] LABS: Anion Gap 12 mmol/L (10-20); BUN (Urea Nitrogen) 16 mg/dL (9.8-20.1); Calc. Creatinine Clearance 0 mL/min (70-130); Calcium 9.3 mg/dL (7.8-10.44); Carbon Dioxide 23 mmol/L (22-29); Chloride 103 mmol/L (98-107); Estimated GFR 71; Glucose 224 mg/dL (70-105); Potassium 4.4 mmol/L (3.5-5.1); Sodium 134 mmol/L (136-145)
== END 2023-01-30 17:37 | disposition home or self-care (01) ==
LOC: ERS 13:21
DX: R51.9 Headache, unspecified (principal); K21.9 Gastro-esophageal reflux disease without esophagitis; E78.00 Pure hypercholesterolemia, unspecified; I10 Essential (primary) hypertension; E66.9 Obesity, unspecified; J45.909 Unspecified asthma, uncomplicated; E11.40 Type 2 diabetes mellitus with diabetic neuropathy, unspecified; Z79.4 Long term (current) use of insulin
CPT/HCPCS: 70450; 80048; 85025; 96374; 96375; J1200; J1885; J2765; J2930

== ENCOUNTER 2023-07-03 08:03 | Outpatient (CLI) | payer OTHER ==
[2023-07-03 09:41] LABS: Hematocrit 35.8 % (34.9-44.5); Hemoglobin 12.2 g/dL (12.0-15.5); Mean Corpuscular HGB CONC 34.1 g/dL (32.0-36.0); Mean Corpuscular Hemoglobin 27.7 pg (27.0-33.0); Mean Corpuscular Volume 81.2 fl (81.6-98.3); Platelet Count 310 10x3/uL (150-450); RBC Distribution Width 13.2 % (11.5-14.5); Red Blood Cell (RBC) Count 4.41 10x6/uL (3.90-5.03); White Blood Cell (WBC) Count 6.8 10x3/uL (3.5-10.5)
[2023-07-03 10:02] LABS: PTT 26.1 sec (22.0-33.0); Prothrombin Time 10.6 sec (9.5-12.1)
[2023-07-03 10:06] LABS: Anion Gap 15 mmol/L (10-20); BUN (Urea Nitrogen) 20 mg/dL (9.8-20.1); Calc. Creatinine Clearance 0 mL/min (70-130); Calcium 9.5 mg/dL (7.8-10.44); Carbon Dioxide 23 mmol/L (22-29); Chloride 106 mmol/L (98-107); Estimated GFR 62; Glucose 199 mg/dL (70-105); Potassium 5.4 mmol/L (3.5-5.1); Sodium 139 mmol/L (136-145)
== END 2023-07-03 08:04 | disposition home or self-care (01) ==
LOC: LABBT 08:03
PROVIDERS: ATTEND Neurological Surgery
DX: Z01.818 Encounter for other preprocedural examination (principal); M48.02 Spinal stenosis, cervical region
CPT/HCPCS: 80048; 85027; 85610; 85730; 93005; 93010

== ENCOUNTER 2023-07-05 05:44 | Inpatient (IN) | payer OTHER ==
[2023-07-05] MEDS ORDERED: Thrombin 5000 UNITS/5 ML VIAL ONE (06:10)
[2023-07-05] MEDS ORDERED: Vancomycin 1 GM VIAL ONE (06:10)
[2023-07-05] MEDS ORDERED: Bupivacaine PF 0.5% 30 ML VIAL ONE (06:10)
[2023-07-05] MEDS ORDERED: EPINEPHrine 1 MG/ML AMP ONE (06:10)
[2023-07-05] MEDS ORDERED: Sodium Chloride 0.9% 100 ML ONE (06:50)
[2023-07-05] MEDS ORDERED: CEFAZOLIN 2 GM VIAL ONE (06:50)
[2023-07-05] MEDS ORDERED: Midazolam HCl 2 mg/2 ml Vial ONE (06:51)
[2023-07-05] MEDS ORDERED: Vasopressin 20 UNITS/ML VIAL ONE (06:56)
[2023-07-05] MEDS ORDERED: Dexmedetomidine 200 MCG/2 ML VIAL ONE (06:56)
[2023-07-05] MEDS ORDERED: fentaNYL PF 100 MCG/2 ML SYRINGE ONE (06:56)
[2023-07-05] MEDS ORDERED: Vecuronium 10 MG VIAL ONE (07:00)
[2023-07-05] MEDS ORDERED: Rocuronium Bromide 10 MG/ML (10ML VIAL) ONE (07:00)
[2023-07-05] MEDS ORDERED: Lidocaine 1% PF 5 ML VIAL ONE (07:00)
[2023-07-05] MEDS ORDERED: PROPOFOL 200 MG/20 ML VIAL ONE (07:00)
[2023-07-05] MEDS ORDERED: PHENYLEPHRINE-NS 100 MCG/ML 10 ML SYRINGE ONE (07:00)
[2023-07-05] MEDS ORDERED: Labetalol HCl 100 MG/20 ML VIAL ONE (07:00)
[2023-07-05] MEDS ORDERED: HYDROmorphone 2 MG/ML VIAL ONE (10:04)
[2023-07-05] MEDS ORDERED: SUGAMMADEX SODIUM 200 MG/2 ML VIAL ONE (10:04)
[2023-07-05] MEDS ORDERED: PACU-Morphine 4MG/ML VIAL SLOW IVP PRN (10:24)
[2023-07-05] MEDS ORDERED: Promethazine HCl 25 MG/ML VIAL IM PRN (10:24)
[2023-07-05] MEDS ORDERED: Ondansetron HCl/PF 4 MG/2 ML Vial IVP PRN (10:24)
[2023-07-05] MEDS ORDERED: Mag-Al 1200 mg/1200 mg/30 ML UDCUP PO PRN (10:31)
[2023-07-05] MEDS ORDERED: Bisacodyl 10 MG SUPP PR PRN (10:31)
[2023-07-05] MEDS ORDERED: Acetaminophen/Codeine 30-300mg Tablet PO PRN (10:31)
[2023-07-05] MEDS ORDERED: HYDROcodone/Acetaminophen 7.5/325 mg Tablet PO PRN (10:31)
[2023-07-05] MEDS ORDERED: Prochlorperazine 10 MG/2 ML VIAL IM PRN (10:31)
[2023-07-05] MEDS ORDERED: Ondansetron PF 4 MG/2 ML Vial IVP PRN (10:31)
[2023-07-05] MEDS ORDERED: Milk Of Magnesia 30 ML UDCUP PO PRN (10:31)
[2023-07-05] MEDS ORDERED: tiZANidine HCl 4 MG TAB PO PRN (10:33)
[2023-07-05] MEDS ORDERED: fentaNYL 50 mcg/mL 1 mL Vial ONE (11:06)
[2023-07-05] MEDS ORDERED: Dextrose 50% Abboject 50 ML SYRINGE SLOW IVP PRN (11:57)
[2023-07-05] MEDS ORDERED: Dextrose 5% in Water 1,000 ML IV PRN (11:57)
[2023-07-05] MEDS ORDERED: Glucagon 1 MG/ML KIT IM PRN (11:57)
[2023-07-05] MEDS ORDERED: Insulin Regular 300 UNITS/3 ML VIAL ONE (12:20)
[2023-07-05] MEDS ORDERED: Insulin Regular 300 UNITS/3 ML VIAL SC SCH (12:30)
[2023-07-05] MEDS ORDERED: Labetalol HCl 100 MG/20 ML VIAL SLOW IVP SCH (12:30)
[2023-07-05] MEDS ORDERED: Labetalol HCl 100 MG/20 ML VIAL SLOW IVP PRN (13:00)
[2023-07-05] MEDS: Gabapentin 300 MG CAP PO SCH ×2 (13:52→20:50)
[2023-07-05] MEDS: Morphine 2 MG/ML VIAL SLOW IVP PRN ×3 (13:52→23:58)
[2023-07-05] MEDS: CEFAZOLIN 2 GM in Sodium Chloride 0.9% 100 ML IVPB SCH ×2 (13:53→23:33)
[2023-07-05] MEDS: Sodium Chloride 0.9% 1,000 ML IV SCH (13:58)
[2023-07-05] MEDS: HYDROcodone/Acetaminophen 10/325 mg Tablet PO PRN (15:22)
[2023-07-05] MEDS: HumaLOG 300 UNITS/3 ML VIAL SC PRN (18:14)
[2023-07-05] MEDS ORDERED: Famotidine 20 MG TAB PO PRN (19:00)
[2023-07-05] MEDS ORDERED: Albuterol 200 PUFF (6.7GM INHALER) INH PRN (19:00)
[2023-07-05] MEDS: Fluticasone Propionate Nasal Spray 16 gm Bottle NASAL SCH (20:50)
[2023-07-05] MEDS: Oxybutynin 5 MG TAB PO SCH (20:50)
[2023-07-05] MEDS ORDERED: Lisinopril/Hydrochlorothiazide 20 mg/12.5 mg Tablet PO SCH (21:00)
[2023-07-05] MEDS ORDERED: Propranolol 40 MG TAB PO SCH (21:00)
[2023-07-05] MEDS ORDERED: Sodium Chloride 0.9% 500 ML IV SCH (21:45)
[2023-07-05] MEDS: Prazosin HCl 1 MG CAP PO SCH (22:41)
[2023-07-06] MEDS: Sodium Chloride 0.9% 1,000 ML IV SCH ×2 (03:32→15:53)
[2023-07-06] MEDS ORDERED: tiZANidine HCl 4 MG TAB PO PRN (04:11)
[2023-07-06 08:54] LABS: #Monocytes 1.2 thou/uL (0.11-0.59); #Neutrophils 16.4 thou/uL (1.40-6.50); %Basophils 0.1 % (0.0-1.0); %Eosinophils 0.1 % (0.0-10.0); %Lymphocytes 8.5 % (21.0-51.0); %Monocytes 6.2 % (0.0-10.0); %Neutrophils 84.7 % (42.0-75.0); Hematocrit 32.3 % (36.0-47.0); Hemoglobin 10.7 g/dL (12.0-16.0); Mean Corpuscular HGB CONC 33.1 g/dL (32.0-36.0); Mean Corpuscular Hemoglobin 28.3 pg (27.0-31.0); Mean Corpuscular Volume 85.4 fl (78.0-98.0); Mean Platelet Volume 10.6 fL (7.4-10.4); Platelet Count 245 10x3/uL (130-400); RBC Distribution Width 13.2 % (11.5-14.5); Red Blood Cell (RBC) Count 3.78 mill/uL (4.20-5.40); White Blood Cell (WBC) Count 19.3 10x3/uL (4.8-10.8)
[2023-07-06 09:15] LABS: Anion Gap 13 mmol/L (10-20); BUN (Urea Nitrogen) 29 mg/dL (9.8-20.1); Calc. Creatinine Clearance 62 mL/min (70-130); Calcium 8.7 mg/dL (7.8-10.44); Carbon Dioxide 20 mmol/L (22-29); Chloride 102 mmol/L (98-107); Estimated GFR 44; Glucose 242 mg/dL (70-105); Potassium 5.3 mmol/L (3.5-5.1); Sodium 130 mmol/L (136-145)
[2023-07-06] MEDS: Rosuvastatin 20 MG TAB PO SCH (09:48)
[2023-07-06] MEDS: Lisinopril/Hydrochlorothiazide 20 mg/12.5 mg Tablet PO SCH ×2 (09:48→22:02)
[2023-07-06] MEDS: Gabapentin 300 MG CAP PO SCH ×3 (09:48→22:01)
[2023-07-06] MEDS: rOPINIRole HCl 0.5 MG TAB PO SCH (09:48)
[2023-07-06] MEDS: Propranolol 40 MG TAB PO SCH ×2 (09:48→22:03)
[2023-07-06] MEDS: HYDROcodone/Acetaminophen 10/325 mg Tablet PO PRN ×2 (09:49→18:49)
[2023-07-06] MEDS: Oxybutynin 5 MG TAB PO SCH ×2 (09:49→22:02)
[2023-07-06] MEDS: Escitalopram Oxalate 20 mg Tablet PO SCH (09:49)
[2023-07-06] MEDS: Fluticasone Propionate Nasal Spray 16 gm Bottle NASAL SCH ×2 (09:52→22:00)
[2023-07-06] MEDS ORDERED: Diazepam 5 MG TAB PO SCH (11:30)
[2023-07-06] MEDS ORDERED: Diazepam 5 MG TAB PO PRN (19:30)
[2023-07-06] MEDS: Prazosin HCl 1 MG CAP PO SCH (22:04)
[2023-07-06] MEDS: HumaLOG 300 UNITS/3 ML VIAL SC PRN (23:38)
[2023-07-07] MEDS: HumaLOG 300 UNITS/3 ML VIAL SC PRN ×3 (06:17→17:42)
[2023-07-07 06:28] LABS: #Basophils 0.1 thou/uL (0.0-0.2); #Eosinphils 0.1 thou/uL (0.0-0.7); #Monocytes 1.2 thou/uL (0.11-0.59); #Neutrophils 12.5 thou/uL (1.40-6.50); %Basophils 0.3 % (0.0-1.0); %Eosinophils 0.5 % (0.0-10.0); %Lymphocytes 10.7 % (21.0-51.0); %Monocytes 7.7 % (0.0-10.0); %Neutrophils 80.3 % (42.0-75.0); Hematocrit 28.5 % (36.0-47.0); Hemoglobin 9.5 g/dL (12.0-16.0); Mean Corpuscular HGB CONC 33.3 g/dL (32.0-36.0); Mean Corpuscular Hemoglobin 28.2 pg (27.0-31.0); Mean Corpuscular Volume 84.6 fl (78.0-98.0); Mean Platelet Volume 11.3 fL (7.4-10.4); Platelet Count 257 10x3/uL (130-400); Red Blood Cell (RBC) Count 3.37 mill/uL (4.20-5.40); White Blood Cell (WBC) Count 15.5 10x3/uL (4.8-10.8)
[2023-07-07 06:52] LABS: Anion Gap 14 mmol/L (10-20); BUN (Urea Nitrogen) 26 mg/dL (9.8-20.1); Calc. Creatinine Clearance 77 mL/min (70-130); Calcium 8.5 mg/dL (7.8-10.44); Carbon Dioxide 23 mmol/L (22-29); Chloride 101 mmol/L (98-107); Estimated GFR 57; Glucose 244 mg/dL (70-105); Potassium 4.5 mmol/L (3.5-5.1); Sodium 133 mmol/L (136-145)
[2023-07-07] MEDS: Sodium Chloride 0.9% 1,000 ML IV SCH ×2 (08:01→16:08)
[2023-07-07] MEDS: Propranolol 40 MG TAB PO SCH ×2 (09:17→21:52)
[2023-07-07] MEDS: Oxybutynin 5 MG TAB PO SCH ×2 (09:17→21:52)
[2023-07-07] MEDS: Fluticasone Propionate Nasal Spray 16 gm Bottle NASAL SCH ×2 (09:17→21:53)
[2023-07-07] MEDS: Rosuvastatin 20 MG TAB PO SCH (09:17)
[2023-07-07] MEDS: Gabapentin 300 MG CAP PO SCH ×3 (09:17→21:52)
[2023-07-07] MEDS: Lisinopril/Hydrochlorothiazide 20 mg/12.5 mg Tablet PO SCH ×2 (09:17→21:53)
[2023-07-07] MEDS: Escitalopram Oxalate 20 mg Tablet PO SCH (09:17)
[2023-07-07] MEDS: rOPINIRole HCl 0.5 MG TAB PO SCH (09:18)
[2023-07-07] MEDS: HYDROcodone/Acetaminophen 10/325 mg Tablet PO PRN ×3 (09:18→21:57)
[2023-07-07] MEDS ORDERED: Non-Formulary Item 1 EACH (Trazodone Hcl [Trazodone Hcl] 100 MG Tablet) PO SCH (21:00)
[2023-07-07] MEDS ORDERED: traZODone HCl 50 MG TAB PO SCH (21:00)
[2023-07-07] MEDS: Insulin Glargine 30 UNITS/0.3 ML VIAL SC SCH (21:52)
[2023-07-07] MEDS: Prazosin HCl 1 MG CAP PO SCH (21:53)
[2023-07-08] MEDS ORDERED: Rocuronium Bromide 10 MG/ML (10ML VIAL) ONE (00:38)
[2023-07-08] MEDS ORDERED: EPINEPHrine 1 MG/10 ML Abboject SYRINGE ONE (00:38)
[2023-07-08 00:43] LABS: #Eosinphils 0.2 thou/uL (0.0-0.7); #Monocytes 1.3 thou/uL (0.11-0.59); #Neutrophils 8.7 thou/uL (1.40-6.50); %Basophils 0.2 % (0.0-1.0); %Eosinophils 1.5 % (0.0-10.0); %Lymphocytes 21.6 % (21.0-51.0); %Monocytes 9.8 % (0.0-10.0); %Neutrophils 66.1 % (42.0-75.0); Hematocrit 26.3 % (36.0-47.0); Hemoglobin 8.8 g/dL (12.0-16.0); Mean Corpuscular HGB CONC 33.5 g/dL (32.0-36.0); Mean Corpuscular Hemoglobin 28.5 pg (27.0-31.0); Mean Corpuscular Volume 85.1 fl (78.0-98.0); Mean Platelet Volume 10.7 fL (7.4-10.4); Platelet Count 246 10x3/uL (130-400); RBC Distribution Width 13.1 % (11.5-14.5); Red Blood Cell (RBC) Count 3.09 mill/uL (4.20-5.40); White Blood Cell (WBC) Count 13.2 10x3/uL (4.8-10.8)
[2023-07-08 01:01] LABS: Lactic Acid 0.7 mmol/L (0.5-2.2)
[2023-07-08 01:05] LABS: ALT (SGPT) Less than 7 U/L (8-55); AST (SGOT) 16 U/L (5-34); Albumin 3.4 g/dL (3.5-5.0); Alkaline Phosphatase 90 U/L (40-110); Anion Gap 13 mmol/L (10-20); BUN (Urea Nitrogen) 37 mg/dL (9.8-20.1); Bilirubin, Total 0.6 mg/dL (0.2-1.2); Calc. Creatinine Clearance 53 mL/min (70-130); Calcium 8.5 mg/dL (7.8-10.44); Carbon Dioxide 26 mmol/L (22-29); Chloride 102 mmol/L (98-107); Estimated GFR 36; Globulin 3.4 g/dL (2.4-3.5); Glucose 198 mg/dL (70-105); Potassium 4.3 mmol/L (3.5-5.1); Protein, Total 6.8 g/dL (6.0-8.3); Sodium 137 mmol/L (136-145)
[2023-07-08 01:09] LABS: Troponin I Less than 0.010 ng/mL (< 0.028)
[2023-07-08 01:36] LABS: Actual Bicarbonate (HCO3a) 24.1 mEq/L (22-28); Base Excess (BEa) -0.3 mEq/L (-2.0 to +3.0); CO2 Tension 38.3 mmHg (35.0-45.0); Calcium, Ionized (arterial) 1.09 mmol/L (1.12-1.30); Carboxyhemoglobin (COHb) 0.4 gm% (0.0-3.0); Hematocrit-ABG 36 % (36.0-47.0); Hemoglobin (Hb) 12.1 g/dL (12.0-16.0); O2 Tension (PaO2), arterial 148.3 mmHg (80.0-100.0); Potassium - ABG Lab 3.99 mmol/L (3.70-5.30); pH, Arterial 7.416 (7.35-7.45)
[2023-07-08 01:38] LABS: Puncture Site LRA
[2023-07-08 01:39] LABS: ALV-art Gradient 231.625 mmHg (0-20)
[2023-07-08] MEDS ORDERED: Ventilator Sedation Protocol 1 EACH FS SCH (01:45)
[2023-07-08] MEDS ORDERED: Propofol 1,000 MG/100 ML VIAL IV ONE (01:47)
[2023-07-08] MEDS ORDERED: Morphine 2 MG/ML VIAL SLOW IVP PRN (02:00)
[2023-07-08] MEDS: Propofol 1,000 MG/100 ML VIAL IV PRN ×2 (02:00→08:35)
[2023-07-08] MEDS ORDERED: Fentanyl CADD 100 ML IV SCH (02:00)
[2023-07-08] MEDS ORDERED: Fentanyl BOLUS 250 ML IVPB PRN (02:00)
[2023-07-08] MEDS ORDERED: Lorazepam 2 MG/ML VIAL SLOW IVP PRN (02:00)
[2023-07-08] MEDS ORDERED: levETIRAcetam 500 MG/5 ML VIAL SLOW IVP SCH (02:00)
[2023-07-08] MEDS ORDERED: DISCONTINUE PREVIOUS NARCOTIC PAIN MEDICATIONS AND BENZODIAZEPINES FS SCH (02:00)
[2023-07-08] MEDS ORDERED: Propofol BOLUS 1,000 MG/100 ML VIAL IV PRN (02:00)
[2023-07-08 02:20] LABS: #Eosinphils 0.1 thou/uL (0.0-0.7); #Monocytes 0.8 thou/uL (0.11-0.59); %Basophils 0.3 % (0.0-1.0); %Eosinophils 1.2 % (0.0-10.0); %Lymphocytes 11.8 % (21.0-51.0); %Monocytes 6.6 % (0.0-10.0); Hematocrit 27.4 % (36.0-47.0); Hemoglobin 9.4 g/dL (12.0-16.0); Mean Corpuscular HGB CONC 34.3 g/dL (32.0-36.0); Mean Corpuscular Hemoglobin 28.2 pg (27.0-31.0); Mean Platelet Volume 10.8 fL (7.4-10.4); Platelet Count 211 10x3/uL (130-400); Red Blood Cell (RBC) Count 3.33 mill/uL (4.20-5.40); White Blood Cell (WBC) Count 11.4 10x3/uL (4.8-10.8)
[2023-07-08 02:31] LABS: Mean Corpuscular Volume 82.3 fl (78.0-98.0)
[2023-07-08 02:39] LABS: Lactic Acid 0.8 mmol/L (0.5-2.2)
[2023-07-08 02:47] LABS: ALT (SGPT) Less than 7 U/L (8-55); AST (SGOT) 17 U/L (5-34); Albumin 3.5 g/dL (3.5-5.0); Alkaline Phosphatase 92 U/L (40-110); Anion Gap 17 mmol/L (10-20); BUN (Urea Nitrogen) 33 mg/dL (9.8-20.1); Bilirubin, Total 0.6 mg/dL (0.2-1.2); Calc. Creatinine Clearance 57 mL/min (70-130); Calcium 8.4 mg/dL (7.8-10.44); Carbon Dioxide 19 mmol/L (22-29); Chloride 102 mmol/L (98-107); Estimated GFR 40; Globulin 3.2 g/dL (2.4-3.5); Glucose 193 mg/dL (70-105); Protein, Total 6.7 g/dL (6.0-8.3); Sodium 134 mmol/L (136-145)
[2023-07-08 03:16] LABS: Bacteria/HPF 4+ HPF (None Seen); Bilirubin Negative (Negative); Blood, Urine Trace (Negative); CAUTI Indications for Culture Alt mental st,lethar; Clarity Extra Turbid (Clear); Glucose, Urine (Dipstick) 200 mg/dL (Negative); Ketone, Urine Trace mg/dL (Negative); Leukocyte 500 Leu/uL (Negative); Nitrite Negative (Negative); Protein, Urine (Dipstick) 10 mg/dL (Neg-Trace); RBC/HPF 0-3 HPF (0-3); Specific Gravity, Urine 1.013 (1.002-1.036); Urobilinogen Normal mg/dL (Less than 2); WBC/HPF Greater than 50 HPF (0-3); pH, Urine 5.5 (5.0-9.0)
[2023-07-08 03:19] LABS: Urine Culture Reflex Yes Yes
[2023-07-08] MEDS ORDERED: Ipratropium/Albuterol 3 ML NEB NEB PRN (03:22)
[2023-07-08] MEDS: Cefepime 1 GM in Sodium Chloride 0.9% 100 ML IVPB SCH ×2 (05:00→16:03)
[2023-07-08] MEDS: Sodium Chloride 0.9% 1,000 ML IV SCH ×2 (05:01→16:02)
[2023-07-08] MEDS: levETIRAcetam 500 MG/5 ML VIAL SLOW IVP SCH ×2 (08:35→20:21)
[2023-07-08] MEDS: rOPINIRole HCl 0.5 MG TAB PO SCH (08:36)
[2023-07-08] MEDS: Escitalopram Oxalate 20 mg Tablet PO SCH (08:36)
[2023-07-08] MEDS: Gabapentin 300 MG CAP PO SCH ×3 (08:36→20:19)
[2023-07-08] MEDS: Fluticasone Propionate Nasal Spray 16 gm Bottle NASAL SCH ×2 (08:37→20:19)
[2023-07-08] MEDS: Rosuvastatin 20 MG TAB PO SCH (08:37)
[2023-07-08] MEDS: Oxybutynin 5 MG TAB PO SCH ×2 (08:37→20:26)
[2023-07-08] MEDS: Propranolol 40 MG TAB PO SCH ×2 (08:37→20:21)
[2023-07-08] MEDS: Lisinopril/Hydrochlorothiazide 20 mg/12.5 mg Tablet PO SCH ×2 (08:37→20:25)
[2023-07-08] MEDS ORDERED: Pantoprazole 40 MG VIAL IVP SCH (09:00)
[2023-07-08] MEDS ORDERED: Iopamidol-370 76% 500 ML MDV (1 ML CHARGE) ONE (09:32)
[2023-07-08] MEDS: Ipratropium/Albuterol 3 ML NEB NEB SCH ×3 (15:13→23:40)
[2023-07-08] MEDS: Insulin Glargine 30 UNITS/0.3 ML VIAL SC SCH (20:20)
[2023-07-08] MEDS: Prazosin HCl 1 MG CAP PO SCH (20:21)
[2023-07-09 03:32] LABS: #Eosinphils 0.2 thou/uL (0.0-0.7); #Monocytes 0.7 thou/uL (0.11-0.59); #Neutrophils 7.4 thou/uL (1.40-6.50); %Basophils 0.4 % (0.0-1.0); %Eosinophils 2.3 % (0.0-10.0); %Lymphocytes 17.3 % (21.0-51.0); %Neutrophils 72.2 % (42.0-75.0); Hematocrit 27.7 % (36.0-47.0); Hemoglobin 9.1 g/dL (12.0-16.0); Mean Corpuscular HGB CONC 32.9 g/dL (32.0-36.0); Mean Corpuscular Volume 85.2 fl (78.0-98.0); Mean Platelet Volume 10.7 fL (7.4-10.4); Platelet Count 260 10x3/uL (130-400); RBC Distribution Width 12.9 % (11.5-14.5); Red Blood Cell (RBC) Count 3.25 mill/uL (4.20-5.40); White Blood Cell (WBC) Count 10.2 10x3/uL (4.8-10.8)
[2023-07-09 03:57] LABS: Anion Gap 13 mmol/L (10-20); BUN (Urea Nitrogen) 26 mg/dL (9.8-20.1); Calc. Creatinine Clearance 96 mL/min (70-130); Calcium 8.5 mg/dL (7.8-10.44); Carbon Dioxide 22 mmol/L (22-29); Chloride 107 mmol/L (98-107); Estimated GFR 74; Glucose 114 mg/dL (70-105); Sodium 138 mmol/L (136-145)
[2023-07-09] MEDS: Cefepime 1 GM in Sodium Chloride 0.9% 100 ML IVPB SCH (05:16)
[2023-07-09] MEDS: Ipratropium/Albuterol 3 ML NEB NEB SCH ×3 (08:02→18:08)
[2023-07-09] MEDS: Fluticasone Propionate Nasal Spray 16 gm Bottle NASAL SCH ×2 (08:47→20:08)
[2023-07-09] MEDS: levETIRAcetam 500 MG/5 ML VIAL SLOW IVP SCH ×2 (08:49→20:09)
[2023-07-09] MEDS: rOPINIRole HCl 0.5 MG TAB PO SCH (08:49)
[2023-07-09] MEDS: Gabapentin 300 MG CAP PO SCH ×2 (08:49→20:08)
[2023-07-09] MEDS: Oxybutynin 5 MG TAB PO SCH ×2 (08:49→20:09)
[2023-07-09] MEDS: Lisinopril/Hydrochlorothiazide 20 mg/12.5 mg Tablet PO SCH ×2 (08:49→20:09)
[2023-07-09] MEDS: Rosuvastatin 20 MG TAB PO SCH (08:49)
[2023-07-09] MEDS: Propranolol 40 MG TAB PO SCH ×2 (08:50→20:09)
[2023-07-09] MEDS: Sodium Chloride 0.9% 1,000 ML IV SCH ×2 (08:50→20:35)
[2023-07-09] MEDS: Escitalopram Oxalate 20 mg Tablet PO SCH (08:50)
[2023-07-09] MEDS: Cefepime 2 GM in Sodium Chloride 0.9% 100 ML IVPB SCH (16:49)
[2023-07-09] MEDS: Prazosin HCl 1 MG CAP PO SCH (20:09)
[2023-07-09] MEDS: Insulin Glargine 30 UNITS/0.3 ML VIAL SC SCH (20:11)
[2023-07-10] MEDS: Ipratropium/Albuterol 3 ML NEB NEB SCH ×5 (00:10→23:56)
[2023-07-10] MEDS: Cefepime 2 GM in Sodium Chloride 0.9% 100 ML IVPB SCH (05:47)
[2023-07-10] MEDS: levETIRAcetam 500 MG/5 ML VIAL SLOW IVP SCH ×2 (08:28→21:03)
[2023-07-10] MEDS: Oxybutynin 5 MG TAB PO SCH ×2 (08:28→08:29)
[2023-07-10] MEDS: Rosuvastatin 20 MG TAB PO SCH (08:28)
[2023-07-10] MEDS: rOPINIRole HCl 0.5 MG TAB PO SCH (08:28)
[2023-07-10] MEDS: Propranolol 40 MG TAB PO SCH ×2 (08:28→21:03)
[2023-07-10] MEDS: Lisinopril/Hydrochlorothiazide 20 mg/12.5 mg Tablet PO SCH ×2 (08:28→21:03)
[2023-07-10] MEDS: Escitalopram Oxalate 20 mg Tablet PO SCH (08:28)
[2023-07-10] MEDS: Gabapentin 300 MG CAP PO SCH ×2 (08:29→21:02)
[2023-07-10] MEDS: Fluticasone Propionate Nasal Spray 16 gm Bottle NASAL SCH ×2 (08:29→21:02)
[2023-07-10] MEDS ORDERED: Nitrofurantoin Monohyd/M-Cryst 100 MG CAP PO SCH ×2 (09:30→21:00)
[2023-07-10] MEDS: Sodium Chloride 0.9% 1,000 ML IV SCH (10:15)
[2023-07-10 12:50] VITALS: BMI 29.9
[2023-07-10] MEDS ORDERED: Meropenem 1 GM in Sodium Chloride 0.9% 100 ML IVPB SCH ×2 (14:30→22:00)
[2023-07-10] MEDS: Insulin Glargine 30 UNITS/0.3 ML VIAL SC SCH (21:02)
[2023-07-10] MEDS: Prazosin HCl 1 MG CAP PO SCH (21:03)
[2023-07-10] MEDS: Meropenem 1 GM in Sodium Chloride 0.9% 100 ML IVPB SCH (21:04)
[2023-07-11 03:54] LABS: Hematocrit 26.5 % (36.0-47.0); Mean Corpuscular Volume 82.6 fl (78.0-98.0); Mean Platelet Volume 9.8 fL (7.4-10.4); Platelet Count 283 10x3/uL (130-400); RBC Distribution Width 12.6 % (11.5-14.5); Red Blood Cell (RBC) Count 3.21 mill/uL (4.20-5.40); White Blood Cell (WBC) Count 10.1 10x3/uL (4.8-10.8)
[2023-07-11 04:18] LABS: Anion Gap 11 mmol/L (10-20); BUN (Urea Nitrogen) 22 mg/dL (9.8-20.1); Calc. Creatinine Clearance 76 mL/min (70-130); Calcium 8.9 mg/dL (7.8-10.44); Carbon Dioxide 27 mmol/L (22-29); Chloride 104 mmol/L (98-107); Estimated GFR 57; Glucose 150 mg/dL (70-105); Potassium 3.9 mmol/L (3.5-5.1); Sodium 138 mmol/L (136-145)
[2023-07-11 04:20] VITALS: TEMP 98.2
[2023-07-11] MEDS: Meropenem 1 GM in Sodium Chloride 0.9% 100 ML IVPB SCH ×2 (05:44→14:56)
[2023-07-11] MEDS ORDERED: hydrALAZINE 20 MG/ML VIAL SLOW IVP PRN (06:31)
[2023-07-11] MEDS: Ipratropium/Albuterol 3 ML NEB NEB SCH ×2 (06:52→14:41)
[2023-07-11] MEDS: Propranolol 40 MG TAB PO SCH (09:00)
[2023-07-11] MEDS: Lisinopril/Hydrochlorothiazide 20 mg/12.5 mg Tablet PO SCH (09:00)
[2023-07-11] MEDS: rOPINIRole HCl 0.5 MG TAB PO SCH (09:42)
[2023-07-11] MEDS: Oxybutynin 5 MG TAB PO SCH (09:42)
[2023-07-11] MEDS: Escitalopram Oxalate 20 mg Tablet PO SCH (09:43)
[2023-07-11] MEDS: Rosuvastatin 20 MG TAB PO SCH (09:43)
[2023-07-11] MEDS: Gabapentin 300 MG CAP PO SCH (09:44)
[2023-07-11] MEDS: Acetaminophen 325 MG TAB PO PRN ×2 (09:45→16:04)
[2023-07-11] MEDS: Fluticasone Propionate Nasal Spray 16 gm Bottle NASAL SCH (09:45)
[2023-07-11] MEDS: levETIRAcetam 500 MG/5 ML VIAL SLOW IVP SCH (09:47)
[2023-07-11 10:58] VITALS: BP 103/61
[2023-07-11] MEDS ORDERED: levETIRAcetam 500 MG TAB PO SCH (21:00)
== END 2023-07-11 18:00 | DRG 518 ==
LOC: SDC 05:44 → SURG A 13:31 → OBSVTOIN 07-06 11:31 → CCU 07-08 01:14
PROVIDERS: ADMIT Neurological Surgery; ATTEND Hospitalist
PROC: 00NW0ZZ Release Cervical Spinal Cord, Open Approach (ICD-10-PCS; 2023-07-05)
PROC: 3E033XZ Introduction of Vasopressor into Peripheral Vein, Percutaneous Approach (ICD-10-PCS; 2023-07-06)
PROC: 0BH17EZ Insertion of Endotracheal Airway into Trachea, Via Natural or Artificial Opening (ICD-10-PCS; principal; 2023-07-08)
PROC: 5A1935Z Respiratory Ventilation, Less than 24 Consecutive Hours (ICD-10-PCS; 2023-07-08)
PROC: 4A033R1 Measurement of Arterial Saturation, Peripheral, Percutaneous Approach (ICD-10-PCS; 2023-07-08)
DX: M48.02 Spinal stenosis, cervical region (principal); G92.8 Other toxic encephalopathy; J96.01 Acute respiratory failure with hypoxia; M47.12 Other spondylosis with myelopathy, cervical region; N17.9 Acute kidney failure, unspecified; J98.11 Atelectasis; Z16.24 Resistance to multiple antibiotics; G93.1 Anoxic brain damage, not elsewhere classified; Z16.12 Extended spectrum beta lactamase (ESBL) resistance; E78.00 Pure hypercholesterolemia, unspecified; G89.29 Other chronic pain; F32.A Depression, unspecified; I10 Essential (primary) hypertension; F41.9 Anxiety disorder, unspecified; G43.909 Migraine, unspecified, not intractable, without status migrainosus; G40.909 Epilepsy, unspecified, not intractable, without status epilepticus; M19.90 Unspecified osteoarthritis, unspecified site; J45.909 Unspecified asthma, uncomplicated; M62.838 Other muscle spasm; I95.9 Hypotension, unspecified; D72.829 Elevated white blood cell count, unspecified; E87.5 Hyperkalemia; E11.65 Type 2 diabetes mellitus with hyperglycemia; F90.9 Attention-deficit hyperactivity disorder, unspecified type; K21.9 Gastro-esophageal reflux disease without esophagitis; F43.10 Post-traumatic stress disorder, unspecified; I16.0 Hypertensive urgency; G47.33 Obstructive sleep apnea (adult) (pediatric); B96.1 Klebsiella pneumoniae [K. pneumoniae] as the cause of diseases classified elsewhere; D63.8 Anemia in other chronic diseases classified elsewhere; N30.90 Cystitis, unspecified without hematuria; Z96.611 Presence of right artificial shoulder joint; Z96.612 Presence of left artificial shoulder joint; Z98.51 Tubal ligation status; Z82.49 Family history of ischemic heart disease and other diseases of the circulatory system; Z86.73 Personal history of transient ischemic attack (TIA), and cerebral infarction without residual deficits; Z83.3 Family history of diabetes mellitus; Z91.018 Allergy to other foods; Z91.048 Other nonmedicinal substance allergy status; Z79.82 Long term (current) use of aspirin; Z79.4 Long term (current) use of insulin; Z79.899 Other long term (current) drug therapy
CPT/HCPCS: 36415; 36416; 36600; 70450; 70551; 71045; 71275; 80048; 81001; 82010; 82805; 83605; 84484; 85025; 85027; 87040; 87077; 87086; 87186; 93970; 94002; 94640; 96365; 96375; 96376; C9113; G0378; J0171; J0692; J1170; J1815; J1953; J2185; J2250; J2272; J2405; J2704; J3010; J3370; J3490; J7050; J7620; Q9967; S0020

== ENCOUNTER 2023-10-06 19:18 | Observation (INO) | payer OTHER ==
[2023-10-06 19:57] LABS: #Eosinphils 0.2 thou/uL (0.0-0.7); #Monocytes 0.6 thou/uL (0.11-0.59); #Neutrophils 5.5 thou/uL (1.40-6.50); %Basophils 0.5 % (0.0-1.0); %Eosinophils 2.3 % (0.0-10.0); %Lymphocytes 27.3 % (21.0-51.0); %Monocytes 6.8 % (0.0-10.0); %Neutrophils 62.6 % (42.0-75.0); Hematocrit 29.5 % (36.0-47.0); Hemoglobin 9.7 g/dL (12.0-16.0); Mean Corpuscular HGB CONC 32.9 g/dL (32.0-36.0); Mean Corpuscular Hemoglobin 26.5 pg (27.0-31.0); Mean Corpuscular Volume 80.6 fl (78.0-98.0); Mean Platelet Volume 10.5 fL (7.4-10.4); Platelet Count 317 10x3/uL (130-400); RBC Distribution Width 14.5 % (11.5-14.5); Red Blood Cell (RBC) Count 3.66 mill/uL (4.20-5.40); White Blood Cell (WBC) Count 8.8 10x3/uL (4.8-10.8)
[2023-10-06 20:21] LABS: ALT (SGPT) 81 U/L (8-55); AST (SGOT) 56 U/L (5-34); Alkaline Phosphatase 130 U/L (40-110); Anion Gap 14 mmol/L (10-20); BUN (Urea Nitrogen) 18 mg/dL (9.8-20.1); Bilirubin, Total 0.3 mg/dL (0.2-1.2); Calc. Creatinine Clearance 0 mL/min (70-130); Calcium 9.1 mg/dL (7.8-10.44); Carbon Dioxide 21 mmol/L (22-29); Chloride 100 mmol/L (98-107); Estimated GFR 39; Globulin 4.3 g/dL (2.4-3.5); Lipase 76 U/L (8-78); Potassium 4.3 mmol/L (3.5-5.1); Protein, Total 8.3 g/dL (6.0-8.3); Sodium 131 mmol/L (136-145)
[2023-10-06 20:22] LABS: Glucose 559 mg/dL (70-105)
[2023-10-06 20:23] LABS: Troponin I Less than 0.010 ng/mL (< 0.028)
[2023-10-06] MEDS ORDERED: LORazepam 2 MG/ML SYR.(CARPUJECT) ONE (20:35)
[2023-10-06] MEDS ORDERED: Aspirin Chewable 81 MG TAB ONE (20:35)
[2023-10-06] MEDS ORDERED: Nitroglycerin 0.4 MG TAB (25 Tab Bottle) ONE (20:35)
[2023-10-06] MEDS ORDERED: Metoprolol Tartrate 5 MG/5 ML VIAL ONE (20:35)
[2023-10-06] MEDS ORDERED: Nitroglycerin 2% Ointment 1 INCH/1 GM Packet ONE (20:35)
[2023-10-06] MEDS ORDERED: Dextrose 50% Abboject 50 ML SYRINGE SLOW IVP PRN (21:43)
[2023-10-06] MEDS ORDERED: Glucagon 1 MG/ML KIT IM PRN (21:43)
[2023-10-06] MEDS ORDERED: Dextrose 5% in Water 1,000 ML IV PRN (21:43)
[2023-10-06] MEDS ORDERED: HumaLOG 300 UNITS/3 ML VIAL SC PRN (21:48)
[2023-10-06] MEDS ORDERED: Ondansetron ODT 4 MG TAB PO PRN (21:48)
[2023-10-06] MEDS ORDERED: Acetaminophen 325 MG TAB PO PRN (21:48)
[2023-10-06] MEDS ORDERED: Calcium Carbonate 500 MG ChewTAB PO PRN (21:48)
[2023-10-06] MEDS ORDERED: Nitroglycerin 0.4 MG TAB (25 Tab Bottle) SL PRN (21:54)
[2023-10-06] MEDS ORDERED: Prochlorperazine 10 MG/2 ML VIAL ONE (21:58)
[2023-10-06] MEDS ORDERED: Insulin Glargine 30 UNITS/0.3 ML VIAL SC SCH (22:00)
[2023-10-06] MEDS ORDERED: Lidocaine 4% Patch TD SCH (22:00)
[2023-10-06] MEDS ORDERED: hydrALAZINE 20 MG/ML VIAL SLOW IVP PRN (22:29)
[2023-10-06 23:06] VITALS: BMI 28.2
[2023-10-07 00:12] LABS: Troponin I Less than 0.010 ng/mL (< 0.028)
[2023-10-07 03:44] LABS: ALT (SGPT) 71 U/L (8-55); AST (SGOT) 46 U/L (5-34); Albumin 3.6 g/dL (3.5-5.0); Alkaline Phosphatase 117 U/L (40-110); Anion Gap 12 mmol/L (10-20); BUN (Urea Nitrogen) 15 mg/dL (9.8-20.1); Bilirubin, Total 0.3 mg/dL (0.2-1.2); Calc. Creatinine Clearance 73 mL/min (70-130); Calcium 8.9 mg/dL (7.8-10.44); Carbon Dioxide 21 mmol/L (22-29); Cardiac Risk 4.9 (Less than 4.5); Chloride 104 mmol/L (98-107); Cholesterol 156 mg/dl (< 200 Desired); Estimated GFR 58; Globulin 3.8 g/dL (2.4-3.5); HDL Cholesterol 32 mg/dL (>60 Neg Risk); LDL Cholesterol, Calculated 95 mg/dL; Potassium 4.2 mmol/L (3.5-5.1); Protein, Total 7.4 g/dL (6.0-8.3); Sodium 133 mmol/L (136-145); Triglycerides 144 mg/dL (Less than 150)
[2023-10-07 03:47] LABS: Glucose 445 mg/dL (70-105); Troponin I Less than 0.010 ng/mL (< 0.028)
[2023-10-07] MEDS ORDERED: Lactated Ringer's 1,000 ML IV SCH (05:15)
[2023-10-07] MEDS ORDERED: HumaLOG 300 UNITS/3 ML VIAL ONE (06:10)
[2023-10-07] MEDS: HumaLOG 300 UNITS/3 ML VIAL SC PRN ×2 (06:15→12:41)
[2023-10-07] MEDS ORDERED: Transdermal Patch Removal TOP SCH ×2 (10:00→21:00)
[2023-10-07] MEDS ORDERED: Dulaglutide [Trulicity] 1.5 MG/0.5 ML Pen.Inj SC SCH (12:00)
[2023-10-07] MEDS ORDERED: Albuterol 200 PUFF (6.7GM INHALER) INH PRN (12:13)
[2023-10-07] MEDS ORDERED: Non-Formulary Item 1 EACH (Lidocaine [Lidocaine 5% Patch] 1 EACH Adh..Patch) TOP PRN (12:13)
[2023-10-07] MEDS ORDERED: Non-Formulary Item 1 EACH (Dulaglutide [Trulicity] 1.5 MG/0.5 ML Pen.Injctr) SC SCH (12:15)
[2023-10-07] MEDS ORDERED: Non-Formulary Item 1 EACH (Gabapentin [Gabapentin] 600 MG Tablet) PO SCH (12:15)
[2023-10-07] MEDS ORDERED: Lidocaine 4% Patch TD PRN (12:42)
[2023-10-07] MEDS ORDERED: Gabapentin 300 MG CAP ONE (13:43)
[2023-10-07] MEDS ORDERED: Gabapentin 300 MG CAP PO SCH (14:00)
[2023-10-07 14:24] LABS: Amphetamine Not Detected (NotDetected); Barbiturates Screen Not Detected (NotDetected); Benzodiazepine Screen Detected (NotDetected); Cocaine Metabolite Screen Not Detected (NotDetected); Methadone Not Detected (NotDetected); Methamphetamine Not Detected (NotDetected); Opiate Screen Detected (NotDetected); Oxycodone Screen Not Detected (NotDetected); Phencyclidine (PCP) Not Detected (NotDetected); THC/Cannabinoid Screen Not Detected (NotDetected); Tricyclic Screen Not Detected (NotDetected)
[2023-10-07 16:54] VITALS: BP 154/86; TEMP 98.3
[2023-10-07] MEDS ORDERED: Propranolol 40 MG TAB PO SCH (21:00)
[2023-10-07] MEDS ORDERED: Hydrochlorothiazide 25 MG TAB PO SCH (21:00)
[2023-10-07] MEDS ORDERED: Lisinopril 20 MG TAB PO SCH (21:00)
[2023-10-07] MEDS ORDERED: traZODone HCl 150 MG TAB PO SCH (21:00)
[2023-10-07] MEDS ORDERED: LURASIDONE 40 MG PO SCH (21:00)
[2023-10-07] MEDS ORDERED: levETIRAcetam 500 MG TAB PO SCH (21:00)
[2023-10-07] MEDS ORDERED: Non-Formulary Item 1 EACH (Prazosin Hcl [Prazosin Hcl] 2 MG Capsule) PO SCH (21:00)
[2023-10-07] MEDS ORDERED: Non-Formulary Item 1 EACH (Amlodipine Besylate [Norvasc] 2.5 MG Tablet) PO SCH (21:00)
[2023-10-07] MEDS ORDERED: Non-Formulary Item 1 EACH (Ferrous Sulfate [Ferosul] 325 MG Tablet) PO SCH (21:00)
[2023-10-07] MEDS ORDERED: Non-Formulary Item 1 EACH (Lisinopril/Hydrochlorothiazide [Lisinopril-Hctz 20-12.5 Mg Tab PO SCH (21:00)
[2023-10-07] MEDS ORDERED: Fluticasone Propionate Nasal Spray 16 gm Bottle NASAL SCH (21:00)
[2023-10-07] MEDS ORDERED: Rosuvastatin 20 MG TAB PO SCH (21:00)
[2023-10-07] MEDS ORDERED: Lurasidone 20 MG TABLET PO SCH (21:00)
[2023-10-07] MEDS ORDERED: Non-Formulary Item 1 EACH (Fluticasone Propionate [Flonase Allergy Relief] 9.9 ML Bottle) EA NARE SCH (21:00)
[2023-10-07] MEDS ORDERED: Non-Formulary Item 1 EACH (Trazodone Hcl [Trazodone Hcl] 100 MG Tablet) PO SCH (21:00)
[2023-10-07] MEDS ORDERED: Insulin Glargine 30 UNITS/0.3 ML VIAL SC SCH (21:00)
[2023-10-07] MEDS ORDERED: Prazosin HCl 1 MG CAP PO SCH (21:00)
[2023-10-07] MEDS ORDERED: Oxybutynin 5 MG TAB PO SCH (21:00)
[2023-10-07] MEDS ORDERED: Amlodipine 5 MG TAB PO SCH (21:00)
[2023-10-07] MEDS ORDERED: Ferrous Sulfate 325 MG TAB PO SCH (21:00)
[2023-10-08] MEDS ORDERED: Benztropine 1 MG TAB PO SCH (09:00)
[2023-10-08] MEDS ORDERED: Non-Formulary Item 1 EACH (Benztropine Mesylate [Benztropine Mesylate] 0.5 MG Tablet) PO SCH (09:00)
[2023-10-08] MEDS ORDERED: RIMEGEPANT SULFATE 75 MG PO SCH (09:00)
[2023-10-08] MEDS ORDERED: Loratadine 10 MG TAB PO SCH (09:00)
[2023-10-08] MEDS ORDERED: Clopidogrel Bisulfate 75 MG TAB PO SCH (09:00)
[2023-10-08] MEDS ORDERED: Aspirin 81 mg Enteric Coated Tablet PO SCH (09:00)
[2023-10-08] MEDS ORDERED: Empagliflozin 25 MG TAB PO SCH (09:00)
[2023-10-08] MEDS ORDERED: Non-Formulary Item 1 EACH (Rosuvastatin Calcium [Rosuvastatin Calcium] 40 MG Tablet) PO SCH (09:00)
[2023-10-08] MEDS ORDERED: Non-Formulary Item 1 EACH (Rimegepant Sulfate [Nurtec Odt] 75 MG Tab.Rapdis) PO SCH (09:00)
== END 2023-10-07 18:13 | disposition home or self-care (01) ==
LOC: ERS 19:18 → ERHOLD 21:00
PROVIDERS: ADMIT Emergency Medicine; ATTEND Emergency Medicine
DX: R07.89 Other chest pain (principal); E11.65 Type 2 diabetes mellitus with hyperglycemia; I10 Essential (primary) hypertension; E78.5 Hyperlipidemia, unspecified; E11.42 Type 2 diabetes mellitus with diabetic polyneuropathy; F32.A Depression, unspecified; G43.909 Migraine, unspecified, not intractable, without status migrainosus; H53.8 Other visual disturbances; R35.89 Other polyuria; D64.9 Anemia, unspecified; G25.81 Restless legs syndrome; R63.1 Polydipsia; R06.02 Shortness of breath; N17.9 Acute kidney failure, unspecified; R73.9 Hyperglycemia, unspecified; R74.01 Elevation of levels of liver transaminase levels; G40.909 Epilepsy, unspecified, not intractable, without status epilepticus; J45.909 Unspecified asthma, uncomplicated; G47.33 Obstructive sleep apnea (adult) (pediatric); Z98.51 Tubal ligation status; Z98.890 Other specified postprocedural states; Z79.82 Long term (current) use of aspirin; Z79.899 Other long term (current) drug therapy; Z86.73 Personal history of transient ischemic attack (TIA), and cerebral infarction without residual deficits; Z91.018 Allergy to other foods; Z91.09 Other allergy status, other than to drugs and biological substances
CPT/HCPCS: 36415; 36416; 71045; 76705; 80053; 80061; 80177; 80306; 82010; 83036; 83690; 84443; 84484; 85025; 93005; 96361; 96374; 96375; G0378; J0780; J1650; J1815; J2060; J7120

== ENCOUNTER 2023-10-10 11:16 | Outpatient (CLI) | payer OTHER | END 2023-10-10 11:17 | disposition home or self-care (01) | LOC: BICRAD 11:16 | PROVIDERS: ATTEND Neurological Surgery | DX: M48.02 Spinal stenosis, cervical region (principal); Z98.890 Other specified postprocedural states; M47.812 Spondylosis without myelopathy or radiculopathy, cervical region | CPT/HCPCS: 72050 ==

== ENCOUNTER 2023-10-31 17:27 | Inpatient (IN) | payer OTHER ==
[2023-10-31] MEDS ORDERED: Morphine 4 MG/ML VIAL ONE (19:08)
[2023-10-31] MEDS ORDERED: Acetaminophen/Codeine 30-300mg Tablet PO PRN ×2 (21:15)
[2023-10-31] MEDS ORDERED: Acetaminophen 325 MG TAB PO PRN (21:15)
[2023-10-31] MEDS ORDERED: Methocarbamol 500 MG TAB PO PRN (21:17)
[2023-10-31] MEDS ORDERED: tiZANidine HCl 4 MG TAB PO PRN (22:04)
[2023-10-31] MEDS: Morphine 2 MG/ML VIAL SLOW IVP PRN (23:53)
[2023-11-01] MEDS ORDERED: Ondansetron ODT 4 MG TAB PO PRN (00:52)
[2023-11-01] MEDS ORDERED: Senokot S 8.6-50 MG TAB PO PRN (00:52)
[2023-11-01] MEDS ORDERED: Ondansetron PF 4 MG/2 ML Vial IVP PRN (00:52)
[2023-11-01] MEDS ORDERED: Cyclobenzaprine 10 MG TAB PO PRN (01:05)
[2023-11-01] MEDS ORDERED: hydrALAZINE 20 MG/ML VIAL SLOW IVP PRN (01:05)
[2023-11-01] MEDS ORDERED: HYDROcodone/Acetaminophen 5/325 mg Tablet PO PRN (01:05)
[2023-11-01] MEDS ORDERED: Labetalol HCl 100 MG/20 ML VIAL SLOW IVP PRN (01:05)
[2023-11-01] MEDS ORDERED: Albuterol 200 PUFF (6.7GM INHALER) INH PRN (01:24)
[2023-11-01] MEDS ORDERED: clonazePAM 0.5 MG TAB PO PRN (01:24)
[2023-11-01] MEDS ORDERED: Non-Formulary Item 1 EACH (Insulin Aspart [Novolog] 100 UNIT/ML Vial) SQ SCH (01:30)
[2023-11-01] MEDS ORDERED: DULAGLUTIDE 1.5 MG/0.5 ML SC SCH (01:30)
[2023-11-01] MEDS ORDERED: Vancomycin (BATCH) 1.5 GM in Premix 1 BAG IVPB SCH (01:45)
[2023-11-01] MEDS: Lactated Ringer's 1,000 ML IV SCH ×3 (01:57→19:30)
[2023-11-01] MEDS ORDERED: LevoFLOXacin 750 mg/D5W 750 MG in Premix 1 BAG IVPB SCH (02:00)
[2023-11-01] MEDS ORDERED: Lidocaine 4% Patch TD PRN (02:09)
[2023-11-01 02:36] LABS: #Eosinphils 0.2 thou/uL (0.0-0.7); #Monocytes 0.9 thou/uL (0.11-0.59); #Neutrophils 7.9 thou/uL (1.40-6.50); %Basophils 0.4 % (0.0-1.0); %Lymphocytes 19.1 % (21.0-51.0); %Monocytes 8.3 % (0.0-10.0); %Neutrophils 69.6 % (42.0-75.0); Hematocrit 30.8 % (36.0-47.0); Hemoglobin 10.2 g/dL (12.0-16.0); Mean Corpuscular HGB CONC 33.1 g/dL (32.0-36.0); Mean Corpuscular Hemoglobin 26.6 pg (27.0-31.0); Mean Corpuscular Volume 80.4 fl (78.0-98.0); Mean Platelet Volume 9.8 fL (7.4-10.4); Platelet Count 321 10x3/uL (130-400); RBC Distribution Width 14.8 % (11.5-14.5); Red Blood Cell (RBC) Count 3.83 mill/uL (4.20-5.40); White Blood Cell (WBC) Count 11.3 10x3/uL (4.8-10.8)
[2023-11-01 02:59] LABS: Lactic Acid 0.8 mmol/L (0.5-2.2)
[2023-11-01 03:03] LABS: AST (SGOT) 126 U/L (5-34); Alkaline Phosphatase 126 U/L (40-110); Anion Gap 13 mmol/L (10-20); BUN (Urea Nitrogen) 17 mg/dL (9.8-20.1); Bilirubin, Total 0.4 mg/dL (0.2-1.2); Calc. Creatinine Clearance 83 mL/min (70-130); Calcium 8.5 mg/dL (7.8-10.44); Carbon Dioxide 19 mmol/L (22-29); Chloride 104 mmol/L (98-107); Estimated GFR 73; Globulin 4.5 g/dL (2.4-3.5); Glucose 214 mg/dL (70-105); Potassium 4.4 mmol/L (3.5-5.1); Protein, Total 7.5 g/dL (6.0-8.3); Sodium 132 mmol/L (136-145)
[2023-11-01 03:04] LABS: ALT (SGPT) 166 U/L (8-55)
[2023-11-01 03:24] LABS: HBSAg Index 0.26 S/CO (0-0.99); Hep B Surf Ag Non-Reactive S/CO (NonReactive); Hep C IgG Ab Non-Reactive S/CO (NonReactive); Hep C Index 0.11 S/CO (0-0.79)
[2023-11-01 03:25] LABS: Hep A IgM AB Non-Reactive S/CO (NonReactive)
[2023-11-01 03:26] LABS: HBCM Index 0.07 S/CO (0-0.79); Hepatitis B Core IgM Abs Non-Reactive S/CO (NonReactive)
[2023-11-01 03:27] LABS: HIV (1/2) Antibody/Antigen Non-Reactive (NonReactive); HIV 1/2 INDEX 0.16 S/CO (<1.00)
[2023-11-01] MEDS ORDERED: Glucagon 1 MG/ML KIT IM PRN (04:29)
[2023-11-01] MEDS ORDERED: Dextrose 5% in Water 1,000 ML IV PRN (04:29)
[2023-11-01] MEDS ORDERED: Dextrose 50% Abboject 50 ML SYRINGE SLOW IVP PRN (04:29)
[2023-11-01] MEDS: Gabapentin 300 MG CAP PO SCH ×3 (04:54→16:51)
[2023-11-01] MEDS: Morphine 2 MG/ML VIAL SLOW IVP PRN ×3 (04:58→14:25)
[2023-11-01] MEDS: HumaLOG 300 UNITS/3 ML VIAL SC PRN ×2 (05:43→22:02)
[2023-11-01] MEDS: Ferrous Sulfate 325 MG TAB PO SCH ×2 (08:29→16:51)
[2023-11-01] MEDS: Benztropine 1 MG TAB PO SCH (08:31)
[2023-11-01] MEDS: Fluticasone Propionate Nasal Spray 16 gm Bottle NASAL SCH ×2 (08:33→21:49)
[2023-11-01] MEDS: Hydrochlorothiazide 25 MG TAB PO SCH ×2 (08:34→21:53)
[2023-11-01] MEDS: Insulin Glargine 30 UNITS/0.3 ML VIAL SC SCH ×2 (08:37→10:49)
[2023-11-01] MEDS: levETIRAcetam 500 MG TAB PO SCH ×2 (08:39→21:50)
[2023-11-01] MEDS: Loratadine 10 MG TAB PO SCH (08:40)
[2023-11-01] MEDS: Lisinopril 20 MG TAB PO SCH ×2 (08:40→21:50)
[2023-11-01] MEDS: Oxybutynin 5 MG TAB PO SCH ×2 (08:40→21:54)
[2023-11-01] MEDS: Propranolol 40 MG TAB PO SCH ×2 (08:42→22:16)
[2023-11-01] MEDS ORDERED: Clopidogrel Bisulfate 75 MG TAB PO SCH (09:00)
[2023-11-01] MEDS ORDERED: Rosuvastatin 20 MG TAB PO SCH (09:00)
[2023-11-01] MEDS ORDERED: Aspirin 81 mg Enteric Coated Tablet PO SCH (09:00)
[2023-11-01] MEDS ORDERED: Famotidine 20 MG TAB PO SCH (09:00)
[2023-11-01 11:09] LABS: Syphilis Antibody Nonreactive (Nonreactive)
[2023-11-01] MEDS ORDERED: Lidocaine 1% w/Epinephrine 1:100K 20 ML VIAL ONE (12:32)
[2023-11-01] MEDS ORDERED: Sodium Bicarbonate 2.5 MEQ/5 ML VIAL ONE (12:32)
[2023-11-01] MEDS ORDERED: Vancomycin 1 GM in Premix 1 BAG IVPB SCH (14:00)
[2023-11-01] MEDS ORDERED: Transdermal Patch Removal TOP PRN (14:11)
[2023-11-01 15:06] LABS: Body Fluid Source Abscess Fluid
[2023-11-01 15:07] LABS: BF Color Gray; Clarity Cloudy/Turbid (Clear)
[2023-11-01 15:49] LABS: Cell Count Non Hematic 5 %; Lymphocytes 1 %
[2023-11-01] MEDS: Vancomycin 1 GM in Premix 1 BAG IVPB SCH (17:04)
[2023-11-01 17:05] LABS: Chlam.trachomatis by PCR,Urine Not Detected (NotDetected); GC N.gonorrhoeae PCR,UrineVOID Not Detected (NotDetected)
[2023-11-01 20:15] LABS: INR-International Normal Ratio 1.2; Prothrombin Time 16.1 sec (12.0-14.7)
[2023-11-01 20:16] LABS: PTT 33.9 sec (22.9-36.1)
[2023-11-01] MEDS: traZODone HCl 150 MG TAB PO SCH ×2 (21:00→21:54)
[2023-11-01] MEDS ORDERED: Prazosin HCl 1 MG CAP PO SCH (21:00)
[2023-11-01] MEDS ORDERED: Amlodipine 5 MG TAB PO SCH (21:00)
[2023-11-01] MEDS: Lurasidone 20 MG TABLET PO SCH (21:52)
[2023-11-01] MEDS: metroNIDAZOLE 500 MG TAB PO SCH (21:53)
[2023-11-01] MEDS: Cefepime 2 GM in Sodium Chloride 0.9% 100 ML IVPB SCH (21:55)
[2023-11-02] MEDS: Gabapentin 300 MG CAP PO SCH ×4 (02:20→17:54)
[2023-11-02] MEDS ORDERED: Naloxone HCl 0.4 mg/ml Vial ONE (02:53)
[2023-11-02] MEDS: Naloxone HCl 0.4 mg/ml Vial IV PRN ×2 (03:00→03:21)
[2023-11-02] MEDS ORDERED: Naloxone HCl 0.4 mg/ml Vial IV PRN (03:01)
[2023-11-02] MEDS ORDERED: Lactated Ringer's 1,000 ML IV SCH ×2 (03:15→04:00)
[2023-11-02 03:18] LABS: #Eosinphils 0.1 thou/uL (0.0-0.7); #Monocytes 0.8 thou/uL (0.11-0.59); #Neutrophils 5.4 thou/uL (1.40-6.50); %Basophils 0.3 % (0.0-1.0); %Eosinophils 1.6 % (0.0-10.0); %Lymphocytes 25.8 % (21.0-51.0); %Monocytes 8.8 % (0.0-10.0); %Neutrophils 62.9 % (42.0-75.0); Hematocrit 27.3 % (36.0-47.0); Mean Corpuscular Hemoglobin 26.2 pg (27.0-31.0); Mean Corpuscular Volume 79.4 fl (78.0-98.0); Mean Platelet Volume 9.6 fL (7.4-10.4); Platelet Count 292 10x3/uL (130-400); Red Blood Cell (RBC) Count 3.44 mill/uL (4.20-5.40); White Blood Cell (WBC) Count 8.6 10x3/uL (4.8-10.8)
[2023-11-02 03:58] LABS: ALT (SGPT) 129 U/L (8-55); AST (SGOT) 95 U/L (5-34); Albumin 2.8 g/dL (3.5-5.0); Alkaline Phosphatase 123 U/L (40-110); Anion Gap 11 mmol/L (10-20); BUN (Urea Nitrogen) 23 mg/dL (9.8-20.1); Bilirubin, Total 0.6 mg/dL (0.2-1.2); Calc. Creatinine Clearance 48 mL/min (70-130); Calcium 8.2 mg/dL (7.8-10.44); Carbon Dioxide 20 mmol/L (22-29); Chloride 105 mmol/L (98-107); Estimated GFR 38; Glucose 167 mg/dL (70-105); Potassium 4.1 mmol/L (3.5-5.1); Protein, Total 6.8 g/dL (6.0-8.3); Sodium 132 mmol/L (136-145)
[2023-11-02] MEDS: Vancomycin 1 GM in Premix 1 BAG IVPB SCH ×2 (05:51→15:51)
[2023-11-02] MEDS: Cefepime 2 GM in Sodium Chloride 0.9% 100 ML IVPB SCH ×2 (08:16→22:05)
[2023-11-02] MEDS: metroNIDAZOLE 500 MG TAB PO SCH ×2 (09:29→22:05)
[2023-11-02] MEDS: Ferrous Sulfate 325 MG TAB PO SCH ×2 (09:29→15:50)
[2023-11-02] MEDS: Benztropine 1 MG TAB PO SCH (09:29)
[2023-11-02] MEDS: Fluticasone Propionate Nasal Spray 16 gm Bottle NASAL SCH ×2 (09:29→22:04)
[2023-11-02] MEDS: Oxybutynin 5 MG TAB PO SCH ×2 (09:29→22:05)
[2023-11-02] MEDS: levETIRAcetam 500 MG TAB PO SCH ×2 (09:29→22:05)
[2023-11-02] MEDS: Insulin Glargine 30 UNITS/0.3 ML VIAL SC SCH (09:29)
[2023-11-02] MEDS: Loratadine 10 MG TAB PO SCH (09:29)
[2023-11-02] MEDS ORDERED: PROPOFOL 20 ML ONE (11:30)
[2023-11-02] MEDS ORDERED: fentaNYL PF 100 MCG/2 ML SYRINGE ONE (11:56)
[2023-11-02] MEDS ORDERED: PHENYLEPHRINE-NS 100 MCG/ML 10 ML SYRINGE ONE ×2 (11:56→12:27)
[2023-11-02] MEDS ORDERED: Midazolam HCl 2 mg/2 ml Vial ONE (11:56)
[2023-11-02] MEDS ORDERED: ePHEDrine Sulfate 50 MG/10 ML VIAL ONE (11:56)
[2023-11-02] MEDS ORDERED: Lidocaine 1% PF 5 ML VIAL ONE ×2 (11:56→12:27)
[2023-11-02] MEDS ORDERED: Rocuronium Bromide 10 MG/ML (10ML VIAL) ONE ×2 (11:56→12:27)
[2023-11-02] MEDS ORDERED: Vancomycin 1 GM VIAL ONE (12:15)
[2023-11-02] MEDS ORDERED: Bupivacaine 0.25% HCL 30 ML VIAL ONE (12:15)
[2023-11-02] MEDS ORDERED: Gentamicin 80 MG/2 ML VIAL ONE (12:15)
[2023-11-02] MEDS ORDERED: Bupivacaine PF 0.5% 30 ML VIAL ONE (12:16)
[2023-11-02] MEDS ORDERED: Thrombin 5000 UNITS/5 ML VIAL ONE (12:16)
[2023-11-02] MEDS ORDERED: Dexamethasone 20 MG/5 ML VIAL ONE (12:27)
[2023-11-02] MEDS ORDERED: PROPOFOL 200 MG/20 ML VIAL ONE (12:27)
[2023-11-02] MEDS ORDERED: Glycopyrrolate 0.2 MG/ML 5 ML SYRINGE ONE ×2 (12:27→12:46)
[2023-11-02] MEDS ORDERED: NEOSTIGMINE 3 MG/3 ML SYR 3 MG/3 ML SYRINGE ONE ×2 (12:27→12:46)
[2023-11-02] MEDS ORDERED: Ondansetron PF 4 MG/2 ML Vial ONE ×2 (12:27→12:46)
[2023-11-02] MEDS ORDERED: Dexamethasone 4 mg/ml Vial ONE (12:46)
[2023-11-02] MEDS ORDERED: HYDROcodone/Acetaminophen 5/325 mg Tablet PO PRN ×2 (13:19→18:01)
[2023-11-02] MEDS ORDERED: Morphine 2 MG/ML VIAL SLOW IVP PRN (13:20)
[2023-11-02] MEDS ORDERED: Ondansetron HCl/PF 4 MG/2 ML Vial IVP PRN (13:42)
[2023-11-02] MEDS ORDERED: Promethazine HCl 25 MG/ML VIAL IM PRN (13:42)
[2023-11-02] MEDS ORDERED: fentaNYL 50 mcg/mL 1 mL Vial ONE ×2 (13:43→14:11)
[2023-11-02] MEDS ORDERED: Iopamidol-370 76% 500 ML MDV (1 ML CHARGE) ONE (14:24)
[2023-11-02] MEDS ORDERED: Amlodipine 5 MG TAB PO SCH (15:00)
[2023-11-02] MEDS ORDERED: Lisinopril 20 MG TAB PO SCH (15:01)
[2023-11-02 15:48] LABS: Amphetamine Not Detected (NotDetected); Barbiturates Screen Not Detected (NotDetected); Benzodiazepine Screen Not Detected (NotDetected); Cocaine Metabolite Screen Not Detected (NotDetected); Methadone Not Detected (NotDetected); Methamphetamine Not Detected (NotDetected); Opiate Screen Detected (NotDetected); Oxycodone Screen Not Detected (NotDetected); Phencyclidine (PCP) Not Detected (NotDetected); THC/Cannabinoid Screen Not Detected (NotDetected); Tricyclic Screen Not Detected (NotDetected)
[2023-11-02 16:23] LABS: Vancomycin, Trough 20.4 ug/mL
[2023-11-02] MEDS: tiZANidine HCl 4 MG TAB PO PRN (19:38)
[2023-11-02] MEDS: Acetaminophen 325 MG TAB PO PRN (19:39)
[2023-11-02] MEDS: Lisinopril 20 MG TAB PO SCH (22:04)
[2023-11-02] MEDS: Lurasidone 20 MG TABLET PO SCH (22:04)
[2023-11-02] MEDS: HumaLOG 300 UNITS/3 ML VIAL SC PRN (22:40)
[2023-11-03] MEDS: Gabapentin 300 MG CAP PO SCH ×3 (02:13→17:34)
[2023-11-03] MEDS: Vancomycin HCl 500 MG in Sodium Chloride 0.9% 100 ML IVPB SCH ×2 (04:25→19:28)
[2023-11-03] MEDS: HumaLOG 300 UNITS/3 ML VIAL SC PRN ×3 (05:36→16:46)
[2023-11-03] MEDS: Amlodipine 5 MG TAB PO SCH (08:51)
[2023-11-03] MEDS: Lisinopril 20 MG TAB PO SCH ×2 (08:51→20:40)
[2023-11-03] MEDS: levETIRAcetam 500 MG TAB PO SCH ×2 (08:51→20:35)
[2023-11-03] MEDS: Ferrous Sulfate 325 MG TAB PO SCH ×2 (08:51→17:34)
[2023-11-03] MEDS: Loratadine 10 MG TAB PO SCH (08:51)
[2023-11-03] MEDS: metroNIDAZOLE 500 MG TAB PO SCH ×2 (08:51→20:35)
[2023-11-03] MEDS: Oxybutynin 5 MG TAB PO SCH ×2 (08:51→20:35)
[2023-11-03] MEDS: Benztropine 1 MG TAB PO SCH (08:51)
[2023-11-03] MEDS: Fluticasone Propionate Nasal Spray 16 gm Bottle NASAL SCH ×2 (08:52→20:40)
[2023-11-03] MEDS: Insulin Glargine 30 UNITS/0.3 ML VIAL SC SCH (08:52)
[2023-11-03 16:45] LABS: Vancomycin, Trough 22.9 ug/mL
[2023-11-03 17:26] LABS: #Eosinphils 0.1 thou/uL (0.0-0.7); #Monocytes 0.7 thou/uL (0.11-0.59); #Neutrophils 8.6 thou/uL (1.40-6.50); %Basophils 0.3 % (0.0-1.0); %Eosinophils 0.5 % (0.0-10.0); %Lymphocytes 14.9 % (21.0-51.0); %Monocytes 5.8 % (0.0-10.0); %Neutrophils 77.4 % (42.0-75.0); Hematocrit 29.5 % (36.0-47.0); Hemoglobin 9.8 g/dL (12.0-16.0); Mean Corpuscular HGB CONC 33.2 g/dL (32.0-36.0); Mean Corpuscular Hemoglobin 26.1 pg (27.0-31.0); Mean Corpuscular Volume 78.5 fl (78.0-98.0); Mean Platelet Volume 10.1 fL (7.4-10.4); Platelet Count 301 10x3/uL (130-400); RBC Distribution Width 14.6 % (11.5-14.5); Red Blood Cell (RBC) Count 3.76 mill/uL (4.20-5.40); White Blood Cell (WBC) Count 11.2 10x3/uL (4.8-10.8)
[2023-11-03 17:50] LABS: ALT (SGPT) 83 U/L (8-55); AST (SGOT) 36 U/L (5-34); Albumin 2.8 g/dL (3.5-5.0); Alkaline Phosphatase 118 U/L (40-110); Anion Gap 12 mmol/L (10-20); BUN (Urea Nitrogen) 27 mg/dL (9.8-20.1); Bilirubin, Total 0.4 mg/dL (0.2-1.2); Calc. Creatinine Clearance 68 mL/min (70-130); Calcium 8.5 mg/dL (7.8-10.44); Carbon Dioxide 21 mmol/L (22-29); Chloride 103 mmol/L (98-107); Estimated GFR 53; Globulin 3.9 g/dL (2.4-3.5); Glucose 321 mg/dL (70-105); Potassium 4.7 mmol/L (3.5-5.1); Protein, Total 6.7 g/dL (6.0-8.3); Sodium 131 mmol/L (136-145)
[2023-11-03] MEDS: Lurasidone 20 MG TABLET PO SCH (20:34)
[2023-11-03] MEDS: Acetaminophen 325 MG TAB PO PRN (20:36)
[2023-11-04] MEDS: HumaLOG 300 UNITS/3 ML VIAL SC PRN ×4 (00:30→17:31)
[2023-11-04] MEDS: Gabapentin 300 MG CAP PO SCH ×3 (02:20→17:27)
[2023-11-04 04:18] LABS: #Eosinphils 0.3 thou/uL (0.0-0.7); #Monocytes 0.7 thou/uL (0.11-0.59); #Neutrophils 7.9 thou/uL (1.40-6.50); %Basophils 0.3 % (0.0-1.0); %Eosinophils 2.6 % (0.0-10.0); %Lymphocytes 20.3 % (21.0-51.0); %Neutrophils 69.7 % (42.0-75.0); Hematocrit 27.2 % (36.0-47.0); Hemoglobin 8.8 g/dL (12.0-16.0); Mean Corpuscular HGB CONC 32.4 g/dL (32.0-36.0); Mean Corpuscular Hemoglobin 26.2 pg (27.0-31.0); Mean Platelet Volume 10.2 fL (7.4-10.4); Platelet Count 299 10x3/uL (130-400); RBC Distribution Width 14.8 % (11.5-14.5); Red Blood Cell (RBC) Count 3.36 mill/uL (4.20-5.40); White Blood Cell (WBC) Count 11.3 10x3/uL (4.8-10.8)
[2023-11-04 04:41] LABS: ALT (SGPT) 64 U/L (8-55); AST (SGOT) 29 U/L (5-34); Albumin 2.6 g/dL (3.5-5.0); Alkaline Phosphatase 111 U/L (40-110); Anion Gap 11 mmol/L (10-20); BUN (Urea Nitrogen) 35 mg/dL (9.8-20.1); Bilirubin, Total 0.3 mg/dL (0.2-1.2); Calc. Creatinine Clearance 53 mL/min (70-130); Calcium 7.9 mg/dL (7.8-10.44); Carbon Dioxide 19 mmol/L (22-29); Chloride 102 mmol/L (98-107); Estimated GFR 39; Globulin 3.5 g/dL (2.4-3.5); Glucose 283 mg/dL (70-105); Potassium 4.3 mmol/L (3.5-5.1); Protein, Total 6.1 g/dL (6.0-8.3); Sodium 128 mmol/L (136-145)
[2023-11-04] MEDS ORDERED: Polyethylene Glycol 3350 17 GM Packet PO PRN (08:04)
[2023-11-04] MEDS: metroNIDAZOLE 500 MG TAB PO SCH ×2 (10:05→20:34)
[2023-11-04] MEDS: Lisinopril 20 MG TAB PO SCH ×2 (10:05→20:34)
[2023-11-04] MEDS: Fluticasone Propionate Nasal Spray 16 gm Bottle NASAL SCH ×2 (10:05→20:27)
[2023-11-04] MEDS: Benztropine 1 MG TAB PO SCH (10:06)
[2023-11-04] MEDS: Ferrous Sulfate 325 MG TAB PO SCH ×2 (10:06→17:30)
[2023-11-04] MEDS: Amlodipine 5 MG TAB PO SCH (10:06)
[2023-11-04] MEDS: levETIRAcetam 500 MG TAB PO SCH ×2 (10:06→20:34)
[2023-11-04] MEDS: Loratadine 10 MG TAB PO SCH (10:07)
[2023-11-04] MEDS: Oxybutynin 5 MG TAB PO SCH ×2 (10:07→20:34)
[2023-11-04] MEDS: Insulin Glargine 30 UNITS/0.3 ML VIAL SC SCH (10:35)
[2023-11-04] MEDS: Vancomycin HCl 500 MG in Sodium Chloride 0.9% 100 ML IVPB SCH ×2 (10:59→20:17)
[2023-11-04] MEDS: RIMEGEPANT SULFATE 75 MG PO SCH ×3 (14:05→14:07)
[2023-11-04 19:20] LABS: Creatinine, Urine 46.43 mg/dL (47-110)
[2023-11-04 19:36] LABS: Vancomycin, Trough 24.7 ug/mL
[2023-11-04] MEDS: Lurasidone 20 MG TABLET PO SCH (20:33)
[2023-11-05] MEDS: Gabapentin 300 MG CAP PO SCH ×3 (01:57→17:15)
[2023-11-05] MEDS ORDERED: Lactated Ringer's 1,000 ML IV SCH (07:45)
[2023-11-05] MEDS: Oxybutynin 5 MG TAB PO SCH (08:30)
[2023-11-05] MEDS: Ferrous Sulfate 325 MG TAB PO SCH ×2 (08:30→16:57)
[2023-11-05] MEDS: Benztropine 1 MG TAB PO SCH (08:30)
[2023-11-05] MEDS: Loratadine 10 MG TAB PO SCH (08:30)
[2023-11-05] MEDS: levETIRAcetam 500 MG TAB PO SCH ×2 (08:30→20:55)
[2023-11-05] MEDS: Fluticasone Propionate Nasal Spray 16 gm Bottle NASAL SCH ×2 (08:31→20:54)
[2023-11-05] MEDS: metroNIDAZOLE 500 MG TAB PO SCH ×2 (08:31→20:55)
[2023-11-05] MEDS: Amlodipine 5 MG TAB PO SCH (08:31)
[2023-11-05] MEDS: Lisinopril 20 MG TAB PO SCH ×2 (08:32→20:51)
[2023-11-05 08:34] LABS: #Basophils 0.1 thou/uL (0.0-0.2); #Eosinphils 0.3 thou/uL (0.0-0.7); #Monocytes 0.8 thou/uL (0.11-0.59); #Neutrophils 7.7 thou/uL (1.40-6.50); %Basophils 0.5 % (0.0-1.0); %Eosinophils 2.3 % (0.0-10.0); %Lymphocytes 26.5 % (21.0-51.0); %Monocytes 6.7 % (0.0-10.0); Hematocrit 30.3 % (36.0-47.0); Hemoglobin 9.7 g/dL (12.0-16.0); Mean Corpuscular Volume 81.2 fl (78.0-98.0); Mean Platelet Volume 9.8 fL (7.4-10.4); Platelet Count 371 10x3/uL (130-400); RBC Distribution Width 15.2 % (11.5-14.5); Red Blood Cell (RBC) Count 3.73 mill/uL (4.20-5.40); White Blood Cell (WBC) Count 12.5 10x3/uL (4.8-10.8)
[2023-11-05] MEDS ORDERED: Vancomycin 1 GM in Premix 1 BAG IVPB SCH (09:00)
[2023-11-05 09:12] LABS: ALT (SGPT) 60 U/L (8-55); AST (SGOT) 50 U/L (5-34); Albumin 2.8 g/dL (3.5-5.0); Alkaline Phosphatase 110 U/L (40-110); Anion Gap 12 mmol/L (10-20); BUN (Urea Nitrogen) 42 mg/dL (9.8-20.1); Bilirubin, Total 0.4 mg/dL (0.2-1.2); Calc. Creatinine Clearance 36 mL/min (70-130); Calcium 8.1 mg/dL (7.8-10.44); Carbon Dioxide 22 mmol/L (22-29); Chloride 103 mmol/L (98-107); Estimated GFR 23; Globulin 3.9 g/dL (2.4-3.5); Glucose 144 mg/dL (70-105); Potassium 4.6 mmol/L (3.5-5.1); Protein, Total 6.7 g/dL (6.0-8.3); Sodium 132 mmol/L (136-145)
[2023-11-05] MEDS ORDERED: Vancomycin Dose by Levels Sliding Scale (Wt 71-99) FS SCH (10:45)
[2023-11-05] MEDS: Acetaminophen 325 MG TAB PO SCH ×2 (12:22→17:10)
[2023-11-05] MEDS: HYDROcodone/Acetaminophen 5/325 mg Tablet PO PRN (12:22)
[2023-11-05] MEDS: Insulin Glargine 30 UNITS/0.3 ML VIAL SC SCH (12:23)
[2023-11-05 15:14] LABS: Anion Gap 12 mmol/L (10-20); BUN (Urea Nitrogen) 44 mg/dL (9.8-20.1); Calc. Creatinine Clearance 39 mL/min (70-130); Carbon Dioxide 19 mmol/L (22-29); Chloride 102 mmol/L (98-107); Estimated GFR 26; Glucose 198 mg/dL (70-105); Potassium 4.4 mmol/L (3.5-5.1); Sodium 129 mmol/L (136-145)
[2023-11-05 17:08] LABS: Bacteria/HPF 2+ HPF (None Seen); Bilirubin Negative (Negative); Blood, Urine 1+ (Negative); Clarity Turbid (Clear); Glucose, Urine (Dipstick) 150 mg/dL (Negative); Ketone, Urine Negative (Negative); Leukocyte 500 Leu/uL (Negative); Nitrite Negative (Negative); Protein, Urine (Dipstick) 10 mg/dL (Neg-Trace); Specific Gravity, Urine 1.006 (1.002-1.036); Urobilinogen Normal mg/dL (Less than 2); WBC/HPF Greater than 50 HPF (0-3); pH, Urine 5.5 (5.0-9.0)
[2023-11-05] MEDS: Lurasidone 20 MG TABLET PO SCH (20:55)
[2023-11-06] MEDS: Acetaminophen 325 MG TAB PO SCH ×5 (01:26→23:26)
[2023-11-06] MEDS: Gabapentin 300 MG CAP PO SCH ×3 (02:11→18:49)
[2023-11-06 07:07] LABS: Hematocrit 27.9 % (36.0-47.0); Hemoglobin 9.2 g/dL (12.0-16.0); Mean Corpuscular Volume 78.8 fl (78.0-98.0); Red Blood Cell (RBC) Count 3.54 mill/uL (4.20-5.40); White Blood Cell (WBC) Count 9.9 10x3/uL (4.8-10.8)
[2023-11-06 07:08] LABS: #Basophils 0.1 thou/uL (0.0-0.2); #Eosinphils 0.3 thou/uL (0.0-0.7); #Monocytes 0.8 thou/uL (0.11-0.59); #Neutrophils 5.3 thou/uL (1.40-6.50); %Basophils 0.7 % (0.0-1.0); %Eosinophils 3.3 % (0.0-10.0); %Monocytes 7.8 % (0.0-10.0); %Neutrophils 53.8 % (42.0-75.0); Platelet Count 319 10x3/uL (130-400); RBC Distribution Width 15.2 % (11.5-14.5)
[2023-11-06 07:37] LABS: ALT (SGPT) 45 U/L (8-55); AST (SGOT) 39 U/L (5-34); Albumin 2.7 g/dL (3.5-5.0); Alkaline Phosphatase 95 U/L (40-110); Anion Gap 10 mmol/L (10-20); BUN (Urea Nitrogen) 36 mg/dL (9.8-20.1); Bilirubin, Total 0.3 mg/dL (0.2-1.2); Calc. Creatinine Clearance 57 mL/min (70-130); Calcium 8.4 mg/dL (7.8-10.44); Carbon Dioxide 23 mmol/L (22-29); Chloride 107 mmol/L (98-107); Estimated GFR 42; Globulin 3.5 g/dL (2.4-3.5); Glucose 93 mg/dL (70-105); Potassium 4.3 mmol/L (3.5-5.1); Protein, Total 6.2 g/dL (6.0-8.3); Sodium 136 mmol/L (136-145)
[2023-11-06] MEDS ORDERED: Lactated Ringer's 1,000 ML IV SCH (08:30)
[2023-11-06] MEDS: Benztropine 1 MG TAB PO SCH (09:17)
[2023-11-06] MEDS: HYDROcodone/Acetaminophen 5/325 mg Tablet PO PRN (09:18)
[2023-11-06] MEDS: Loratadine 10 MG TAB PO SCH (09:19)
[2023-11-06] MEDS: Amlodipine 5 MG TAB PO SCH (09:19)
[2023-11-06] MEDS: metroNIDAZOLE 500 MG TAB PO SCH ×2 (09:19→21:09)
[2023-11-06] MEDS: levETIRAcetam 500 MG TAB PO SCH ×2 (09:19→21:09)
[2023-11-06] MEDS: Ferrous Sulfate 325 MG TAB PO SCH ×2 (09:20→17:12)
[2023-11-06] MEDS: Lisinopril 20 MG TAB PO SCH ×2 (09:20→21:09)
[2023-11-06] MEDS: Insulin Glargine 30 UNITS/0.3 ML VIAL SC SCH (09:20)
[2023-11-06] MEDS: Fluticasone Propionate Nasal Spray 16 gm Bottle NASAL SCH ×2 (09:22→21:09)
[2023-11-06 09:58] LABS: Vancomycin, Trough 23.4 ug/mL
[2023-11-06 11:56] LABS: Bacteria/HPF 2+ HPF (None Seen); Bilirubin Negative (Negative); Blood, Urine Negative (Negative); CAUTI Indications for Culture Alt mental st,lethar; Clarity Clear (Clear); Glucose, Urine (Dipstick) Normal (Negative); Ketone, Urine Negative (Negative); Leukocyte 500 Leu/uL (Negative); Nitrite Negative (Negative); Protein, Urine (Dipstick) Negative (Neg-Trace); RBC/HPF 0-3 HPF (0-3); Squamous Epithelial None Seen HPF (0-3); Urobilinogen Normal mg/dL (Less than 2)
[2023-11-06 11:57] LABS: Urine Culture Reflex Yes Yes
[2023-11-06] MEDS: HumaLOG 300 UNITS/3 ML VIAL SC PRN (17:12)
[2023-11-06] MEDS: Lurasidone 20 MG TABLET PO SCH (21:09)
[2023-11-07] MEDS: Gabapentin 300 MG CAP PO SCH ×3 (01:26→17:24)
[2023-11-07 06:09] LABS: #Basophils 0.1 thou/uL (0.0-0.2); #Eosinphils 0.3 thou/uL (0.0-0.7); #Monocytes 0.8 thou/uL (0.11-0.59); #Neutrophils 5.2 thou/uL (1.40-6.50); %Basophils 0.6 % (0.0-1.0); %Eosinophils 3.6 % (0.0-10.0); %Lymphocytes 26.5 % (21.0-51.0); %Monocytes 8.6 % (0.0-10.0); %Neutrophils 57.9 % (42.0-75.0); Hematocrit 29.4 % (36.0-47.0); Hemoglobin 9.7 g/dL (12.0-16.0); Mean Corpuscular Hemoglobin 26.1 pg (27.0-31.0); Mean Corpuscular Volume 79.2 fl (78.0-98.0); Mean Platelet Volume 9.8 fL (7.4-10.4); Platelet Count 332 10x3/uL (130-400); RBC Distribution Width 15.4 % (11.5-14.5); Red Blood Cell (RBC) Count 3.71 mill/uL (4.20-5.40); White Blood Cell (WBC) Count 8.9 10x3/uL (4.8-10.8)
[2023-11-07] MEDS: Acetaminophen 325 MG TAB PO SCH ×3 (06:18→17:19)
[2023-11-07 06:29] LABS: Vancomycin, Random 15.5 ug/mL (See Comment)
[2023-11-07 06:32] LABS: ALT (SGPT) 42 U/L (8-55); AST (SGOT) 41 U/L (5-34); Albumin 2.9 g/dL (3.5-5.0); Alkaline Phosphatase 105 U/L (40-110); Anion Gap 12 mmol/L (10-20); BUN (Urea Nitrogen) 18 mg/dL (9.8-20.1); Bilirubin, Total 0.3 mg/dL (0.2-1.2); Calc. Creatinine Clearance 89 mL/min (70-130); Calcium 8.7 mg/dL (7.8-10.44); Carbon Dioxide 24 mmol/L (22-29); Chloride 109 mmol/L (98-107); Estimated GFR 71; Glucose 90 mg/dL (70-105); Potassium 4.5 mmol/L (3.5-5.1); Protein, Total 6.9 g/dL (6.0-8.3); Sodium 140 mmol/L (136-145)
[2023-11-07] MEDS: Vancomycin HCl 750 MG in Sodium Chloride 0.9% 250 ML 250 ML IVPB SCH (07:52)
[2023-11-07] MEDS: Insulin Glargine 30 UNITS/0.3 ML VIAL SC SCH (07:54)
[2023-11-07] MEDS: Amlodipine 5 MG TAB PO SCH (07:56)
[2023-11-07] MEDS: Ferrous Sulfate 325 MG TAB PO SCH ×2 (07:56→17:20)
[2023-11-07] MEDS: metroNIDAZOLE 500 MG TAB PO SCH ×2 (07:57→20:40)
[2023-11-07] MEDS: Benztropine 1 MG TAB PO SCH (07:57)
[2023-11-07] MEDS: levETIRAcetam 500 MG TAB PO SCH ×2 (07:57→20:40)
[2023-11-07] MEDS: Lisinopril 20 MG TAB PO SCH ×2 (07:58→20:39)
[2023-11-07] MEDS: Loratadine 10 MG TAB PO SCH (07:58)
[2023-11-07] MEDS: Fluticasone Propionate Nasal Spray 16 gm Bottle NASAL SCH ×2 (07:58→20:38)
[2023-11-07] MEDS ORDERED: Amlodipine 5 MG TAB PO SCH (11:45)
[2023-11-07] MEDS ORDERED: Polyethylene Glycol 3350 17 GM Packet PO SCH (11:45)
[2023-11-07] MEDS: Lurasidone 20 MG TABLET PO SCH (20:39)
[2023-11-07] MEDS: Senokot S 8.6-50 MG TAB PO SCH (20:39)
[2023-11-07] MEDS: HumaLOG 300 UNITS/3 ML VIAL SC PRN (20:40)
[2023-11-08] MEDS: Acetaminophen 325 MG TAB PO SCH ×3 (00:06→13:29)
[2023-11-08] MEDS: tiZANidine HCl 4 MG TAB PO PRN (00:08)
[2023-11-08] MEDS: HYDROcodone/Acetaminophen 5/325 mg Tablet PO PRN (01:10)
[2023-11-08] MEDS: Gabapentin 300 MG CAP PO SCH ×2 (02:01→10:00)
[2023-11-08 05:49] LABS: #Basophils 0.1 thou/uL (0.0-0.2); #Eosinphils 0.3 thou/uL (0.0-0.7); #Monocytes 0.9 thou/uL (0.11-0.59); #Neutrophils 5.5 thou/uL (1.40-6.50); %Basophils 0.6 % (0.0-1.0); %Eosinophils 2.7 % (0.0-10.0); %Lymphocytes 26.9 % (21.0-51.0); %Monocytes 9.6 % (0.0-10.0); %Neutrophils 57.5 % (42.0-75.0); Hematocrit 28.4 % (36.0-47.0); Hemoglobin 9.2 g/dL (12.0-16.0); Mean Corpuscular HGB CONC 32.4 g/dL (32.0-36.0); Mean Corpuscular Hemoglobin 25.7 pg (27.0-31.0); Mean Corpuscular Volume 79.3 fl (78.0-98.0); Mean Platelet Volume 9.7 fL (7.4-10.4); Platelet Count 306 10x3/uL (130-400); RBC Distribution Width 15.6 % (11.5-14.5); Red Blood Cell (RBC) Count 3.58 mill/uL (4.20-5.40); White Blood Cell (WBC) Count 9.5 10x3/uL (4.8-10.8)
[2023-11-08 06:17] LABS: ALT (SGPT) 34 U/L (8-55); AST (SGOT) 31 U/L (5-34); Alkaline Phosphatase 96 U/L (40-110); Anion Gap 11 mmol/L (10-20); BUN (Urea Nitrogen) 13 mg/dL (9.8-20.1); Bilirubin, Total 0.3 mg/dL (0.2-1.2); Calc. Creatinine Clearance 92 mL/min (70-130); Calcium 8.6 mg/dL (7.8-10.44); Carbon Dioxide 24 mmol/L (22-29); Chloride 106 mmol/L (98-107); Estimated GFR 74; Globulin 3.8 g/dL (2.4-3.5); Glucose 164 mg/dL (70-105); Potassium 4.9 mmol/L (3.5-5.1); Protein, Total 6.8 g/dL (6.0-8.3); Sodium 136 mmol/L (136-145)
[2023-11-08] MEDS ORDERED: Amlodipine 5 MG TAB PO SCH (09:00)
[2023-11-08] MEDS: Loratadine 10 MG TAB PO SCH (09:58)
[2023-11-08] MEDS: Lisinopril 20 MG TAB PO SCH (09:59)
[2023-11-08] MEDS: Benztropine 1 MG TAB PO SCH (09:59)
[2023-11-08] MEDS: levETIRAcetam 500 MG TAB PO SCH (09:59)
[2023-11-08] MEDS: metroNIDAZOLE 500 MG TAB PO SCH (09:59)
[2023-11-08] MEDS: Ferrous Sulfate 325 MG TAB PO SCH (09:59)
[2023-11-08] MEDS: Fluticasone Propionate Nasal Spray 16 gm Bottle NASAL SCH (10:00)
[2023-11-08] MEDS: Senokot S 8.6-50 MG TAB PO SCH (10:00)
[2023-11-08] MEDS: Insulin Glargine 30 UNITS/0.3 ML VIAL SC SCH (10:01)
[2023-11-08] MEDS: Vancomycin HCl 750 MG in Sodium Chloride 0.9% 250 ML 250 ML IVPB SCH (10:04)
[2023-11-08 14:02] VITALS: BMI 29.2
[2023-11-08 16:02] VITALS: BP 134/91; TEMP 98.4
== END 2023-11-08 16:45 | disposition home or self-care (01) | DRG 872 ==
LOC: ERS 17:27 → MSONC 23:40 → IMCU/EMU 11-02 03:53 → T4-A 11-04 14:01
PROVIDERS: ADMIT Student in an Organized Health Care Education/Training Program; ATTEND Student in an Organized Health Care Education/Training Program
PROC: 0J953ZX Drainage of Left Neck Subcutaneous Tissue and Fascia, Percutaneous Approach, Diagnostic (ICD-10-PCS; principal; 2023-11-01)
PROC: 0J943ZX Drainage of Right Neck Subcutaneous Tissue and Fascia, Percutaneous Approach, Diagnostic (ICD-10-PCS; 2023-11-01)
PROC: 02HV33Z Insertion of Infusion Device into Superior Vena Cava, Percutaneous Approach (ICD-10-PCS; 2023-11-04)
PROC: B5181ZA Fluoroscopy of Superior Vena Cava using Low Osmolar Contrast, Guidance (ICD-10-PCS; 2023-11-04)
PROC: 3E03329 Introduction of Other Anti-infective into Peripheral Vein, Percutaneous Approach (ICD-10-PCS; 2023-11-04)
DX: A41.02 Sepsis due to Methicillin resistant Staphylococcus aureus (principal); E87.20 Acidosis, unspecified; M46.22 Osteomyelitis of vertebra, cervical region; N39.0 Urinary tract infection, site not specified; N17.9 Acute kidney failure, unspecified; M46.52 Other infective spondylopathies, cervical region; I10 Essential (primary) hypertension; E78.5 Hyperlipidemia, unspecified; J45.909 Unspecified asthma, uncomplicated; E11.40 Type 2 diabetes mellitus with diabetic neuropathy, unspecified; A59.9 Trichomoniasis, unspecified; R74.01 Elevation of levels of liver transaminase levels; R80.9 Proteinuria, unspecified; B95.62 Methicillin resistant Staphylococcus aureus infection as the cause of diseases classified elsewhere; F31.9 Bipolar disorder, unspecified; F41.9 Anxiety disorder, unspecified; M19.90 Unspecified osteoarthritis, unspecified site; R60.0 Localized edema; K59.00 Constipation, unspecified; Z96.611 Presence of right artificial shoulder joint; Z96.612 Presence of left artificial shoulder joint; Z98.890 Other specified postprocedural states; Z98.1 Arthrodesis status; Z91.018 Allergy to other foods; Z82.49 Family history of ischemic heart disease and other diseases of the circulatory system; Z98.51 Tubal ligation status; Z83.3 Family history of diabetes mellitus; Z86.73 Personal history of transient ischemic attack (TIA), and cerebral infarction without residual deficits
CPT/HCPCS: 36415; 36416; 36569; 70450; 70496; 70498; 76942; 80053; 80074; 80202; 80306; 81001; 82010; 82570; 83605; 84145; 84156; 84300; 85025; 85060; 85610; 85730; 86140; 86780; 87040; 87070; 87077; 87086; 87102; 87116; 87149; 87186; 87205; 87206; 87252; 87389; 87491; 87591; 89051; 93005; 93010; 93306; 96374; C1751; J0692; J1100; J1580; J1815; J1956; J2250; J2270; J2272; J2310; J2405; J2704; J3010; J3370; J3370-JW; J3490; J7050; J7120; Q9967; S0020

== ENCOUNTER 2024-05-20 16:42 | Emergency (ER) | payer OTHER ==
[2024-05-20 18:08] LABS: #Basophils 0.04 10x3/uL (0.0-0.2); %Basophils 0.5 % (0.0-1.0); %Eosinophils 3.2 % (0.0-10.0); %Lymphocytes 43.1 % (21.0-51.0); %Monocytes 7.8 % (0.0-10.0); %Neutrophils 45.1 % (42.0-75.0); Hematocrit 32.1 % (36.0-47.0); Mean Corpuscular HGB CONC 34.3 g/dL (32.0-36.0); Mean Corpuscular Hemoglobin 28.8 pg (27.0-31.0); Mean Platelet Volume 10.6 fL (7.4-10.4); Platelet Count 277 10x3/uL (130-400); RBC Distribution Width 12.5 % (11.5-14.5); Red Blood Cell (RBC) Count 3.82 mill/uL (4.20-5.40)
[2024-05-20 18:31] LABS: ALT (SGPT) 16 U/L (8-55); AST (SGOT) 15 U/L (5-34); Albumin 4.1 g/dL (3.5-5.0); Alkaline Phosphatase 90 U/L (40-110); Anion Gap 15 mmol/L (10-20); BUN (Urea Nitrogen) 33 mg/dL (9.8-20.1); Bilirubin, Total 0.3 mg/dL (0.2-1.2); Calc. Creatinine Clearance 0 mL/min (70-130); Calcium 9.4 mg/dL (7.8-10.44); Carbon Dioxide 20 mmol/L (22-29); Chloride 106 mmol/L (98-107); Estimated GFR 52; Globulin 3.8 g/dL (2.4-3.5); Glucose 196 mg/dL (70-105); Potassium 5.3 mmol/L (3.5-5.1); Protein, Total 7.9 g/dL (6.0-8.3); Sodium 136 mmol/L (136-145)
[2024-05-20 19:01] LABS: Troponin I Less than 0.010 ng/mL (< 0.028)
== END 2024-05-20 20:13 | disposition home or self-care (01) ==
LOC: ERS 16:42
DX: E87.5 Hyperkalemia (principal); R07.89 Other chest pain; E11.22 Type 2 diabetes mellitus with diabetic chronic kidney disease; I12.9 Hypertensive chronic kidney disease with stage 1 through stage 4 chronic kidney disease, or unspecified chronic kidney disease; N18.9 Chronic kidney disease, unspecified
CPT/HCPCS: 36415; 71045; 80053; 84484; 85025; 93005

== ENCOUNTER 2024-07-16 08:22 | Emergency (ER) | payer OTHER ==
[~2024-07-16 08:22] MED LIST changes: -Iopamidol-370 76% 500 ML 1 ML ONE; +Iopamidol-370 76% 500 ML MDV (1 ML CHARGE) ONE
[2024-07-16 08:48] LABS: #Basophils 0.04 10x3/uL (0.0-0.2); %Basophils 0.5 % (0.0-1.0); %Eosinophils 6.3 % (0.0-10.0); %Lymphocytes 39.1 % (21.0-51.0); %Monocytes 6.8 % (0.0-10.0); %Neutrophils 46.6 % (42.0-75.0); Hematocrit 34.9 % (36.0-47.0); Hemoglobin 11.8 g/dL (12.0-16.0); Mean Corpuscular HGB CONC 33.8 g/dL (32.0-36.0); Mean Corpuscular Hemoglobin 28.9 pg (27.0-31.0); Mean Corpuscular Volume 85.5 fL (78.0-98.0); Mean Platelet Volume 10.7 fL (7.4-10.4); Platelet Count 282 10x3/uL (130-400); RBC Distribution Width 12.6 % (11.5-14.5); Red Blood Cell (RBC) Count 4.08 mill/uL (4.20-5.40)
[2024-07-16 09:06] LABS: ALT (SGPT) 14 U/L (8-55); AST (SGOT) 17 U/L (5-34); Alkaline Phosphatase 100 U/L (40-110); Anion Gap 14 mmol/L (10-20); BUN (Urea Nitrogen) 12 mg/dL (9.8-20.1); Bilirubin, Total 0.2 mg/dL (0.2-1.2); Calc. Creatinine Clearance 0 mL/min (70-130); Calcium 9.4 mg/dL (7.8-10.44); Carbon Dioxide 20 mmol/L (22-29); Chloride 110 mmol/L (98-107); Estimated GFR 76; Globulin 3.9 g/dL (2.4-3.5); Glucose 126 mg/dL (70-105); Lipase 43 U/L (8-78); Potassium 4.3 mmol/L (3.5-5.1); Protein, Total 7.9 g/dL (6.0-8.3); Sodium 140 mmol/L (136-145)
[2024-07-16 09:09] LABS: Troponin I Less than 0.010 ng/mL (< 0.028)
[2024-07-16] MEDS ORDERED: Ondansetron PF 4 MG/2 ML Vial ONE (09:48)
[2024-07-16] MEDS ORDERED: Morphine 4 MG/ML VIAL ONE (09:48)
[2024-07-16] MEDS ORDERED: Ketorolac Tromethamine 30 MG (1 mL) VIAL ONE (11:01)
[2024-07-16] MEDS ORDERED: Cyclobenzaprine 10 MG TAB ONE (11:01)
[2024-07-16] MEDS ORDERED: hydrALAZINE 20 MG/ML VIAL ONE (11:15)
[2024-07-16 12:20] LABS: Troponin I Less than 0.010 ng/mL (< 0.028)
== END 2024-07-16 12:34 | disposition home or self-care (01) ==
LOC: ERS 08:22
DX: R07.89 Other chest pain (principal); I10 Essential (primary) hypertension; E11.40 Type 2 diabetes mellitus with diabetic neuropathy, unspecified; J45.909 Unspecified asthma, uncomplicated; Z79.4 Long term (current) use of insulin; Z79.82 Long term (current) use of aspirin; Z79.899 Other long term (current) drug therapy
CPT/HCPCS: 71045; 71275; 74174; 80053; 83690; 84484; 85025; 93005; 96374; 96375; J0360; J1885; J2272; J2405; Q9967

== ENCOUNTER 2024-09-19 04:23 | Inpatient (IN) | payer OTHER ==
[2024-09-19 04:53] LABS: Bacteria/HPF 4+ HPF (None Seen); Bilirubin Negative (Negative); Blood, Urine 3+ (Negative); CAUTI Indications for Culture Pelvic or flank pain; Clarity Turbid (Clear); Glucose, Urine (Dipstick) Greater than 1000 mg/dL (Negative); Ketone, Urine Negative (Negative); Leukocyte 250 Leu/uL (Negative); Nitrite Negative (Negative); Protein, Urine (Dipstick) 50 mg/dL (Neg-Trace); RBC/HPF Greater than 50 HPF (0-3); Specific Gravity, Urine 1.002 (1.002-1.036); Squamous Epithelial 0-3 HPF (0-3); Urobilinogen Normal mg/dL (Less than 2)
[2024-09-19 04:54] LABS: Urine Culture Reflex Yes Yes
[2024-09-19] MEDS ORDERED: Metoclopramide HCl 10 MG (2 mL) VIAL ONE (05:03)
[2024-09-19] MEDS ORDERED: diphenhydrAMINE 50 MG/ML VIAL ONE (05:03)
[2024-09-19] MEDS ORDERED: Ketorolac Tromethamine 30 MG (1 mL) VIAL ONE (05:03)
[2024-09-19 05:16] LABS: #Basophils 0.04 10x3/uL (0.0-0.2); %Basophils 0.3 % (0.0-1.0); %Eosinophils 1.9 % (0.0-10.0); %Lymphocytes 7.7 % (21.0-51.0); %Monocytes 1.1 % (0.0-10.0); %Neutrophils 88.6 % (42.0-75.0); Hematocrit 36.3 % (36.0-47.0); Hemoglobin 12.1 g/dL (12.0-16.0); Mean Corpuscular HGB CONC 33.3 g/dL (32.0-36.0); Mean Corpuscular Hemoglobin 28.5 pg (27.0-31.0); Mean Corpuscular Volume 85.6 fL (78.0-98.0); Platelet Count 225 10x3/uL (130-400); RBC Distribution Width 12.2 % (11.5-14.5); Red Blood Cell (RBC) Count 4.24 mill/uL (4.20-5.40)
[2024-09-19 05:34] LABS: ALT (SGPT) 41 U/L (8-55); AST (SGOT) 37 U/L (5-34); Albumin 4.1 g/dL (3.5-5.0); Alkaline Phosphatase 133 U/L (40-110); Anion Gap 19 mmol/L (10-20); BUN (Urea Nitrogen) 24 mg/dL (9.8-20.1); Bilirubin, Total 0.4 mg/dL (0.2-1.2); Calc. Creatinine Clearance 0 mL/min (70-130); Calcium 9.6 mg/dL (7.8-10.44); Carbon Dioxide 19 mmol/L (22-29); Chloride 101 mmol/L (98-107); Estimated GFR 51; Globulin 4.7 g/dL (2.4-3.5); Glucose 346 mg/dL (70-105); Lipase 60 U/L (8-78); Potassium 5.4 mmol/L (3.5-5.1); Protein, Total 8.8 g/dL (6.0-8.3); Sodium 134 mmol/L (136-145)
[2024-09-19] MEDS ORDERED: Vancomycin 1 GM/200 ML (FROZEN) BAG ONE (06:20)
[2024-09-19] MEDS ORDERED: Sodium Chloride 0.9% 100 ML ONE (06:20)
[2024-09-19] MEDS ORDERED: Cefepime 2 GM VIAL ONE (06:20)
[2024-09-19 08:11] LABS: Lactic Acid 3.24 mmol/L (0.5-2.2)
[2024-09-19 09:35] VITALS: BMI 31.2
[2024-09-19] MEDS ORDERED: Ondansetron ODT 4 MG TAB PO PRN (09:37)
[2024-09-19] MEDS ORDERED: Ketorolac Tromethamine 30 MG (1 mL) VIAL IVP PRN (09:37)
[2024-09-19] MEDS ORDERED: Ondansetron PF 4 MG/2 ML Vial IVP PRN (09:37)
[2024-09-19] MEDS ORDERED: Morphine 2 MG/ML VIAL SLOW IVP PRN (09:40)
[2024-09-19] MEDS ORDERED: Dextrose 50% Abboject 50 ML SYRINGE SLOW IVP PRN (09:40)
[2024-09-19] MEDS ORDERED: Glucagon 1 MG/ML KIT IM PRN (09:40)
[2024-09-19] MEDS ORDERED: Dextrose 5% in Water 1,000 ML IV PRN (09:40)
[2024-09-19] MEDS: Sodium Chloride 0.9% 1,000 ML IV SCH (10:35)
[2024-09-19] MEDS ORDERED: Iopamidol 370 76% 100 ML VIAL ONE (12:18)
[2024-09-19] MEDS: Insulin Lispro 100 UNIT/ML 10 ML VIAL SC PRN (13:03)
[2024-09-19] MEDS: Vancomycin (BATCH) 1.25 GM in Premix 1 BAG IVPB SCH (13:05)
[2024-09-19] MEDS: Acetaminophen 325 MG TAB PO PRN (20:33)
[2024-09-19] MEDS: Cefepime 1 GM in Sodium Chloride 0.9% 100 ML IVPB SCH (20:33)
[2024-09-19] MEDS: Insulin Glargine 30 UNITS/0.3 ML VIAL SC SCH (20:35)
[2024-09-19] MEDS ORDERED: Vancomycin 1 GM in Premix 1 BAG IVPB SCH (21:00)
[2024-09-19] MEDS ORDERED: Vancomycin HCl 750 MG in Sodium Chloride 0.9% 250 ML 250 ML IVPB SCH (21:00)
[2024-09-20] MEDS ORDERED: Nitroglycerin 0.4 MG TAB (25 Tab Bottle) SL PRN (08:26)
[2024-09-20] MEDS ORDERED: hydrALAZINE 20 MG/ML VIAL SLOW IVP PRN (08:28)
[2024-09-20] MEDS: Ferrous Sulfate 325 MG TAB PO SCH (08:54)
[2024-09-20] MEDS: Famotidine 20 MG TAB PO SCH (08:54)
[2024-09-20] MEDS: Aspirin Chewable 81 MG TAB PO SCH (08:54)
[2024-09-20] MEDS: Clopidogrel Bisulfate 75 MG TAB PO SCH (08:54)
[2024-09-20] MEDS: levETIRAcetam 500 MG TAB PO SCH (08:54)
[2024-09-20] MEDS ORDERED: Non-Formulary Item 1 EACH (Famotidine [Pepcid] 40 MG Tablet) PO SCH (09:00)
[2024-09-20] MEDS ORDERED: Non-Formulary Item 1 EACH (Ferrous Sulfate [Ferosul] 325 MG Tablet) PO SCH (09:00)
[2024-09-20] MEDS ORDERED: Enoxaparin 40 MG (0.4 mL) SYRINGE SC SCH (09:00)
[2024-09-20] MEDS ORDERED: Propranolol HCl 20 MG TAB PO SCH (09:00)
[2024-09-20] MEDS: Propranolol 40 MG TAB PO SCH (10:44)
[2024-09-20 12:43] LABS: #Basophils 0.04 10x3/uL (0.0-0.2); %Basophils 0.6 % (0.0-1.0); %Eosinophils 2.1 % (0.0-10.0); %Lymphocytes 29.3 % (21.0-51.0); %Monocytes 7.6 % (0.0-10.0); %Neutrophils 59.9 % (42.0-75.0); Hematocrit 30.4 % (36.0-47.0); Hemoglobin 9.9 g/dL (12.0-16.0); Mean Corpuscular HGB CONC 32.6 g/dL (32.0-36.0); Mean Corpuscular Hemoglobin 28.1 pg (27.0-31.0); Mean Corpuscular Volume 86.4 fL (78.0-98.0); Mean Platelet Volume 10.8 fL (7.4-10.4); Platelet Count 198 10x3/uL (130-400); RBC Distribution Width 12.2 % (11.5-14.5); Red Blood Cell (RBC) Count 3.52 mill/uL (4.20-5.40)
[2024-09-20 12:59] LABS: Lactic Acid 0.86 mmol/L (0.5-2.2)
[2024-09-20 13:03] LABS: Anion Gap 11 mmol/L (10-20); BUN (Urea Nitrogen) 14 mg/dL (9.8-20.1); Calc. Creatinine Clearance 85 mL/min (70-130); Calcium 8.4 mg/dL (7.8-10.44); Carbon Dioxide 18 mmol/L (22-29); Chloride 109 mmol/L (98-107); Estimated GFR 70; Glucose 161 mg/dL (70-105); Potassium 4.1 mmol/L (3.5-5.1); Sodium 134 mmol/L (136-145)
[2024-09-20 13:11] LABS: Hemoglobin A1c 10.1 % (4.0-6.0)
[2024-09-20] MEDS ORDERED: Insulin Lispro 100 UNIT/ML 10 ML VIAL SC PRN (16:15)
[2024-09-20] MEDS ORDERED: Lactated Ringer's 1,000 ML IV SCH (16:30)
[2024-09-20] MEDS: Lubiprostone 24 MCG CAP PO SCH (17:15)
[2024-09-20] MEDS: Lactated Ringer's 1,000 ML IV SCH (17:16)
[2024-09-20] MEDS: Lurasidone 20 MG TABLET PO SCH (20:12)
[2024-09-20] MEDS: Benztropine 1 MG TAB PO SCH (20:13)
[2024-09-20] MEDS: Rosuvastatin 20 MG TAB PO SCH (20:14)
[2024-09-20] MEDS: Insulin Glargine 30 UNITS/0.3 ML VIAL SC SCH (20:14)
[2024-09-20] MEDS ORDERED: Non-Formulary Item 1 EACH (Benztropine Mesylate [Benztropine Mesylate] 0.5 MG Tablet) PO SCH (21:00)
[2024-09-20] MEDS ORDERED: Lurasidone 40 MG TAB PO SCH (21:00)
[2024-09-20] MEDS ORDERED: LURASIDONE HCL 40 MG PO SCH (21:00)
[2024-09-21 11:44] LABS: #Basophils 0.04 10x3/uL (0.0-0.2); %Basophils 0.7 % (0.0-1.0); %Lymphocytes 30.8 % (21.0-51.0); %Monocytes 11.6 % (0.0-10.0); %Neutrophils 51.4 % (42.0-75.0); Hematocrit 30.9 % (36.0-47.0); Hemoglobin 10.4 g/dL (12.0-16.0); Mean Corpuscular HGB CONC 33.7 g/dL (32.0-36.0); Mean Corpuscular Volume 83.3 fL (78.0-98.0); Mean Platelet Volume 10.4 fL (7.4-10.4); Platelet Count 247 10x3/uL (130-400); Red Blood Cell (RBC) Count 3.71 mill/uL (4.20-5.40)
[2024-09-21 12:29] LABS: Anion Gap 13 mmol/L (10-20); BUN (Urea Nitrogen) 11 mg/dL (9.8-20.1); Calc. Creatinine Clearance 91 mL/min (70-130); Carbon Dioxide 21 mmol/L (22-29); Chloride 106 mmol/L (98-107); Estimated GFR 76; Glucose 190 mg/dL (70-105); Potassium 4.6 mmol/L (3.5-5.1); Sodium 135 mmol/L (136-145)
[2024-09-21] MEDS: Docusate 100 MG CAP PO SCH (20:49)
[2024-09-21] MEDS: Cefepime 2 GM in Sodium Chloride 0.9% 100 ML IVPB SCH (20:50)
[2024-09-21] MEDS: Heparin 5,000 UNITS/ML VIAL SC SCH (20:52)
[2024-09-22 14:09] VITALS: BP 155/88; TEMP 97.9
== END 2024-09-22 15:26 | disposition home or self-care (01) | DRG 872 ==
LOC: ERS 04:23 → T4-A 08:37
PROVIDERS: ADMIT Internal Medicine; ATTEND Internal Medicine
DX: A41.9 Sepsis, unspecified organism (principal); N10 Acute pyelonephritis; E87.20 Acidosis, unspecified; N17.9 Acute kidney failure, unspecified; E87.1 Hypo-osmolality and hyponatremia; J45.909 Unspecified asthma, uncomplicated; K21.9 Gastro-esophageal reflux disease without esophagitis; E78.5 Hyperlipidemia, unspecified; G62.9 Polyneuropathy, unspecified; G25.81 Restless legs syndrome; E87.5 Hyperkalemia; E11.22 Type 2 diabetes mellitus with diabetic chronic kidney disease; I12.9 Hypertensive chronic kidney disease with stage 1 through stage 4 chronic kidney disease, or unspecified chronic kidney disease; N18.30 Chronic kidney disease, stage 3 unspecified; G40.909 Epilepsy, unspecified, not intractable, without status epilepticus; R65.20 Severe sepsis without septic shock; F32.A Depression, unspecified; F41.9 Anxiety disorder, unspecified; Z86.73 Personal history of transient ischemic attack (TIA), and cerebral infarction without residual deficits; Z83.3 Family history of diabetes mellitus; Z98.890 Other specified postprocedural states; Z91.048 Other nonmedicinal substance allergy status; Z91.018 Allergy to other foods; Z79.899 Other long term (current) drug therapy
CPT/HCPCS: 36415; 36416; 71045; 74177; 80048; 80053; 81001; 83036; 83605; 83690; 85025; 87040; 87077; 87086; 87186; 93005; J0692; J1200; J1644; J1815; J1885; J2765; J3370; J3370-JW; J7030; J7120; Q9967

== ENCOUNTER 2025-05-31 08:31 | Emergency (ER) | payer OTHER ==
[2025-05-31 09:01] LABS: #Basophils 0.05 10x3/uL (0.0-0.2); #Eosinophils 0.37 10x3/uL (0.0-0.7); #Monocytes 0.66 10x3/uL (0.11-0.59); #Neutrophils 5.01 10x3/uL (1.40-6.50); %Basophils 0.6 % (0.0-1.0); %Eosinophils 4.4 % (0.0-10.0); %Lymphocytes 27.3 % (21.0-51.0); %Monocytes 7.8 % (0.0-10.0); %Neutrophils 59.3 % (42.0-75.0); Hematocrit 32.5 % (36.0-47.0); Hemoglobin 11.2 g/dL (12.0-16.0); Mean Corpuscular Hemoglobin 27.8 pg (27.0-31.0); Mean Corpuscular Volume 80.6 fL (78.0-98.0); Platelet Count 316 10x3/uL (130-400); Red Blood Cell (RBC) Count 4.03 mill/uL (4.20-5.40); White Blood Cell (WBC) Count 8.44 10x3/uL (4.8-10.8)
[2025-05-31] MEDS ORDERED: Mag-Al 1200 mg/1200 mg/30 ML UDCUP ONE (09:03)
[2025-05-31] MEDS ORDERED: Lidocaine Viscous Sol 2% 15 ml UD Cup ONE (09:03)
[2025-05-31 09:16] LABS: ALT (SGPT) 14 U/L (Less than 34); AST (SGOT) 19 U/L (11-34); Albumin 4.1 g/dL (3.1-4.5); Alkaline Phosphatase 107 U/L (40-110); Anion Gap 15 mmol/L (10-20); BUN (Urea Nitrogen) 17 mg/dL (9.8-20.1); Bilirubin, Total 0.2 mg/dL (0.3-1.2); Calc. Creatinine Clearance 0 mL/min (70-130); Calcium 9.3 mg/dL (7.8-10.44); Carbon Dioxide 21 mmol/L (22-29); Chloride 109 mmol/L (98-107); Globulin 3.7 g/dL (2.4-3.5); Glucose 160 mg/dL (70-105); Potassium 4.9 mmol/L (3.5-5.1); Sodium 140 mmol/L (136-145)
[2025-05-31 09:20] LABS: Troponin I Less than 0.010 ng/mL (< 0.028)
[2025-05-31] MEDS ORDERED: Iopamidol-370 76% 500 ML MDV (1 ML CHARGE) ONE (09:53)
[2025-05-31] MEDS ORDERED: Ondansetron PF 4 MG/2 ML Vial ONE (11:19)
[2025-05-31] MEDS ORDERED: Droperidol 5 MG/2 ML VIAL ONE (11:49)
[2025-05-31] MEDS ORDERED: Famotidine/PF 20 mg/2ml Vial ONE (11:50)
[2025-05-31 12:15] LABS: Bacteria/HPF 2+ HPF (None Seen); CAUTI Indications for Culture Pelvic or flank pain; Glucose, Urine (Dipstick) Normal (Negative); Leukocyte 500 Leu/uL (Negative); Protein, Urine (Dipstick) 30 mg/dL (Neg-Trace); Specific Gravity, Urine 1.022 (1.002-1.036); WBC/HPF Greater than 50 HPF (0-3)
[2025-05-31 12:18] LABS: Urine Culture Reflex Yes Yes
== END 2025-05-31 13:45 | disposition home or self-care (01) ==
LOC: ERS 08:31
DX: R07.9 Chest pain, unspecified (principal); N39.0 Urinary tract infection, site not specified; I10 Essential (primary) hypertension; E11.40 Type 2 diabetes mellitus with diabetic neuropathy, unspecified; Z86.73 Personal history of transient ischemic attack (TIA), and cerebral infarction without residual deficits; Z55.6 Problems related to health literacy
CPT/HCPCS: 71045; 71275; 74177; 80053; 81001; 84484; 85025; 87077; 87086; 87186; 93005; 96361; 96374; 96375; J1308; J1790; J2405; Q9967